=== PATIENT | male | born 1945 | race Caucasian/White ===

== ENCOUNTER 2016-10-31 11:58 | Inpatient (IN) ==
--- NOTE | 2016-10-31 12:45 | PROVIDER DOCUMENTATION ---
This chart was entered by Althea Merlos Scribe, acting as scribe for Deborah Macedo PA. HPI-General Adult <Brayan Glaser - Last Filed: 11/02/16 18:43> - General Source: EMS - History of Present Illness -Gen Adult Nature of Presenting Problems: Pt is 71 y/o M presents to the ED via EMS with AMS. EMS states Pt was found in chair by pet control. EMS states Pt does everything from chair. Pt states he lives alone and no one come to take care of him or to help him. Pt states the only pain he has in on his butt due to sore. Pt denies SOB or CP. Location of Pain/Injury: reports: other (buttocks) Pain Radiation: reports: no radiation Quality of Pain: reports: aching Severity: reports: mild Onset/Duration: reports: just prior to arrival Timing: reports: still present Context/Activities at Onset: reports: none Modifying Factors: improves with: nothing Associated Symptoms: reports: denies symptoms Similar Symptoms Previously?: Yes Recently seen or treated by another doctor?: No <Deborah Macedo - Last Filed: 11/02/16 19:31> - General Chief Complaint: Weakness Stated Complaint: weakness x 2 days lethargic Time Seen by Provider: 10/31/16 12:14 Allergies/Adverse Reactions: Patient Allergies Allergy/AdvReac Type Severity Reaction Status Date / Time No Known Allergies Allergy Verified 10/31/16 12:29 Home Medications: Home Medication List Medication Instructions Recorded Confirmed Last Taken Type NK [No Home Medications] 10/31/16 10/31/16 Unknown History Review of Systems - Adult - REVIEW OF SYSTEMS - ADULT Constitutional: reports: no symptoms reported Eyes: reports: no symptoms reported Ears, Nose, Mouth & Throat: reports: no symptoms reported Cardiovascular: reports: no symptoms reported Respiratory: reports: no symptoms reported Gastrointestinal: reports: no symptoms reported Genitourinary: reports: no symptoms reported Musculoskeletal: reports: no symptoms reported Integumentary: reports: no symptoms reported Neurological: reports: no symptoms reported Psychiatric: reports: no symptoms reported Endocrine: reports: no symptoms reported Hematologic/Lymphatic: reports: no symptoms reported Allergic/Immunologic: reports: no symptoms reported All Other Systems: Reviewed and Negative <Brayan Glaser - Last Filed: 11/02/16 18:43> - REVIEW OF SYSTEMS - ADULT Constitutional: reports: no symptoms reported Eyes: reports: no symptoms reported Ears, Nose, Mouth & Throat: reports: no symptoms reported Cardiovascular: reports: no symptoms reported Respiratory: reports: no symptoms reported Gastrointestinal: reports: no symptoms reported Genitourinary: reports: no symptoms reported Musculoskeletal: reports: no symptoms reported Integumentary: reports: skin sores/ulcer (to buttocks with pain). denies: hives , itching, rash Neurological: reports: other (AMS). denies: dizziness/vertigo, headache/ migraines, syncope Psychiatric: denies: anxiety, depression, suicidal thoughts Endocrine: reports: no symptoms reported Hematologic/Lymphatic: reports: no symptoms reported Allergic/Immunologic: reports: no symptoms reported All Other Systems: Reviewed and Negative <Deborah Macedo - Last Filed: 11/02/16 19:31> Past History - Adult - PAST MEDICAL HISTORY-ADULT Review of Records: reports: Nursing Assessment Review, Medications Reviewed <Brayan Glaser - Last Filed: 11/02/16 18:43> - PAST MEDICAL HISTORY-ADULT Review of Records: reports: Old Records Reviewed, Nursing Assessment Review, Medications Reviewed Major Childhood Illnesses: reports: denies history Cardiovascular: reports: denies history Respiratory: reports: denies history Gastrointestinal: reports: denies history Obstetrical/Gynecological: reports: denies history Genitourinary: reports: denies history Musculoskeletal: reports: denies history Neurological: reports: denies history Endocrine/Immune: reports: denies history Other Conditions: reports: denies history - PRIOR SURGERIES/PROCEDURES Surgical/Procedure History: reports: reviewed, not pertinent - IMMUNIZATION STATUS Childhood Immunizations: See Nurse Assessment Flu Vaccine: See Nurse Assessment - FAMILY HISTORY Family History: reviewed, not pertinent - SOCIAL HISTORY Smoking: quit greater than 1 year, cigarettes Substance Use: denies Living Situation: alone <Deborah Macedo - Last Filed: 11/02/16 19:31> Physical Exam-General - PHYSICAL EXAM-ADULT Initial Vital Signs Reviewed: Yes - CONSTITUTIONAL General Appearance: alert, mild distress, slow to respond, other (temporal wasting). negative: appears well (ill in appearance) - EYES Eyes: PERRL/EOMI, pink conjunctivae - HEAD, EARS, NOSE, MOUTH & THROAT HENMT: normocephalic/atraumatic, normal ENT inspection. negative: moist mucous membranes (dry) - NECK Neck: supple, normal inspection - RESPIRATORY Respiratory: chest non-tender, lungs clear, normal breath sounds - CARDIOVASCULAR Cardiovascular: normal peripheral pulses, tachycardia - GASTROINTESTINAL (ABDOMEN) Abdominal Exam: normal bowel sounds, non tender, soft - LYMPHATIC Lymphatic: no adenopathy - MUSCULOSKELETAL Back Exam: normal inspection, no CVA tenderness, no vertebral tenderness Extremity: normal range of motion, non-tender - SKIN Integumentary: normal color, normal turgor, warm/dry, decubitus (stage 2 to 3 ulcer on buttocks) - NEUROLOGIC Neurologic: grossly normal - PSYCHIATRIC Psych/Mental Status: normal mood/affect, oriented x 3 <Deborah Macedo - Last Filed: 11/02/16 19:31> Progress - PLAN OF CARE/RESULTS Progress/Plan/Lab Results: 10/31/16 14:50 Urine Culture - Final Urine,Catheterized Escherichia Coli Orders Category Date Time Status Admit Patient To Inpatient Status Routine AdmDCTranf 10/31/16 17:43 Ordered Cardiac Monitoring DIRECTED Care 10/31/16 12:18 Completed Finger Stick Blood Sugar (ED) DIRECTED Care 10/31/16 12:18 Completed Lacy Cath Insertion ORDERED Care 10/31/16 14:13 Completed Intake and Output As Ordered Q 8-HR ASSESS Care 10/31/16 15:52 Active Saline Loc NOW Care 10/31/16 12:18 Completed Vital Signs Order Q 4-HR ASSESS Care 10/31/16 15:52 Active Wound Care/ET Consult DIRECTED Cons 10/31/16 18:00 Ordered CHEST-PORTABLE [RAD] Stat Exams 10/31/16 12:18 Completed HEAD W/O CONTRAST [CT] Routine Exams 10/31/16 15:59 Completed THORAX/ABDOMEN/PELVIS W/O CONT [CT] Stat Exams 10/31/16 15:50 Completed A1C HGB W EST AVG GLUCOSE [CHEM] Routine Lab 10/31/16 19:09 Completed ALCOHOL BLOOD Stat Lab 10/31/16 12:49 Completed AMMONIA [CHEM] Routine Lab 10/31/16 19:09 Completed BLOOD CULTURE [BLDCUL] Stat Lab 10/31/16 15:11 Results CBC WITH DIFF [HEME] DAILY Lab 11/01/16 06:15 Completed CBC WITH DIFF [HEME] DAILY Lab 11/02/16 07:10 Completed CBC WITH ELECTRONIC DIFF [HEME] Stat Lab 10/31/16 12:49 Completed CK PROFILE [SP CHEM] Stat Lab 10/31/16 12:49 Completed COMPREHENSIVE METABOLIC PANEL [CHEM] Stat Lab 10/31/16 12:49 Completed D-DIMER [CHEM] Stat Lab 10/31/16 12:49 Completed FREE T4 Routine Lab 10/31/16 19:09 Completed LACTATE, PLASMA [CHEM] Stat Lab 10/31/16 15:00 Completed MAGNESIUM [CHEM] Routine Lab 10/31/16 19:09 Completed PROTIME WITH INR [COAG] Stat Lab 10/31/16 12:49 Completed PTT [COAG] Stat Lab 10/31/16 12:49 Completed RENAL PROFILE [CHEM] DAILY Lab 10/31/16 19:09 Completed SPUTUM CULTURE WITH GRAM STAIN [RM] Routine Lab 10/31/16 15:55 Uncollected TROPONIN T Stat Lab 10/31/16 12:49 Completed TSH Routine Lab 10/31/16 19:09 Completed URINALYSIS W/POSS RFLX CULT-1 [URINALYSIS] Stat Lab 10/31/16 14:50 Completed URINE CULTURE [RM] Routine Lab 10/31/16 14:50 Completed URINE DRUG SCREEN Stat Lab 10/31/16 14:50 Completed URINE MANUAL MICROSCOPIC [URINALYSIS] Stat Lab 10/31/16 14:50 Completed VITAMIN B12 Routine Lab 10/31/16 19:09 Completed VITAMIN D 25 HYDROXY Routine Lab 10/31/16 19:09 Completed 0.9% Sodium Chloride Inj [Ns] 1,000 ml Med 10/31/16 15:56 Active IV 100 mls/hr 0.9% Sodium Chloride Inj [Ns] 1,000 ml Med 10/31/16 14:02 Discontinued IV 200 mls/hr Albuterol 2.5MG/Ipratrop 0.5MG [Duoneb (A & A)] Med 10/31/16 19:30 Active 3 ml INH RTQ4H Azithromycin 500 mg/Ns [Zithromax 500 mg/Ns] Med 10/31/16 16:00 Active 500 mg in 250 ml IV Q24H CefTRIAXONE 1 GM/NS [Rocephin 1 gm/Ns] Med 10/31/16 13:52 Discontinued 1 gm in 50 ml IV NOW CefTRIAXONE 1 GM/NS [Rocephin 1 gm/Ns] Med 11/01/16 13:00 Discontinued 1 gm in 50 ml IV Q24H Diltiazem [Cardizem] Med 10/31/16 14:02 Discontinued 10 mg IV NOW ONE Pantoprazole [Protonix] Med 11/01/16 07:00 Active 40 mg IV Q24H Sodium Chloride 0.9% Med 10/31/16 16:00 Active 10 ml INJ DIRECTED Aerosol Treatments Routine Oth 10/31/16 15:57 Completed Aerosol Treatments Stat Oth 10/31/16 15:57 Completed Oxygen Device Routine Oth 10/31/16 15:55 Completed Pulse Oximetry Stat Oth 10/31/16 12:18 Completed Telemetry [OM.EQ] Routine Oth 10/31/16 15:57 Active EKG [EKG] Routine Ther 11/01/16 07:00 Completed EKG [EKG] Stat Ther 10/31/16 12:06 Draft Transfer/Admit Order [TRANSFER] Routine Transfer 10/31/16 17:44 Completed Result Diagrams: 11/02/16 07:10 11/02/16 07:10 <Brayan Glaser - Last Filed: 11/02/16 18:43> - PLAN OF CARE/RESULTS Progress/Plan/Lab Results: Orders Category Date Time Status Cardiac Monitoring DIRECTED Care 10/31/16 12:18 Active Finger Stick Blood Sugar (ED) DIRECTED Care 10/31/16 12:18 Active Saline Loc NOW Care 10/31/16 12:18 Active CHEST-PORTABLE [RAD] Stat Exams 10/31/16 12:18 Ordered ALCOHOL BLOOD Stat Lab 10/31/16 12:18 Uncollected CBC WITH ELECTRONIC DIFF [HEME] Stat Lab 10/31/16 12:18 Uncollected CK PROFILE [SP CHEM] Stat Lab 10/31/16 12:18 Uncollected COMPREHENSIVE METABOLIC PANEL [CHEM] Stat Lab 10/31/16 12:18 Uncollected LACTATE, PLASMA [CHEM] Stat Lab 10/31/16 12:18 Uncollected PROTIME WITH INR [COAG] Stat Lab 10/31/16 12:18 Uncollected PTT [COAG] Stat Lab 10/31/16 12:18 Uncollected TROPONIN T Stat Lab 10/31/16 12:18 Uncollected URINALYSIS W/POSS RFLX CULT-1 [URINALYSIS] Stat Lab 10/31/16 12:18 Uncollected URINE DRUG SCREEN Stat Lab 10/31/16 12:18 Uncollected Pulse Oximetry Stat Oth 10/31/16 12:18 Active EKG [EKG] Stat Ther 10/31/16 12:06 Ordered Result Diagrams: 11/02/16 07:10 11/02/16 07:10 - EKG 1 Time of EKG reading by physician:: 12:08 EKG Read and Signed by:: Reddy Gandara EKG Interpretation (*Must complete 3 of following elements*): Abnormal Rate: 131 Rhythm: sinus tachycardia Comments: nonspecific T wave abnormality - XRAY 1 XRAY Study: Chest Impression: Abnormal XRAY Interpretation: right effusion with atelectasis ([place]) - CHANGE OF SHIFT REPORT (ED Provider) Report Given and Care Transferred to:: Dr. Glaser Time of Transfer: 14:19 Items Pending: Labs Comment: Admit, stable <Deborah Macedo - Last Filed: 11/02/16 19:31> Departure - Departure Time of Disposition Decision: 22:16 Certified Medical Emergency: Emergent - Critical Care Note This patient required my direct & personal management of CC.: No <Brayan Glaser - Last Filed: 11/02/16 18:43> - Departure Time of Disposition Decision: 22:16 Certified Medical Emergency: Emergent - Critical Care Note This patient required my direct & personal management of CC.: No <Deborah Macedo - Last Filed: 11/02/16 19:31> - Departure DIAGNOSIS: Pneumonia Qualifiers: Pneumonia type: due to unspecified organism Laterality: right Lung location: lower lobe of lung Qualified Code(s): J18.1 - Lobar pneumonia, unspecified organism Disposition: ADMITTED INPATIENT 09 Condition: Stable Attestation - Physician/ OLAYINKA Attestation Patient care was provided by Advanced Practice Provider:: Yes Advanced Practice Provider:: Deborah Macedo Advanced Practice Provider documentation review:: The Mid-level provider documentation, treatment plan and medical decision making was reviewed by the physician who agrees with all treatment and medical decision making by the [facility]. The physician spent face to face time with patient:: Yes Advanced Practice Provider documentation review:: The physician spent face to face time with this patient and agrees with all MLP documentation, treatment, and medical decision making by the MLP. See provider notes for further information. <Deborah Macedo - Last Filed: 11/02/16 19:31> This chart was documented by the indicated scribe, (Althea Merlos Scribe) and accurately reflects the services I performed and decisions made by me, Deborah Macedo PA, as attested by the provider's signature.
--- NOTE | 2016-10-31 13:27 | EKG Report ---
Test Performed on : 10/31/2016 12:08:55 PM Test Reason : weakness Blood Pressure : / mmHG Vent. Rate : 131 BPM Atrial Rate : 131 BPM P-R Int : 128 ms QRS Dur : 066 ms QT Int : 376 ms P-R-T Axes : 000 027 264 degrees QTc Int : 555 ms Sinus tachycardia. Nonspecific T wave abnormality Abnormal ECG No previous ECGs available Unconfirmed Result
[2016-10-31 13:47] LABS: BASO% 0.2 % (0.0-0.8); HEMATOCRIT 34.7 % (42.0-52.0); HEMOGLOBIN 11.9 g/dL (14.0-18.0); IMM GRAN% 1.1 % (0.0-0.5); LYMPH# 1.22 X1000 (1.2-3.4); LYMPH% 6.8 % (20.5-51.1); MANUAL DIFF NEEDED? NO; MCH 30.7 PG (27-31); MCHC 34.3 g/dL (33-37); MCV 89.7 FL (81-99); MONO% 4.5 % (1.7-9.3); MPV 9.5 FL (7.4-10.4); NEUT% 87.4 % (42.2-75.2); PLT 166 X1000 (130-400); RBC 3.87 XMIL (4.7-6.1)
[2016-10-31 13:49] LABS: ALBUMIN 2.9 g/dL (3.5-5.0); CALCIUM 8.2 mg/dL (8.8-10.2); POTASSIUM 3.4 mmol/L (3.5-5.1); TOTAL BILIRUBIN 1.54 mg/dL (0.20-1.00); TOTAL PROTEIN 7.1 g/dL (6.3-8.3)
[2016-10-31] MEDS ORDERED: ROCEPHIN 1 GM/NS 1 GM/50 ML IVPB IV ONE (13:52)
[2016-10-31 13:54] LABS: INR 1.05; PROTIME 11.1 Seconds (9.2-11.7); PTT 25.9 Seconds (22.0-36.0)
[2016-10-31] MEDS ORDERED: CARDIZEM IV ONE (14:02)
[2016-10-31] MEDS ORDERED: NS 1,000 ML IV ONE (14:02)
[2016-10-31 15:20] LABS: URINE SOURCE CATH
[2016-10-31 15:37] LABS: BILIRUBIN URINE SMALL (NEGATIVE); BLOOD URINE MODERATE (NEGATIVE); COLOR ORANGE; GLUCOSE URINE NEGATIVE (NEGATIVE); LEUKOCYTES URINE LARGE (NEGATIVE); NITRITE URINE NEGATIVE (NEGATIVE); PH URINE 5.5; PROTEIN URINE 50 mg/dL (NEGATIVE); SP GRAVITY URINE 1.022; TURBIDITY URINE HAZY (CLEAR); UROBILINOGEN URINE 6 mg/dL (NORMAL)
--- NOTE | 2016-10-31 15:38 | Diag Imaging Result Document ---
PROCEDURE NAME: CHEST-PORTABLE - 10/31/2016 PORTABLE CHEST, TWO VIEWS: COMPARISON: No comparison films. FINDINGS: There is a [id number] sized right-sided effusion with basilar atelectasis. The left lung is well expanded and clear. The heart is not enlarged. The vessels are not distended. There are several old right rib fractures. IMPRESSION: Right pleural effusion with basilar atelectasis.
[2016-10-31 15:48] LABS: UR AMPHETAMINES QUAL NONE DETECTED (NONE DETECT); UR BARBITUATES QUAL NONE DETECTED (NONE DETECT); UR BENZODIAZEPIN QUAL NONE DETECTED (NONE DETECT); UR CANNABINOIDS QUAL NONE DETECTED (NONE DETECT); UR COCAINE QUAL NONE DETECTED (NONE DETECT); UR METHADONE QUAL NONE DETECTED (NONE DETECT); UR OPIATES QUAL NONE DETECTED (NONE DETECT); UR OXYCODONE QUAL NONE DETECTED (NONE DETECT); UR PCP QUAL NONE DETECTED (NONE DETECT)
--- NOTE | 2016-10-31 17:01 | Diag Imaging Result Document ---
PROCEDURE NAME: HEAD W/O CONTRAST - 10/31/2016 CT HEAD WITHOUT CONTRAST: FINDINGS: A dose reduction protocol was used. Compared with 11/22/2014. There are some generalized atrophic changes similar to the previous exam. There are moderate chronic microvascular ischemic changes which appear to have increased. There is no focal infarct identified, although acute infarcts may not be immediately visible. There is no evidence of hemorrhage mass effect, or midline shift. There is no skull fracture. IMPRESSION: Moderate atrophic changes and moderate chronic microvascular ischemic changes. No visible acute process. No hemorrhage or mass effect.
--- NOTE | 2016-10-31 17:19 | Diag Imaging Result Document ---
PROCEDURE NAME: THORAX/ABDOMEN/PELVIS W/O CONT - 10/31/2016 CT ABDOMEN AND PELVIS WITHOUT CONTRAST: FINDINGS: No contrast administered per request of the referring provider. A dose reduction protocol was used. No comparison exam. There are emphysematous changes. There is a medium right pleural effusion. There is a 6.2 x 3.2 cm in maximum axial dimensions opacity at the posterior inferior right lower lobe adjacent to the pleural fluid. This likely represents rounded atelectasis, although underlying consolidation/pneumonia within this cannot be excluded. There is minimal infiltrate or scarring at the posterior left lower lobe. There is no pneumothorax identified. There are nonspecific small mediastinal lymph nodes. There is an old fracture deformity of the posterior medial right 4th rib. There are no substantial abnormalities of the liver, spleen, or pancreas (other than mild pancreatic atrophic changes) identified. There is dense bile or sludge in the gallbladder. There are no densely calcified gallstones or pericholecystic inflammation identified. There is no evidence of renal stone or hydronephrosis. There are no substantially enlarged lymph nodes identified. There are atherosclerotic vascular calcifications noted. There is no evidence of bowel obstruction. There is possibly mild wall thickening along the right colon, there is no substantial inflammation of surrounding fat. The appendix shows no obvious inflammatory changes. There is no abscess identified. There is no free air or free fluid identified. Images of pelvis otherwise show some generalized thickening of the jennings of the urinary bladder with mildly hazy external margins. There are a couple of small gas bubbles in the urinary bladder lumen. These findings may relate to cystitis. There are a couple of small stones in the right posterior aspect of the urinary bladder lumen. There is apparent old fracture deformity of the left inferior pubic ramus noted. IMPRESSION: 1. Emphysematous changes. Medium right pleural effusion. Rounded atelectasis at posterior inferior right lower lobe. Underlying right lower lobe pneumonia is not excluded. 2. Dense bile or sludge in gallbladder. No densely calcified gallstones or pericholecystic inflammation seen. 3. Possible mild right colitis. No abscess. No free air. 4. Apparent urinary bladder cystitis. Small stones in the right posterior urinary bladder lumen.
[2016-10-31 17:28] LABS: URINE MICRO REVIEW NEEDED? YES
[2016-10-31 17:30] LABS: UR EPITHELIAL CELLS <10 /HPF (<10); URINE BACTERIA 3+ /HPF; URINE CULTURE NEEDED? YES; URINE RBC <10 /HPF (<10); URINE WBC TNTC /HPF (<10)
[2016-10-31 17:31] LABS: URINE CASTS NONE SEEN
[2016-10-31] MEDS: ZITHROMAX 500 MG/NS 500 MG/250 ML IVPB IV SCH (18:34)
[2016-10-31 19:36] LABS: ALBUMIN 2.3 g/dL (3.5-5.0); CALCIUM 7.5 mg/dL (8.8-10.2); HEMOGLOBIN A1C 5.2 % (4.8-6.0); POTASSIUM 3.2 mmol/L (3.5-5.1)
[2016-10-31] MEDS ORDERED: MAGNESIUM SULFATE 2 GM/S.W.I. 2 GM/50 ML IVPB IV ONE (19:55)
[2016-10-31 20:00] LABS: FREE T4 0.8 ng/dL (0.93-1.70)
[2016-10-31] MEDS: NS 1,000 ML IV SCH (22:29)
[2016-10-31] MEDS: LIBRIUM PO SCH (22:32)
--- NOTE | 2016-10-31 22:40 | HISTORY AND PHYSICAL ---
PRIMARY CARE PHYSICIAN: None. CHIEF COMPLAINT: Confusion and decreased mobility over several months. HISTORY OF PRESENT ILLNESS: Mr. Daniel is a 71-year-old male with a history of alcohol abuse and tobacco dependence, who was brought to the ER by family because the patient was noted to be confused and unable to walk by the pest control soumya. The patient was found by the geophysical data technician this morning sitting in a chair and unable to get up or get to the bathroom. The patient states that he has not been very hungry, and has lost a lot a weight over the last 8 months. The patient is unable to walk as per the patient's son. The patient does complain of soreness in his left buttocks, where there appears to be a small ulceration. The patient denies having any fever, but does complain of a productive cough, with white sputum. The patient reports that he does drink a pint of [place] whiskey every day, and he smokes a pack of cigarettes every day, and has been doing this since the age of 15. In the ER, the patient was noted to have a white count of 17,000, and was tachycardic, with a heart rate in the 120s. A chest x-ray was done that showed a right pleural effusion, as well as a right-sided pneumonia. PAST MEDICAL HISTORY: 1. Alcohol dependence. 2. Tobacco dependence. PAST SURGICAL HISTORY: None. FAMILY HISTORY: Noncontributory due to age. SOCIAL HISTORY: The patient currently lives alone at home. The patient smokes 1 pack of cigarettes a day, and has been doing this since the age of 15. The patient also drinks 1 pint of [place] Mist whiskey daily. ALLERGIES: No known drug allergies. HOME MEDICATIONS: None. REVIEW OF SYSTEMS: All other review of systems are negative. Please refer to the history of present illness for pertinent positives and negatives. PHYSICAL EXAMINATION: VITAL SIGNS: Temperature 98.2 degrees, blood pressure 130/73, heart rate 129, respiratory rate 18, O2 saturation 99% on room air. GENERAL: This is a chronically ill-appearing, elderly male, lying on the stretcher in no acute distress. SKIN: Poor skin turgor. The patient does have a skin tear on the left buttocks. HEAD: Normocephalic, atraumatic. NECK: Supple. No JVD. No lymphadenopathy. HEART: S1, S2 normal, tachycardic. LUNGS: Coarse breath sounds bilaterally. Equal area entry bilaterally. ABDOMEN: Positive bowel sounds. Soft, nontender, nondistended. EXTREMITIES: No edema. No cyanosis. No calf tenderness. NEUROLOGIC: The patient is alert and oriented x3. He is able to move all 4 extremities. LABORATORY STUDIES: White blood cell count 17.9, hemoglobin 11.9, hematocrit 34.7, platelets 166,000. Sodium 132 potassium 3.2, chloride 92, CO2 25, BUN 30, creatinine 1.2 , glucose 154. Calcium 7.5, magnesium 1.3. AST 14, ALT 7, alkaline phosphatase 66, ammonia 22. Troponin 0.05, albumin 2.3. Lactate 2.3. UA shows large leukocyte esterase, 3+ bacteria. Chest x-ray shows a right pleural effusion. CT of the chest, abdomen, and pelvis shows emphysema, right pleural effusion, right lower lobe pneumonia, possible right-sided colitis, and cystitis. ASSESSMENT AND PLAN: 1. Right lower lobe pneumonia, with a right pleural effusion. Will start the patient on IV antibiotic therapy, IV fluids, bronchodilator therapy, supplemental oxygen, and incentive spirometry. A sputum Gram stain culture has been ordered, as well as blood cultures. 2. Dehydration. We will start the patient on normal saline. 3. Severe protein calorie malnutrition. Will consult the dietitian and start the patient on Ensure in the meantime. 4. Leukocytosis. This is most likely secondary to underlying pneumonia and urinary tract infection. Continue on IV antibiotic therapy. 5. Urinary tract infection. IV antibiotics have been started. We will follow up on the urine culture results. 6. Hypomagnesemia. Will replace the patient's magnesium. 7. Hypokalemia. Will replace the patient's potassium. 8. Vitamin D deficiency. We will start the patient on vitamin D replacement. 9. Left buttock skin tear. Will consult wound care for further evaluation. 10. Alcohol abuse. We will start the patient on p.r.n. Ativan and monitor closely for withdrawal. Will also start Librium. 11. Tobacco dependence. We will start the patient on a NicoDerm patch. 12. Deep venous thrombosis prophylaxis. Will start the patient on Lovenox. 13. Gastrointestinal prophylaxis. Will start the patient on Protonix. The plan of care was discussed with the patient and his son at the bedside. cc: Lucy Albarran MD MTDD
[2016-10-31] MEDS: DUONEB (A & A) INH SCH ×2 (22:49)
[2016-10-31 23:10] LABS: URINE SOURCE CATH
[2016-10-31 23:13] LABS: BILIRUBIN URINE SMALL (NEGATIVE); BLOOD URINE MODERATE (NEGATIVE); COLOR ORANGE; GLUCOSE URINE NEGATIVE (NEGATIVE); LEUKOCYTES URINE LARGE (NEGATIVE); NITRITE URINE NEGATIVE (NEGATIVE); PH URINE 5.5; PROTEIN URINE 30 mg/dL (NEGATIVE); SP GRAVITY URINE 1.021; TURBIDITY URINE HAZY (CLEAR); UROBILINOGEN URINE 3 mg/dL (NORMAL)
[2016-10-31 23:17] LABS: UR EPITHELIAL CELLS <10 /HPF (<10); URINE BACTERIA NEGATIVE /HPF; URINE CULTURE NEEDED? YES; URINE MICRO REVIEW NEEDED? YES; URINE RBC 20-40 /HPF (<10); URINE WBC TNTC /HPF (<10)
[2016-10-31 23:24] LABS: URINE CASTS NONE SEEN; URINE CRYSTALS NONE SEEN; URINE SMALL ROUND CELLS NONE SEEN
[2016-11-01] MEDS: ZOSYN 3.375 GM/NS 3.375 GM/50 ML IVPB IV SCH ×4 (01:23→21:00)
[2016-11-01] MEDS: DUONEB (A & A) INH SCH (04:25)
[2016-11-01 06:28] LABS: MANUAL DIFF NEEDED? NO
[2016-11-01 06:46] LABS: BASO% 0.1 % (0.0-0.8); HEMATOCRIT 29.1 % (42.0-52.0); HEMOGLOBIN 9.8 g/dL (14.0-18.0); IMM GRAN# 0.13 X1000 (0.0-0.04); IMM GRAN% 0.9 % (0.0-0.5); LYMPH# 1.31 X1000 (1.2-3.4); LYMPH% 9.4 % (20.5-51.1); MCH 30.2 PG (27-31); MCHC 33.7 g/dL (33-37); MCV 89.8 FL (81-99); MONO# 0.83 X1000 (0.11-0.59); MONO% 5.9 % (1.7-9.3); MPV 9.6 FL (7.4-10.4); NEUT% 83.7 % (42.2-75.2); PLT 126 X1000 (130-400); RBC 3.24 XMIL (4.7-6.1)
[2016-11-01 07:07] LABS: AGAP 16; ALBUMIN 2.2 g/dL (3.5-5.0); BUN 30 mg/dL (8-22); CALCIUM 7.8 mg/dL (8.8-10.2); CHLORIDE 96 mmol/L (98-107); COSMO 280; POTASSIUM 3.2 mmol/L (3.5-5.1); SODIUM 137 mmol/L (136-145); TCO2 25 mmol/L (25-35)
--- NOTE | 2016-11-01 07:18 | EKG Report ---
Test Performed on : 11/01/2016 06:48:26 AM Test Reason : tachycardia Blood Pressure : / mmHG Vent. Rate : 099 BPM Atrial Rate : 099 BPM P-R Int : 138 ms QRS Dur : 078 ms QT Int : 378 ms P-R-T Axes : 043 009 055 degrees QTc Int : 485 ms Normal sinus rhythm. Prolonged QT Abnormal ECG When compared with ECG of 01-NOV-2016 06:48, (Unconfirmed) premature ventricular complexes. are no longer present Confirmed by Kristian ELLIS, Holland Santos ([id number]) on 11/01/2016 7:36:07 AM
[2016-11-01] MEDS ORDERED: KLOR-CON PO ONE ×2 (07:45→22:17)
[2016-11-01] MEDS: NS 1,000 ML IV SCH ×2 (10:46→14:04)
[2016-11-01] MEDS: VITAMIN D PO SCH (11:00)
[2016-11-01] MEDS: LOVENOX SUBQ SCH (11:00)
[2016-11-01] MEDS: NEUTRA-PHOS PO SCH ×4 (11:06→21:45)
[2016-11-01] MEDS: LIBRIUM PO SCH ×3 (11:08→19:28)
[2016-11-01] MEDS: PROTONIX IV SCH (11:15)
[2016-11-01] MEDS: MEGACE LIQUID PO SCH ×2 (12:14→21:41)
[2016-11-01] MEDS ORDERED: ROCEPHIN 1 GM/NS 1 GM/50 ML IVPB IV SCH (13:00)
[2016-11-01] MEDS ORDERED: IMODIUM PO PRN (13:58)
[2016-11-01] MEDS: ZITHROMAX 500 MG/NS 500 MG/250 ML IVPB IV SCH (19:27)
[2016-11-01] MEDS: VANCOCIN PO SCH (21:40)
[2016-11-01] MEDS: FLAGYL 500 MG/NS 500 MG/100 ML IVPB IV SCH (21:40)
--- NOTE | 2016-11-01 21:42 | PROGRESS NOTE ---
DATE: 11/01/2016 SUBJECTIVE: The patient is resting comfortably in bed. He has been having copious amounts of diarrhea and his stool for C. difficile came back positive today. OBJECTIVE: Vital Signs: Temperature 97.5 degrees, blood pressure 123/84. Heart rate 99, respirations 16, O2 saturations 100% on room air. General: This is an elderly, chronically ill- appearing male, lying in bed. Head: Normocephalic, atraumatic. Heart: S1, S2. Normal. Tachycardic. Lungs: Equal air entry bilaterally. Coarse breath sounds bilaterally. Abdomen: Positive bowel sounds. Soft, nontender, nondistended. Extremities: No edema. No cyanosis. No calf tenderness. Neurologic: The patient is awake and alert. LABORATORY: White blood cell count 13, hemoglobin 9.8, hematocrit 29, platelets 126,000. Sodium 137, potassium 3.2, chloride 96, CO2 25, BUN 30, creatinine 1.1, glucose 101, phosphorus 2.6, calcium 7.8, magnesium 2. Albumin 2.2. Positive for C. difficile toxin. ASSESSMENT AND PLAN: 1. Right lobe pneumonia. Continue on antibiotic therapy plus bronchodilator therapy. 2. C. difficile colitis. We will start the patient on Flagyl and vancomycin. We will also place the patient on contact isolation. We will also start the patient on lactobacillus. 3. Severe protein calorie malnutrition. We will start the patient on Megace. We will also consult the dietitian for dietary recommendations. 4. Alcohol abuse. Continue on Librium. We will also monitor the patient closely for signs of withdrawal. 5. Tobacco dependence. We will start the patient on a NicoDerm patch. 6. Vitamin D deficiency. Continue on vitamin D replacement. 7. Hypokalemia. We will replace the patient's potassium. 8. Deep vein thrombosis prophylaxis. Continue on Lovenox. 9. The plan of care was discussed with the patient's children and the patient at the bedside today. cc: Lucy Albarran MD
[2016-11-02] MEDS: VANCOCIN PO SCH ×4 (02:45→21:06)
[2016-11-02] MEDS: FLAGYL 500 MG/NS 500 MG/100 ML IVPB IV SCH ×3 (02:46→18:40)
[2016-11-02] MEDS: NS 1,000 ML IV SCH ×2 (02:46→08:28)
[2016-11-02] MEDS: ZOSYN 3.375 GM/NS 3.375 GM/50 ML IVPB IV SCH ×4 (02:46→21:07)
[2016-11-02] MEDS: PROTONIX IV SCH (06:27)
[2016-11-02 07:25] LABS: MANUAL DIFF NEEDED? NO
[2016-11-02 07:36] LABS: BASO% 0.2 % (0.0-0.8); EOS# 0.04 X1000 (0.0-0.7); EOS% 0.4 % (0.0-10.0); HEMATOCRIT 27.7 % (42.0-52.0); HEMOGLOBIN 9.2 g/dL (14.0-18.0); IMM GRAN# 0.16 X1000 (0.0-0.04); IMM GRAN% 1.7 % (0.0-0.5); LYMPH# 1.43 X1000 (1.2-3.4); LYMPH% 14.8 % (20.5-51.1); MCH 29.9 PG (27-31); MCHC 33.2 g/dL (33-37); MCV 89.9 FL (81-99); MONO# 0.56 X1000 (0.11-0.59); MONO% 5.8 % (1.7-9.3); MPV 9.6 FL (7.4-10.4); NEUT% 77.1 % (42.2-75.2); PLT 117 X1000 (130-400); RBC 3.08 XMIL (4.7-6.1)
[2016-11-02 08:05] LABS: AGAP 15; BUN 20 mg/dL (8-22); CHLORIDE 93 mmol/L (98-107); COSMO 267; POTASSIUM 3.5 mmol/L (3.5-5.1); SODIUM 131 mmol/L (136-145); TCO2 23 mmol/L (25-35)
[2016-11-02 08:12] LABS: CALCIUM 6.8 mg/dL (8.8-10.2)
[2016-11-02] MEDS: CULTURELLE PO SCH ×2 (08:28→21:06)
[2016-11-02] MEDS: LIBRIUM PO SCH ×3 (08:28→21:06)
[2016-11-02] MEDS: MEGACE LIQUID PO SCH ×2 (08:28→21:06)
[2016-11-02] MEDS: LOVENOX SUBQ SCH (11:05)
[2016-11-02] MEDS ORDERED: CALCIUM GLUCONATE 1 GM in NS 50 ML IV ONE (12:38)
--- NOTE | 2016-11-02 12:59 | PROGRESS NOTE ---
DATE: 11/02/2016 SUBJECTIVE: The patient is resting comfortably in bed. He is eating some of his breakfast however his appetite remains poor. OBJECTIVE: Vital Signs: Temperature is 98.3 degrees, blood pressure 123/89, heart rate 99, respirations 18, O2 saturations 97% on room air. General: This is an elderly chronically ill male lying in bed, in no acute distress. Head: Normocephalic atraumatic. Heart: S1, S2. Normal. Regular rate and rhythm. Lungs: Equal air entry bilaterally. No crackles. No rales. Abdomen: Positive bowel sounds. Soft, nontender, nondistended. Extremities: No edema. No cyanosis. No calf tenderness. Neurologic: The patient is alert and oriented x3. LABS: White blood cell count 9.6, hemoglobin 9.2, hematocrit 27, platelets 117,000. Sodium 131, potassium 3.5, chloride 93, CO2 23, BUN 20, creatinine 1, glucose 127. Calcium 6.8. ASSESSMENT AND PLAN: 1. Right lobe pneumonia. Continue on IV antibiotic therapy. 2. C. difficile colitis. Continue on vancomycin and Flagyl plus lactobacillus. 3. Urinary tract infection secondary to E. coli. Continue on the current antibiotic therapy. 4. Vitamin D deficiency. Continue on vitamin D replacement. 5. Tobacco dependence. Continue on the NicoDerm patch. 6. Severe protein calorie malnutrition. Continue on Megace plus dietary supplements. 7. Severe debility. Arrangements are being made for the patient to be sent to rehab once he is medically stable. 8. Hypocalcemia. Will replace the patient's calcium. 9. Alcohol abuse. Continue on Librium. 10. Deep vein thrombosis prophylaxis. Continue on Lovenox. cc: Lucy Albarran MD
[2016-11-02] MEDS: ZITHROMAX 500 MG/NS 500 MG/250 ML IVPB IV SCH (21:48)
[2016-11-03] MEDS: VANCOCIN PO SCH ×4 (02:33→21:38)
[2016-11-03] MEDS: ZOSYN 3.375 GM/NS 3.375 GM/50 ML IVPB IV SCH ×4 (02:33→21:38)
[2016-11-03] MEDS: NS 1,000 ML IV SCH ×2 (02:34→07:20)
[2016-11-03] MEDS: FLAGYL 500 MG/NS 500 MG/100 ML IVPB IV SCH ×3 (02:36→17:39)
[2016-11-03] MEDS: SODIUM CHLORIDE 0.9% INJ SCH (05:29)
[2016-11-03] MEDS: PROTONIX IV SCH ×2 (05:29→08:27)
[2016-11-03 07:10] LABS: HEMATOCRIT 27.7 % (42.0-52.0); HEMOGLOBIN 9.3 g/dL (14.0-18.0); MCH 30.3 PG (27-31); MCHC 33.6 g/dL (33-37); MCV 90.2 FL (81-99); MPV 9.4 FL (7.4-10.4); RBC 3.07 XMIL (4.7-6.1)
[2016-11-03 07:25] LABS: MAGNESIUM 1.2 mg/dL (1.5-2.7)
[2016-11-03 07:44] LABS: AGAP 12; BUN 12 mg/dL (8-22); CHLORIDE 95 mmol/L (98-107); COSMO 263; SODIUM 132 mmol/L (136-145); TCO2 25 mmol/L (25-35)
[2016-11-03] MEDS: MEGACE LIQUID PO SCH ×2 (08:28→21:37)
[2016-11-03] MEDS: CULTURELLE PO SCH ×2 (08:28→21:38)
[2016-11-03] MEDS: LIBRIUM PO SCH ×3 (08:29→17:39)
[2016-11-03] MEDS ORDERED: CALCIUM GLUCONATE 1 GM in NS 50 ML IV ONE (08:47)
[2016-11-03] MEDS ORDERED: MAGNESIUM SULFATE 2 GM/S.W.I. 2 GM/50 ML IVPB IV ONE (08:47)
[2016-11-03] MEDS ORDERED: POTASSIUM PHOSPHATE 40 MMOL in NS 250 ML IV ONE (08:47)
--- NOTE | 2016-11-03 12:35 | PROGRESS NOTE ---
DATE: 11/03/2016 SUBJECTIVE: The patient is resting in bed. He has no complaints. OBJECTIVE: Vital Signs: Temperature 97.5 degrees, blood pressure 137/82, heart rate 101, respirations 18, O2 saturation is 100% on room air. General: This is a chronically ill-appearing male, lying in bed, in no acute distress. Head: Normocephalic, atraumatic. Heart: S1, S2. Normal. Regular rate and rhythm. Lungs: Clear to auscultation bilaterally. No crackles. No rales. Abdomen: Positive bowel sounds. Soft, nontender, nondistended. Extremities: No edema. No cyanosis. No calf tenderness. Neurologic: The patient is alert and oriented x3. LABS: White blood cell count 6.6, hemoglobin 9.3, hematocrit 27, platelets 103, 000. Sodium 132, potassium 3, chloride 95, CO2 25, BUN 12, creatinine 0.9, glucose 83, calcium 7 , phosphorus 1.4, magnesium 1.2. ASSESSMENT AND PLAN: 1. Pneumonia. Continue on IV antibiotic therapy. 2. Urinary tract infection secondary to Escherichia coli. Continue on antibiotic therapy. 3. Clostridium difficile colitis. Continue on Flagyl and vancomycin. 4. Hypokalemia. Will replace the patient's potassium. 5. Hypophosphatemia. Will replace the patient's phosphorus. 6. Hypomagnesemia. Will replace the patient's magnesium. 7. Severe protein calorie malnutrition. Continue with nutritional supplements. 8. Vitamin D deficiency. Continue on vitamin D replacement. 9. Severe debility. Continue with physical therapy. 10. Deep vein thrombosis prophylaxis. Continue on Lovenox. 11. Disposition. Once the patient stops having loose stools he should be stable for transfer to rehab. Continue with physical therapy. cc: Lucy Albarran MD MTDD
[2016-11-04] MEDS: PROTONIX IV SCH ×2 (03:47→07:47)
[2016-11-04] MEDS: VANCOCIN PO SCH ×4 (03:47→22:28)
[2016-11-04] MEDS: SODIUM CHLORIDE 0.9% INJ SCH (03:47)
[2016-11-04] MEDS: ZOSYN 3.375 GM/NS 3.375 GM/50 ML IVPB IV SCH ×4 (03:47→22:07)
[2016-11-04 06:52] LABS: HEMATOCRIT 27.8 % (42.0-52.0); HEMOGLOBIN 9.6 g/dL (14.0-18.0); MCH 30.3 PG (27-31); MCHC 34.5 g/dL (33-37); MCV 87.7 FL (81-99); MPV 9.2 FL (7.4-10.4); RBC 3.17 XMIL (4.7-6.1)
[2016-11-04 07:11] LABS: MAGNESIUM 1.6 mg/dL (1.5-2.7)
[2016-11-04 07:16] LABS: AGAP 12; BUN 9 mg/dL (8-22); CALCIUM 7.2 mg/dL (8.8-10.2); CHLORIDE 97 mmol/L (98-107); COSMO 265; POTASSIUM 3.3 mmol/L (3.5-5.1); SODIUM 133 mmol/L (136-145); TCO2 24 mmol/L (25-35)
[2016-11-04] MEDS: CULTURELLE PO SCH ×2 (08:53→22:28)
[2016-11-04] MEDS: LIBRIUM PO SCH ×3 (08:53→17:04)
[2016-11-04] MEDS: MEGACE LIQUID PO SCH ×2 (08:53→22:28)
--- NOTE | 2016-11-04 08:57 | EKG Report ---
Test Performed on : 11/04/2016 08:40:09 AM Test Reason : Elevated HR Blood Pressure : / mmHG Vent. Rate : 127 BPM Atrial Rate : 127 BPM P-R Int : 116 ms QRS Dur : 064 ms QT Int : 328 ms P-R-T Axes : 067 014 052 degrees QTc Int : 476 ms Sinus tachycardia. with premature atrial complexes. Low voltage QRS Nonspecific T wave abnormality Abnormal ECG When compared with ECG of 01-NOV-2016 06:48, premature atrial complexes. are now present Nonspecific T wave abnormality now evident in Inferior leads Confirmed by Holland Townsend MD ([id number]) on 11/04/2016 9:05:18 AM
[2016-11-04] MEDS ORDERED: KLOR-CON PO ONE (09:34)
[2016-11-04] MEDS: TOPROL XL PO SCH (10:05)
[2016-11-04] MEDS: FLAGYL 500 MG/NS 500 MG/100 ML IVPB IV SCH (10:06)
[2016-11-04] MEDS ORDERED: MAGNESIUM SULFATE 2 GM/S.W.I. 2 GM/50 ML IVPB IV ONE (10:57)
[2016-11-04] MEDS ORDERED: CALCIUM GLUCONATE 1 GM in NS 50 ML IV ONE (11:33)
--- NOTE | 2016-11-04 15:37 | PROGRESS NOTE ---
DATE: 11/04/2016 SUBJECTIVE: The patient is sitting up in bed eating a biscuit. He is still having loose stools. OBJECTIVE: Vital Signs: Temperature 98.7, blood pressure 144/98, heart rate 108, respirations 20, O2 saturations 100% on room air. General: This is a chronically ill- appearing, elderly male, lying in bed, in no acute distress. Head: Normocephalic, atraumatic. Heart : S1, S2 normal. Regular rate and rhythm. Lungs: Equal air entry bilaterally. No crackles. No rales. Abdomen: Positive bowel sounds. Soft, nontender, nondistended. Extremities: No edema. No cyanosis. No calf tenderness. Neurologic: The patient is alert and oriented x3. LABS: White blood cell count 5.4, hemoglobin 9.6, hematocrit 27, platelets 103. Sodium 133, potassium 3.3, chloride 97, CO2 of 24, BUN 9, creatinine 0.9, glucose 99. Magnesium 1.6, phosphorus 3.4, calcium 7.2. ASSESSMENT AND PLAN: 1. Right lobe pneumonia. Continue on the current IV antibiotic regimen. 2. Urinary tract infection secondary to E. coli. Continue on antibiotic therapy. 3. Clostridium difficile colitis. Will switch to vancomycin only. This is day 3 of 14 days. 4. Hypokalemia. Will replace the patient's potassium. 5. Hypomagnesemia. Will replace the patient's magnesium. 6. Vitamin D deficiency. Continue on vitamin D replacement. 7. Severe debility. Continue with physical therapy. 8. Alcohol abuse. Continue on librium. 9. Tobacco dependence. Aware. 10. Deep vein thrombosis prophylaxis. Continue on Lovenox. DISPOSITION: The patient will be discharged to rehab. He is no longer having liquid stools. cc: Lucy Albarran MD MTDD
[2016-11-04] MEDS: NORVASC PO SCH (22:28)
[2016-11-05] MEDS: VANCOCIN PO SCH ×3 (02:19→17:50)
[2016-11-05] MEDS: ZOSYN 3.375 GM/NS 3.375 GM/50 ML IVPB IV SCH ×4 (02:19→22:34)
[2016-11-05] MEDS: SODIUM CHLORIDE 0.9% INJ SCH (06:31)
[2016-11-05] MEDS: PROTONIX IV SCH (06:31)
[2016-11-05 07:11] LABS: BASO% 0.7 % (0.0-0.8); EOS# 0.07 X1000 (0.0-0.7); EOS% 1.6 % (0.0-10.0); HEMATOCRIT 26.7 % (42.0-52.0); HEMOGLOBIN 9.1 g/dL (14.0-18.0); IMM GRAN# 0.14 X1000 (0.0-0.04); IMM GRAN% 3.2 % (0.0-0.5); LYMPH# 1.14 X1000 (1.2-3.4); MANUAL DIFF NEEDED? YES; MCH 29.9 PG (27-31); MCHC 34.1 g/dL (33-37); MCV 87.8 FL (81-99); MONO# 0.59 X1000 (0.11-0.59); MONO% 13.5 % (1.7-9.3); MPV 9.4 FL (7.4-10.4); PLT 98 X1000 (130-400); RBC 3.04 XMIL (4.7-6.1)
[2016-11-05 07:34] LABS: BANDS 2 % (0-1); EOS 2 % (1-10); LYMPHS 30 % (21-51); MONO 8 % (1-9)
[2016-11-05 07:40] LABS: AGAP 12; BUN 8 mg/dL (8-22); CALCIUM 7.4 mg/dL (8.8-10.2); CHLORIDE 101 mmol/L (98-107); COSMO 266; MAGNESIUM 1.8 mg/dL (1.5-2.7); SODIUM 134 mmol/L (136-145); TCO2 21 mmol/L (25-35)
[2016-11-05] MEDS: LIBRIUM PO SCH ×3 (09:31→22:35)
[2016-11-05] MEDS: CULTURELLE PO SCH ×2 (09:55→22:34)
[2016-11-05] MEDS: TOPROL XL PO SCH (09:55)
[2016-11-05] MEDS: NORVASC PO SCH ×2 (09:55→22:35)
[2016-11-05] MEDS: MEGACE LIQUID PO SCH ×2 (09:55→22:35)
[2016-11-05] MEDS ORDERED: SODIUM PHOSPHATE 40 MMOL in NS 250 ML IV ONE (11:00)
--- NOTE | 2016-11-05 12:25 | Diag Imaging Result Document ---
PROCEDURE NAME: CHEST-2 VIEWS - 11/05/2016 AP AND LATERAL RADIOGRAPH OF THE CHEST: COMPARISON: 10/31/2016. FINDINGS: Right basilar pleural effusion with adjacent atelectasis and/or infiltrate appears slightly worse than the previous study. The left lung remains clear. Cardiac silhouette is grossly unremarkable. IMPRESSION: Suggestion of slight increase in right pleural effusion with adjacent atelectasis and/or infiltrate.
--- NOTE | 2016-11-05 13:32 | PROGRESS NOTE ---
DATE: 11/05/2016 SUBJECTIVE: The patient is resting comfortably in bed. He has no complaints. He denies having any shortness of breath. The patient has only had one liquid stool. OBJECTIVE: Vital Signs: Temperature 98 degrees, blood pressure 145/92, heart rate 93, respirations 20, O2 saturations 100% on room air. General: This is an elderly male, lying in bed, in no acute distress. Head normocephalic, atraumatic. Heart: S1, S2. Normal. Regular rate and rhythm. Lungs: Clear to auscultation bilaterally. Abdomen: Positive bowel sounds. Soft, nontender, nondistended. Extremities: No edema. No cyanosis. Neurologic: The patient is awake and alert. LABORATORY DATA: White blood cell count 4.3, hemoglobin 9.1, hematocrit 26, platelets 98,000. Sodium 134, potassium 4, chloride 101, CO2 of 21. BUN 8, creatinine 0.9, glucose 92, phosphorus 2.5. ASSESSMENT AND PLAN: 1. Pneumonia. Continue on antibiotic therapy. 2. Clostridium difficile colitis. Continue on vancomycin. This is day of 14 days. 3. Vitamin D deficiency. Continue on vitamin D replacement. 4. Tobacco dependence, aware. 5. Alcohol abuse. Continue on Librium. 6. Severe debility. Continue with physical therapy. 7. Anemia of chronic disease. We will continue to monitor the patient's hemoglobin and hematocrit. DISPOSITION: The patient will be discharged to rehab once medically stable. Called left a voicemail with Brayan Daniel, the patient's son. cc: Lucy Albarran MD MTDD
[2016-11-05] MEDS: VANCOMYCIN ORAL SOLN PO SCH (22:35)
[2016-11-05 23:00] LABS: ALLEN TEST YES; BE -0.8 mmoll (-3.0-3.0); BLOOD TYPE ARTERIAL; DRAW SITE R RADIAL; METHB 1.7 % (0.0-1.5); O2(CT) 12.6 mL/dL (15.0-23.0); PCO2(98.6) 28 mmHg (35-45); PO2(98.6) 97 mmHg (60-100); SAMPLE BLOOD; SAO2 98.7 % (95.0-100.0); THB 9.2 g/dL (11.5-17.4)
[2016-11-05 23:01] LABS: MODALITY ROOM AIR
[2016-11-06] MEDS: VANCOMYCIN ORAL SOLN PO SCH ×4 (01:42→23:38)
[2016-11-06] MEDS: ZOSYN 3.375 GM/NS 3.375 GM/50 ML IVPB IV SCH ×4 (03:50→23:04)
[2016-11-06] MEDS: PROTONIX IV SCH (05:03)
[2016-11-06 07:15] LABS: MANUAL DIFF NEEDED? NO
[2016-11-06 07:21] LABS: BASO% 0.7 % (0.0-0.8); EOS# 0.05 X1000 (0.0-0.7); EOS% 1.1 % (0.0-10.0); HEMOGLOBIN 9.2 g/dL (14.0-18.0); IMM GRAN# 0.07 X1000 (0.0-0.04); IMM GRAN% 1.6 % (0.0-0.5); LYMPH# 0.85 X1000 (1.2-3.4); LYMPH% 19.1 % (20.5-51.1); MCH 29.9 PG (27-31); MCHC 34.1 g/dL (33-37); MCV 87.7 FL (81-99); MONO# 0.48 X1000 (0.11-0.59); MONO% 10.8 % (1.7-9.3); MPV 9.3 FL (7.4-10.4); NEUT% 66.7 % (42.2-75.2); PLT 113 X1000 (130-400); RBC 3.08 XMIL (4.7-6.1)
[2016-11-06 07:53] LABS: AGAP 12; BUN 8 mg/dL (8-22); CALCIUM 7.6 mg/dL (8.8-10.2); CHLORIDE 102 mmol/L (98-107); COSMO 266; IRON SATURATION 33 %; POTASSIUM 3.8 mmol/L (3.5-5.1); SODIUM 134 mmol/L (136-145); TCO2 20 mmol/L (25-35); TIBC 94 ug/dL; TOTAL IRON 31 ug/dL (53-167); UNBOUND IRON 63 ug/dL (112-346)
[2016-11-06 08:08] LABS: FERRITIN 1007 ng/mL (30-400)
[2016-11-06] MEDS: NORVASC PO SCH ×2 (09:09→23:03)
[2016-11-06] MEDS: CULTURELLE PO SCH ×2 (09:09→23:03)
[2016-11-06] MEDS: TOPROL XL PO SCH (09:09)
[2016-11-06] MEDS: MEGACE LIQUID PO SCH ×2 (09:09→23:03)
[2016-11-06] MEDS: LIBRIUM PO SCH ×2 (09:13→13:44)
[2016-11-06] MEDS: FOLIC ACID PO SCH (09:53)
--- NOTE | 2016-11-06 14:44 | Diag Imaging Result Document ---
PROCEDURE NAME: HEAD W/O CONTRAST - 11/06/2016 CT HEAD WITHOUT CONTRAST: COMPARISON: 10/31/2016. FINDINGS: There is extensive low attenuation in the periventricular and subcortical white matter bilaterally that is stable, consistent with advanced microangiopathy. There is no definite acute infarct given the limited sensitivity of CT versus MRI. There is no discrete intracranial mass, mass effect, or intracranial hemorrhage. There is stable brain atrophy. Surrounding soft tissues and bony structures are essentially unremarkable. 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 Please correlate clinically. [facility]
--- NOTE | 2016-11-06 15:41 | PROGRESS NOTE ---
DATE: 11/06/2016 SUBJECTIVE: The patient is resting comfortably in bed. He has been refusing to take his oral medications as per the nursing staff. OBJECTIVE: Vital Signs: Temperature 98 degrees, blood pressure 165/95, heart rate 100, respirations 14, O2 saturations 98% on room air. General: This is a chronically ill-appearing elderly male, lying in bed in no acute distress. Head: Normocephalic, atraumatic. Heart: S1, S2 normal, tachycardic. Lungs: Clear to auscultation bilaterally. No crackles. No rales. Abdomen: Positive bowel sounds. Soft, nontender, nondistended. Extremities: No edema. No cyanosis. The patient does have a 2+ edema involving the left arm. Neurologic : The patient is awake and alert. LABS: White blood cell count 4.4, hemoglobin 9.2, hematocrit 27, platelets 113, 000. Sodium 134, potassium 3.8, chloride 102, CO2 20, BUN 8, creatinine 1, glucose 92, calcium 7.6, iron 31, ferritin 1007, folate 4.1, vitamin B12 417. ASSESSMENT AND PLAN: 1. Pneumonia. Continue on IV antibiotic therapy plus bronchodilator therapy. 2. Clostridium difficile colitis. Continue on oral vancomycin. This is day 5 of 14 days. 3. Severe protein calorie malnutrition. The patient has not been eating well. Continue on dietary supplements. 4. Vitamin D deficiency. Continue on vitamin D replacement. 5. Thrombocytopenia. Improved. 6. Severe debility. Continue with physical therapy. 7. Alcohol abuse. Aware. 8. Anemia. The hemoglobin and hematocrit are stable. 9. Folate deficiency. Will start the patient on folic acid. 10.Generalized weakness. MRI of the brain and lumbar spine to be done tomorrow. 11. Disposition. The patient will be discharged to rehab once he is stable. The patient's son was updated on the patient's medical condition. cc: Lucy Albarran MD MTDD
[2016-11-06] MEDS: COREG PO SCH ×2 (23:03→23:39)
[2016-11-07] MEDS: CULTURELLE PO SCH ×3 (00:11→22:36)
[2016-11-07] MEDS: MEGACE LIQUID PO SCH ×3 (00:12→22:36)
[2016-11-07] MEDS: NORVASC PO SCH ×3 (00:13→22:37)
[2016-11-07] MEDS: CALMOSEPTINE OINTMENT TOP PRN (02:00)
[2016-11-07] MEDS: VANCOMYCIN ORAL SOLN PO SCH ×4 (02:00→22:35)
[2016-11-07] MEDS: ZOSYN 3.375 GM/NS 3.375 GM/50 ML IVPB IV SCH ×4 (04:33→22:24)
[2016-11-07] MEDS: MYCOSTATIN SUSP PO SCH ×5 (04:34→22:37)
[2016-11-07] MEDS: SODIUM CHLORIDE 0.9% INJ SCH (05:45)
[2016-11-07] MEDS: PROTONIX IV SCH (05:45)
[2016-11-07 07:30] LABS: MANUAL DIFF NEEDED? NO
[2016-11-07 07:40] LABS: BASO% 0.5 % (0.0-0.8); EOS# 0.04 X1000 (0.0-0.7); HEMATOCRIT 25.4 % (42.0-52.0); HEMOGLOBIN 8.4 g/dL (14.0-18.0); IMM GRAN# 0.06 X1000 (0.0-0.04); IMM GRAN% 1.4 % (0.0-0.5); LYMPH# 1.08 X1000 (1.2-3.4); LYMPH% 25.7 % (20.5-51.1); MCHC 33.1 g/dL (33-37); MCV 87.6 FL (81-99); MONO# 0.59 X1000 (0.11-0.59); NEUT% 57.4 % (42.2-75.2); PLT 102 X1000 (130-400)
[2016-11-07 07:50] LABS: AGAP 9; BUN 7 mg/dL (8-22); CALCIUM 7.7 mg/dL (8.8-10.2); CHLORIDE 100 mmol/L (98-107); COSMO 262; POTASSIUM 3.5 mmol/L (3.5-5.1); SODIUM 132 mmol/L (136-145); TCO2 23 mmol/L (25-35)
[2016-11-07 07:53] LABS: MAGNESIUM 1.6 mg/dL (1.5-2.7)
[2016-11-07] MEDS: TOPROL XL PO SCH (08:54)
[2016-11-07] MEDS: FOLIC ACID PO SCH (08:54)
[2016-11-07] MEDS: COREG PO SCH ×2 (08:54→22:35)
--- NOTE | 2016-11-07 09:14 | Diag Imaging Result Document ---
PROCEDURE NAME: CHEST-PORTABLE - 11/07/2016 PORTABLE CHEST X-RAY, 11/07/2016: COMPARISON: 11/05/2016. FINDINGS: Stable small to moderate right pleural effusion. No significant infiltrates. Heart size and pulmonary vascularity remain normal. IMPRESSION: Stable right pleural effusion. No change from prior.
[2016-11-07] MEDS: DUONEB (A & A) INH SCH ×5 (11:56→23:40)
[2016-11-07] MEDS: CLINIMIX E 4.25%-5% SOLUTION 1,000 ML IV SCH (14:55)
[2016-11-07 15:01] LABS: ALLEN TEST YES; BE 0.7 mmoll (-3.0-3.0); BLOOD TYPE ARTERIAL; DRAW SITE R RADIAL; METHB 1.5 % (0.0-1.5); O2(CT) 13.9 mL/dL (15.0-23.0); PCO2(98.6) 29 mmHg (35-45); PO2(98.6) 72 mmHg (60-100); SAMPLE BLOOD; SAO2 97.5 % (95.0-100.0); THB 10.4 g/dL (11.5-17.4); pH(98.6) 7.51 (7.35-7.45)
[2016-11-07 15:02] LABS: MODALITY ROOM AIR
--- NOTE | 2016-11-07 16:21 | PROGRESS NOTE ---
DATE: 11/07/2016 SUBJECTIVE: The patient has no focal complaints but he is pretty altered. He will respond but he kind of groans. He does not focus with his eyes. I do not know. It seems like this has been about the same mental status he has been for the last several days. Family reports before he came to the hospital, and I am not sure how I think remotely in the past he has been more alert but I think he has being getting progressively less alert even before he came to the hospital. OBJECTIVE: Blood pressure 144/88, heart rate of 82, respiratory rate 14, temperature 98.1 degrees. Cardiovascular: Regular rate and rhythm. Pulmonary: Bilateral breath sounds. Clear to auscultation. GI: Soft, nontender, nondistended. Bowel sounds are positive. LABORATORY DATA: White count 4. Hemoglobin and hematocrit of 8 and 25, platelets 102,000. CBC was basic except for a sodium of 132. PROBLEM LIST: 1. Acute encephalopathy. I do not really know what the etiology is. MRI has been ordered for today which I agree with. If that is unrevealing, I think he will need a neurology consultation. Again, his degree of hyponatremia is underwhelming for his degree of confusion and I do not think that was going on. We will check. His folate level is deficient, so we will supplement that. I do not know how well he has been absorbing foods, and he looks like he has got a chronically debilitating process. Problem List - he is doing okay. 2. Clostridium difficile colitis. He is on vancomycin. 3. Hypertension appears to be stable. DISPOSITION: Pending his above workup. I think he probably will need some long-term care or short-term care rehab if required. cc: Jeff Hernandez MD
--- NOTE | 2016-11-07 17:02 | Diag Imaging Result Document ---
PROCEDURE NAME: MRI BRAIN W/O CONTRAST - 11/07/2016 MRI OF THE BRAIN: FINDINGS: There is extensive T2 hyperintensity throughout the white matter of both hemispheres. This is associated with decreased signal intensity on the T1-weighted images indicating chronic encephalomalacia change. There is a small focus of restricted diffusion in the subcortical white matter of the right parietal lobe. No evidence of bleed or abnormal extra-axial fluid collection is present. IMPRESSION: Chronic microvascular white matter changes. Small acute or subacute lacunar infarction in the right parietal white matter. There may be a second small lacune present more caudally on the right on image 18 of the diffusion-weighted images.
--- NOTE | 2016-11-07 17:13 | Diag Imaging Result Document ---
PROCEDURE NAME: MRI LUMBAR SPINE W/O CONTRAST - 11/07/2016 MRI OF THE LUMBAR SPINE: FINDINGS: There is narrowing of the L5-S1 disk space. There is no evidence of intrathecal mass or signal abnormality. At the L1-2 level, there is no spinal or foraminal stenosis. At L2-3, there is no spinal or foraminal stenosis. At L3-4, there is mild disk bulge without spinal or foraminal stenosis. At L4-5, there is disk bulge and slight hypertrophic change in the ligamentum flavum. The foramina appear to be patent and there is no significant spinal stenosis. There is disk bulge generally at the L5-S1 level. The foramina appear to be patent and there is no evidence of significant spinal stenosis. IMPRESSION: Degenerative disk disease particularly at L5-S1.
--- NOTE | 2016-11-07 17:34 | Extremity Venous Study ---
PROCEDURE NAME: Venous U/S Left Arm - 11/06/2016 INDICATION: The patient has left arm edema. FINDINGS: The left upper extremity is imaged. The subclavian, axillary, internal jugular, brachial basilic, cephalic veins are imaged. All are compressible. The right subclavian vein is imaged for comparison purposes. INTERPRETATION: No evidence of deep or superficial venous thrombosis in the left upper extremity veins identified. cc: MD Lucy Canales MD
[2016-11-08] MEDS: CLINIMIX E 4.25%-5% SOLUTION 1,000 ML IV SCH (01:57)
[2016-11-08] MEDS: VANCOMYCIN ORAL SOLN PO SCH ×4 (02:12→22:05)
[2016-11-08] MEDS: DUONEB (A & A) INH SCH ×6 (03:20→23:08)
[2016-11-08] MEDS: ZOSYN 3.375 GM/NS 3.375 GM/50 ML IVPB IV SCH ×4 (04:15→22:08)
[2016-11-08] MEDS: PROTONIX IV SCH (05:38)
[2016-11-08] MEDS: SODIUM CHLORIDE 0.9% INJ SCH (05:38)
[2016-11-08 06:34] LABS: MANUAL DIFF NEEDED? NO
[2016-11-08 06:39] LABS: BASO% 0.2 % (0.0-0.8); EOS# 0.03 X1000 (0.0-0.7); EOS% 0.7 % (0.0-10.0); HEMATOCRIT 24.7 % (42.0-52.0); HEMOGLOBIN 8.3 g/dL (14.0-18.0); IMM GRAN# 0.04 X1000 (0.0-0.04); IMM GRAN% 0.9 % (0.0-0.5); LYMPH# 1.19 X1000 (1.2-3.4); LYMPH% 26.6 % (20.5-51.1); MCH 29.5 PG (27-31); MCHC 33.6 g/dL (33-37); MCV 87.9 FL (81-99); MONO# 0.52 X1000 (0.11-0.59); MONO% 11.6 % (1.7-9.3); MPV 8.8 FL (7.4-10.4); PLT 109 X1000 (130-400); RBC 2.81 XMIL (4.7-6.1)
[2016-11-08 07:10] LABS: AGAP 8; ALBUMIN 2.1 g/dL (3.5-5.0); ALKALINE PHOSPHATASE 62 U/L (32-122); BUN 14 mg/dL (8-22); CALCIUM 7.7 mg/dL (8.8-10.2); CHLORIDE 98 mmol/L (98-107); COSMO 261; GOT 10 U/L (10-34); GPT 7 U/L (10-44); SODIUM 129 mmol/L (136-145); TCO2 23 mmol/L (25-35); TOTAL PROTEIN 5.6 g/dL (6.3-8.3)
[2016-11-08] MEDS ORDERED: CLINIMIX E 4.25%-5% SOLUTION 1,000 ML IV SCH (08:58)
[2016-11-08] MEDS: TOPROL XL PO SCH (10:06)
[2016-11-08] MEDS: CULTURELLE PO SCH ×2 (10:06→22:07)
[2016-11-08] MEDS: VITAMIN D PO SCH (10:06)
[2016-11-08] MEDS: MEGACE LIQUID PO SCH ×2 (10:06→22:08)
[2016-11-08] MEDS: COREG PO SCH ×2 (10:07→22:07)
[2016-11-08] MEDS: NS 1,000 ML IV SCH ×2 (10:07→22:12)
[2016-11-08] MEDS: NORVASC PO SCH ×2 (10:07→22:07)
[2016-11-08] MEDS: FOLIC ACID 1 MG in NS 50 ML IV SCH (10:07)
[2016-11-08] MEDS: MYCOSTATIN SUSP PO SCH ×4 (10:07→22:08)
[2016-11-08] MEDS: CALMOSEPTINE OINTMENT TOP PRN (10:08)
--- NOTE | 2016-11-08 14:48 | PROGRESS NOTE ---
DATE: 11/08/2016 SUBJECTIVE: The patient has no focal complaints. OBJECTIVE: Vital Signs: Blood pressure 160/94, heart rate of 97, respiratory rate of 20, temperature 97.8 degrees. Cardiovascular: Regular rate and rhythm. Pulmonary: Bilateral breath sounds. Clear to auscultation. GI: Soft, nontender, nondistended. Bowel sounds are positive. Extremity exam: No clubbing or cyanosis. Lymphatic exam: No peripheral edema. Neurological exam: Nonfocal. He is a little bit more alert, attentive today, although barely answers questions, but he does track with his eyes. LABORATORY DATA: White count 4.4, hemoglobin and hematocrit 8 and 24, platelets 109. Sedimentation rate 90. Sodium 129. PROBLEM LIST: 1. Encephalopathy likely multifactorial. We will continue to monitor. He has had apparently a small stroke, possibly multiple strokes, possibly an embolic process. I am going to get a neurologic opinion. The area is such a small area of involvement, I find it difficult to attribute his change in mental status to that small area, but without other etiology we may end up having to consider that he is hyponatremic, and we will adjust that and follow. 2. Hyponatremia, syndrome of inappropriate antidiuretic hormone pattern. We will initiate normal saline and then consider Samsca once he is stabilized. 3. Clostridium difficile colitis. He is currently on vancomycin orally day four. 4. Reported pneumonia. We had a chest x-ray which showed a small to moderate right pleural effusion, no other pathology, so we will continue to monitor. Currently not on any antibiotics for that specifically. 5. Severe protein-calorie malnutrition. We will continue supplementation, hyperalimentation as tolerated. He is on an appetite stimulant. DISPOSITION: Plan is still for rehabilitation, however patient is still not responding and how well he will participate in rehabilitation at this point, so we will continue to follow and may have to consider it hospice care, palliative care if clinically not improved. cc: Jeff Hernandez MD
[2016-11-08] MEDS: ASPIRIN EC PO SCH (15:21)
[2016-11-09] MEDS: VANCOMYCIN ORAL SOLN PO SCH ×4 (02:49→20:43)
[2016-11-09] MEDS: DUONEB (A & A) INH SCH ×6 (03:06→22:33)
[2016-11-09] MEDS: ZOSYN 3.375 GM/NS 3.375 GM/50 ML IVPB IV SCH ×3 (04:20→20:44)
[2016-11-09] MEDS: PROTONIX IV SCH ×2 (05:34→20:43)
[2016-11-09] MEDS: SODIUM CHLORIDE 0.9% INJ SCH ×2 (05:34→20:43)
[2016-11-09 06:12] LABS: MANUAL DIFF NEEDED? NO
[2016-11-09 06:21] LABS: BASO% 0.5 % (0.0-0.8); EOS# 0.03 X1000 (0.0-0.7); EOS% 0.7 % (0.0-10.0); HEMATOCRIT 23.2 % (42.0-52.0); HEMOGLOBIN 7.8 g/dL (14.0-18.0); IMM GRAN# 0.02 X1000 (0.0-0.04); IMM GRAN% 0.5 % (0.0-0.5); LYMPH# 1.35 X1000 (1.2-3.4); LYMPH% 31.9 % (20.5-51.1); MCH 29.4 PG (27-31); MCHC 33.6 g/dL (33-37); MCV 87.5 FL (81-99); MONO% 11.8 % (1.7-9.3); MPV 9.6 FL (7.4-10.4); NEUT% 54.6 % (42.2-75.2); PLT 98 X1000 (130-400); RBC 2.65 XMIL (4.7-6.1)
[2016-11-09 06:25] LABS: AGAP 9; BUN 18 mg/dL (8-22); CALCIUM 7.5 mg/dL (8.8-10.2); CHLORIDE 98 mmol/L (98-107); COSMO 263; POTASSIUM 3.6 mmol/L (3.5-5.1); SODIUM 130 mmol/L (136-145); TCO2 23 mmol/L (25-35)
[2016-11-09] MEDS: ASPIRIN EC PO SCH (10:08)
[2016-11-09] MEDS: TOPROL XL PO SCH (10:08)
[2016-11-09] MEDS: MEGACE LIQUID PO SCH ×2 (10:09→20:43)
[2016-11-09] MEDS: COREG PO SCH ×2 (10:09→20:44)
[2016-11-09] MEDS: FOLIC ACID 1 MG in NS 50 ML IV SCH (10:09)
[2016-11-09] MEDS: CULTURELLE PO SCH ×2 (10:09→20:43)
[2016-11-09] MEDS: NORVASC PO SCH ×2 (10:09→20:43)
[2016-11-09] MEDS: MYCOSTATIN SUSP PO SCH ×4 (10:09→20:45)
[2016-11-09] MEDS: NS 1,000 ML IV SCH (13:09)
--- NOTE | 2016-11-09 14:13 | PROGRESS NOTE ---
DATE: 11/09/2016 OBJECTIVE: Vital Signs: Blood pressure 139/81, heart rate of 113, respiratory rate 20, temperature 98.2 degrees. Cardiovascular: Regular rate and rhythm. Pulmonary: Bilateral breath sounds. Clear to auscultation. GI: Soft, nontender, nondistended. Bowel sounds are positive. LABORATORY DATA: Sodium is up to 130, calcium 7.5, CRP 17. Hemoglobin and hematocrit 7.8 and 23.2. White count of 4. Platelets of 98,000. PROBLEM LIST: 1. Clostridium difficile colitis, which may explain his heme-positive stools. He is on vancomycin. He seems to be doing better. 2. Encephalopathy. Overall, he is steadily improving. I am not sure if this is related to hydration or just resolution to metabolic issues, but his mental status is definitely improved. He is not eating a whole bunch but that may be related to other issues, which is the next number. 3. Possible lower gastrointestinal bleed, which again may be just related to clostridium difficile colitis; however, his hemoglobin and hematocrit is steadily decreasing so we will continue to follow. 4. Hyponatremia. Appears to be doing a little bit better. I am going to give him a low dose Samsca and follow clinically. 5. Reported pneumonia. He had completed antibiotic therapy for that. 6. Severe protein-calorie malnutrition. We will continue supplementation and follow. DISPOSITION: Plan is probably at this point, since he seems to be doing better, inpatient rehab once he is stabilized. cc: Jeff Hernandez MD
--- NOTE | 2016-11-09 19:03 | Carotid Study ---
DATE: 11/08/2016 PROCEDURE: Bilateral duplex and color-flow imaging of the carotid arteries performed using a [employer] V[employer] E9 ultrasound system with a 9L-D transducer. REFERRING PHYSICIAN: Dr. Hernandez TECH: Lupe Moser RVT INDICATIONS: CVA--stroke, ICD-10 163.50. OBSERVED DATA RIGHT LEFT Brachial Blood Pressure Carotid Pulse Bruits: Carotid/Sub DIAGRAM OF ULTRASOUND IMAGING R L RIGHT INT EXT INT EXT LEFT Martin (cm/s) Martin (cm/s) Subclavian 63/0 Subclavian 51/0 CCA Proximal 65/13 CCA Proximal 79/20 CCA Distal 73/18 CCA Distal 59/14 Bulb 61/13 Bulb 61/16 ICA Proximal 55/10 ICA Proximal 41/13 ICA Mid 50/15 ICA Mid 44/14 ICA Distal 57/15 ICA Distal 67/22 ECA 48/12 ECA 60/15 Vertebral Forward flow, 31/8 Vertebral Forward flow, 27/6 ICA/CCA Ratio 0.77 ICA/CCA Ratio 0.84 % Stenosis 0 to 39% % Stenosis 0 to 39% INTERPRETATION: Mild atherosclerotic disease of the distal common and internal carotid arteries bilaterally without evidence of a hemodynamically significant lesion in either carotid system. cc: MD Jeff Ledesma MD
--- NOTE | 2016-11-09 20:02 | ECHO REPORT ---
ORDER DATE: 11/09/2016 INTERPRETING PHYSICIAN: Dr. Dubose REQUESTING PHYSICIAN: CLINICAL INDICATIONS: A 71-year-old male with stroke, alcoholic. M-MODE MEASUREMENTS: Right ventricle: 2.5 cm. Left ventricle end diastole: 2.1 cm. Left ventricle end systole: 1.4 cm. Posterior wall: 1.4 cm. Interventricular septum: 1.4 cm. Left atrium: 3.2 cm. Aortic root: 2.4 cm. SUMMARY OF 2-DIMENSIONAL IMAGING: This study is technically very limited. The best windows are some of the apical views. The left ventricular function appears to be normal. Ejection fraction estimated at 65%. No wall motion abnormality appears to be present. The right ventricle is grossly unremarkable. The mitral valve looks normal. Color flow mapping unremarkable. Pulse wave Doppler of mitral inflow is normal. Tissue Doppler of septal and lateral mitral annulus averages 7 cm per second. There is no diastolic dysfunction. The aortic valve appears to be grossly normal. Color flow mapping unremarkable. The tricuspid valve was suboptimally evaluated. Color flow mapping unremarkable. The inferior vena cava is not dilated. The pulmonic valve looks grossly normal. There is no pericardial effusion, masses or thrombi. Clinical correlation recommended. cc: MD Jeff Burnette MD
--- NOTE | 2016-11-10 01:05 | CONSULTATION ---
DATE OF CONSULTATION: 11/09/2016 REFERRING PHYSICIAN: Dr. Darinel Hernandez M.D. INDICATION FOR CONSULTATION: 1. Anemia. 2. C. difficile colitis. HISTORY OF PRESENT ILLNESS: The patient is a 71-year-old white male, who is admitted for evaluation of confusion, and decreased mobility over several months. He was noted to have a profound weight loss. He has a history of alcohol abuse and tobacco dependence , according to the chart. He was found by his data acquisition technician on the day of admission, sitting in a chair and unable to get up. The patient reports that he has had significant weight loss over the last 6 to 8 months. He describes diarrhea and failure to thrive. He was somewhat agitated during the history, which limited our exam. According to the chart, he has a son and a daughter. However, he lives alone. He drinks about a pint of Slovak mist whiskey per day. He smokes 1 pack of cigarettes, and he has apparently consumed alcohol and used tobacco since his teenage years, at age 15 years of age. Because of his weight loss, anemia and C. difficile colitis, we are asked to participate in his care. PAST MEDICAL HISTORY: 1. Alcohol dependence. 2. Tobacco dependence. PAST SURGICAL HISTORY: None. FAMILY HISTORY: Difficult to obtain. The patient was reluctant to answer questions, and became agitated with multiple questions. SOCIAL HISTORY: The patient lives alone. He only lights up when he discusses his dog, which is cocker Spaniel. He has a son and a daughter. He states that he has his children but lives alone. He smokes 1 pack per day of cigarettes since the age of 15 years of age. He is currently 71, giving him a 56 year tobacco history. He drinks 1 pint per day of Slovak mist whiskey. He denies recreational drug use. MEDICATION ALLERGIES: None. HOME MEDICATIONS: None. REVIEW OF SYSTEMS: Difficult to obtain. He does state that he thinks he has lost about 19 pounds in last few months. PHYSICAL EXAMINATION: General: On exam, he appears older than his stated age. He is cachectic, but in no acute distress. vital signs: Remarkable for a blood pressure of 169/ 95, his pulse 117, his respirations 20, with a temp of 98.7. HEENT: Remarkable for temporal muscle wasting. He has poor skin turgor. His pupils are reactive. His oropharyngeal mucosal membranes are dry. His sclerae are anicteric. His conjunctivae are slightly pale. Cardiovascular: He has a resting tachycardia with a regular rhythm. Pulmonary: Breath sounds are coarse but equal bilaterally. There is no evidence of respiratory distress. Abdominal: Reveals normoactive bowel sounds. The abdomen is soft, nontender, with no rebound or guarding. Extremities: Bilaterally are negative for cyanosis, clubbing, or edema. He does have calf atrophy consistent with his inability to walk. Neurologic: He is alert and oriented x3, is able to spontaneously move all 4 extremities. OBJECTIVE DATA: Remarkable for hemoglobin of 7.8, with hematocrit of 23.2, and white count of 4.23. He has 98,000 platelets. Sodium is 130, potassium 3.6, chloride 98, CO2 of 23, BUN 18, creatinine 0.8, with a glucose of 109. Calcium is 7.5. His CRP is elevated at 17.57. His TSH is 1.75. On 11/08/2016, his albumin was 2.1. IMPRESSION: 1. Anemia. 2. C. difficile colitis. 3. Weight loss. 4. Failure to thrive. 5. Alcohol abuse. 6. Alcohol dependence. 7. Malnutrition, moderate. RECOMMENDATION: 1. The patient is currently receiving oral vancomycin and Zosyn for treatment of his infections. I would continue his current medications. If his diarrhea persists, I would consider changing his antibiotics to Flagyl. 2. I agree with continuing the lactobacillus for his C. difficile colitis. 3. Continue Protonix 40 mg IV q.12 hours. 4. Because of his declining hemoglobin, over the last several days, it would be reasonable to perform an EGD, perhaps on Monday. He has a resting tachycardia, which will need to be corrected prior to endoscopic procedure. 5. At some point in the future, he will need a full colonoscopy. I recommend treating his acute colitis prior to endoscopic intervention, as long as he continues to improve. 6. He may need enteral feedings if his oral intake remains inadequate. 7. Additional recommendations to follow based on his clinical course. cc: Jeff Hernandez MD [facility]
[2016-11-10] MEDS: ZOSYN 3.375 GM/NS 3.375 GM/50 ML IVPB IV SCH ×4 (02:36→20:00)
[2016-11-10] MEDS: VANCOMYCIN ORAL SOLN PO SCH ×4 (02:36→20:00)
[2016-11-10] MEDS: DUONEB (A & A) INH SCH ×6 (03:45→22:45)
[2016-11-10] MEDS: NS 1,000 ML IV SCH (06:20)
[2016-11-10 07:35] LABS: HEMATOCRIT 28.6 % (42.0-52.0); HEMOGLOBIN 9.9 g/dL (14.0-18.0); MCHC 34.6 g/dL (33-37); MCV 86.7 FL (81-99); MPV 9.3 FL (7.4-10.4); RBC 3.3 XMIL (4.7-6.1)
[2016-11-10 07:43] LABS: AGAP 12; BUN 12 mg/dL (8-22); CALCIUM 7.6 mg/dL (8.8-10.2); CHLORIDE 102 mmol/L (98-107); COSMO 268; MAGNESIUM 1.7 mg/dL (1.5-2.7); POTASSIUM 3.7 mmol/L (3.5-5.1); SODIUM 134 mmol/L (136-145); TCO2 20 mmol/L (25-35)
[2016-11-10] MEDS: MEGACE LIQUID PO SCH ×2 (07:59→22:00)
[2016-11-10] MEDS: COREG PO SCH ×2 (07:59→22:00)
[2016-11-10] MEDS: CULTURELLE PO SCH ×2 (07:59→22:00)
[2016-11-10] MEDS: NORVASC PO SCH ×2 (07:59→22:00)
[2016-11-10] MEDS: ASPIRIN EC PO SCH (07:59)
[2016-11-10] MEDS: TOPROL XL PO SCH (07:59)
[2016-11-10] MEDS: PROTONIX IV SCH ×2 (08:01→20:00)
[2016-11-10] MEDS: MYCOSTATIN SUSP PO SCH ×4 (08:01→22:00)
[2016-11-10] MEDS: FOLIC ACID 1 MG in NS 50 ML IV SCH (08:50)
[2016-11-10] MEDS ORDERED: POTASSIUM PHOSPHATE 40 MEQ in NS 250 ML IV ONE (10:00)
[2016-11-10] MEDS ORDERED: TOPROL XL PO ONE (13:46)
[2016-11-10] MEDS ORDERED: TOPROL XL PO SCH (13:46)
[2016-11-10] MEDS ORDERED: COREG PO ONE (14:17)
--- NOTE | 2016-11-10 14:41 | PROGRESS NOTE ---
DATE: 11/10/2016 SUBJECTIVE: The patient is awake and alert. No major complaints. OBJECTIVE: Blood pressure 145/83, heart rate 103, respiratory rate 18, temperature 98.5 degrees.Cardiovascular: Regular rate and rhythm. Pulmonary: Bilateral breath sounds. Clear to auscultation. Gastrointestinal: Abdomen soft, nontender, nondistended. Bowel sounds are positive. LABORATORY DATA: Hemoglobin and hematocrit 9.8 and 28. White count 5. Platelets 111,000. Chemistries: Sodium 134, potassium 2.1. PROBLEM LIST: 1. Pneumonia. He is currently on empiric antibiotics, which he has completed. 2. Clostridium difficile colitis. He is on vancomycin and diarrhea appears to be overall improved. 3. Gastrointestinal bleed, which may be related to clostridium difficile colitis. Has improved with transfusion. Appreciate GI consultation. I hope we can go ahead and pursue endoscopy, at least upper, to rule out a significant bleed tomorrow. 4. Encephalopathy, likely multifactorial. He has had a recent stroke and multiple other issues. Slowly he is improving. Mental status seems more intact. He is eating and drinking. 5. Hyponatremia. He actually improved with some Samsca. We will continue to follow. May give him another dose. DISPOSITION: Again, I feel like rehab, which will likely be on Monday at this point. We will continue to follow. cc: Jeff Hernandez MD
[2016-11-10] MEDS: SODIUM CHLORIDE 0.9% INJ SCH (20:00)
[2016-11-11] MEDS: ZOSYN 3.375 GM/NS 3.375 GM/50 ML IVPB IV SCH ×5 (02:30→20:33)
[2016-11-11] MEDS: VANCOMYCIN ORAL SOLN PO SCH ×4 (02:31→20:32)
[2016-11-11] MEDS: NS 1,000 ML IV SCH (03:26)
[2016-11-11] MEDS: DUONEB (A & A) INH SCH ×6 (03:45→22:48)
[2016-11-11 07:32] LABS: HEMATOCRIT 27.6 % (42.0-52.0); HEMOGLOBIN 9.3 g/dL (14.0-18.0); MCH 30.1 PG (27-31); MCHC 33.7 g/dL (33-37); MCV 89.3 FL (81-99); MPV 9.3 FL (7.4-10.4); RBC 3.09 XMIL (4.7-6.1)
[2016-11-11] MEDS: PROTONIX IV SCH ×2 (07:45→20:34)
[2016-11-11 07:46] LABS: AGAP 12; BUN 10 mg/dL (8-22); CALCIUM 7.6 mg/dL (8.8-10.2); CHLORIDE 104 mmol/L (98-107); COSMO 273; SODIUM 137 mmol/L (136-145); TCO2 21 mmol/L (25-35)
[2016-11-11] MEDS ORDERED: DIPRIVAN 1% ONE (07:46)
[2016-11-11] MEDS ORDERED: XYLOCAINE-MPF 2% ONE (09:24)
[2016-11-11] MEDS ORDERED: LR 1,000 ML ONE (09:24)
[2016-11-11] MEDS ORDERED: ANESTHESIA PB SET 88 IN 5742 ONE (09:24)
[2016-11-11] MEDS: CULTURELLE PO SCH ×2 (13:01→20:34)
[2016-11-11] MEDS: NORVASC PO SCH ×2 (13:01→20:34)
[2016-11-11] MEDS: CARAFATE LIQUID PO SCH ×2 (13:01→20:34)
[2016-11-11] MEDS: FOLIC ACID 1 MG in NS 50 ML IV SCH (13:01)
[2016-11-11] MEDS: COREG PO SCH ×2 (13:02→20:34)
[2016-11-11] MEDS: ASPIRIN EC PO SCH (13:02)
[2016-11-11] MEDS: MEGACE LIQUID PO SCH ×2 (13:02→20:34)
[2016-11-11] MEDS: MYCOSTATIN SUSP PO SCH ×4 (13:02→21:06)
[2016-11-11] MEDS: SANDOSTATIN IV ONE (14:30)
[2016-11-11] MEDS: SANDOSTATIN 500 MICROGM in D5W 100 ML IV SCH ×2 (14:30→23:12)
--- NOTE | 2016-11-11 16:37 | PROGRESS NOTE ---
DATE: 11/11/2016 SUBJECTIVE: The patient has no complaints. OBJECTIVE: Blood pressure 144/87, heart rate 96, respiratory rate 14, temperature 98.7 degrees. Cardiovascular: Regular rate and rhythm. Pulmonary: Bilateral breath sounds are clear to auscultation. GI was soft, nontender, nondistended. Bowel sounds are positive. LABORATORY DATA: Hemoglobin and hematocrit 9 and 27. Platelets are 112,000. Chemistries look okay. PROBLEM LIST: 1. 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 He is status post esophagogastroduodenoscopy today. Will continue proton pump inhibitor and follow closely. 2. Clostridium difficile colitis. He is on vancomycin. Appears to be improved. 3. Pneumonia. He is on Zosyn, day 12. 4. Encephalopathy. 5. He is much improved. He has had a small stroke. We will continue aspirin. 6. Hyponatremia. He appears to be stabilized. I am going to stop his normal saline. DISPOSITION: Plan for rehab on Monday. cc: Jeff Hernandez MD
--- NOTE | 2016-11-11 18:15 | Diag Imaging Result Document ---
PROCEDURE NAME: SMALL BOWEL SERIES ONLY - 11/11/2016 SMALL BOWEL SERIES: FINDINGS: Immediate films with multiple films taken through 6-1/2 hours are submitted. Contrast flowed from the stomach into the small bowel at 30 minutes. Normal mucosal pattern in the proximal small bowel. Bowel loops are not distended in the proximal small bowel. There are air filled loops of bowel in the midabdomen. There is slight distention to these multiple air filled loops of bowel. Contrast remains in the mid small bowel at 6-1/2 hours. It has not passed into the distal small bowel and has not emptied into the colon. There is poor coating of the mid small bowel loops. IMPRESSION: Mildly distended air filled loops of small bowel with no passage into the colon at 6- 1/2 hours.
[2016-11-11] MEDS ORDERED: HUMULIN R ONE (20:24)
[2016-11-11] MEDS: SODIUM CHLORIDE 0.9% INJ SCH (20:34)
[2016-11-12] MEDS: SANDOSTATIN 500 MICROGM in D5W 100 ML IV SCH ×3 (00:21→20:48)
[2016-11-12] MEDS: ZOSYN 3.375 GM/NS 3.375 GM/50 ML IVPB IV SCH ×4 (01:41→20:19)
[2016-11-12] MEDS: VANCOMYCIN ORAL SOLN PO SCH ×4 (01:42→20:17)
[2016-11-12] MEDS: CARAFATE LIQUID PO SCH ×4 (01:42→20:23)
[2016-11-12] MEDS: DUONEB (A & A) INH SCH ×6 (03:43→22:36)
[2016-11-12 07:53] LABS: AGAP 10; BUN 9 mg/dL (8-22); CHLORIDE 101 mmol/L (98-107); COSMO 266; POTASSIUM 4.1 mmol/L (3.5-5.1); SODIUM 133 mmol/L (136-145); TCO2 22 mmol/L (25-35)
[2016-11-12 08:33] LABS: HEMATOCRIT 28.4 % (42.0-52.0); HEMOGLOBIN 9.7 g/dL (14.0-18.0); MCH 30.2 PG (27-31); MCHC 34.2 g/dL (33-37); MCV 88.5 FL (81-99); MPV 9.7 FL (7.4-10.4); RBC 3.21 XMIL (4.7-6.1)
--- NOTE | 2016-11-12 09:37 | Diag Imaging Result Document ---
PROCEDURE NAME: ARNOLD ABDOMEN - 11/12/2016 ABDOMEN SINGLE VIEW: COMPARISON: Small bowel series performed earlier. FINDINGS: Film was taken 22 hours after the study was begun. Contrast fills the terminal ileum and colon on the current exam. There continues to be mildly distended air filled small bowel loops. Terminal ileum appears normal. IMPRESSION: No complete small bowel obstruction although there may be a partial obstruction.
[2016-11-12] MEDS: ASPIRIN EC PO SCH (11:09)
[2016-11-12] MEDS: PROTONIX IV SCH ×2 (11:09→20:23)
[2016-11-12] MEDS: FOLIC ACID PO SCH (11:09)
[2016-11-12] MEDS: COREG PO SCH ×2 (11:09→20:25)
[2016-11-12] MEDS: CULTURELLE PO SCH ×2 (11:09→20:25)
[2016-11-12] MEDS: NORVASC PO SCH ×2 (11:09→20:25)
[2016-11-12] MEDS: SODIUM CHLORIDE 0.9% INJ SCH ×2 (11:09→20:23)
[2016-11-12] MEDS: MEGACE LIQUID PO SCH ×2 (11:10→20:21)
[2016-11-12] MEDS: MYCOSTATIN SUSP PO SCH ×4 (11:34→20:25)
[2016-11-12] MEDS ORDERED: SAMSCA PO ONE (14:20)
--- NOTE | 2016-11-12 14:43 | PROGRESS NOTE ---
DATE: 11/12/2016 SUBJECTIVE: Patient has no complaints. He looks awake, alert and I think he has got more of his faculties about him. He would really prefer not going to rehab although we explained to him I do not think he has got much choice because I do not think his family will be able take care of him at home. OBJECTIVE: Vital signs: Blood pressure 155/88, heart rate of 113, respiratory rate 18, temperature 98.5 degrees. Cardiovascular: Regular rate and rhythm. Pulmonary: Bilateral breath sounds. Clear to auscultation. GI: Soft, nontender, nondistended. Bowel sounds are positive. LABORATORY DATA: White count 5.6, hemoglobin and hematocrit 9 and 28. CMP. Sodium was 133. PROBLEM LIST: 1. C. difficile colitis. He is on vancomycin. He seems to be doing fine. 2. Acute ischemic cerebrovascular accident. He is on a aspirin. Seems to be tolerating that without difficulty. 3. 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 His hemoglobin and hematocrit seems to be stable. I am going to monitor that. So far it is stable. Laboratory data as described. 4. Pneumonia. He is on day 13 of Zosyn. Probably stop that tomorrow. 5. Encephalopathy is improved. 6. Hyponatremia. I am going to give him a dose of Samsca and will check that tomorrow. PLAN: Disposition will be I think rehab on Monday and we will follow. cc: Jeff Hernandez MD
--- NOTE | 2016-11-12 19:14 | PROGRESS NOTE ---
DATE: 11/10/2016 SUBJECTIVE: The patient states that he feels okay but continues to have diarrhea. His hemoglobin has continued to trend downward. We are asked to consider an EGD. OBJECTIVE: On exam, his blood pressure is 145/83, pulse of 103, respiration 18, temperature of 98.5 degrees. On exam, the patient refuses exam today stating that he is tired and would like to rest. OBJECTIVE DATA: Reveals a hemoglobin of 9.9 with hematocrit of 28.6, and a white count of 5.24. Has 111,000 platelets. Sodium 134, potassium 3.7, chloride 102, CO2 26, BUN 12, creatinine 0.7, glucose 104. Calcium is 7.6, phosphorus 2.1, magnesium 2.1. RECOMMENDATION: 1. The patient has a progressive anemia and EGD is requested. Therefore, we will schedule the patient for tomorrow. He is agreeable to having the exam done. He expresses understanding of consent. 2. For the C. difficile colitis, I would continue current management. 3. Additional recommendations to follow based on his clinical course. cc: MD Jeff Bosch MD
--- NOTE | 2016-11-12 21:22 | PROGRESS NOTE ---
DATE: 11/12/2016 SUBJECTIVE: On exam, the patient states that he is feeling much better. He is more alert and denies abdominal pain. According to his chart, he has had no bowel movements overnight. His last bowel movement was on the . It was soft and liquid. He reports the resolution of tenesmus. He underwent a small-bowel followthrough which is remarkable for a partial small-bowel obstruction. On KUB today, he has very slow transit and it took over 20 hours for contrast to reach the colon which is again concerning for partial small-bowel obstruction. OBJECTIVE: On exam his blood pressure is 155/88, pulse 93, respirations 16, temperature of 98.5 degrees. OBJECTIVE DATA: Reveals a hemoglobin of 9.7, hematocrit of 28.4 and a white count of 5.67. He has 140,000 platelets. Sodium is 133, potassium 4.1, chloride 101, CO2 22, BUN 9, creatinine 0.9 with a glucose of 117. His calcium is 8.0. IMPRESSION: 1. Bleeding arteriovenous malformations status post hemostasis. 2. Clostridium difficile colitis. 3. Anemia. 4. Schatzki ring. 5. Erosive gastritis. 6. Possible partial small bowel obstruction on small-bowel followthrough. RECOMMENDATION: 1. Clinically the patient is doing significantly better. I recommend continuing current medical management. 2. Specifically, I would continue octreotide for 72 hours and then stop. 3. Continue Protonix 40 mg IV q.12 hours. 4. Continue Carafate 1 g p.o. q.6 hours for 12 weeks and then stop. 5. Complete the antibiotic course for the treatment of his C. difficile colitis. 6. Continue lactobacillus as an outpatient. 7. If the patient does not have a bowel movement within the next 24 hours I would consider a dose of MiraLAX to help with defecation. 8. Overall, he is stable from a GI standpoint. There has been no evidence of recurrent bleeding and his blood count has been stable. 9. I will continue to monitor his clinical course. cc: Jeff [facility] MD [facility]
--- NOTE | 2016-11-12 22:19 | OPERATIVE NOTE ---
PROCEDURE DATE: 11/11/2016 REFERRING PHYSICIAN: Darinel Hernandez M.D. INDICATION FOR PROCEDURE: Unexplained progressive anemia. PROCEDURE PERFORMED: Esophagogastroduodenoscopy with control of bleeding. CONSENT: Informed consent was obtained from the patient prior to the procedure. The risks, benefits and alternatives were discussed. MEDICATION: The patient received monitored anesthesia care. PERFORMING PHYSICIAN: Stella Rueda M.D. ASSISTANTS: 1. [facility] 2. Ana Otto RN 3. Celia Marcum RN. 4. Sophy Mcwilliams CRNA. 5. Gilmer Vaca M.D. (anesthesia). COMPLICATIONS: There were no complications. ESTIMATED BLOOD LOSS: 1-2 mL. SPECIMENS REMOVED: None. FINDINGS: After sedation was achieved, the upper endoscope was inserted to the third portion of the duodenum. The hypopharynx appeared normal. In the tubular esophagus, the mucosa appeared normal. There was a benign-appearing submucosal cyst at 25 cm from the incisors that remains intact. The GE junction was measured at 44 cm from the incisors. There was a possible early Schatzki ring but the lumen was widely patent. There was a hiatal hernia from 44-46 cm. In the gastric lumen, there was erosive gastritis in the antrum, fundus, and body. In the body, there was also one AVM that was actively oozing. There was a 2nd AVM that was not bleeding. Both AVMs were cauterized using the black wire cautery. There was a small nonbleeding AVM in the fundus that remains intact. Immediately adjacent to the pylorus, there were multiple scattered erosions but no ulcer per se. The pylorus was inflamed but was otherwise patent. In the 1st and 2nd portion of the duodenum, the mucosa appeared normal. There were a few nonspecific red spots as well as 3 small nonbleeding AVMs that remain intact. There was a possible duodenal diverticulum in the third portion of the duodenum. There was nonspecific dilation of the duodenum in the third portion of the duodenum. After the exam was complete, the lumen was decompressed. Upon withdrawing the scope, there were diverticulum in the 2nd portion of the duodenum just beyond the bulb. There was retained food debris present that cleared with rinsing. The lumen was decompressed and the scope was removed without incident. IMPRESSION: 1. Benign-appearing submucosal cyst. 2. Possible early Schatzki ring at the gastroesophageal junction. 3. Hiatal hernia. 4. Erosive gastritis in the antrum, fundus, and body. 5. 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 6. Possible duodenal diverticulum versus dilated duodenum. 7. Nonbleeding arteriovenous malformations in the duodenum that remain intact. RECOMMENDATION: 1. Continue Protonix 40 mg IV q.12 hours. 2. Because of the erosive gastritis and recurrent bleeding, I will begin Carafate 1 g p.o. 4 times a day for 12 weeks then stop. 3. Because of the actively bleeding AVMs and the gradual drop in his hemoglobin , I would begin octreotide drip for 72 hours and reassess. 4. He will most likely need a capsule endoscopy as an outpatient with possible push enteroscopy. This will depend on his blood count and if he continues to have evidence of bleeding. 5. To evaluate the dilated small bowel and possible duodenal diverticulum, I would check a small bowel followthrough. 6. Complete treatment for C. diff as you are doing. 7. Additional recommendations to follow based on his clinical course. 8. He will need clinic follow-up 4-6 weeks after hospital discharge. cc: Jeff Hernandez MD MTDJessica
[2016-11-13] MEDS: ZOSYN 3.375 GM/NS 3.375 GM/50 ML IVPB IV SCH ×4 (02:42→21:11)
[2016-11-13] MEDS: CARAFATE LIQUID PO SCH ×4 (02:47→21:13)
[2016-11-13] MEDS: VANCOMYCIN ORAL SOLN PO SCH ×4 (02:50→21:12)
[2016-11-13] MEDS: DUONEB (A & A) INH SCH ×6 (03:27→23:28)
[2016-11-13] MEDS: SANDOSTATIN 500 MICROGM in D5W 100 ML IV SCH ×3 (04:15→23:34)
[2016-11-13 06:39] LABS: HEMATOCRIT 29.5 % (42.0-52.0); HEMOGLOBIN 9.9 g/dL (14.0-18.0)
[2016-11-13 06:52] LABS: AGAP 11; BUN 13 mg/dL (8-22); CALCIUM 8.8 mg/dL (8.8-10.2); CHLORIDE 103 mmol/L (98-107); COSMO 279; POTASSIUM 3.9 mmol/L (3.5-5.1); SODIUM 139 mmol/L (136-145); TCO2 25 mmol/L (25-35)
--- NOTE | 2016-11-13 09:43 | Diag Imaging Result Document ---
PROCEDURE NAME: KUB ABDOMEN - 11/13/2016 PORTABLE AP SUPINE ABDOMEN: COMPARISON: Compared with November 12, 2016. FINDINGS: Essentially all of the barium from the recent small bowel series now appears to have entered the colon. There is barium in the colon from the cecum to the upper rectum. There is persistent mild gaseous distension of multiple small bowel loops, although this may have decreased mildly. [facility]
[2016-11-13] MEDS: ASPIRIN EC PO SCH (09:51)
[2016-11-13] MEDS: PROTONIX IV SCH ×2 (09:51→21:12)
[2016-11-13] MEDS: CULTURELLE PO SCH ×2 (09:51→21:13)
[2016-11-13] MEDS: NORVASC PO SCH ×2 (09:51→21:14)
[2016-11-13] MEDS: FOLIC ACID PO SCH (09:51)
[2016-11-13] MEDS: SODIUM CHLORIDE 0.9% INJ SCH ×2 (09:51→21:13)
[2016-11-13] MEDS: COREG PO SCH ×2 (09:51→21:13)
[2016-11-13] MEDS: MEGACE LIQUID PO SCH ×2 (09:52→21:12)
[2016-11-13] MEDS: MYCOSTATIN SUSP PO SCH ×4 (09:52→21:14)
--- NOTE | 2016-11-13 17:19 | PROGRESS NOTE ---
DATE: 11/13/2016 SUBJECTIVE: The patient has no focal complaints. OBJECTIVE: Vital signs: Blood pressure 162/94, heart rate 90, respiratory 18, temperature 98.4 degrees, 100% on room air. Cardiovascular: Regular rate and rhythm. Pulmonary: Bilateral breath sounds. Clear to auscultation. GI: Soft, nontender, nondistended. Bowel sounds are positive. LABORATORY DATA: Hemoglobin and hematocrit 9.9 and 29.5, sodium 139, creatinine 1.1. PROBLEM LIST: 1. Acute ischemic cerebrovascular accident. He seems to be doing well. He is on aspirin therapy, statin and stable. 2. C. difficile colitis. He is on vancomycin he has been on it since the 6th, so that is about 8 days. Give him another week of treatment. 3. Upper gastrointestinal bleed with arteriovenous malformations. He seems to be stable. Discharge on Prilosec. Hemoglobin and hematocrit is stable. 4. Pneumonia. He is on Zosyn, but I think we can stop that. Complete his course today because he has been on it since the first and it is the 14th, so I think we can probably stop it today or in the morning. DISPOSITION: 1. I think he will need rehab, so plan for rehab transfer tomorrow. Orders are all completed and his medications are currently stable. 2. Severe protein-calorie malnutrition. We will continue Megace and supplements and follow. Patient has no primary care physician. cc: Jeff Hernandez MD
[2016-11-13] MEDS: MIRALAX PO SCH (21:14)
[2016-11-14] MEDS: ZOSYN 3.375 GM/NS 3.375 GM/50 ML IVPB IV SCH (02:08)
[2016-11-14] MEDS: CARAFATE LIQUID PO SCH ×4 (02:08→21:22)
[2016-11-14] MEDS: VANCOMYCIN ORAL SOLN PO SCH ×4 (02:08→21:23)
[2016-11-14] MEDS: DUONEB (A & A) INH SCH ×6 (03:20→23:12)
[2016-11-14] MEDS: MIRALAX PO SCH (09:32)
[2016-11-14] MEDS: PROTONIX IV SCH ×2 (09:34→21:22)
[2016-11-14] MEDS: SODIUM CHLORIDE 0.9% INJ SCH ×2 (09:34→21:22)
[2016-11-14] MEDS: MEGACE LIQUID PO SCH ×2 (09:37→21:22)
[2016-11-14] MEDS: MYCOSTATIN SUSP PO SCH ×4 (09:38→21:22)
[2016-11-14] MEDS: NORVASC PO SCH ×2 (09:39→21:22)
[2016-11-14] MEDS: ASPIRIN EC PO SCH (09:39)
[2016-11-14] MEDS: COREG PO SCH ×2 (09:40→21:22)
[2016-11-14] MEDS: FOLIC ACID PO SCH (09:40)
[2016-11-14] MEDS: CULTURELLE PO SCH ×2 (09:40→21:22)
[2016-11-14] MEDS: SANDOSTATIN 500 MICROGM in D5W 100 ML IV SCH ×2 (09:44→21:21)
--- NOTE | 2016-11-14 22:31 | PROGRESS NOTE ---
DATE: 11/14/2016 SUBJECTIVE: Mr. Daniel is feeling better. He is still pretty lethargic, pretty weak. Breathing comfortably. OBJECTIVE: Vital Signs: Temp 97.9 degrees, pulse 103, respirations 16, blood pressure 155/95. CVP less than 6 cm. Lungs: Clear anterolateral. Cardiovascular examination: Regular rhythm and rate without murmur or S3. Abdomen: Soft. Skin: Warm and dry. Extremities: No pedal edema. URINE: Good urine output. LAB: Hematocrit is stable at 29. Chemistries from yesterday are reviewed. Creatinine bumped up a little bit to 1.1. DIAGNOSTIC: Abdominal x-ray from yesterday: Essentially all the barium from the recent small bowel series appears to have entered the colon. There is barium in the colon from cecum to upper rectum. He presented with mild gastric distention and multiple small bowel loops. ASSESSMENT AND PLAN: 1. Acute ischemic cerebrovascular accident. He seems to be doing better. He is on aspirin and statin. 2. Clostridium difficile colitis improved. He is on vancomycin since the . This is improving as well. 3. Upper gastrointestinal bleed, AV malformations, stable. Hematocrit is stable. 4. Pneumonia. He is on Zosyn which had been stopped yesterday and that appears better. 5. We are looking for continued physical therapy. I think we will try and get the Lacy catheter out. He has severe protein calorie malnutrition. Work on his p.o. nutrition, work on his strength and then look for discharge planning, possibly rehabilitation. 6. Review of his orders. I do not see any changes. He has Physical Therapy involved already. cc: Fam Miller MD
[2016-11-15] MEDS: DUONEB (A & A) INH SCH ×6 (03:27→23:31)
[2016-11-15] MEDS: VANCOMYCIN ORAL SOLN PO SCH ×4 (04:21→21:04)
[2016-11-15] MEDS: CARAFATE LIQUID PO SCH ×4 (04:21→21:03)
[2016-11-15] MEDS: SANDOSTATIN 500 MICROGM in D5W 100 ML IV SCH ×3 (05:49→16:46)
[2016-11-15] MEDS: ASPIRIN EC PO SCH (10:27)
[2016-11-15] MEDS: CULTURELLE PO SCH ×2 (10:27→21:04)
[2016-11-15] MEDS: VITAMIN D PO SCH (10:27)
[2016-11-15] MEDS: NORVASC PO SCH ×2 (10:27→21:04)
[2016-11-15] MEDS: COREG PO SCH ×2 (10:27→21:04)
[2016-11-15] MEDS: FOLIC ACID PO SCH (10:27)
[2016-11-15] MEDS: MEGACE LIQUID PO SCH ×2 (10:27→21:05)
[2016-11-15] MEDS: PROTONIX IV SCH ×2 (10:37→21:03)
[2016-11-15] MEDS: MIRALAX PO SCH (10:37)
[2016-11-15] MEDS: MYCOSTATIN SUSP PO SCH ×4 (10:38→21:04)
--- NOTE | 2016-11-15 15:39 | Diag Imaging Result Doc PS360 ---
EXAM: KNEE 1-2 VIEWS-LEFT INDICATION: LEFT KNEE PAIN COMPARISON: None. FINDINGS: There is diffuse osteopenia. There is no discrete fracture, dislocation, or intrinsic osseous lesion. The visualized joint spaces are essentially unremarkable. There is patchy atherosclerotic calcification. Surrounding soft tissues are essentially unremarkable, otherwise. IMPRESSION: Osteopenia but no evidence of acute osseous abnormality. Electronically signed by Rasta Jiang 11/15/2016 3:37 PM
--- NOTE | 2016-11-15 18:08 | PROGRESS NOTE ---
DATE: 11/15/2016 SUBJECTIVE: Mr. Daniel is feeling better, breathing better. He is anxious to try and go home. I had a discussion with him and his son. He does not want to go to rehab. The son would like him to, so I think he wants to pursue home health, in which case we are going to need to take a little more time, get physical therapy, see if we can get a bed, hospital bed, and bedside commode. I had discussion with him and his son, so I told him we will see if we can get that set up. OBJECTIVE: Vital Signs: Exam today: Afebrile, temperature 98.6 degrees, pulse 109, respiration 16, blood pressure 132/86. HEENT: Pupils are equal and round. Lungs: Clear in all lung lainez. Cardiovascular: Regular rhythm and rate without murmur or S3. Abdomen: Soft. Skin: Warm and dry. DIAGNOSTIC DATA: Lab reviewed from the and unremarkable. He had an x-ray of his knee, we ended up getting today as well, osteopenia but no evidence of acute osseous abnormality. I am going to ask Orthopedic to look at it while he is here. ASSESSMENT AND PLAN: 1. Acute ischemic cerebrovascular accident. He seems to be doing better from neurologic standpoint. He is on aspirin and a statin. 2. Clostridium difficile colitis which is improved. He has been on vancomycin since the . 3. Upper gastrointestinal bleed. Arteriovenous malformations stable. Hematocrit stable. 4. Pneumonia. Has been treated with Zosyn which has been stopped yesterday, that has resolved. 5. Protein calorie malnutrition. Poor p.o. intake. Continue to encourage p.o. nutrition. 6. We got the Lacy catheter out. He may continue physical therapy for general weakness and deconditioning. 7. It looks like the disposition is he wants to try and go home. I reviewed his orders. I do not see any changes at this point. Physical Therapy is involved. Social Service involved. cc: Fam Miller MD
[2016-11-15] MEDS: SODIUM CHLORIDE 0.9% INJ SCH (21:03)
[2016-11-16] MEDS: VANCOMYCIN ORAL SOLN PO SCH ×4 (02:14→23:43)
[2016-11-16] MEDS: CARAFATE LIQUID PO SCH ×4 (02:14→23:44)
[2016-11-16] MEDS: SANDOSTATIN 500 MICROGM in D5W 100 ML IV SCH ×3 (02:29→23:44)
[2016-11-16] MEDS: DUONEB (A & A) INH SCH ×6 (03:53→23:25)
[2016-11-16] MEDS ORDERED: NS 500 ML ONE (10:36)
[2016-11-16] MEDS: MEGACE LIQUID PO SCH ×2 (10:39→23:44)
[2016-11-16] MEDS: FOLIC ACID PO SCH (10:40)
[2016-11-16] MEDS: CULTURELLE PO SCH ×2 (10:40→23:44)
[2016-11-16] MEDS: NORVASC PO SCH ×2 (10:40→23:44)
[2016-11-16] MEDS: MIRALAX PO SCH (10:40)
[2016-11-16] MEDS: PROTONIX IV SCH ×2 (10:40→23:44)
[2016-11-16] MEDS: COREG PO SCH ×2 (10:40→23:44)
[2016-11-16] MEDS: ASPIRIN EC PO SCH (10:40)
[2016-11-16] MEDS: MYCOSTATIN SUSP PO SCH ×4 (10:41→23:50)
--- NOTE | 2016-11-16 15:34 | PROGRESS NOTE ---
DATE: 11/16/2016 SUBJECTIVE: Mr. Daniel was sleeping. He is comfortable. When you ask him, he says, "I'm doing just fine." He is getting food down pretty well, tolerating physical therapy. OBJECTIVE: Afebrile. Temperature 97.9 degrees, pulse 94, respirations 17, blood pressure 127/71.HEENT: Pupils are equal and round. Neck: CVP less than 6 cm. Lungs: Clear in all lung lainez. Cardiovascular: Regular rhythm and rate, without murmur or S3. URINE OUTPUT: 1200 mL. LABORATORY: No new laboratory today. ASSESSMENT AND PLAN: 1. Acute ischemic cerebrovascular accident. Seems to be doing better from the neurologic standpoint. He is on aspirin and a statin. 2. Clostridium difficile colitis, which is improved. He is on his 7th day of vancomycin. 3. Upper gastrointestinal bleed. We will check hemoglobin and hematocrit again tomorrow, but have been stable. 4. Pneumonia. Treated with Zosyn, which was stopped, finished treatment. 5. Protein calorie malnutrition. Encourage p.o. intake. This is improving. 6. Lacy catheter is out. 7. General weakness and deconditioning. He has been in the bed a long time. Continue physical therapy. He does not want to go to rehabilitation. Wants to go home with home health. On review of his orders, I do not see any change. cc: Fam Miller MD
[2016-11-16] MEDS: SODIUM CHLORIDE 0.9% INJ SCH (23:44)
[2016-11-17] MEDS: CARAFATE LIQUID PO SCH ×2 (01:28→08:09)
[2016-11-17] MEDS: VANCOMYCIN ORAL SOLN PO SCH ×3 (01:28→14:04)
[2016-11-17] MEDS: DUONEB (A & A) INH SCH ×4 (02:13→15:37)
[2016-11-17] MEDS: MIRALAX PO SCH (08:09)
[2016-11-17] MEDS: CULTURELLE PO SCH (08:09)
[2016-11-17] MEDS: NORVASC PO SCH (08:09)
[2016-11-17] MEDS: COREG PO SCH (08:09)
[2016-11-17] MEDS: MEGACE LIQUID PO SCH (08:09)
[2016-11-17] MEDS: FOLIC ACID PO SCH (08:09)
[2016-11-17] MEDS: SODIUM CHLORIDE 0.9% INJ SCH (08:09)
[2016-11-17] MEDS: PROTONIX IV SCH (08:09)
[2016-11-17] MEDS: ASPIRIN EC PO SCH (08:09)
[2016-11-17] MEDS: MYCOSTATIN SUSP PO SCH ×2 (08:10→14:03)
[2016-11-17] MEDS ORDERED: NS 500 ML ONE (11:57)
[2016-11-17 14:08] VITALS: BP 121/85
--- NOTE | 2016-11-17 14:52 | DISCHARGE SUMMARY ---
ADMISSION DATE: 10/31/2016 DISCHARGE DATE: 11/17/2016 CONSULTATION: Dr. Stella Rueda with gastroenterology. PERTINENT PROCEDURES: 1. Chest, abdomen and pelvis CT showed emphysematous changes, dense bile or sludge in the gallbladder. No calcified gallstones or pericholecystic inflammation. Possible mid right colitis. No abscess. No free air. Apparent urinary bladder cystitis. Multiple stones in the right posterior urinary bladder lumen. 2. Head CT. Moderate atrophic changes and moderate chronic microvascular ischemic changes. No visible acute process. No hemorrhage or mass effect. 3. Followup head CT showed stable extensive low attenuation in the periventricular and subcortical white matter as compared to previous study. Likely representing advanced microangiopathy. 4. Brain MRI showed chronic microvascular white matter changes, small acute or subacute lacunar infarct in the right parietal white matter. There may be a 2nd small lacune present more caudally on the right on the image. 5. Left arm venous ultrasound showed no evidence of deep or superficial venous thrombosis in the left upper extremity. 6. Lumbar spine MRI showed degenerative disk disease, particularly at L5 through S1. 7. Carotid Doppler showed mild atherosclerotic disease of the distal common and internal carotid arteries bilaterally without evidence of hemodynamically significant lesion in either carotid system. 8. Echocardiogram showed an EF of 65% with no wall motion abnormality. 9. Small bowel x-ray showed mildly distended air-filled loops of bowel with no passage into the colon at 6-1/2 hours. 10. Abdominal x-ray showed no complete small bowel obstruction, although there may be a partial obstruction. 11. KUB. Essentially all the barium from recent small bowel series appeared to have entered the colon. There is barium in the colon from the cecum to the upper rectum. There is persistent mild gaseous distention and several multiple small bowel loops that have decreased mildly. 12. EGD that showed benign-appearing submucosal cyst. 13. Erosive gastritis in the atrial fundus and body. Bleeding and non bleeding gastric AVM status post hemostasis with black wire cautery performed by Dr. Rueda. 14. Left knee x-ray showed osteopenia, but no evidence of acute osseus abnormality. HOSPITAL COURSE: Mr. Daniel is a 71-year-old, male with a history of alcohol abuse, tobacco dependence, brought to the ED by his family because the patient was noted to be confused and unable to walk. The patient was actually found by the network operations center technician on the morning of his admission. He was sitting up in a chair, unable to get up or go to the bathroom. The patient stated he has not been very hungry. He has lost a lot of weight over the past 8 months. He is unable to walk per the patient's son and the patient did complain of soreness on his left buttocks where he appeared to have a small ulceration. The patient reports that he does drink a pint of Japanese Mist whiskey every day and he smokes a pack of cigarettes every day, and has been doing so since the age of 15. In the ED, the patient was noted to have a white count of 17. He was tachycardiac, heart rate 120s. X-ray showed right pleural effusion as well as a right-sided pneumonia. The patient was admitted for pneumonia and started on IV antibiotics, IV fluids, bronchodilator, supplemental O2 and aggressive pulmonary toilet with cultures ordered. He was found to have severe protein calorie malnutrition. Dietitian was consulted. He was started on Ensure. He also is felt to have a UTI. He was also hypomagnesium and hypokalemic. These were replenished. He was vitamin D deficient. He was started on supplementation. He did have a left buttock skin tear and Wound Care was consulted. The patient was placed on p.r.n. Ativan and monitored closely for withdrawals and started on Librium. The patient was also given a NicoDerm patch for his tobacco dependence. He was also found to have Clostridium difficile colitis. He was placed on oral vancomycin. At times the patient would refuse to take his oral medications. He was refused to participate in physical therapy. [facility] was consulted for rehab placement. However, during his admission he did have some acute encephalopathy. Second head CT that was performed showed stable extensive low attenuation in the periventricular and subcortical white matter as compared to previous study. He did have a brain MRI followup that did show a small acute or subacute lacunar infarct in the right parietal white matter and possibly a second in the lacune. Carotid Doppler's did not show anything of hemodynamic significance. 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 He was started on normal saline as well as given a few doses of Samsca. Dr. Rueda was consulted for continued anemia. Patient underwent an EGD with control of bleeding. He was found to have bleeding and nonbleeding gastric AVM's status post hemostasis with black wire cautery. He was continued on Protonix IV b.i.d. as well as Carafate and placed on an octreotide drip for 72 hours. The patient continued to not be compliant with his physical therapy. He stated it was secondary to left knee pain. We did an x-ray. It did show osteopenia, but no evidence of acute osseous abnormality. We spoke with the patient and the son at length about going to rehab. The patient adamantly refused to go to rehab. He stated he was going home. We spoke with him at length that we definitely need to get the patient's nutrition back up to par, which would be a long process, and that he would need to continue to work with physical therapy and to be compliant. He agreed to go home with home health. We spoke with his son and stated that somebody would need to be there with him 23/01 as he was too weak to get up for his ADLs. They have stated that they would do home health and physical therapy and that they are looking into hiring a sitter 23/01 as well as an organization to come in and clean his residence as well as the 2 sons. The patient was set to be discharged on 11/18/2016 with home health and DME with a hospital bed, bedside commode and walker; however, he had been set up with a rehab bed for several days prior to this at [facility] but adamantly refused. The day before his discharge home with home health, he has reconsidered and will be going to [facility] for rehab. VITAL SIGNS AT TIME OF HIS DISCHARGE: Temperature is 97.4 degrees, heart rate 90, respiration 17, blood pressure 137/80, O2 sat is 96% on room air. DISCHARGE DIET: Regular with Ensure t.i.d. DISCHARGE MEDICATIONS PER DR. BABCOCK: 1. DuoNeb 3 mL inhaled RT q.4 hours. 2. Norvasc 5 mg p.o. b.i.d. 3. Aspirin 81 mg p.o. daily. 4. Coreg 12.5 mg p.o. q.12 hours. 5. Vitamin D 07519 units p.o. q. 7 days. 6. Folic acid 1 mg p.o. daily. 7. Culturelle 1 each p.o. b.i.d. 8. Megace 200 mg p.o. b.i.d. 9. Mycostatin suspension 5 mL p.o. 4 times a day. 10. Prilosec 40 mg p.o. daily. 11. MiraLAX 17 g p.o. daily. 12. Carafate 1 g p.o. 4 times a day. 13. Vancomycin 250 mg p.o. t.i.d. 14. Vancomycin oral solution 125 mg p.o. q.6 hours. FOLLOWUP: The patient is being discharged to [facility]. He will need to follow up with a primary care physician as well as Dr. Rueda as indicated. The patient can return to the ED for any worsening of symptoms. DISCHARGE TIME: Greater than 30 minutes. Dictated by LISA Agustin for Micha Tabares MD cc: Micha Tabares MD
[2016-11-17] MEDS ORDERED: CARAFATE PO SCH (17:00)
--- NOTE | 2016-11-18 04:49 | DISCHARGE SUMMARY ---
ADMISSION DATE: 10/31/2016 DISCHARGE DATE: 11/17/2016 ADDENDUM REPORT DISCHARGE DIAGNOSES: 1. Clostridium difficile colitis. The patient will continue on vancomycin. 2. Acute ischemic cerebrovascular accident. The patient is on aspirin, tolerating that without any difficulty. 3. Upper GI bleed secondary to AVM malformation status post EGD with black wire cautery. 4. Pneumonia. The patient has been treated. 5. Encephalopathy improved. 6. Hyponatremia secondary to SIADH. Patient improved with IV fluids as well as Samsca. 7. Right lower lobe pneumonia resolved. 8. Dehydration resolved. 9. Severe protein calorie malnutrition. The patient was educated by dietitian as well as started on Ensure t.i.d. and a regular diet. 10. Urinary tract infection resolved. 11. Hypomagnesia resolved. 12. Hypokalemia resolved. 13. Vitamin D deficiency. Continue with vitamin D replacement. 14. Left buttock skin tear. Continue with Wound Care recommendation. 15. Alcohol abuse. Patient has been without withdrawal or delirium tremens. 16. Tobacco dependence. The patient has been educated daily on smoking cessation as well as the means to quit. Dictated by LIAS Agustin for Micha Tabares MD cc: Micha Tabares MD [facility]
== END 2016-11-17 17:48 ==
LOC: ED 11:58 → 3N 19:46 → SUATTDRO 19:46 → 3N 20:10
PROVIDERS: ATTEND Internal Medicine
PROC: EN.HEAT (2016-11-11 08:05)

== ENCOUNTER 2016-12-03 19:23 | Inpatient (IN) ==
[2016-12-03 20:15] LABS: MANUAL DIFF NEEDED? NO
[2016-12-03 20:27] LABS: BASO% 0.7 % (0.0-0.8); EOS# 0.18 X1000 (0.0-0.7); EOS% 1.3 % (0.0-10.0); HEMATOCRIT 22.9 % (42.0-52.0); HEMOGLOBIN 7.4 g/dL (14.0-18.0); IMM GRAN# 0.49 X1000 (0.0-0.04); IMM GRAN% 3.6 % (0.0-0.5); LYMPH# 3.35 X1000 (1.2-3.4); LYMPH% 24.5 % (20.5-51.1); MCHC 32.3 g/dL (33-37); MCV 89.8 FL (81-99); MONO# 1.56 X1000 (0.11-0.59); MONO% 11.4 % (1.7-9.3); MPV 8.9 FL (7.4-10.4); NEUT% 58.5 % (42.2-75.2); PLT 396 X1000 (130-400); RBC 2.55 XMIL (4.7-6.1)
[2016-12-03 20:34] LABS: PROTIME 10.5 Seconds (9.2-11.7); PTT 27.8 Seconds (22.0-36.0)
[2016-12-03 20:37] LABS: AGAP 14; ALBUMIN 2.8 g/dL (3.5-5.0); ALKALINE PHOSPHATASE 112 U/L (32-122); BUN 28 mg/dL (8-22); CALCIUM 8.7 mg/dL (8.8-10.2); CHLORIDE 102 mmol/L (98-107); COSMO 281; GOT 15 U/L (10-34); GPT 11 U/L (10-44); POTASSIUM 4.3 mmol/L (3.5-5.1); SODIUM 138 mmol/L (136-145); TCO2 22 mmol/L (25-35); TOTAL BILIRUBIN 0.29 mg/dL (0.20-1.00); TOTAL PROTEIN 7.1 g/dL (6.3-8.3)
[2016-12-04 00:09] LABS: RETIC% 2.85 % (0.8-2.1); RETIC-HE 31.6 PG (28.2-36.6)
[2016-12-04 00:37] LABS: IRON SATURATION 15 %; TIBC 206 ug/dL; TOTAL IRON 31 ug/dL (53-167); UNBOUND IRON 175 ug/dL (112-346)
[2016-12-04 07:52] LABS: MANUAL DIFF NEEDED? NO
[2016-12-04 08:00] LABS: BASO% 0.6 % (0.0-0.8); EOS# 0.16 X1000 (0.0-0.7); EOS% 1.4 % (0.0-10.0); HEMATOCRIT 31.6 % (42.0-52.0); HEMOGLOBIN 10.6 g/dL (14.0-18.0); IMM GRAN# 0.32 X1000 (0.0-0.04); IMM GRAN% 2.8 % (0.0-0.5); LYMPH# 2.74 X1000 (1.2-3.4); LYMPH% 23.9 % (20.5-51.1); MCH 29.4 PG (27-31); MCHC 33.5 g/dL (33-37); MCV 87.8 FL (81-99); MONO# 1.14 X1000 (0.11-0.59); MONO% 9.9 % (1.7-9.3); MPV 8.9 FL (7.4-10.4); NEUT% 61.4 % (42.2-75.2); PLT 343 X1000 (130-400)
[2016-12-04 08:05] LABS: INR 1.04; PROTIME 10.9 Seconds (9.2-11.7); PTT 28.8 Seconds (22.0-36.0)
[2016-12-04 08:18] LABS: AGAP 14; BUN 25 mg/dL (8-22); CALCIUM 8.5 mg/dL (8.8-10.2); CHLORIDE 102 mmol/L (98-107); COSMO 276; POTASSIUM 4.5 mmol/L (3.5-5.1); SODIUM 136 mmol/L (136-145); TCO2 20 mmol/L (25-35)
[2016-12-04 09:29] LABS: HEMATOCRIT 30.2 % (42.0-52.0); HEMOGLOBIN 10.1 g/dL (14.0-18.0)
[2016-12-04 16:53] LABS: HEMATOCRIT 30.9 % (42.0-52.0); HEMOGLOBIN 10.5 g/dL (14.0-18.0)
[2016-12-05 01:32] LABS: HEMATOCRIT 31.8 % (42.0-52.0); HEMOGLOBIN 10.9 g/dL (14.0-18.0)
[2016-12-05 07:51] LABS: HEMATOCRIT 34.4 % (42.0-52.0); HEMOGLOBIN 11.4 g/dL (14.0-18.0); MCH 29.1 PG (27-31); MCHC 33.1 g/dL (33-37); MCV 87.8 FL (81-99); MPV 9.1 FL (7.4-10.4); RBC 3.92 XMIL (4.7-6.1)
[2016-12-05 08:14] LABS: AGAP 16; BUN 19 mg/dL (8-22); CALCIUM 8.9 mg/dL (8.8-10.2); CHLORIDE 96 mmol/L (98-107); COSMO 271; POTASSIUM 4.5 mmol/L (3.5-5.1); SODIUM 134 mmol/L (136-145); TCO2 22 mmol/L (25-35)
[2016-12-05 10:33] LABS: HEMATOCRIT 33.8 % (42.0-52.0); HEMOGLOBIN 11.4 g/dL (14.0-18.0)
[2016-12-06 06:48] LABS: HEMATOCRIT 35.2 % (42.0-52.0); HEMOGLOBIN 11.8 g/dL (14.0-18.0); MCH 28.9 PG (27-31); MCHC 33.5 g/dL (33-37); MCV 86.1 FL (81-99); MPV 8.7 FL (7.4-10.4); RBC 4.09 XMIL (4.7-6.1)
[2016-12-06 07:05] LABS: AGAP 14; BUN 16 mg/dL (8-22); CALCIUM 9.1 mg/dL (8.8-10.2); CHLORIDE 95 mmol/L (98-107); COSMO 269; SODIUM 133 mmol/L (136-145); TCO2 24 mmol/L (25-35)
[2016-12-07 06:55] LABS: HEMATOCRIT 34.5 % (42.0-52.0); HEMOGLOBIN 11.5 g/dL (14.0-18.0); MCH 29.7 PG (27-31); MCHC 33.3 g/dL (33-37); MCV 89.1 FL (81-99); MPV 8.9 FL (7.4-10.4); RBC 3.87 XMIL (4.7-6.1)
[2016-12-07 06:58] LABS: AGAP 14; BUN 15 mg/dL (8-22); CALCIUM 9.1 mg/dL (8.8-10.2); CHLORIDE 98 mmol/L (98-107); COSMO 272; POTASSIUM 4.4 mmol/L (3.5-5.1); SODIUM 135 mmol/L (136-145); TCO2 23 mmol/L (25-35)
[2016-12-08 06:45] LABS: HEMATOCRIT 34.4 % (42.0-52.0); HEMOGLOBIN 11.2 g/dL (14.0-18.0); MCH 29.4 PG (27-31); MCHC 32.6 g/dL (33-37); MCV 90.3 FL (81-99); RBC 3.81 XMIL (4.7-6.1)
[2016-12-08 06:46] LABS: MPV 8.8 FL (7.4-10.4)
[2016-12-08 07:21] VITALS: BP 151/87
== END 2016-12-08 13:56 ==
LOC: ED 19:23 → SUATTDRO 23:15 → 3N 23:15
PROVIDERS: ATTEND Internal Medicine
PROC: EN.HEAT (2016-12-06 09:25)

== ENCOUNTER 2016-12-26 03:08 | Inpatient (IN) ==
[2016-12-26] MEDS ORDERED: NORCURON ONE (10:30)
[2016-12-26] MEDS ORDERED: SODIUM CHLORIDE 0.9% 10 ML ONE ×3 (10:30→13:30)
[2016-12-26] MEDS ORDERED: QUELICIN (DOSE) ONE (10:30)
[2016-12-26] MEDS ORDERED: XYLOCAINE-MPF 2% ONE (10:31)
[2016-12-26] MEDS ORDERED: ROBINUL ONE ×2 (10:31→14:24)
[2016-12-26] MEDS ORDERED: FENTANYL ONE (10:33)
[2016-12-26] MEDS ORDERED: DIPRIVAN 1% ONE (10:33)
[2016-12-26] MEDS ORDERED: REGLAN ONE (10:54)
[2016-12-26] MEDS ORDERED: PEPCID ONE (10:54)
[2016-12-26] MEDS ORDERED: LR 1,000 ML ONE ×3 (10:54→16:51)
[2016-12-26] MEDS ORDERED: ENTEREG ONE (10:54)
[2016-12-26] MEDS ORDERED: MEFOXIN 2 GM/NS 2 GM/50 ML IVPB ONE (10:55)
[2016-12-26] MEDS ORDERED: COREG ONE (11:43)
[2016-12-26] MEDS ORDERED: EXPAREL 1.3% ONE (12:08)
[2016-12-26] MEDS ORDERED: MARCAINE 0.25% PF ONE (12:08)
[2016-12-26] MEDS ORDERED: MARCAINE 0.25% PF/EPI 1:200,000 ONE (12:54)
[2016-12-26] MEDS ORDERED: XYLOCAINE 1% ONE (12:58)
[2016-12-26 14:17] LABS: URINE MICRO REVIEW NEEDED? NO; URINE SOURCE CATH
[2016-12-26] MEDS ORDERED: ZOFRAN ONE (14:21)
[2016-12-26] MEDS ORDERED: NEOSTIGMINE ONE (14:24)
[2016-12-26 14:31] LABS: BILIRUBIN URINE NEGATIVE (NEGATIVE); BLOOD URINE NEGATIVE (NEGATIVE); COLOR YELLOW; GLUCOSE URINE NEGATIVE (NEGATIVE); LEUKOCYTES URINE MODERATE (NEGATIVE); NITRITE URINE NEGATIVE (NEGATIVE); PH URINE 5.5; PROTEIN URINE 30 mg/dL (NEGATIVE); SP GRAVITY URINE 1.018; TURBIDITY URINE CLEAR (CLEAR); UR EPITHELIAL CELLS <10 /HPF (<10); URINE BACTERIA NEGATIVE /HPF; URINE RBC <10 /HPF (<10); UROBILINOGEN URINE NORMAL (NORMAL)
[2016-12-26] MEDS ORDERED: LABETALOL ONE (14:41)
[2016-12-26] MEDS ORDERED: MORPHINE ONE (16:19)
[2016-12-26] MEDS ORDERED: VITAMIN D PO SCH (17:45)
[2016-12-26] MEDS ORDERED: MORPHINE IV PRN (18:23)
[2016-12-26] MEDS ORDERED: ZOFRAN IV PRN (18:23)
--- NOTE | 2016-12-26 20:08 | OPERATIVE NOTE ---
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 PROCEDURES: Laparoscopic assisted right hemicolectomy. SURGEON: Shay Stevenson MD. CUSTOM STOCK MAKER: Derick Gonzalez MD ANESTHESIA: General endotracheal. INTRAOPERATIVE FINDINGS: As above. COMPLICATIONS: None at time of dictation. ESTIMATED BLOOD LOSS: 100 mL. SPECIMENS REMOVED: Right colon. BRIEF HISTORY: The patient is a 71-year-old male, who was seen for a GI bleed. He had a colonoscopy that showed a cecal mass. Biopsied proven to be cancer. He had several other polyps that were biopsied and tattooed but none of them came back to be cancer. It was felt that the patient would benefit from a right hemicolectomy. Given this data, he did have a preoperative staging. CT scan that did not show any signs of metastatic disease. It was felt the patient was a surgical candidate. The risks, benefits, and alternatives were discussed. All questions answered. DESCRIPTION OF PROCEDURE: After informed consent was obtained, patient brought to the operative theater, placed in supine position. General endotracheal anesthesia was then performed without complication. A formal time-out was then performed confirming patient, date, and procedure. All were in agreement. At that time, attention was given to the abdomen. An infraumbilical incision was made, through which using the Optiview technique we inserted an 11 mm trocar, connected to insufflation. Pneumoperitoneum was achieved. Under direct visualization, we placed 2 more trocars, one 5 mm in upper midline and one 5 mm in right lower quadrant. Using these, the cecum was identified. We saw the tattoo from the previous colonoscopy. We elevated the cecum. We took down with the ligature the white line of Toldt all the way to the hepatic flexure. There were some adhesions noted to the gallbladder, suggestive that the patient had cholecystitis in the past but his gallbladder did not look heavily inflamed. We took the gallbladder off the omentum and able to free up the hepatic flexure all the way to make it mobile to the midline. We did this while maintaining hemostasis with electrocautery. We did have to take down some adhesions from the terminal ileum to bring it up fully, but we were able to do that without difficulty. At this time we opened the midline to eviscerate the small bowel, the transverse colon, and the right colon. We did this. We fired a stapler across the terminal ileum about 7 cm in vivo from the ileocecal valve. We also made a window in the transverse colon, proximal to the middle colic artery. We transected the bowel there too. We took down the mesentery with the LigaSure and put a suture ligation ileocolic artery. There is no active bleeding. We did not find bulky lymphadenopathy. Did not see any other pathology. No carcinomatosis. We then elected to perform a [id number] functional end-to-end anastomosis with the terminal ileum and the transverse colon. We did this with 3-0 silk and 3-0 Vicryl with good results. The lumen was patent. We over-sewed the staple line with silk. We closed the mesenteric defect with silk. We again felt the lumen was patent. We irrigated out the abdomen copiously. We then closed it in layers, closing the peritoneum with a running 0 chromic and then closed the fascia with interrupted Vicryl. Elected to close his fascia with interrupted number Vicryl given his malnourished state to help with potential complications of dehiscence and evisceration. We then irrigated out the skin incision and closed the skin with abdirashid. The patient tolerated the procedure well and was transferred recovery room in stable condition. cc: Shay Stevenson MD
[2016-12-26] MEDS: COREG PO SCH (20:10)
[2016-12-26] MEDS: LR 1,000 ML IV SCH (20:12)
[2016-12-26] MEDS: PERIDEX MT SCH (23:29)
[2016-12-26] MEDS: NORVASC PO SCH (23:29)
[2016-12-26] MEDS: CULTURELLE PO SCH (23:29)
[2016-12-26] MEDS: CARAFATE PO SCH (23:29)
[2016-12-26] MEDS: DOXYCYCLINE PO SCH (23:30)
[2016-12-26] MEDS: MYCOSTATIN SUSP PO SCH (23:30)
[2016-12-26] MEDS: MEFOXIN 2 GM/NS 2 GM/50 ML IVPB IV SCH (23:30)
[2016-12-26] MEDS: MEGACE LIQUID PO SCH (23:45)
[2016-12-27] MEDS: LR 1,000 ML IV SCH ×3 (02:23→20:00)
[2016-12-27] MEDS: MEFOXIN 2 GM/NS 2 GM/50 ML IVPB IV SCH ×3 (02:55→09:22)
[2016-12-27] MEDS: PRILOSEC PO SCH (06:13)
[2016-12-27] MEDS: COREG PO SCH ×2 (06:14→18:04)
[2016-12-27] MEDS: HEPARIN SUBQ SCH ×3 (06:14→22:51)
[2016-12-27 06:20] LABS: BASO% 0.2 % (0.0-0.8); EOS# 0.01 X1000 (0.0-0.7); HEMATOCRIT 25.3 % (42.0-52.0); HEMOGLOBIN 8.2 g/dL (14.0-18.0); IMM GRAN% 0.5 % (0.0-0.5); LYMPH# 2.02 X1000 (1.2-3.4); LYMPH% 9.2 % (20.5-51.1); MANUAL DIFF NEEDED? YES; MCH 27.7 PG (27-31); MCHC 32.4 g/dL (33-37); MCV 85.5 FL (81-99); MPV 9.1 FL (7.4-10.4); NEUT% 85.1 % (42.2-75.2); PLT 362 X1000 (130-400); RBC 2.96 XMIL (4.7-6.1)
[2016-12-27 06:54] LABS: AGAP 13; BUN 20 mg/dL (8-22); CALCIUM 8.5 mg/dL (8.8-10.2); CHLORIDE 97 mmol/L (98-107); COSMO 271; POTASSIUM 4.3 mmol/L (3.5-5.1); SODIUM 133 mmol/L (136-145); TCO2 23 mmol/L (25-35)
--- NOTE | 2016-12-27 07:30 | PROGRESS NOTE ---
DATE: 12/27/2016 SUBJECTIVE: No major issues. Patient resting comfortably. OBJECTIVE: Vital Signs: Patient is currently afebrile. Temperature 98.4 degrees, pulse is mildly tachycardic at 100. Blood pressure is okay. General: Resting comfortably. Denies any significant abdominal pain or nausea. Cardiovascular: Mildly tachycardic. Lungs: Grossly clear. Abdomen: Soft, appropriately tender. LABORATORY: Currently pending. ASSESSMENT/PLAN: A 71-year-old male postoperative day 1 from laparoscopic assisted right hemicolectomy. Postoperative state- at this time, patient is doing relatively well. We will continue to monitor and await return of bowel function. cc: Shay Stevenson MD
[2016-12-27 07:55] LABS: BANDS 13 % (0-1); LYMPHS 6 % (21-51); MONO 5 % (1-9)
[2016-12-27] MEDS: MEGACE LIQUID PO SCH ×2 (09:23→22:56)
[2016-12-27] MEDS: NORVASC PO SCH ×2 (09:23→22:52)
[2016-12-27] MEDS: CULTURELLE PO SCH ×2 (09:23→22:54)
[2016-12-27] MEDS: DOXYCYCLINE PO SCH ×2 (09:23→22:54)
[2016-12-27] MEDS: PERIDEX MT SCH ×2 (09:44→22:56)
[2016-12-27] MEDS: FOLIC ACID PO SCH (09:45)
[2016-12-27] MEDS: MYCOSTATIN SUSP PO SCH ×4 (09:45→22:52)
[2016-12-27] MEDS: ENTEREG PO SCH ×2 (09:45→22:53)
[2016-12-27] MEDS: ASPIRIN EC PO SCH (09:46)
[2016-12-27] MEDS: CARAFATE PO SCH ×4 (09:46→22:55)
--- NOTE | 2016-12-28 06:11 | PROGRESS NOTE ---
DATE: 12/28/2016 SUBJECTIVE: Patient resting comfortably. He is a little confused altered, but he seems to be responding relatively appropriately although again, he did make some abnormal responses. I do not see any lateralizing symptoms. OBJECTIVE: Vital Signs: Patient is currently afebrile. His vital signs have been stable. General: Resting comfortably. Denies any kind of significant abdominal pain. He reports some mild nausea. Cardiovascular: Regular rate and rhythm. Lungs: Grossly clear. Abdomen: Soft, mildly distended but appropriately tender. Dressing is intact. LABORATORY: Yesterday, white blood cell count was 21, hematocrit 25. Platelet count 362,000. ASSESSMENT/PLAN: A 71-year-old, male, postoperative day #2 from laparoscopic-assisted right hemicolectomy. Postoperative state. At this time, patient doing okay. He does have some altered mental status. We will hold his morphine and have him just controlled with Tylenol for right now and see how he does. See if this clears up some of his altered mental status. We will need to get Physical Therapy to work with the patient with potential mobilization. We will need to monitor his neurologic status closely. If it seems to persist even with morphine being held, may need to consider CT scan of the head but will monitor closely. cc: Shay Stevenson MD
[2016-12-28] MEDS: LR 1,000 ML IV SCH ×3 (06:54→23:34)
[2016-12-28] MEDS: PRILOSEC PO SCH (06:55)
[2016-12-28] MEDS: HEPARIN SUBQ SCH ×3 (06:55→23:26)
[2016-12-28] MEDS: COREG PO SCH ×2 (06:57→16:54)
[2016-12-28] MEDS: FOLIC ACID PO SCH (08:52)
[2016-12-28] MEDS: MEGACE LIQUID PO SCH ×2 (08:52→23:26)
[2016-12-28] MEDS: CULTURELLE PO SCH ×2 (08:53→23:26)
[2016-12-28] MEDS: CARAFATE PO SCH ×4 (08:53→23:27)
[2016-12-28] MEDS: PERIDEX MT SCH ×2 (08:53→23:30)
[2016-12-28] MEDS: DOXYCYCLINE PO SCH ×2 (08:53→23:27)
[2016-12-28] MEDS: ASPIRIN EC PO SCH (08:53)
[2016-12-28] MEDS: NORVASC PO SCH ×2 (08:53→23:27)
[2016-12-28] MEDS: MYCOSTATIN SUSP PO SCH ×4 (08:53→23:29)
[2016-12-28] MEDS: ENTEREG PO SCH ×2 (08:53→23:26)
[2016-12-28] MEDS: OFIRMEV 1000 MG/ISOTONIC SOLN 1,000 MG/100 ML BOTTLE IV PRN ×2 (13:37→23:26)
[2016-12-29] MEDS ORDERED: NORCO-5 PO PRN (05:48)
[2016-12-29] MEDS: HEPARIN SUBQ SCH ×3 (06:40→21:30)
[2016-12-29] MEDS: PRILOSEC PO SCH (06:40)
[2016-12-29] MEDS: COREG PO SCH ×3 (06:40→18:18)
--- NOTE | 2016-12-29 07:29 | PROGRESS NOTE ---
DATE: 12/29/2016 SUBJECTIVE: Patient resting comfortably. He is more alert today. Says he is passing gas. Tolerating his full liquid diet. OBJECTIVE: Vital Signs: Patient is currently afebrile. His vital signs were stable. General: No acute distress. Resting comfortably. Cardiovascular: Regular rate and rhythm. Lungs: Grossly clear. Abdomen: Soft, nondistended. Positive bowel sounds auscultated. Dressing intact. ASSESSMENT AND PLAN: A 71-year-old male, postoperative day #3 from laparoscopic- assisted right hemicolectomy. Postoperative state. At this time, patient is doing well. His altered mental status is improving. We will stop his morphine and given some p.o. pain medicine. We will advance him to a gastrointestinal soft diet. Hopefully, he can be discharged here pretty soon. cc: Shay Stevenson MD
[2016-12-29] MEDS: LR 1,000 ML IV SCH ×4 (08:02→20:30)
[2016-12-29] MEDS: CULTURELLE PO SCH ×2 (10:17→21:30)
[2016-12-29] MEDS: NORVASC PO SCH ×2 (10:17→21:30)
[2016-12-29] MEDS: FOLIC ACID PO SCH (10:17)
[2016-12-29] MEDS: MEGACE LIQUID PO SCH ×2 (10:17→21:30)
[2016-12-29] MEDS: ASPIRIN EC PO SCH (10:17)
[2016-12-29] MEDS: CARAFATE PO SCH ×4 (10:17→21:30)
[2016-12-29] MEDS: DOXYCYCLINE PO SCH ×2 (10:17→21:30)
[2016-12-29] MEDS: ENTEREG PO SCH ×2 (10:18→21:30)
[2016-12-29] MEDS: PERIDEX MT SCH ×2 (10:18→23:57)
[2016-12-29] MEDS: MYCOSTATIN SUSP PO SCH ×4 (13:07→21:30)
--- NOTE | 2016-12-30 06:15 | PROGRESS NOTE ---
DATE: 12/30/2016 SUBJECTIVE: The patient is resting comfortably. He is more alert today. He is passing gas. Tolerating his GI soft diet. No issues reported by the nursing staff. OBJECTIVE: Vital Signs: Patient is currently afebrile. His vital signs have been stable. General Examination: No acute distress. Cardiovascular: Regular rate and rhythm. Lungs: Grossly clear. Abdomen: Soft, non-distended. Appropriately tender. Bowel sounds auscultated. Dressing intact. Incision healing well. ASSESSMENT/PLAN: A 71-year-old, male, postoperative day #4 from laparoscopic assisted right hemicolectomy. Postoperative state at this time, the patient is doing well. His altered mental status is improving. He is on p.o. pain medicine. I will stop his IV fluids. Hopefully, he can be transferred back to his alf today. cc: Shay Stevenson MD
[2016-12-30] MEDS: HEPARIN SUBQ SCH ×2 (06:21→13:41)
[2016-12-30] MEDS: COREG PO SCH (06:22)
[2016-12-30] MEDS: PRILOSEC PO SCH (06:22)
[2016-12-30] MEDS: DOXYCYCLINE PO SCH (09:58)
[2016-12-30] MEDS: CARAFATE PO SCH ×2 (09:58→13:41)
[2016-12-30] MEDS: PERIDEX MT SCH (09:58)
[2016-12-30] MEDS: ENTEREG PO SCH (09:58)
[2016-12-30] MEDS: FOLIC ACID PO SCH (09:58)
[2016-12-30] MEDS: ASPIRIN EC PO SCH (09:59)
[2016-12-30] MEDS: CULTURELLE PO SCH (09:59)
[2016-12-30] MEDS: NORVASC PO SCH (09:59)
[2016-12-30] MEDS: MEGACE LIQUID PO SCH (10:01)
[2016-12-30] MEDS: MYCOSTATIN SUSP PO SCH ×2 (10:01→13:40)
[2016-12-30 11:06] VITALS: BP 116/62
--- NOTE | 2016-12-30 11:54 | DISCHARGE SUMMARY ---
ADMISSION DATE: 12/26/2016 DISCHARGE DATE: ADMITTING DIAGNOSIS: Cecal cancer. DISCHARGE DIAGNOSIS: Status post laparoscopic assisted right hemicolectomy. ADMITTING PHYSICIAN: Shay Stevenson MD. CONSULTATIONS: None. PROCEDURES: On 12/26/2016 patient underwent laparoscopic assisted right hemicolectomy. BRIEF HISTORY AND COURSE OF STAY: Patient was admitted on 12/26/2016 with a previously admitted diagnosis of cecal cancer. He was admitted and underwent previously described procedure, the laparoscopic assisted right hemicolectomy, which he tolerated well. He was admitted to the floor. His postoperative course was uneventful. He was started on a clear liquid diet and slowly advanced to a GI soft diet. On the day of discharge on 12/30/2016, the patient was able to tolerate GI diet, passing flatus. He had not had a bowel movement yet but was having no significant nausea. His pain was controlled. It is felt the patient be discharged back to his custodial facility. Followup arrangements were made. DISPOSITION: Patient will be discharged to a custodial facility. FOLLOWUP: The patient told to follow up with me in 1-2 weeks. PRESCRIPTIONS: Patient was give prescription for pain medicine. cc: Shay Stevenson MD
== END 2016-12-30 13:54 ==
LOC: SURHOLD 03:08 → 4N 16:32
PROVIDERS: ADMIT Surgery; ATTEND Surgery

== ENCOUNTER 2016-12-31 14:59 | Inpatient (IN) ==
[2016-12-31 15:57] LABS: BASO% 0.5 % (0.0-0.8); EOS# 0.21 X1000 (0.0-0.7); EOS% 1.6 % (0.0-10.0); HEMATOCRIT 15.2 % (42.0-52.0); HEMOGLOBIN 4.9 g/dL (14.0-18.0); IMM GRAN# 0.25 X1000 (0.0-0.04); IMM GRAN% 1.9 % (0.0-0.5); LYMPH# 3.13 X1000 (1.2-3.4); LYMPH% 23.5 % (20.5-51.1); MANUAL DIFF NEEDED? YES; MCH 27.5 PG (27-31); MCHC 32.2 g/dL (33-37); MCV 85.4 FL (81-99); MONO# 1.29 X1000 (0.11-0.59); MONO% 9.7 % (1.7-9.3); MPV 9.1 FL (7.4-10.4); NEUT% 62.8 % (42.2-75.2); PLT 377 X1000 (130-400); RBC 1.78 XMIL (4.7-6.1)
[2016-12-31 16:09] LABS: AGAP 10; ALBUMIN 2.2 g/dL (3.5-5.0); ALKALINE PHOSPHATASE 56 U/L (32-122); BUN 27 mg/dL (8-22); CALCIUM 8.2 mg/dL (8.8-10.2); CHLORIDE 97 mmol/L (98-107); COSMO 268; GOT 9 U/L (10-34); GPT < 5 U/L (10-44); POTASSIUM 4.7 mmol/L (3.5-5.1); SODIUM 131 mmol/L (136-145); TCO2 24 mmol/L (25-35); TOTAL BILIRUBIN 0.37 mg/dL (0.20-1.00)
[2016-12-31 16:29] LABS: INR 1.1; PROTIME 11.6 Seconds (9.2-11.7); PTT 31.5 Seconds (22.0-36.0)
[2016-12-31] MEDS: NS 1,000 ML IV PRN ×2 (17:09→20:47)
[2016-12-31 17:40] LABS: URINE CULTURE NEEDED? NO; URINE MICRO REVIEW NEEDED? NO; URINE SOURCE CLEAN CATCH
[2016-12-31 17:44] LABS: BILIRUBIN URINE NEGATIVE (NEGATIVE); BLOOD URINE NEGATIVE (NEGATIVE); COLOR YELLOW; GLUCOSE URINE NEGATIVE (NEGATIVE); LEUKOCYTES URINE NEGATIVE (NEGATIVE); NITRITE URINE NEGATIVE (NEGATIVE); PROTEIN URINE NEGATIVE (NEGATIVE); SP GRAVITY URINE 1.014; TURBIDITY URINE CLEAR (CLEAR); UROBILINOGEN URINE NORMAL (NORMAL)
[2016-12-31 17:46] LABS: UR EPITHELIAL CELLS <10 /HPF (<10); URINE BACTERIA NEGATIVE /HPF; URINE RBC <10 /HPF (<10); URINE WBC <10 /HPF (<10)
--- NOTE | 2016-12-31 17:51 | HISTORY AND PHYSICAL ---
CHIEF COMPLAINT: Profound GI bleed. HISTORY OF PRESENT ILLNESS: Mr. Daniel is a 71-year-old male who was discharged yesterday by Dr. Stevenson status post laparoscopic assisted right hemicolectomy. He was discharged to rehab. This morning the patient started having profuse rectal bleeding. Reports are as much as 8 ounces of dark red blood. The patient was immediately sent here and was found to have a hemoglobin of 4.9. The rest of his laboratory data does not show anything acute. He does have some mild hyponatremia and low albumin and mildly elevated white count. His vital signs are stable. The patient himself is a bit confused at this time. He is unable to answer basic orientation questions correctly. But after reading progress notes from his previous admission it seems that he has been a bit confused. He did follow commands appropriately today. Surgery has been consulted and the patient is going to have a stat CT of his abdomen and pelvis. He is currently receiving PRBC transfusion, will be transferred to the ICU. PAST MEDICAL HISTORY: 1. Cecal cancer status post right hemicolectomy. 2. History of C. difficile. 3. History of gastric AVMs. 4. Ischemic stroke. 5. Hypertension. 6. COPD. 7. History of pneumonia. 8. Vitamin D deficiency. PAST SURGICAL HISTORY: Recent hemicolectomy otherwise none. SOCIAL HISTORY: The patient is former smoker. He does not drink or use illicit substances. FAMILY HISTORY: Noncontributory. REVIEW OF SYSTEMS: Unable to obtain. ALLERGIES: None. HOME MEDICATIONS: Tylenol 650 mg every 6 hours as needed, Norvasc 5 mg b.i.d., aspirin 81 mg daily, Coreg 12.5 mg p.o. q.12, vitamin D2 50,000 units as directed, folic acid 1 mg daily, lactobacillus 1 b.i.d., Megace 5 mL p.o. b.i.d., Prilosec 40 mg daily, MiraLAX 17 g p.o. daily, Carafate 1 g p.o. 4 times a day. PHYSICAL EXAMINATION: VITAL SIGNS: Blood pressure 114/76, heart rate is 95, respiratory rate 16, O2 saturation 100% room air, temperature is 97.9 degrees. GENERAL: This is a frail and disheveled, chronically ill-appearing 71-year-old male lying in hospital bed in no acute distress. NEUROLOGIC: The patient is confused but follows commands appropriately. HEENT: Head is atraumatic, normocephalic. His pupils are equal, round, reactive to light. His oral mucosa is dry and extremely pale. Trachea is midline. CHEST: Few crackles bibasilarly, R > L. CV: Tachycardic but regular. No murmurs. GI: Midline incision is clean, dry and intact. Belly is slightly distended with hypoactive bowel sounds and diffusely tender to palpation. EXTREMITIES: Without edema. Pulses palpable but diminished bilaterally. DIAGNOSTIC DATA: WBC 13.31, hemoglobin 4.9, hematocrit 15.2, platelet count 377 ,000. INR 1.1. Sodium 131, potassium 4.7, chloride 97, CO2 24, anion gap 10, BUN 27, creatinine 0.9, glucose 102, calcium 8.2, T bilirubin 0.37 , AST 9, ALT less than 5, protein 6, albumin 2.2. ASSESSMENT AND PLAN: 1. Acute gastrointestinal bleed: Presumed from his surgical site. We are going to check a stat CT of the abdomen and pelvis. Surgery has been consulted and we are going to transfer the patient to the ICU for close observation. 2. Acute posthemorrhagic anemia: PRBCs transfusing and we have ordered 3 more units to be on standby. Will check an hemoglobin and hematocrit later tonight and then continue to trend them throughout his hospital stay. 3. Leukocytosis: We are still awaiting CXR and CT results, but we will go ahead and draw blood cultures and lactic acid and start broad spec abx. Since the patient has recently been in the hospital we will add vanc as well for MRSA coverage. 4. Toxic metabolic encephalopathy: Likely secondary to his profound anemia and volume status but will go ahead and check head CT, abg and ammonia level as well. Continue neuro checks in the ICU. 5. Hypovolemic hyponatremia: Normal saline infusing. 6. Severe protein calorie malnutrition: Currently the patient is NPO. We may need to consider either Clinimix depending on what his surgical status is. 7. Deep vein thrombosis prophylaxis will be provided with SCDs and TEDs given his profound bleeding. Further recommendations to follow. Dictated by LISA Landon for Micha Tabares MD cc: Jairo LISA Hughes MD Matthew L. Figh, MD [facility]
--- NOTE | 2016-12-31 18:16 | Diag Imaging Result Doc PS360 ---
EXAM: CHEST-PORTABLE HISTORY: dyspnea TECHNIQUE: AP portable at 1805 COMMENT: There is a pleural effusion on the right. There is ill-defined opacity in the right lower lobe. This was also present on 12/04/2016. The pleural fluid collection is actually smaller than on the previous study. Otherwise, there is been no significant change. IMPRESSION: Right pleural effusion, improved since 12/04/2016. Right lower lobe pneumonia. Electronically signed by Clarence Booth 12/31/2016 6:13 PM
[2016-12-31 18:23] LABS: BE -0.3 mmoll (-3.0-3.0); BLOOD TYPE ARTERIAL; DRAW SITE R BRACHIAL; METHB 1.1 % (0.0-1.5); O2(CT) 10.9 mL/dL (15.0-23.0); PCO2(98.6) 29 mmHg (35-45); PO2(98.6) 77 mmHg (60-100); SAMPLE BLOOD; SAO2 97.9 % (95.0-100.0)
--- NOTE | 2016-12-31 18:23 | Diag Imaging Result Doc PS360 ---
EXAM: HEAD W/O CONTRAST HISTORY: ams, h/o cva TECHNIQUE: CT of the head without contrast with dose reduction (clarity.) COMMENT: There is extensive patchy lucency in the white matter both hemispheres as well as cerebral atrophy. There is no evidence of bleed mass effect or abnormal extra-axial fluid collection. Compared to the previous study of 11/06/2016 there has been no significant change in the appearance of the brain. IMPRESSION: Chronic ischemic microvascular disease and atrophy. No evidence of acute disease. Electronically signed by Clarence Booth 12/31/2016 6:21 PM
[2016-12-31 18:24] LABS: MODALITY ROOM AIR
--- NOTE | 2016-12-31 18:32 | Diag Imaging Result Doc PS360 ---
EXAM: CT ABD/PELVIS W/ IV CONT ONLY HISTORY: recent hemicolectomy, profound anemia, GIB TECHNIQUE: CT of the abdomen with intravenous contrast and dose reduction (clarity.) COMMENT: There are bilateral pleural effusions as well as atelectasis versus pneumonia in the lower lobes particularly the right lower lobe. There is free fluid in the subphrenic space on the right. There is at least one small cholesterol stone in the gallbladder. The gallbladder is not distended. The left kidney is atrophic in appearance. There is are extensive atherosclerotic calcifications in the aorta and its branches including both renal arteries. The celiac and superior mesenteric arteries are patent. Inferior mesenteric artery also appears to be patent. There is no evidence of abdominal aortic aneurysm however there are considerably irregular plaques in the distal aorta. The spleen is not enlarged. The adrenal glands are within normal limits. The pancreas is unremarkable in appearance. There is gas and some stool in the colon. There are postsurgical changes in the right transverse colon. The small bowel is not significantly distended. There is no evidence of significant adenopathy. CT of the pelvis with intravenous contrast: There is free fluid in the pelvis. There is a Lacy catheter in the bladder. The bladder is thickened in appearance but this has not changed significantly since 10/31/2016. The free fluid was not present previously. There is stool in the rectum. There are old fractures present in the left ischium and spondylotic changes in the lumbar spine. IMPRESSION: Bilateral pleural effusions and basilar atelectasis versus pneumonia worse on the right than the left. Minimal cholelithiasis. Extensive atherosclerotic changes as described. Ascites. Electronically signed by Clarence Booth 12/31/2016 6:30 PM
[2016-12-31] MEDS ORDERED: VANCOMYCIN IV PER PHARMACY MISC SCH (18:45)
[2016-12-31] MEDS ORDERED: VANCOMYCIN 1,800 MG in NS 250 ML IV ONE (20:00)
[2016-12-31] MEDS: SODIUM CHLORIDE 0.9% INJ SCH (20:44)
[2016-12-31] MEDS: PEPCID IV SCH (20:45)
[2016-12-31] MEDS: ZOSYN 3.375 GM/NS 3.375 GM/50 ML IVPB IV SCH (20:47)
[2016-12-31 21:02] LABS: INR 1.08; PROTIME 11.4 Seconds (9.2-11.7)
[2017-01-01] MEDS: ZOSYN 3.375 GM/NS 3.375 GM/50 ML IVPB IV SCH ×4 (01:12→18:26)
[2017-01-01 03:20] LABS: HEMATOCRIT 31.8 % (42.0-52.0)
[2017-01-01 05:50] LABS: HEMATOCRIT 34.2 % (42.0-52.0); HEMOGLOBIN 11.5 g/dL (14.0-18.0); MCH 27.6 PG (27-31); MCHC 33.6 g/dL (33-37); RBC 4.17 XMIL (4.7-6.1)
[2017-01-01 06:05] LABS: AGAP 13; BUN 25 mg/dL (8-22); CALCIUM 8.4 mg/dL (8.8-10.2); CHLORIDE 98 mmol/L (98-107); COSMO 268; POTASSIUM 4.4 mmol/L (3.5-5.1); SODIUM 132 mmol/L (136-145); TCO2 21 mmol/L (25-35)
[2017-01-01 07:44] LABS: ALLEN TEST NO
[2017-01-01] MEDS: PEPCID IV SCH ×2 (08:12→19:44)
[2017-01-01] MEDS: D5 NS 1,000 ML IV SCH (08:59)
--- NOTE | 2017-01-01 11:23 | PROGRESS NOTE ---
DATE: 01/01/2017 SUBJECTIVE: This patient looks better compared with yesterday. He is sleepy but arousable. He is completely oriented. He is following commands. He is not complaining of chest pain or abdominal pain at this moment. No more bleed. He received multiple PRBCs and the hemoglobin improved. We will continue to monitor. If we see more bleed, we will consult gastroenterology department to see where this bleeding is coming from. OBJECTIVE: Vital Signs: Temperature 97.4 degrees, pulse 89, respiratory rate 16, blood pressure 162/96, oxygen saturation 99 on room air. HEENT: Head normocephalic. No trauma. PERRLA. Neck: Supple. No JVD. No masses. Central trachea. Chest: Clear to auscultation. No wheezing. No rales. Abdomen: Soft. There is a midline wound that looks clean and dry. Covered with a dressing that is clean as well. Positive bowel sounds. Extremities: No edema. No clubbing. No cyanosis. Neurological Examination: The patient is sleepy but arousable. Oriented x3. He moves all 4 extremities. Laboratory: WBC 10.7, hemoglobin 11, hematocrit 31.8, platelets 240,000. Sodium 132, potassium 4.4, chloride 98, bicarbonate 21, BUN 25, creatinine 0.9, glucose 86, calcium 8.4. ASSESSMENT AND PLAN: 1. Gastrointestinal bleed. This patient was recently discharged from this hospital a couple days ago. He is status post colectomy. This patient has been transfused and the hemoglobin improved. He looks stable. We will continue to monitor. In case of more gastrointestinal bleed, we will consult gastroenterology department. 2. Acute posthemorrhagic anemia. He received multiple PRBCs. The hemoglobin and hematocrit improved. We will continue to monitor on a daily basis. 3. Leukocytosis. We will continue with the same management. WBC is normal today. 4. Toxic metabolic encephalopathy that was likely secondary to profound anemia and volume status but today is much better. 5. Hypovolemic hyponatremia. Continue with normal saline. 6. Severe protein calorie malnutrition. Currently, this patient is nothing per oral . Surgery department evaluated this patient and they will start feeding this patient today. 7. Deep vein thrombosis prophylaxis provided by sequential compression devices and TEDs. 8. Gastrointestinal prophylaxis. Continue with famotidine. CRITICAL CARE TIME: 35 minutes. cc: Micha Tabares MD
--- NOTE | 2017-01-01 16:04 | CONSULTATION ---
DATE OF CONSULTATION: 01/01/2017 CHIEF COMPLAINT: Gastrointestinal bleeding. HISTORY OF PRESENT ILLNESS: This 71-year-old white male who was apparently a resident at [facility] had been hospitalized in the past with GI bleeding and was sent to Dr. Stevenson because of a cecal lesion. Dr. Stevenson performed the right hemicolectomy on 12/26, discharged on 12/30, and turned on 12/31 with profuse GI bleeding. His hemoglobin upon presentation was 4.9, hematocrit 15. His last hemoglobin prior to discharge on 12/27 was recorded as 8 and 25. He apparently had the previous hospitalizations for GI bleeding of uncertain etiology. PAST MEDICAL HISTORY: Pertinent for a history of gastric AVMs, history C. difficile, ischemic stroke, hypertension, COPD, vitamin D deficiency. PAST SURGICAL HISTORY: Includes the recent right hemicolectomy by Dr. Stevenson. SOCIAL HISTORY: Apparently he is a resident at [facility]. Denies alcohol use. FAMILY HISTORY: Unknown. REVIEW OF SYSTEMS: As noted above. MEDICATIONS: Outside the hospital include aspirin. ALLERGIES: He has no known drug allergies. PHYSICAL EXAMINATION: Vital Signs: He is afebrile. Heart rate 89, respiratory rate 16, blood pressure 162/96. General: He is awake, alert, and communicative. Lungs: Bilateral breath sounds are present. Heart: Regular rate and rhythm. Abdomen: His wound looks normal and without evidence of infection. His abdomen is soft. Bowel sounds are present. Extremities: He has trace peripheral edema. LABORATORY: Reveals a hemoglobin 11, hematocrit 31, white count 60123. BUN 25, creatinine 0.9. ASSESSMENT: Hematochezia of uncertain etiology. I doubt this represents a complication of his surgery. His hemoglobin is back up to a normal level. If he bleeds again GI would need to evaluate him with a colonoscopy. I will let Dr. Stevenson know tomorrow of his return to the hospital. I will go ahead and feed him. cc: Brayan Petersen MD
[2017-01-01] MEDS: VANCOMYCIN 1,500 MG in NS 250 ML IV SCH (19:44)
[2017-01-01] MEDS: SODIUM CHLORIDE 0.9% INJ SCH (19:44)
[2017-01-01] MEDS: ATIVAN IV PRN (23:15)
[2017-01-02] MEDS: ZOSYN 3.375 GM/NS 3.375 GM/50 ML IVPB IV SCH ×4 (01:33→18:30)
[2017-01-02] MEDS: D5 NS 1,000 ML IV SCH ×2 (01:33→11:31)
[2017-01-02 06:56] LABS: HEMATOCRIT 32.7 % (42.0-52.0); MCH 27.8 PG (27-31); MCHC 33.6 g/dL (33-37); MCV 82.6 FL (81-99); MPV 9.1 FL (7.4-10.4); RBC 3.96 XMIL (4.7-6.1)
[2017-01-02 07:35] LABS: AGAP 13; BUN 22 mg/dL (8-22); CALCIUM 8.4 mg/dL (8.8-10.2); CHLORIDE 101 mmol/L (98-107); COSMO 276; POTASSIUM 3.6 mmol/L (3.5-5.1); SODIUM 136 mmol/L (136-145); TCO2 22 mmol/L (25-35)
--- NOTE | 2017-01-02 07:45 | PROGRESS NOTE ---
DATE: 01/02/2017 SUBJECTIVE: Reviewed notes from admission. Patient did have apparently an episode of bloody bowel movement the day after he was discharged. He was sent to the emergency department. Underwent a CT scan and was transferred to the ICU, transfused with blood which he has responded to appropriately. Discussed with the nursing care overnight. No major issues. He has been doing well. He has not required any additional transfusions besides the transfusions that he had on admission. He has been hemodynamically stable, requiring only IV fluids. The patient reports a nonsignificant amount of abdominal pain but he has been somewhat confused. OBJECTIVE: Vital Signs: The patient is currently afebrile. His vital signs are stable. General Examination: No acute distress. Resting comfortably. Cardiovascular: Regular rate and rhythm. Lungs: Grossly clear. Abdomen: Soft, appropriately tender. Incision is healing well. Laboratory: From yesterday, hematocrit was 34. His has labs from this morning pending. CT scan independently reviewed and radiology report reviewed. Head CT scan independently reviewed and radiology report reviewed. ASSESSMENT/PLAN: A 71-year-old, male status post laparoscopic assisted right hemicolectomy with postoperative bleed. Postoperative bleed. At this time, presume it is from his surgical site. He has had no other obvious external signs of bleeding. At this time, he responded appropriately to his transfusion. Had a lengthy discussion with the patient's son, Brayan Daniel, over the phone. I attempted to call his other son, Franco DanielJr., on the phone but was unsuccessful. I did discuss with his son, Brayan Daniel, on the phone. I answered all of his questions. Discussed that this likely happened and was not apparent, that he has responded appropriately, that we will monitor him, and continue to resuscitate him as needed. If he does have a 2nd bleed, would recommend GI seeing him for a potential endoscopy. His white blood cell count has gone down to 10. We will monitor him closely. cc: Shay Stevenson MD
[2017-01-02] MEDS: PEPCID IV SCH ×2 (07:52→20:14)
[2017-01-02] MEDS ORDERED: NORVASC PO ONE (10:41)
[2017-01-02] MEDS ORDERED: NORVASC PO SCH (10:45)
[2017-01-02] MEDS: COREG PO SCH ×2 (10:53→20:14)
--- NOTE | 2017-01-02 12:34 | PROGRESS NOTE ---
DATE: 01/02/2017 SUBJECTIVE: This patient looks better today. He is more alert. He is more cooperative. He is following commands. He is answering my questions. He is not oriented in time. His blood pressure has been elevated. I will restart this patient on his home medication of carvedilol and amlodipine, and I will put hydralazine p.r.n. Also, we will start this patient on physical therapy. OBJECTIVE: Vital Signs: Temperature 97.7 degrees, pulse 93, respiratory rate 16, blood pressure 161/95, oxygen saturation 100% on room air. HEENT: Head normocephalic. No trauma. PERRLA. Neck: Supple. No JVD. No masses. Central trachea. Chest: Clear to auscultation. No wheezing. No rales. Abdomen: Soft. There is a midline wound that looks clean and dry, covered with a dressing that is clean as well. Positive bowel sounds. Extremities: No edema. No clubbing. No cyanosis. Neurological: The patient is alert and oriented x2. He moves all 4 extremities. LABORATORY DATA: WBC 10.9, hemoglobin 11, hematocrit 32.7, platelets 203,000. Sodium 136, potassium 3.6, chloride 101, bicarbonate 22, BUN 22, creatinine 1, glucose 108, calcium 8.4, magnesium 1.7. ASSESSMENT AND PLAN: 1. Gastrointestinal bleed. This patient was recently discharged from this hospital a few days ago. He is status post a colectomy. This patient has been transfused, and his hemoglobin improved. Yesterday the hemoglobin was 11, and today the hemoglobin is 11 again. He looks stable. He is tolerating oral. Today in the morning he tolerated 80% of his food. In case of more gastrointestinal bleed, we will consult gastroenterology to evaluate this patient. 2. Acute posthemorrhagic anemia. He received multiple packed red blood cells. Hemoglobin and hematocrit have been stable for the past 2 days. 3. Leukocytosis. We will continue with the same management. White blood count is stable. 4. Toxic metabolic encephalopathy. This was likely secondary to profound anemia and volume status. He is much better. He is more alert and more oriented. 5. Hyponatremia, resolved. 6. Severe protein-calorie malnutrition. Continue with his diet. He is tolerating oral. 7. Deep vein thrombosis prophylaxis provided by sequential compression devices and TEDs. 8. Gastrointestinal prophylaxis. Continue with famotidine. Overall, this patient is doing much better. Probably we can send this patient to the medical floor either today or tomorrow. For now, we will continue with the same treatment, and we will add his blood pressure medications that he was taking at home. I will start this patient on physical therapy as well. CRITICAL CARE TIME: 35 minutes. cc: Micha Tabares MD
[2017-01-02] MEDS: PROTONIX 80 MG in NS 80 ML IV SCH ×2 (14:30→22:11)
--- NOTE | 2017-01-02 17:26 | CONSULTATION ---
DATE OF CONSULTATION: 01/02/2017 REASON FOR CONSULTATION: Gastrointestinal bleeding. HISTORY OF PRESENT ILLNESS: This is a 71-year-old, white male, who had recent hemicolectomy on 12/26/[address] Stevenson. He was discharged to [facility] on 12/30. Apparently he had been readmitted on 12/31/2016 with GI bleeding. He has had a decreased hemoglobin and hematocrit. He has received 4 units of packed red blood cells. Nurse had noticed black tarry stool. PAST MEDICAL HISTORY: History of gastric AVM, history of C. difficile colitis, history of CVA, hypertension, COPD, vitamin D deficiency. PAST SURGICAL HISTORY: Recent right hemicolectomy on 12/26/[address] Stevenson. ALLERGIES: No known drug allergies. HOME MEDICATIONS: Carafate 1 g 4 times daily, MiraLAX 17 g daily, Prilosec 40 mg daily, Nystatin 4 times daily, Megace 5 mL twice a day, Culturelle twice a day, folic acid daily, vitamin D 50,000 units every 7 days, doxycycline 100 mg twice a day, Coreg 12.5 mg every 12 hours, aspirin 81 mg daily, Norvasc 5 mg twice daily, Tylenol 650 mg every 6 hours as needed. SOCIAL HISTORY: Recently transferred after his surgery to [facility]. REVIEW OF SYSTEMS: Per HPI. PHYSICAL EXAMINATION: Vital Signs: Temperature 97.4 degrees, pulse 84, respirations 19, blood pressure 136/95. General: Patient is awake, alert, in no acute distress. HEENT: Normocephalic, atraumatic. Sclerae are pale. Skin pale. Respiratory: Lung sounds clear bilaterally. Abdomen: Soft. He has a midline wound with abdirashid open to air. Positive bowel sounds. Extremities: No lower extremity edema noted. LABORATORY: Hematology: White count 10.95, hemoglobin 11.0, hematocrit 32.7. On admission 12/31/2016, his hemoglobin was 4.9, hematocrit 15.2. He received 4 units of packed red blood cells. Chemistry: Sodium 136, potassium 3.6, chloride 101, CO2 22, BUN 22, creatinine 1.0, glucose 108. ASSESSMENT: 1. GI bleed. 2. Anemia. 3. Recent colectomy. PLAN: Continue supportive care. Continue IV fluids. Start IV PPI. We will plan for an EGD when able to. Patient has eaten some lunch so we will have to wait and we will proceed with EGD when able. I have discussed the procedure with the patient and he voiced understanding and wishes to proceed. I have discussed this case with Dr. Her. Thank you for this consultation. Dictated by LISA Elizabeth for Jim Her MD cc: LISA Diaz MD
[2017-01-02] MEDS: APRESOLINE IV PRN (17:45)
[2017-01-02] MEDS: VANCOMYCIN 1,500 MG in NS 250 ML IV SCH (20:14)
[2017-01-02] MEDS: NORVASC PO SCH (20:14)
[2017-01-03] MEDS: D5 NS 1,000 ML IV SCH ×2 (00:17→15:13)
[2017-01-03] MEDS: ZOSYN 3.375 GM/NS 3.375 GM/50 ML IVPB IV SCH ×4 (00:17→18:04)
[2017-01-03 05:26] LABS: HEMATOCRIT 32.2 % (42.0-52.0); HEMOGLOBIN 10.8 g/dL (14.0-18.0); MCH 27.3 PG (27-31); MCHC 33.5 g/dL (33-37); MCV 81.5 FL (81-99); MPV 8.9 FL (7.4-10.4); RBC 3.95 XMIL (4.7-6.1)
[2017-01-03 05:51] LABS: AGAP 12; BUN 15 mg/dL (8-22); CALCIUM 8.3 mg/dL (8.8-10.2); CHLORIDE 102 mmol/L (98-107); COSMO 271; POTASSIUM 3.5 mmol/L (3.5-5.1); SODIUM 135 mmol/L (136-145); TCO2 21 mmol/L (25-35)
--- NOTE | 2017-01-03 06:59 | PROGRESS NOTE ---
DATE: 01/03/2017 SUBJECTIVE: The patient did have a dark tarry stool yesterday. I consulted GI and talked with Dr. Her over the phone. They made him n.p.o. for potential EGD, but they are holding currently. He has not had another bowel movement since then. He has been hemodynamically stable. No major issues reported by the nursing staff. OBJECTIVE: Vital Signs: The patient is currently afebrile. His vital signs have been stable. General: No acute distress. Resting comfortably. Cardiovascular: Regular rate and rhythm. Lungs: Grossly clear. Abdomen: Soft, nondistended. Appropriately tender. The incision is healing well. LABORATORY DATA: White blood cell count is 9; hematocrit 32, which is essentially stable; platelet count 196,000. ASSESSMENT AND PLAN: A 71-year-old male, status post laparoscopic- assisted right hemicolectomy with postoperative bleed. Postoperative bleed: At this time, I suspect that he may have a bleed more proximally given the dark tarry stool. Gastrointestinal has been consulted. They are considering an esophagogastroduodenoscopy. At this time, I do not want the patient moved out of the intensive care unit given his recent dark tarry stool. I would like to monitor him closely. If we absolutely have to move the patient out of the intensive care unit, I want the patient to be moved to the CICU. Given this, I will hold his orders for his transfer. His hematocrit has stayed stable, but again, he did have a dark tarry stool yesterday, which is difficult to assess if this is a more proximal bleed or old blood. I would like to continue to watch him closely and monitor for any change. It should be noted that I had a lengthy discussion with both sons yesterday. cc: Shay Stevenson MD [facility]ITALJessica
[2017-01-03] MEDS: PEPCID IV SCH ×2 (07:45→20:40)
[2017-01-03] MEDS: PROTONIX 80 MG in NS 80 ML IV SCH ×2 (07:45→18:04)
[2017-01-03] MEDS: NORVASC PO SCH ×2 (08:00→20:39)
[2017-01-03] MEDS: COREG PO SCH ×2 (08:00→20:39)
--- NOTE | 2017-01-03 09:54 | PROGRESS NOTE ---
DATE: 01/03/2017 HISTORY OF PRESENT ILLNESS: Mr. Daniel is a 71 year old. He was discharged the day before per Dr. Stevenson status post laparoscopic-assisted right hemicolectomy. He is discharged to rehab. The morning of 12/31/2016, the patient started having profuse rectal pain and reports as much as 8 ounces of dark red blood. The patient was immediately sent here, found to have hemoglobin of 4.9. Rest of his lab did not show anything acute. Did have some mild hyponatremia and low albumin, mildly elevated white count. The patient was a bit confused, unable answer some basic questions when he was in the emergency room. PAST MEDICAL HISTORY: 1. Cecal cancer status post right hemicolectomy. 2. History of C. difficile. 3. History of gastric AVM's. 4. Ischemic stroke. 5. Hypertension. 6. COPD. 7. Pneumonia. 8. Vitamin D deficiency. PAST SURGICAL HISTORY: Recent hemicolectomy. PHYSICAL EXAM: General: He is awake and alert. He is on a liquid diet eating. Vital Signs: Temp 97.5 degrees, pulse 92, respirations 14, blood pressure 188/97. HEENT: Pupils are equal. CVP less than 6 cm. Lungs: Clear in all lung lainez. Cardiovascular: Exam reveals regular rhythm and rate without murmur or S3. Abdomen: Soft, nontender. Urine output almost 4 L. LABORATORY DATA: This morning, white count 9510, hematocrit 32, platelet count 196,000. REVIEW OF MEDICATIONS: 1. Zosyn 3.375 mg IV q. 6 hours. 2. Vancomycin 1500 mg IV q. 24 hours. 3. Protonix 40 mg IV q. 12 hours. 4. Normal saline going at 125 mL an hour. 5. Pepcid 20 mg q. 12 hours. 6. IV Coreg 12.5 mg p.o. q. 12 hours. 7. Amlodipine 5 mg p.o. b.i.d. ASSESSMENT AND PLAN: 1. Postoperative bleed. At this time, suspect he may have bleeding more proximally given dark tarry stool. He is status post laparoscopic assisted right hemicolectomy. Gastroenterology was consulted. On a liquid diet at this point. Considering an esophagogastroduodenoscopy. Will follow clinically how he does with his blood counts. 2. Gastrointestinal bleed, anemia. He received 4 units packed red blood cells. Hematocrit continued to follow. He is on intravenous Pepcid. Esophagogastroduodenoscopy was discussed. I think gastroenterology is following; Dr. Stevenson, of course, following as well. cc: Fam Miller MD
[2017-01-03 16:31] LABS: HEMATOCRIT 29.5 % (42.0-52.0); HEMOGLOBIN 9.9 g/dL (14.0-18.0); MCH 27.5 PG (27-31); MCHC 33.6 g/dL (33-37); MCV 81.9 FL (81-99); MPV 8.4 FL (7.4-10.4); RBC 3.6 XMIL (4.7-6.1)
--- NOTE | 2017-01-03 18:09 | PROGRESS NOTE ---
DATE: 01/03/2017 SUBJECTIVE: Patient is resting comfortably. He had 1 bowel movement today and apparently it was reddish gel like. He did not have any melena. He is tolerating diet well. He has not had any nausea, vomiting. He has been doing better. OBJECTIVE: Vitals: Temperature 97.5, pulse 83, breathing 14, blood pressure 154/89. LABS: Hemoglobin 9.9, hematocrit 29.5, MCV 81.9. IMPRESSION: Gastrointestinal bleed. He has bled from the colonic anastomosis or from the peptic ulcer disease that was seen earlier and he does need an endoscopy albeit not urgently that is this moment. He will be scheduled for EGD tomorrow to rule out any peptic ulcer disease responsible for his drop in his hemoglobin, hematocrit and his bleeding. Since he is Dr. Rueda's patient she will supervisor opening and picking the case tomorrow and proceed with EGD. In the meantime I will be available for any urgent intervention if he may require. I discussed the case with Dr. Stevenson. cc: Jim Her MD
[2017-01-03] MEDS: SODIUM CHLORIDE 0.9% INJ SCH (20:39)
[2017-01-04] MEDS: ZOSYN 3.375 GM/NS 3.375 GM/50 ML IVPB IV SCH ×4 (01:17→18:00)
[2017-01-04] MEDS ORDERED: VANCOMYCIN 1,500 MG in NS 250 ML IV SCH (02:00)
[2017-01-04] MEDS: D5 NS 1,000 ML IV SCH ×2 (04:06→18:00)
[2017-01-04] MEDS: PROTONIX 80 MG in NS 80 ML IV SCH (05:41)
--- NOTE | 2017-01-04 07:51 | PROGRESS NOTE ---
DATE: 01/04/2017 SUBJECTIVE: Mr. Daniel is resting comfortably, sleeping well. Was able to arouse but comfortable. No complaints. PHYSICAL EXAMINATION: Vital Signs: Temperature 98.4 degrees, pulse 85, respirations 16, blood pressure 150/96. HEENT: Pupils are equal and round. CVP less than 6 cm. Lungs: Clear in all lung lainez. Cardiovascular Examination: Regular rhythm and rate without murmur or S3. Is and Os: Urine output 5000 mL. LAB: Reviewed from the 4th. Hemoglobin 9.9, hematocrit 29 which is basically stable. Electrolytes reviewed as well. Creatinine 1.1 from yesterday. ASSESSMENT AND PLAN: 1. Gastrointestinal bleed. It has bled from his colonic anastomosis or from his peptic ulcer disease that was seen earlier. He does need an endoscopy, albeit not urgently but I think they are scheduling one for today. Rule out peptic ulcer disease. Hemoglobin and hematocrit dropping slowly. He is Dr. Rueda's patient and I think she is supposed to pick him up today. 2. Gastrointestinal bleed. Received 4 units of packed red blood cells. Hemodynamically remains stable. 3. Status post laparoscopic-assisted right hemicolectomy. Postoperative bleed. Dr. Stevenson is following as well. 4. Reviewed orders. I do not see any change at this point. He is on Zosyn 3.375 mg IV q.6, vancomycin 1500 mg IV q.30 hours, Protonix 40 mg IV q.12 hours, normal saline at 125 mL an hour, Ativan as needed, Coreg 12.5 mg q.12 hours, Norvasc 5 mg b.i.d. Note, his blood sugars look good. cc: Fam Miller MD
--- NOTE | 2017-01-04 08:35 | PROGRESS NOTE ---
DATE: 01/04/2017 SUBJECTIVE: Patient doing okay. No major issues. OBJECTIVE: Vital Signs: Patient is currently afebrile. His vital signs are stable. General Examination: No acute distress. Cardiovascular: Regular rate and rhythm. Lungs: Grossly clear. Abdomen: Soft, nontender, nondistended. Laboratory: White blood cell count from yesterday was 8, hematocrit most recent one was yesterday at 29.5, platelet count 201,000. ASSESSMENT/PLAN: A 71-year-old, male status post laparoscopic assisted right hemicolectomy with postoperative bleed. Postoperative bleed. At this time, patient has remained hemodynamically stable. There is a plan for possible endoscopy today. Continue to monitor him in the intensive care unit for right now. His hematocrit is down a little bit but he has not had a significant amount of bloody diarrhea or bloody bowel movements. We will continue to follow him closely. cc: Shay Stevenson MD
[2017-01-04] MEDS: PEPCID IV SCH ×2 (08:58→20:16)
[2017-01-04] MEDS: NORVASC PO SCH ×2 (13:22→20:17)
[2017-01-04] MEDS: COREG PO SCH ×2 (13:22→20:17)
[2017-01-04 15:03] LABS: HEMOGLOBIN 10.9 g/dL (14.0-18.0); MCH 27.3 PG (27-31); MCV 82.5 FL (81-99); MPV 8.9 FL (7.4-10.4)
[2017-01-04 15:19] LABS: AGAP 12; ALBUMIN 2.5 g/dL (3.5-5.0); ALKALINE PHOSPHATASE 57 U/L (32-122); BUN 8 mg/dL (8-22); CALCIUM 8.3 mg/dL (8.8-10.2); CHLORIDE 100 mmol/L (98-107); COSMO 263; GOT 14 U/L (10-34); GPT 8 U/L (10-44); SODIUM 132 mmol/L (136-145); TCO2 20 mmol/L (25-35); TOTAL BILIRUBIN 0.66 mg/dL (0.20-1.00)
[2017-01-04] MEDS ORDERED: DIPRIVAN 1% ONE (18:23)
[2017-01-04] MEDS ORDERED: XYLOCAINE-MPF 2% ONE (18:23)
--- NOTE | 2017-01-04 20:13 | OPERATIVE NOTE ---
PROCEDURE DATE: 01/04/2017 REFERRING PHYSICIAN: Shay Stevenson M.D. PRIMARY HOSPITALIST: Fam Miller M.D. INDICATION FOR PROCEDURE: 1. Hematochezia. 2. Iron deficiency anemia with a hemoglobin of 4.9 on admission. 3. History of peptic ulcer disease. 4. History of bleeding arteriovenous malformations. PROCEDURE PERFORMED: Esophagogastroduodenoscopy. CONSENT: Informed consent was obtained from the patient prior to the procedure. The risks, benefits, and alternatives were discussed with the patient and his son. MEDICATION: The patient received monitored anesthesia care. PERFORMING PHYSICIAN: Stella Rueda M.D. ASSISTANTS: 1. [facility]. [facility] 2. Noé Frias RN. 3. Rozina Toussaint CRNA. 4. Chaz Alarcon M.D. (Anesthesia). COMPLICATIONS: There were no complications. ESTIMATED BLOOD LOSS: None. SPECIMENS REMOVED: None. FINDINGS: After sedation was achieved, the upper endoscope was inserted to the 2nd portion of the duodenum. The hypopharynx appeared normal. The tubular esophagus appeared grossly normal except for a mid esophageal submucosal cyst which appear benign. There is no evidence of varices or rest Spears's esophagus. However, there were erosive changes in the distal esophagus from 40-42 cm. This was consistent with grade B erosive esophagitis. The GE junction was irregular, but there were no discrete tongues of Spears's esophagus. The GE junction was present at 42 cm from the incisors. There was a hiatal hernia that spanned from 42-46 cm. In the gastric lumen, there were severe erosive changes consistent with erosive gastritis. There were a few scattered nonbleeding AVMs. There were several polyps in the fundus and the body with no stigmata of bleeding. They were clearly inflamed. The polyps ranged in size from 5-10 mm. The pylorus appeared grossly normal. The 1st and 2nd portion of the duodenum were normal. There was no stigmata of bleeding or any obvious bleeding lesions. After the exam was complete, the lumen was decompressed and the scope was removed without incident. IMPRESSION: 1. Benign-appearing mucosal cyst in the middle esophagus. 2. Grade B erosive esophagitis. 3. Irregular GE junction at 42 cm. 4. Hiatal hernia. 5. Severe erosive gastritis. 6. Nonbleeding arteriovenous malformations. 7. Gastric polyps in the fundus and body. 8. Normal pylorus. 9. Normal 1st and 2nd portion of the duodenum. RECOMMENDATION: 1. There was no sign of bleeding at this time. Please continue IV Zantac. 2. I suspect the patient is bleeding from his surgical anastomosis. However, it is too soon after surgery to perform a colonoscopy. Therefore, I recommend that his colonoscopy be postponed until he has been cleared by Surgery. It should be noted that he is not bleeding at this time. 3. Continue to monitor serial hemoglobin and hematocrit. 4. I would advance his diet to a regular diet. 5. We will schedule the patient to clinic in 2-3 weeks following hospital discharge for interval reassessment. cc: MD Shay Bosch MD Allen J. Schmidt, MD MTDD
[2017-01-04] MEDS: SODIUM CHLORIDE 0.9% INJ SCH (20:16)
[2017-01-05] MEDS: ZOSYN 3.375 GM/NS 3.375 GM/50 ML IVPB IV SCH ×4 (00:23→18:08)
[2017-01-05] MEDS: D5 NS 1,000 ML IV SCH ×3 (00:31→12:21)
--- NOTE | 2017-01-05 06:53 | PROGRESS NOTE ---
DATE: 01/05/2017 SUBJECTIVE: The patient did have an EGD done yesterday. It did not show an obvious source of bleeding. He did have a small maroon bowel movement yesterday afternoon prior to his procedure, but it was less intense than the previous ones. Overall, the patient has been hemodynamically stable. The patient has reported no other major issues. He is tolerating his diet thus far. OBJECTIVE: Vital Signs: The patient is currently afebrile. His vital signs have been stable. General: No acute distress. Cardiovascular: Regular rate and rhythm. Lungs: Grossly clear. Abdomen: Soft, appropriately tender. The incision is healing well. LABORATORY DATA: White blood cell count is 9, hematocrit 33, platelet count 192,000. Remainder of labs reviewed. ASSESSMENT AND PLAN: A 71-year-old male with gastrointestinal bleed, status post laparoscopic-assisted right hemicolectomy. Postoperative bleed: At this time, the patient remains hemodynamically stable. His upper endoscopy did not show a source of bleeding, and that means that likely his bleeding could be related to his anastomosis. He just had a small maroon-colored bowel movement yesterday. He is on a regular diet. At this point, we will continue to monitor him at least another 24 hours in the ICU before transferring him. Overall, his hematocrit is relatively stable. He has been hemodynamically stable, so I suspect this blood that we are seeing might be old blood. cc: Shay Stevenson MD
[2017-01-05] MEDS: PEPCID IV SCH ×2 (07:42→20:39)
[2017-01-05] MEDS: NORVASC PO SCH ×3 (07:48→20:39)
[2017-01-05] MEDS: COREG PO SCH ×3 (07:48→20:39)
[2017-01-05] MEDS ORDERED: PROTONIX IV SCH (12:28)
--- NOTE | 2017-01-05 18:09 | PROGRESS NOTE ---
DATE: 01/05/2017 SUBJECTIVE: The patient states that he is feeling better today. He had a small amount of a regular diet and had two brown bowel movements this afternoon. He denies complaint. OBJECTIVE: On exam, his blood pressure is 162/94, pulse is 90, respiration 13, temp of 97.9 degrees.Pulmonary: Lungs are clear to auscultation with normal expiratory effort. Cardiovascular Examination: Reveals regular rate and rhythm with no gallops, murmurs, or rubs. Abdominal Exam: Reveals normoactive bowel sounds. The abdomen is soft with mild incisional tenderness but no rebound or guarding. OBJECTIVE DATA: There are no new labs from 01/04/2017. RECOMMENDATION: 1. The patient appears to have improved clinically with no evidence of active bleeding. I recommend that we continue supportive care at this time. 2. We will schedule the patient for an outpatient colonoscopy in the future. 3. Continue regular diet. cc: Stella Rueda MD
[2017-01-05] MEDS: APRESOLINE IV PRN (18:16)
[2017-01-05] MEDS ORDERED: CATAPRES PO PRN (18:26)
--- NOTE | 2017-01-05 18:31 | PROGRESS NOTE ---
DATE: 01/05/2017 SUBJECTIVE: Mr. Daniel states he is feeling pretty good. No complaints of pain. OBJECTIVE: Vital signs: Temperature 97.8, pulse 90, respirations 13, blood pressure 162/94. HEENT: Pupils are equal and round. Lungs: Clear in all lung lainez. Cardiovascular: Regular rate without murmur or S3. Urine output 1800 mL. LABORATORY DATA: Reviewed from the . ASSESSMENT AND PLAN: History of gastrointestinal bleed status post laparoscopic assisted right hemicolectomy. Remains hemodynamically stable. EGD did not show source of bleeding and likely bleeding is related to anastomosis. There was a small maroon colored bowel movement yesterday. He is on a regular diet. At this point, continue to monitor him for the next 24 hours for EGD done by Dr. Rueda, benign-appearing mucosa. mucosal cyst in the middle esophagus, grade B erosive esophagitis, irregular GE junction at 42 cm, hiatal hernia, no site of bleeding. cc: Fam Miller MD
[2017-01-05] MEDS ORDERED: CARDIZEM 100 MG/NS 100 MG/100 ML IVPB IV SCH (18:56)
[2017-01-05] MEDS ORDERED: CARDIZEM IV ONE (18:56)
[2017-01-05] MEDS: ATIVAN IV PRN (21:18)
[2017-01-06] MEDS: ZOSYN 3.375 GM/NS 3.375 GM/50 ML IVPB IV SCH ×4 (00:24→17:05)
[2017-01-06] MEDS: D5 NS 1,000 ML IV SCH ×4 (03:38→22:20)
--- NOTE | 2017-01-06 06:25 | PROGRESS NOTE ---
DATE: 01/06/2017 SUBJECTIVE: The patient did have an episode of atrial fibrillation last night, although he was started on Cardizem but did convert back to normal sinus rhythm. He did also have 2 bowel movements reported yesterday that were not described as bloody, but sounded almost essentially normal. Overall no major issues. He is tolerating his diet. OBJECTIVE: Vital Signs: Patient is currently afebrile. His vital signs have been stable. He is in normal sinus rhythm currently. General: No acute distress. Resting comfortably. Cardiovascular: Regular rate and rhythm. Lungs: Grossly clear. Abdomen: Soft, appropriately tender. Incision healing well. LABORATORY: None currently. ASSESSMENT/PLAN: A 71-year-old male with gastrointestinal bleed status post laparoscopic-assisted right hemicolectomy. Postoperative state: At this time, patient remains hemodynamically stable although he did have an episode of atrial fibrillation. He has had 2 bowel movements that were essentially normal while he is on a regular diet. I suspect that we could possibly move amount of the ICU today. I would recommend potentially going to the CICU given his episode of atrial fibrillation, just in case he has another repeat episode. We will continue to monitor him closely. cc: Shay Stevenson MD
--- NOTE | 2017-01-06 06:52 | EKG Report ---
Test Performed on : 01/05/2017 6:53:32 PM Test Reason : Afib Blood Pressure : / mmHG Vent. Rate : 125 BPM Atrial Rate : 107 BPM P-R Int : 000 ms QRS Dur : 050 ms QT Int : 320 ms P-R-T Axes : 000 010 061 degrees QTc Int : 461 ms Atrial fibrillation. with rapid ventricular response. Nonspecific T wave abnormality Abnormal ECG When compared with ECG of 04-NOV-2016 08:40, Atrial fibrillation. has replaced Sinus rhythm. Confirmed by Cam Manning MD ([id number]) on 01/06/2017 1:02:15 PM
--- NOTE | 2017-01-06 07:09 | EKG Report ---
Test Performed on : 01/06/2017 04:48:31 AM Test Reason : Afib Blood Pressure : / mmHG Vent. Rate : 099 BPM Atrial Rate : 099 BPM P-R Int : 150 ms QRS Dur : 058 ms QT Int : 370 ms P-R-T Axes : 059 -04 045 degrees QTc Int : 474 ms Sinus rhythm. with premature atrial complexes. Otherwise normal ECG When compared with ECG of 06-JAN-2017 04:47, (Unconfirmed) No significant change was found Confirmed by Cam Manning MD ([id number]) on 01/06/2017 1:02:30 PM
[2017-01-06] MEDS: PEPCID IV SCH ×2 (08:06→20:42)
[2017-01-06] MEDS: NORVASC PO SCH ×2 (08:07→20:41)
[2017-01-06] MEDS: COREG PO SCH ×2 (08:07→20:41)
[2017-01-06] MEDS: CARDIZEM PO SCH ×3 (09:48→20:41)
--- NOTE | 2017-01-06 09:52 | PROGRESS NOTE ---
DATE: 01/06/2017 SUBJECTIVE: Mr. Daniel is sleeping, resting comfortably, easy to arouse. He did go into atrial fib yesterday evening with a rate of about 110-120. He remained hemodynamically stable. I did start him on some Cardizem. He remains afebrile. OBJECTIVE: Temperature 100.0 degrees, pulse 94, respirations 19, blood pressure 117/82. HEENT: Pupils are equal and round. Lungs are clear in all lung lainez. Cardiovascular: Regular rhythm and rate without murmur or S3. Urine output was 4.3 L. LABORATORY DATA: Lab reviewed from 01/04/2017. Unremarkable. Hemoglobin stayed stable at 33. We will check again today and see what his counts are. ASSESSMENT AND PLAN: 1. Gastrointestinal bleed, status post laparoscopic assist right hemicolectomy. He remains hemodynamically stable. He did have an episode of atrial fibrillation yesterday. He has had 2 bowel movements that were essentially normal while he is on a regular diet. It is suspected that possibly could move him out of the ICU today and potentially go into CIC. Had an episode of atrial fibrillation. 2. Atrial fibrillation converted back to sinus rhythm. I did ask cardiology to look in to see if we need to be more aggressive. 3. Nutrition. He is eating fairly well. REVIEW OF HIS ORDERS: He is on Zosyn 3.375 mg IV q.6. I will probably continue that another day. I may switch him over to Cardizem p.o. as his blood pressure was a little elevated yesterday as well. We will see what cardiology wants to do. cc: Fam Miller MD
[2017-01-07] MEDS: ZOSYN 3.375 GM/NS 3.375 GM/50 ML IVPB IV SCH ×4 (00:37→18:09)
[2017-01-07] MEDS: CARDIZEM PO SCH ×4 (01:51→19:46)
[2017-01-07 05:22] LABS: MANUAL DIFF NEEDED? NO
[2017-01-07 05:25] LABS: BASO% 0.6 % (0.0-0.8); EOS# 0.38 X1000 (0.0-0.7); HEMATOCRIT 28.8 % (42.0-52.0); HEMOGLOBIN 9.5 g/dL (14.0-18.0); IMM GRAN# 0.15 X1000 (0.0-0.04); IMM GRAN% 1.2 % (0.0-0.5); LYMPH# 2.93 X1000 (1.2-3.4); LYMPH% 23.1 % (20.5-51.1); MCH 27.7 PG (27-31); MONO# 1.33 X1000 (0.11-0.59); MONO% 10.5 % (1.7-9.3); MPV 9.2 FL (7.4-10.4); NEUT% 61.6 % (42.2-75.2); PLT 327 X1000 (130-400); RBC 3.43 XMIL (4.7-6.1)
[2017-01-07 05:37] LABS: ALBUMIN 2.6 g/dL (3.5-5.0); CALCIUM 8.2 mg/dL (8.8-10.2); MAGNESIUM 1.7 mg/dL (1.5-2.7); POTASSIUM 3.7 mmol/L (3.5-5.1); TOTAL BILIRUBIN 0.22 mg/dL (0.20-1.00); TOTAL PROTEIN 6.3 g/dL (6.3-8.3)
[2017-01-07] MEDS: PEPCID IV SCH ×2 (09:00→19:46)
[2017-01-07] MEDS: COREG PO SCH ×3 (09:00→21:47)
[2017-01-07 09:01] LABS: ALBUMIN 2.8 g/dL (3.5-5.0); CALCIUM 8.4 mg/dL (8.8-10.2); MAGNESIUM 1.8 mg/dL (1.5-2.7); POTASSIUM 3.7 mmol/L (3.5-5.1); TOTAL BILIRUBIN 0.27 mg/dL (0.20-1.00); TOTAL PROTEIN 6.6 g/dL (6.3-8.3)
[2017-01-07] MEDS: NORVASC PO SCH ×3 (09:04→21:47)
--- NOTE | 2017-01-07 09:17 | PROGRESS NOTE ---
DATE: 01/07/2017 SUBJECTIVE: Mr. Daniel feels good. No abdominal pain. No nausea. Still has a Lacy catheter in. OBJECTIVE: Temperature 98.5 degrees, pulse was around 95, respirations 22, blood pressure 157/97. Lungs are clear in all lung lainez. Cardiovascular: Regular rhythm and rate without murmur or S3. Abdomen is soft. Skin is warm and dry. Urine output 1900 mL. LABORATORY DATA: White count 12,670. Hematocrit 28, platelet count 327,000. Sodium 136, potassium 3.7, chloride 105. BUN 12. Creatinine 1.2 which is stable. Troponin was 0.196 and then 0.166. ASSESSMENT AND PLAN: 1. Gastrointestinal bleed, status post laparoscopic-assisted right hemicolectomy. Remains hemodynamically stable. No sign of further bleeding. His diet has been advanced and he is making good progress. We will increase his activity and try and get him out of bed, and I believe he keeps a Lacy catheter, at least that is what he told me. So, we will leave the Lacy catheter alone. 2. Atrial fibrillation, which is converted back to sinus rhythm. 3. Nutrition. P.o. intake looks good so, hopefully, we can get him ready to go on Monday; I think he lives at [facility]. We will see how he does. He has had 2 bowel movements that were essentially normal. He is on a regular diet. cc: Fam Miller MD
[2017-01-07] MEDS: D5 NS 1,000 ML IV SCH ×2 (12:30→19:53)
--- NOTE | 2017-01-07 13:58 | PROGRESS NOTE ---
DATE: 01/07/2017 Franco Daniel is a 71-year-old male who has undergone an open right hemicolectomy per Dr. Stevenson. He is readmitted with rectal bleeding. He has been recently moved from the ICU. He is up in the CICU because of intermittent atrial fibrillation. He still has a Lacy catheter tube in place. He is on a regular diet but did not eat much of his lunch. Evidently he uses a wheelchair a lot at home. Prior to discharge his Lacy catheter tube will have to be removed. His midline incision seems to be healing well. Will sit him in a chair this afternoon. cc: Marlena Mckee MD
[2017-01-07] MEDS: SODIUM CHLORIDE 0.9% INJ SCH (19:46)
[2017-01-08] MEDS: ZOSYN 3.375 GM/NS 3.375 GM/50 ML IVPB IV SCH ×4 (01:40→18:29)
[2017-01-08] MEDS: CARDIZEM PO SCH ×4 (01:40→20:26)
[2017-01-08 05:14] LABS: BASO% 0.6 % (0.0-0.8); EOS# 0.42 X1000 (0.0-0.7); EOS% 3.1 % (0.0-10.0); HEMATOCRIT 27.3 % (42.0-52.0); IMM GRAN# 0.16 X1000 (0.0-0.04); IMM GRAN% 1.2 % (0.0-0.5); LYMPH# 3.03 X1000 (1.2-3.4); LYMPH% 22.6 % (20.5-51.1); MANUAL DIFF NEEDED? YES; MCH 27.4 PG (27-31); MCV 83.2 FL (81-99); MONO# 1.28 X1000 (0.11-0.59); MONO% 9.5 % (1.7-9.3); MPV 8.8 FL (7.4-10.4); PLT 364 X1000 (130-400); RBC 3.28 XMIL (4.7-6.1)
[2017-01-08 05:58] LABS: EOS 5 % (1-10); LYMPHS 28 % (21-51); MONO 1 % (1-9)
[2017-01-08] MEDS: COREG PO SCH ×2 (08:58→20:26)
[2017-01-08] MEDS: NORVASC PO SCH ×2 (08:58→20:26)
[2017-01-08] MEDS: PEPCID IV SCH ×2 (08:58→20:23)
[2017-01-08] MEDS: D5 NS 1,000 ML IV SCH ×2 (08:59→20:23)
--- NOTE | 2017-01-08 09:29 | PROGRESS NOTE ---
DATE: 01/08/2017 SUBJECTIVE: Mr. Daniel feels good. He had a good night. PHYSICAL EXAMINATION: Vital Signs: Temperature 98.6 degrees, pulse 92, respirations 15, blood pressure 150/84. CVP less than 6 cm. Lungs: Clear in all lung lainez. Cardiovascular Examination: Regular rhythm and rate without murmur or S3. Abdomen: Soft, nontender. Skin: Is warm and dry. Weight: 140 pounds. Is and Os: Urine output 2600 mL. LAB: White count 13,420, hematocrit is 27, platelet count 364,000. Sodium 138, potassium 3.7, chloride 105, bicarb 17, BUN 12, creatinine 1.2. ASSESSMENT AND PLAN: 1. Status post right open hemicolectomy per Dr. Stevenson. Admitted with rectal bleeding. No sign of further active bleeding. They have advanced his diet. Seems to be doing well on that. 2. He has had some intermittent atrial fibrillation. Appears to be back in sinus rhythm. Hemodynamically stable. 3. We need to get his Lacy catheter out. I think we will try and do that tomorrow. 4. Hopefully, we can get him ready to go to rehab on Monday. 5. Review of his orders. I do not see any change at this point. A little bit of elevation in his white count, mild leukocytosis. I do not see any active infection. He is on Zosyn still. We will continue that for now. cc: Fam Miller MD
--- NOTE | 2017-01-08 09:35 | PROGRESS NOTE ---
DATE: 01/08/2017 SUBJECTIVE: Mr. Daniel is awake, cooperative and looks comfortable. He is difficult for me to understand. He still has a Lacy catheter tube in place. It appears that he is having bowel activity and his abdomen is soft. His midline incision seems to be healing well. I think his appetite is improving. I am not sure of his home situation. I do not feel that he has a chronic indwelling Lacy and so that will have to be removed prior to his discharge. I think that we need to be sure about his disposition whether he is going home or to a rehab facility. He does have weakness in his legs and evidently he was in a wheel chair a lot at home. ASSESSMENT/PLAN: I have asked the nurses to keep him active and Dr. Stevenson returns tomorrow. cc: Marlena Mckee MD
--- NOTE | 2017-01-08 14:27 | PROGRESS NOTE ---
DATE: 01/07/2017 SUBJECTIVE: Mr. Daniel is feeling good with some postoperative comfort but not very significant, no nausea. OBJECTIVE: Vital signs: Temperature 98 degrees, pulse 95, respiratory 22, blood pressure 150/90. HEENT: No scleral icterus. Conjunctival pallor present. Neck: Supple. Trachea midline. Heart and lungs: Normal. Abdomen: Nephrostomy scars, bowel sounds present and normal. He had a Lacy and his urine output was 1900. LABORATORY DATA: White count 12,000 hematocrit 28, platelet 327,000. Electrolytes are normal. BUN and creatinine are stable. IMPRESSION: 1. Gastrointestinal bleed status post laparoscopic assisted right hemicolectomy stable, no signs of any bleeding. 2. Atrial fibrillation which is converted to sinus. 3. Nutrition, he has already started taking p.o. 4. Recent anastomosis with the bowel function is coming back to normal. He already has 2 bowel movements. 5. Gastrointestinal prophylaxis. cc: Billy Rdz MD
--- NOTE | 2017-01-08 14:27 | PROGRESS NOTE ---
DATE: 01/08/2017 SUBJECTIVE: No complaints, tolerating the diet, rested well. PHYSICAL EXAMINATION: Vital Signs: Temperature 98 degrees, pulse 92, respiration 15, blood pressure 152/84. HEENT: There is conjunctival pallor present. Neck: Supple. Heart: Normal first second heart sounds. Lungs: Clear. Abdomen: Variable tenderness from surgery otherwise normal. LABORATORY DATA: White count 13,000, hematocrit 27, BUN, creatinine remain same. IMPRESSION AND PLAN: 1. Status post right hemicolectomy for gastrointestinal bleed stable postoperatively with normal bowel function. 2. Intermittent atrial fibrillation currently in sinus. 3. Patient still has the urinary catheter and Dr. Cannon will take this out tomorrow. 4. Discharge planning. He probably will go to rehab on Monday. 5. Gastrointestinal prophylaxis and he is on antibiotic which will be discontinued tomorrow. -2 cc: Billy Rzd MD
[2017-01-08] MEDS: SODIUM CHLORIDE 0.9% INJ SCH (20:23)
[2017-01-09] MEDS: CARDIZEM PO SCH ×4 (01:29→21:29)
[2017-01-09] MEDS: ZOSYN 3.375 GM/NS 3.375 GM/50 ML IVPB IV SCH ×4 (01:29→18:42)
[2017-01-09] MEDS: D5 NS 1,000 ML IV SCH ×2 (06:20→13:01)
--- NOTE | 2017-01-09 06:30 | PROGRESS NOTE ---
DATE: 01/09/2017 SUBJECTIVE: Patient doing okay. He was transferred up to the floor over the weekend. No major bloody bowel movements were reported. He has had regular bowel movements. OBJECTIVE: Vital Signs: Patient is currently afebrile. His vital signs are stable. General Examination: No acute distress. Cardiovascular: Regular rate and rhythm at this time. Lungs: Grossly clear. Abdomen: Soft, nondistended. Appropriately tender. Laboratory: None this morning as of yet. ASSESSMENT AND PLAN: A 71-year-old, male status post laparoscopic assisted right hemicolectomy with gastrointestinal bleed. Postoperative state. At this time, the patient remains hemodynamically stable. He has had 2 normal bowel movements since he has been on his regular diet. I would like him to have more bowel movements prior to discharge. May need to consider something like MiraLAX which I will go ahead and order. Once he has had multiple nonbloody bowel movements, we could potentially get him back to his rehab facility. cc: Shay Stevenson MD
[2017-01-09] MEDS: PEPCID IV SCH ×2 (09:42→21:30)
[2017-01-09] MEDS: NORVASC PO SCH ×2 (09:42→21:29)
[2017-01-09] MEDS: COREG PO SCH ×2 (09:42→21:29)
[2017-01-09] MEDS: MIRALAX PO SCH (09:42)
--- NOTE | 2017-01-09 09:53 | PROGRESS NOTE ---
DATE: 01/09/2017 SUBJECTIVE: Mr. Daniel is resting comfortably. Easy to arouse. PHYSICAL EXAMINATION: Vital Signs: Temperature 98.5 degrees, pulse 90, respirations 18, blood pressure 155/76. HEENT: Pupils are equal and round. Lungs: Are clear in all lung lainez. Cardiovascular Examination: Regular rhythm and rate without murmur or S3. Abdomen: Soft. Skin: Is warm and dry. Is and Os: Urine output was 900 mL. LAB: White count 13,420, hematocrit 27, platelet count 364,000. Back on the 8th, sodium 138, potassium 3.7, chloride 105, bicarb 17, BUN 12, creatinine 1.2. Troponin was 0.196 and 0.166. ASSESSMENT AND PLAN: 1. Status post laparoscopic-assisted right hemicolectomy with gastrointestinal bleed. No sign of further bleeding. The diet has been advanced. I think we can look at going to the [facility], back to rehab. We will see what we can do. 2. Intermittent atrial fibrillation, currently in sinus rhythm. 3. Urinary catheter has been discontinued. 4. General weakness and deconditioning. Seems to be getting better. We will see about when we get that, if he can go home. He has had 2 normal bowel movements since he has been on a regular diet. cc: Fam Miller MD
[2017-01-09] MEDS ORDERED: CALMOSEPTINE OINTMENT TOP PRN (11:47)
--- NOTE | 2017-01-09 18:46 | PROGRESS NOTE ---
DATE: 01/09/2017 SUBJECTIVE: The patient states he feels better than ever. The team plans discharge to rehab in the next 1-2 days. He has remaining colon polyps and will need outpatient colonoscopy. We recommend that the patient present to the office in 4-6 weeks for interval reassessment. cc: MD Shay Bosch MD Allen J. Schmidt, MD
[2017-01-10] MEDS: ZOSYN 3.375 GM/NS 3.375 GM/50 ML IVPB IV SCH ×2 (02:30→08:09)
[2017-01-10] MEDS: CARDIZEM PO SCH ×4 (02:30→21:30)
[2017-01-10] MEDS: D5 NS 1,000 ML IV SCH ×3 (02:30→21:31)
[2017-01-10] MEDS: PEPCID IV SCH ×2 (08:08→21:31)
[2017-01-10] MEDS: MIRALAX PO SCH (08:08)
[2017-01-10] MEDS: COREG PO SCH ×2 (08:08→21:29)
[2017-01-10] MEDS: NORVASC PO SCH ×2 (08:08→21:30)
--- NOTE | 2017-01-10 09:12 | PROGRESS NOTE ---
DATE: 01/10/2017 SUBJECTIVE: Patient doing okay. He has had multiple bowel movements that have not been reported as bloody. He reports doing fine. OBJECTIVE: Vital Signs: Patient is currently afebrile. His vital signs are stable. General Examination: No acute distress. Cardiovascular: Regular rate and rhythm. Lungs: Grossly clear. Abdomen: Soft. Nondistended. Incision is healing well. Laboratory: None this morning. ASSESSMENT/PLAN: A 71-year-old, male status post laparoscopic assisted right hemicolectomy with gastrointestinal bleed. Postoperative state. At this time, the patient remains hemodynamically stable. He has had multiple bowel movements that are not bloody while on a regular diet. At this time, I think he likely will be discharged to his rehab facility once all arrangements are made. cc: Shay Stevenson MD
--- NOTE | 2017-01-10 13:34 | DISCHARGE SUMMARY ---
ADMISSION DATE: 12/31/2016 DISCHARGE DATE: HOSPITAL COURSE: A 71-year-old male who is brought in 12/31/2016. He was discharged the day before per Dr. Stevenson. He had laparoscopic-assisted right hemicolectomy and was discharged to rehab. Brought back having profuse rectal bleeding as much as 8-9 ounces of dark red blood immediately sent here and found to have hemoglobin of 4.9, received several units of blood and did have mild hyponatremia as well as low albumin, given fluids, sodium corrected, given blood and EGD was performed. PAST MEDICAL HISTORY: Includes. 1. 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 2. History of C. difficile. 3. History of gastric AVMs. 4. Ischemic stroke. 5. Hypertension. 6. COPD. 7. History of pneumonia. 8. Vitamin D deficiency. PAST SURGICAL HISTORY: Recent laparoscopic assisted hemicolectomy for cecal cancer. EGD was performed by Dr. Rueda. There were no complications. Benign appearing mucosal cyst midesophagus, grade B erosive esophagitis, irregular GE junction at 42 cm, hiatal hernia, severe erosive gastritis, nonbleeding AV malformations noted, gastric polyps, normal pylorus. Patient had no further bleeding. We were able to advance his diet up to regular diet. He did have some delirium, confusion while in the intensive care. We did abdominal pelvic CT. There are bilateral pleural effusions, bilateral atelectasis and he had minimal cholelithiasis. He continued to improve, felt he could go to rehab on 01/11/2017. Will check some more lab and try and let him out for that. DISCHARGE MEDICATIONS: He will be on Norvasc 5 mg b.i.d., Coreg 12.5 mg twice a day, Catapres 0.2 mg b.i.d., Cardizem CD mg p.o. q.6 hours and I will probably change that to a one 240 once a day, Pepcid 20 mg p.o. twice a day, stop his antibiotics use and go ahead and stop them today. cc: Fam Miller MD
--- NOTE | 2017-01-10 13:52 | PROGRESS NOTE ---
DATE: 01/10/2017 SUBJECTIVE: Mr. Daniel feeling much better, feels good, no pain, he has been eating well. Tolerating physical therapy. He has not been able to walk in 2 years so but they are working on his strength and he would like to go to rehab. OBJECTIVE: Vital signs: Temperature 97.6 degrees, pulse 84, respirations 18, blood pressure 121/73. HEENT: Pupils are equal, round. Lungs: Are clear in all lung lainez. Cardiovascular: Regular rhythm and rate without murmur or S3. Abdomen: Soft. Skin: Is warm and dry. Urine output over 1800 mL. LAB: No new lab today but hematocrit has remained stable. On the it was 27. Chemistries looked good from the 8th. ASSESSMENT AND PLAN: 1. Status post laparoscopic assisted right hemicolectomy with gastrointestinal bleed postop doing much better. Remains stable. He has not had any bloody bowel movements. We will try get him set up to go to rehab tomorrow. 2. He has remaining colon polyps and needs outpatient colonoscopy so make sure that is set up for 4-6 weeks. 3. History of intermittent atrial fibrillation is in sinus rhythm at this time rate controlled. Hemodynamics look good. 4. Urinary catheter is out. 5. General weakness, deconditioning. Continue physical therapy. cc: Fam Miller MD
[2017-01-11] MEDS: CARDIZEM PO SCH ×2 (04:06→09:49)
--- NOTE | 2017-01-11 07:14 | PROGRESS NOTE ---
DATE: 01/11/2017 SUBJECTIVE: Patient doing okay. Still no reports of bloody bowel movements but he is having bowel movements. OBJECTIVE: Vital Signs: Patient is currently afebrile. His vital signs are stable. General Examination: No acute distress. Cardiovascular: Regular rate and rhythm. Lungs: Grossly clear. Abdomen: Soft, nondistended. Incision is healing well. Assumption removed. Laboratory: None this morning. ASSESSMENT/PLAN: A 71-year-old, male status post laparoscopic assisted right hemicolectomy with gastrointestinal bleed. Postoperative state. At this time, patient can be discharged to his rehab facility. I need to see in my office next week. cc: Shay Stevenson MD
[2017-01-11 07:51] VITALS: BP 134/84
[2017-01-11] MEDS: D5 NS 1,000 ML IV SCH ×2 (07:59→09:55)
[2017-01-11] MEDS: PEPCID IV SCH (08:17)
[2017-01-11] MEDS: SODIUM CHLORIDE 0.9% INJ SCH (08:17)
[2017-01-11] MEDS: COREG PO SCH (08:18)
[2017-01-11] MEDS: MIRALAX PO SCH (08:18)
[2017-01-11] MEDS: NORVASC PO SCH (08:20)
--- NOTE | 2017-01-13 14:41 | DISCHARGE SUMMARY ---
ADMISSION DATE: 12/31/2016 DISCHARGE DATE: 01/11/2017 DATE OF ADMISSION: 12/31/2016. DATE OF DISCHARGE: 01/11/2017. ADDENDUM: Mr. Daniel was pending rehabilitation placement as of yesterday and is still appropriate for discharge to rehabilitation today, for which he has a bed. No changes in his status overnight. VITAL SIGNS: Temperature is 98.4 degrees, heart rate 96, respirations 20, blood pressure is 134/84, O2 is 100% on room air. This is LISA Pinon, doing an addendum to a discharge summary done by Dr. Miller on 01/10/[address] Potter. Dictated by LISA Agustin for Micha Tabares MD cc: Micha Tabares MD
--- NOTE | 2017-01-17 07:02 | PROVIDER DOCUMENTATION ---
This chart was entered by Pretty Carter Scribe, acting as scribe for Holland Townsend MD. HPI-Abdominal Pain/GI Problem - General Stated Complaint: rectal bleed Time Seen by Provider: 12/31/16 14:59 Source: patient Allergies/Adverse Reactions: Patient Allergies Allergy/AdvReac Type Severity Reaction Status Date / Time No Known Allergies Allergy Verified 12/26/16 11:06 Home Medications: Home Medication List Medication Instructions Recorded Confirmed Last Taken Type Amlodipine [Norvasc] 5 mg PO BID #60 tablet 11/13/16 12/31/16 12/31/16 07:00 Rx 5 MG Aspirin EC 81 mg PO DAILY #30 tablet 11/13/16 12/31/16 12/31/16 07:00 Rx 81 MG Carvedilol [Coreg] 12.5 mg PO Q12H #60 tablet 11/13/16 12/31/16 12/31/16 07:00 Rx 12.5 MG Ergocalciferol (Vitamin D2) 50,000 unit PO Q7D #4 capsule 11/13/16 12/31/1607/19 07:00 Rx [Vitamin D] 30968 UNIT Folic Acid 1 mg PO DAILY #30 tablet 11/13/16 12/31/16 12/31/16 07:00 Rx 1 MG Omeprazole [Prilosec] 40 mg PO DAILY #30 capsule. 11/13/16 12/31/16 12/31/16 07:00 Rx 40 MG Polyethylene Glycol 3350 [Miralax] 17 gm PO DAILY #30 powder, packet 11/13/1612/31/16 07:00 Rx 17 GM Lactobacillus Rhamnosus GG 1 each PO BID #120 capsule 11/17/16 12/31/16 07:00 Rx [Culturelle] 1 EACH Sucralfate [Carafate] 1 gm PO 4XDAY #120 tablet 11/17/16 12/31/16 12/31/16 07: 00 Rx 1 GM Acetaminophen [Tylenol] 650 mg PO Q6H PRN PRN #0 tablet 12/08/16 12/31/16 07:00 Rx 650 MG Amlodipine [Norvasc] 5 mg PO BID tablet 01/10/17 Unknown Rx Carvedilol [Coreg] 12.5 mg PO Q12HR tablet 01/10/17 Unknown Rx Clonidine [Catapres] 0.2 mg PO BID PRN PRN #0 tablet 01/10/17 Unknown Rx Diltiazem L.a. [Cardizem LA] 180 mg PO DAILY #30 tablet 01/10/17 Unknown Rx Menthol/Zinc Oxide Ointment 1 gm TOP PRN PRN #0 tube 01/10/17 Unknown Rx [Calmoseptine Ointment] Methocarbamol [Robaxin-750] 750 mg PO TID 01/10/17 01/10/17 Unknown History Polyethylene Glycol 3350 [Miralax] 17 gm PO DAILY powder, packet 01/10/17 Unknown Rx - History of Present Illness-ABD Nature of Presenting Problems: 71 Y/O M present to the ER by EMS with the complain of rectal bleeding. pt lives in a [facility]. according to EMS source someone told them that pt had 8oz cup full of stool bleeding. Onset/Duration: reports: just prior to arrival Associated Symptoms: reports: other (rectal bleeding) Rectal Bleeding: reports: bloody diarrhea Rectal Pain: reports: none Emesis Description: reports: none Similar Symptoms Previously?: Yes Recently seen or treated by another doctor?: Yes Review of Systems - Adult - REVIEW OF SYSTEMS - ADULT ROS:: unobtainable per condition Constitutional: reports: see HPI Gastrointestinal: reports: rectal bleeding. denies: nausea, vomiting All Other Systems: Reviewed and Negative Past History - Adult - PAST MEDICAL HISTORY-ADULT Review of Records: reports: Old Records Reviewed, Nursing Assessment Review Major Childhood Illnesses: reports: denies history Cardiovascular: reports: denies history Respiratory: reports: denies history Gastrointestinal: reports: denies history Obstetrical/Gynecological: reports: denies history Genitourinary: reports: denies history Musculoskeletal: reports: denies history Neurological: reports: denies history Endocrine/Immune: reports: denies history Other Conditions: reports: denies history - PRIOR SURGERIES/PROCEDURES Surgical/Procedure History: reports: reviewed, not pertinent - IMMUNIZATION STATUS Childhood Immunizations: See Nurse Assessment Flu Vaccine: See Nurse Assessment - FAMILY HISTORY Family History: reviewed, not pertinent Physical Exam-General - PHYSICAL EXAM-ADULT Initial Vital Signs Reviewed: Yes - CONSTITUTIONAL General Appearance: lethargic, slow to respond - EYES Eyes: pale conjunctivae. negative: conjuctival exudate - NECK Neck: non-tender, full range of motion - RESPIRATORY Respiratory: no pleuratic chest pain, no respiratory distress - CARDIOVASCULAR Cardiovascular: no edema, irregularly irregular - GASTROINTESTINAL (ABDOMEN) Abdominal Exam: other (GI/rectal bleed). negative: tenderness - MUSCULOSKELETAL Back Exam: no CVA tenderness, no vertebral tenderness - SKIN Integumentary: normal color, normal turgor - NEUROLOGIC Neurologic: grossly normal, no motor/sensory deficits Progress - PLAN OF CARE/RESULTS Progress/Plan/Lab Results: Orders Category Date Time Status Saline Loc DIRECTED Care 12/31/16 15:12 Active CBC WITH ELECTRONIC DIFF [HEME] Stat Lab 12/31/16 15:12 Uncollected COMPREHENSIVE METABOLIC PANEL [CHEM] Stat Lab 12/31/16 15:12 Uncollected OCCULT BLOOD SCREENING [STOOL] Stat Lab 12/31/16 15:12 Uncollected PROTIME WITH INR [COAG] Stat Lab 12/31/16 15:12 Uncollected PTT [COAG] Stat Lab 12/31/16 15:12 Uncollected TYPE & SCREEN [BBK] Stat Lab 12/31/16 15:12 Uncollected 0.9% Sodium Chloride Inj [Ns] 1,000 ml Med 12/31/16 15:12 Active IV 125 mls/hr Result Diagrams: 01/08/17 04:48 01/07/17 08:07 - CONSULTS/PCP/HOSPITALIST Notification #1 *Consult/PCP/Hospitalist*: Dr. Potter Time Discussed: 16:27 Reason/Comments: Dr. Townsend constulted with Dr. Potter abt pt Departure - Departure Date of Disposition Decision: 12/31/16 Time of Disposition Decision: 16:30 DIAGNOSIS: GI bleed, Acute blood loss anemia, Acute blood loss as cause of postoperative anemia Disposition: ADMITTED INPATIENT 09 Certified Medical Emergency: Emergent Condition: Serious - Critical Care Note This patient required my direct & personal management of CC.: No This chart was documented by the indicated scribe, (Pretty Carter Scribe) and accurately reflects the services I performed and decisions made by me, Holland Townsend MD, as attested by the provider's signature.
== END 2017-01-11 12:26 ==
LOC: ED 14:59 → SUATTDRO 19:16 → ICU 19:16 → 3S 01-07 07:30 → 4N 01-08 13:36
PROVIDERS: ATTEND Internal Medicine

== ENCOUNTER 2018-08-31 01:58 | Inpatient (IN) ==
[2018-08-31] MEDS ORDERED: ZOFRAN IV ONE (03:10)
[2018-08-31] MEDS ORDERED: NS 1,000 ML IV ONE ×3 (03:10→08:00)
--- NOTE | 2018-08-31 04:11 | PROVIDER DOCUMENTATION ---
HPI-General Adult - General Chief Complaint: GI Bleed Stated Complaint: vomiting Time Seen by Provider: 08/31/18 02:27 Source: patient, family Allergies/Adverse Reactions: Patient Allergies Allergy/AdvReac Type Severity Reaction Status Date / Time No Known Allergies Allergy Verified 08/31/18 06:36 Home Medications: Home Medication List Medication Instructions Recorded Confirmed Last Taken Type Cyanocobalamin (Vitamin B-12) 1 ml IM ORDERED 08/31/18 08/31/18 Unknown History [Cyanocobalamin Injection] Hyoscyamine [Levsin Drops] 0.125 ml PO Q4H PRN 08/31/18 08/31/18 08/30/18 History Lorazepam [Ativan] 1 mg PO Q4H PRN 08/31/18 08/31/18 08/30/18 History Morphine Liquid [Roxanol Conc. 20 mg PO DIRECTED 08/31/18 08/31/18 08/31/18 History Liquid] Multivit-Min/FA/Lycopen/Lutein 1 tab PO DAILY 08/31/18 08/31/18 08/30/18 History [Centrum Silver Ultra Men's Tab] Prochlorperazine [Compazine] 10 mg PO Q6H PRN 08/31/18 08/31/18 08/31/18 History - History of Present Illness -Gen Adult Nature of Presenting Problems: Pt presents with coffee ground emesis, pt started n/v over the last couple of days, now dark in color, pt has had similar in the past, pt has pmh of colon CA and has been on hospice for the last year, pt denies f/c, pandya, cp, sob, cough, diarrhea, pt is lying in bed in no acute distress. Location of Pain/Injury: reports: abdomen Pain Radiation: reports: no radiation Quality of Pain: reports: sharp Severity: reports: mild Onset/Duration: reports: 2 days ago Timing: reports: still present Context/Activities at Onset: reports: none Modifying Factors: improves with: nothing Associated Symptoms: reports: nausea, vomiting Similar Symptoms Previously?: Yes Recently seen or treated by another doctor?: No Review of Systems - Adult - REVIEW OF SYSTEMS - ADULT Constitutional: reports: no symptoms reported Eyes: reports: no symptoms reported Ears, Nose, Mouth & Throat: reports: no symptoms reported Cardiovascular: reports: no symptoms reported Respiratory: reports: no symptoms reported Gastrointestinal: reports: see HPI Genitourinary: reports: no symptoms reported Musculoskeletal: reports: no symptoms reported Integumentary: reports: no symptoms reported Neurological: reports: no symptoms reported Psychiatric: reports: no symptoms reported Endocrine: reports: no symptoms reported Hematologic/Lymphatic: reports: no symptoms reported Allergic/Immunologic: reports: no symptoms reported All Other Systems: Reviewed and Negative Past History - Adult - PAST MEDICAL HISTORY-ADULT Review of Records: reports: Old Records Reviewed, Nursing Assessment Review, Medications Reviewed, Social history reviewed & non-contributory. Major Childhood Illnesses: reports: denies history Cardiovascular: reports: denies history Respiratory: reports: denies history Gastrointestinal: reports: denies history Obstetrical/Gynecological: reports: denies history Genitourinary: reports: denies history Musculoskeletal: reports: denies history Neurological: reports: denies history Endocrine/Immune: reports: denies history Other Conditions: reports: denies history - PRIOR SURGERIES/PROCEDURES Surgical/Procedure History: reports: reviewed, not pertinent - IMMUNIZATION STATUS Childhood Immunizations: See Nurse Assessment Flu Vaccine: See Nurse Assessment - FAMILY HISTORY Family History: reviewed, not pertinent Physical Exam-General - PHYSICAL EXAM-ADULT Initial Vital Signs Reviewed: Yes - CONSTITUTIONAL General Appearance: no apparent distress - EYES Eyes: PERRL/EOMI - HEAD, EARS, NOSE, MOUTH & THROAT HENMT: normocephalic/atraumatic - NECK Neck: full range of motion - RESPIRATORY Respiratory: no respiratory distress, no accessory muscle use - CARDIOVASCULAR Cardiovascular: regular rate, rhythm - GASTROINTESTINAL (ABDOMEN) Abdominal Exam: non tender, soft - LYMPHATIC Lymphatic: no adenopathy - MUSCULOSKELETAL Back Exam: normal inspection Extremity: normal range of motion - SKIN Integumentary: normal color - NEUROLOGIC 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 - PSYCHIATRIC Psych/Mental Status: normal mood/affect Progress - PLAN OF CARE/RESULTS Progress/Plan/Lab Results: Vital Signs - 8 hr 08/31/18 02:09 Temperature 97 F L Pulse Rate 119 H Respiratory Rate 20 Blood Pressure 138/90 O2 Sat by Pulse Oximetry 94 L Orders Category Date Time Status CBC WITH ELECTRONIC DIFF [HEME] Stat Lab 08/31/18 03:20 Results COMPREHENSIVE METABOLIC PANEL [CHEM] Stat Lab 08/31/18 03:20 Received LACTATE, PLASMA [CHEM] Stat Lab 03/01/19 03:20 Received LIPASE [CHEM] Stat Lab 08/31/18 03:20 Received OCCULT BLOOD SCREENING [STOOL] Stat Lab 08/31/18 03:08 Uncollected TROPONIN T Stat Lab 08/31/18 03:20 Received 0.9% Sodium Chloride Inj [Ns] 1,000 ml Med 08/31/18 03:10 Active IV 999 mls/hr Ondansetron [Zofran] Med 08/31/18 03:10 Discontinued 8 mg IV NOW ONE Result Diagrams: 08/31/18 03:20 08/31/18 03:20 - REASSESSMENT Reassessment #1 Time Reassessed: 07:20 Status: unchanged (shift change/reassessment note: pt w/ PMHx of GIH reports coffee-grinds emesis past 2 days. wbc notable @ 34k, Hb 15, stool guiaic - per lab. renal insuff/JOSEFINA noted. pt in hospice w/ reported metastatic colon CA, however family wants "everything" done. disc'd care w/ [facility] who is admitting.) - CONSULTS/PCP/HOSPITALIST Notification #1 *Consult/PCP/Hospitalist*: [facility] Time Discussed: 07:50 Consult Disposition: Admit Departure - Departure Date of Disposition Decision: 08/31/18 Time of Disposition Decision: 07:57 DIAGNOSIS: GI bleed, Colon cancer, Leukocytosis, JOSEFINA (acute kidney injury) Disposition: ADMITTED INPATIENT 09 Certified Medical Emergency: Emergent Condition: Critical - Critical Care Note This patient required my direct & personal management of CC.: Yes Total Time (mins): 35 Critical Care Statement: This patient required my direct personal management to treat or rule out processes, the absence of which, could potentiallly result in sudden, clinically significant life or limb threatening deterioration. Attestation - Physician/ OLAYINKA Attestation The physician spent face to face time with patient:: Yes Advanced Practice Provider documentation review:: Supervising physician onsite and consulted in the evaluation and care of this patient. The physician did have a face to face encounter with the patient.
[2018-08-31 04:13] LABS: BASO# 0.03 X1000 (0.0-0.2); BASO% 0.1 % (0.0-0.8); HEMATOCRIT 45.5 % (42.0-52.0); HEMOGLOBIN 15.2 g/dL (14.0-18.0); IMM GRAN# 0.33 X1000 (0.0-0.04); LYMPH# 1.71 X1000 (1.2-3.4); MCH 28.8 PG (27-31); MCHC 33.4 g/dL (33-37); MCV 86.3 FL (81-99); MONO# 2.44 X1000 (0.11-0.59); MONO% 7.1 % (1.7-9.3); MPV 10.7 FL (7.4-10.4); NEUT# 29.62 X1000 (1.4-6.5); NEUT% 86.8 % (42.2-75.2); PLT 250 X1000 (130-400); RBC 5.27 XMIL (4.7-6.1); RDW 14.4 % (11.5-14.5); WBC 34.13 X1000 (4.8-10.8)
[2018-08-31 04:30] LABS: BANDS 2 % (0-1); LYMPHS 8 % (21-51); MONO 4 % (1-9); SEGS 86 % (42-75)
[2018-08-31 04:32] LABS: ALBUMIN 3.6 g/dL (3.5-5.0); CALCIUM 9.3 mg/dL (8.8-10.2); CREATININE 1.9 mg/dL (0.7-1.2); TOTAL BILIRUBIN 1.6 mg/dL (0.20-1.00); TOTAL PROTEIN 7.2 g/dL (6.3-8.3)
[2018-08-31] MEDS ORDERED: PROTONIX 80 MG in NS 80 ML IV ONE (08:01)
[2018-08-31] MEDS ORDERED: LEVSIN PO PRN (08:03)
[2018-08-31] MEDS ORDERED: COMPAZINE PO PRN (08:03)
[2018-08-31] MEDS ORDERED: ATIVAN PO PRN (08:03)
[2018-08-31] MEDS ORDERED: CARAFATE LIQUID PO SCH (08:15)
[2018-08-31] MEDS ORDERED: ROXANOL CONC. LIQUID PO PRN (08:15)
[2018-08-31] MEDS ORDERED: PHENERGAN IV PRN (08:31)
[2018-08-31] MEDS ORDERED: SODIUM CHLORIDE 0.9% INJ PRN (08:31)
--- NOTE | 2018-08-31 08:36 | Diag Imaging Result Doc PS360 ---
CHEST-2 VIEWS - 08/31/2018 INDICATION: r/o pna COMPARISON: 12/31/2016 FINDINGS: Positioning is very improper. There is probably some infiltrate or effusion in the right lung base. Heart size and pulmonary vascularity is normal. IMPRESSION: Probable infiltrate or effusion in the right lung base. Electronically signed by Andrew Hernandez 08/31/2018 8:33 AM
[2018-08-31] MEDS ORDERED: CENTRUM SILVER PO SCH (09:00)
[2018-08-31] MEDS ORDERED: CYANOCOBALAMIN IM SCH (09:00)
--- NOTE | 2018-08-31 09:14 | Diag Imaging Result Doc PS360 ---
CT ABDOMEN/PELVIS W/O CONTRAST - 08/31/2018 INDICATION: abd pain/emesis COMPARISON: 12/31/2016 FINDINGS: There is moderate COPD in the lung bases. There is also chronic bronchitis. There is pleural thickening and some trace pleural fluid on the right side. There is some adjacent consolidation with swirling vessels, that likely represents round atelectasis. The stomach is very distended with gas and fluid. There is severe abnormal dilation of proximal small bowel consistent with mechanical obstruction. The transition point appears to be in the left upper quadrant somewhere. The majority of the distal small bowel is completely collapsed. There is severe rectal stool impaction with a stool ball measuring about 9.2 cm. Urinary bladder and prostate are normal. There are surgical suture lines of the right hemicolon. There is nonspecific edema and wall thickening of the gallbladder. There is a small gallstone within the gallbladder. There is severe vascular disease of the abdominal aorta and its pelvic branches. There are several nonobstructing renal stones on the right measuring up to about 7 mm. There is severe atrophy of the left kidney. No visible hydronephrosis. No peritoneal free air or free fluid. There are moderate degenerative changes of the spine. No acute or suspicious bony lesion. IMPRESSION: 1. Mechanical proximal small bowel obstruction with transition point in the left upper quadrant. 2. Significant edema and apparent inflammation of the gallbladder. Small gallstones. Please correlate clinically for possible cholecystitis. A HIDA scan or gallbladder ultrasound recommended. 3. Nonobstructing right renal stones. Severe left renal atrophy. 4. Severe rectal stool impaction. 5. Benign appearing pulmonary opacity in the right lower lobe. COPD. Severe chronic bronchitis. This exam was performed using automated exposure control, adjustment of mA or kV according to patient size, and/or use of iterative reconstruction technique Electronically signed by Andrew Hernandez 08/31/2018 9:12 AM
[2018-08-31] MEDS: ZOSYN 2.25 GM in NS 50 ML IV SCH ×2 (09:20→18:47)
[2018-08-31] MEDS ORDERED: ATIVAN IV PRN (09:41)
[2018-08-31] MEDS ORDERED: MORPHINE IV PRN (09:41)
--- NOTE | 2018-08-31 09:59 | EKG Report ---
Test Performed on : 08/31/2018 09:49:55 AM Test Reason : tachy Blood Pressure : / mmHG Vent. Rate : 120 BPM Atrial Rate : 120 BPM P-R Int : 176 ms QRS Dur : 060 ms QT Int : 270 ms P-R-T Axes : 073 024 073 degrees QTc Int : 381 ms Sinus tachycardia. with premature atrial complexes. Nonspecific ST and T wave abnormality Abnormal ECG When compared with ECG of 06-JAN-2017 04:48, ST now depressed in Anterior leads Nonspecific T wave abnormality now evident in Anterior leads Unconfirmed Result
--- NOTE | 2018-08-31 10:03 | ED EKG INTERP ---
This chart was entered by Anuja Mckee Scribe, acting as scribe for Jozef Lo MD. EKG Interpretation - EKG Time of EKG reading by physician:: 09:49 EKG Read and Signed by:: Jozef Lo EKG Interpretation (*Must complete 3 of following elements*): Abnormal Rate: 120 Rhythm: sinus tachycardia with pac [place]: normal QRS: normal [place] Interval: normal Comments: nonspecific ST and T wave abnormality Attestation - Physician/ OLAYINKA Attestation Patient care was provided by Advanced Practice Provider:: No The physician spent face to face time with patient:: Yes Advanced Practice Provider documentation review:: Supervising physician onsite and consulted in the evaluation and care of this patient. The physician did have a face to face encounter with the patient. This chart was documented by the indicated scribe, (Anuja Mckee Scribe) and accurately reflects the services I performed and decisions made by me, Jozef Lo MD, as attested by the provider's signature.
[2018-08-31] MEDS ORDERED: LOPRESSOR IV ONE (10:14)
[2018-08-31] MEDS ORDERED: CORDARONE IV ONE (10:14)
[2018-08-31] MEDS ORDERED: CORDARONE 150 MG/D5W 150 MG/100 ML IV.SOLN IV ONE (10:26)
--- NOTE | 2018-08-31 10:37 | EKG Report ---
Test Performed on : 08/31/2018 10:33:33 AM Test Reason : runs of svt Blood Pressure : / mmHG Vent. Rate : 116 BPM Atrial Rate : 116 BPM P-R Int : 174 ms QRS Dur : 070 ms QT Int : 364 ms P-R-T Axes : 063 003 061 degrees QTc Int : 505 ms Sinus tachycardia. with premature supraventricular complexes. and with occasional premature ventricul ar complexes. Possible Inferior infarct , age undetermined Abnormal ECG When compared with ECG of 31-AUG-2018 10:09, (Unconfirmed) Significant changes have occurred Unconfirmed Result
[2018-08-31] MEDS: ZYVOX 600 MG/D5W 600 MG/300 ML IVPB IV SCH ×2 (10:50→21:39)
[2018-08-31] MEDS ORDERED: NS NEB INH SCH (11:00)
--- NOTE | 2018-08-31 11:06 | HISTORY AND PHYSICAL ---
PRIMARY CARE PHYSICIAN: No one. He is followed by [facility]. CHIEF COMPLAINT: Coffee-ground emesis for 4 days. HISTORY OF PRESENT ILLNESS: Mr. Franco Daniel is a 73-year-old male with a medical history of cecal cancer, status post right hemicolectomy, history of C. difficile, gastric AVMs, gastritis, esophagitis, who now presents with 4 day complaints of nausea and vomiting. According to the son who is at the bedside, his father woke up sweating with heartburn, very clammy and an elevated blood pressure about 4 days ago. He took something for his blood pressure, and that has been okay ever since. But over the last 2 nights, the vomiting has increased, and it is becoming pink to coffee-ground in color. So they decided to bring him to the hospital and make him a full code. The patient states that he has had mostly bilateral lower quadrant abdominal pain, but upon palpation, he is tender in all 4 quadrants, distended with hyperactive bowel sounds. They state that he has bowel movements every day, but they are liquid and normal in color. His stool sample was negative for blood. His Gastroccult was positive for blood, which is likely more of an esophagitis/gastritis secondary to the continuous vomiting. The patient denies any fever. He has had some chills. Per the family, he is bedbound, and they change his diaper every day, and they have not noticed any blood in the stool as well. Workup reveals that he has a right lower lobe pneumonia. He also has a mechanical small bowel obstruction along with significant edema and inflammation in the gallbladder and a very large 9.2 cm severe stool impaction. White count is at 34,000, so we will treat him for sepsis, although the lactate is currently normal. He is tachycardic and given his full code status, we will go ahead and admit him to [facility] for at least overnight until he improves. PAST MEDICAL HISTORY: 1. Cecal cancer, status post right hemicolectomy. 2. C. difficile history. 3. Gastric AVMs. 4. Gastritis and esophagitis with hiatal hernia. 5. Ischemic stroke. 6. COPD. 7. Hypertension. 8. Vitamin D deficiency. PAST SURGICAL HISTORY: 1. Right hemicolectomy. 2. Multiple polypectomies. SOCIAL HISTORY: Half pack per day smoker since the age of 16. He drinks 1 beer about every 3 days. No illicit drug use. He lives at home alone with a sitter, and his family comes to frequently take care of him. He is bedbound. FAMILY HISTORY: Mother from unknown cancer. Father from malignant melanoma. ALLERGIES: No known drug allergies. HOME MEDICATIONS: Vitamin B12 1000 mcg IM every 30 days, Levsin drops 0.125 mL p.o. every 4 hours p.r.n., Ativan 1 mg p.o. every 4 hours p.r.n., morphine liquid 20 mg p.o. as directed, Centrum Silver 1 tab p.o. daily, Compazine 10 mg p.o. every 6 hours p.r.n. REVIEW OF SYSTEMS: A 14-point review of systems are complete, and all are negative except for those mentioned in the above HPI. PHYSICAL EXAMINATION: VITAL SIGNS: Temperature is 98.1, heart rate 109, respiratory rate 27, blood pressure 149/100, O2 saturation is 95% on room air. Height 6 feet 1 inch tall, 130 pounds, with BMI of 17.2. GENERAL: Mr. Franco Daniel is a 73-year-old male. He is in no acute distress. He occasionally sits up and starts retching from the severe nausea. He answers most questions appropriately. HEENT: Atraumatic and normocephalic. Pupils are equal, round and reactive to light. Extraocular movements were intact. Mucous membranes are dry. NECK: Trachea midline. CARDIOVASCULAR: S1, S2. Tachycardic rate and rhythm. No rubs, gallops or murmurs. No lower extremity edema. Plus 2 dorsalis and radial pulses. Negative JVD or carotid bruits. PULMONARY: Clear to auscultation. Decreased in the bases. No accessory muscle use or work of breathing noted. Tolerating room air. GASTROINTESTINAL: Tender in all 4 quadrants. Mildly distended. Semi-firm with hyperactive bowel sounds, almost echo-like bowel sounds. EXTREMITIES: Decreased range of motion and strength equally. NEUROLOGICAL: Oriented to name and place. Follows commands. Sensory is intact. SKIN: Warm, dry and intact but pale. DIAGNOSTIC DATA: White blood cells are 34,000, hemoglobin 15, hematocrit 45, platelet count 250. Sodium is 143, potassium 4.0, BUN is 41, creatinine 1.9, glucose 165, calcium 9.3, bilirubin is 1.60, AST is 17, ALT 13. Troponin is 0.043. Albumin 3.6, lipase 7, lactate 2.2. IMAGING: Chest x-ray with infiltrate in the right lung base. Abdominopelvic CT with mechanical proximal small bowel obstruction with transition point in the left upper quadrant. Significant edema and apparent inflammation of the gallbladder, small gallstones. Nonobstructive right renal stones. Severe left renal atrophy. Severe rectal stool impaction about 9.2 cm in diameter. Benign-appearing pulmonary opacity in the right lower lobe. COPD, severe chronic bronchitis. ASSESSMENT AND PLAN: 1. Intractable nausea and vomiting secondary to small bowel obstruction. Antiemetics. NG tube to low suction. Dr. Stevenson with Surgery has been consulted with his recommendations of NG tube and frequent enemas. 2. Large stool impaction. Enemas have been ordered about every 4 to 6 hours, soapsuds enema. 3. Upper gastrointestinal bleed versus just acute gastritis from all the emesis. Family is wanting everything, and the patient has a history of gastritis, esophagitis and AVMs. The emesis is pink to coffee-ground in color. The stool is negative for blood, but the Gastroccult was positive for blood. We will do IV Protonix for now. We will continue with the NG tube to decrease the volume of acid in the stomach. Again, GI is consulted. 4. Cecal cancer, status post right hemicolectomy back in 2017. No treatment for this. He was seen by Dr. Loera. We will consult him. 5. Chronic obstructive pulmonary disease. No exacerbation. 6. History of Clostridium difficile back in 2017. We will send a stool off for sample, as white count is significantly high at 34,000, but it is likely just a GI inflammatory response due to the obstruction. We will get stool sample. 7. DVT prophylaxis. 8. Protein calorie malnutrition. He has been unable to keep anything down for at least 3 days. He is currently going to have to be n.p.o. We will consider IV nutrition very soon. Albumin is currently stable at this time. 9. Tobacco abuse. The patient has no wishes to quit, although he has not felt well, and he has not smoked in 2 days. 10.Resuscitation status. Although the patient presented here on [facility], the sons are adamantly insisting that he is a full code and that they will bring his living will, and they want everything done. So we will consult Palliative Care and make him a full code. We will put him in [facility] for tonight. 11.Significant edema and inflammation of the gallbladder with small gallstones. Recommendations were for HIDA scan or gallbladder ultrasound. As he is not having anything to eat or drink, we will not do HIDA scan but will order a gallbladder ultrasound. *START Dictated by LISA Rowley for Shamir Thomas MD cc: LISA Rowley MD [facility]
--- NOTE | 2018-08-31 11:09 | HISTORY AND PHYSICAL ---
ADDENDUM REPORT ASSESSMENT AND PLAN: After dictating the first history and physical, the patient decided he would go into an SVT paroxysmal, rate of 200. He is in and out. His base rate is 120 sinus tachycardia. We will consult Cardiology, give amiodarone 150 IV, also 5 mg of IV metoprolol. Blood pressure stable around 170, so he can tolerate it. We will see how that works. Also, we will check his magnesium level. Potassium level is normal. Dictated by LISA Rowley for Shamir Thomas MD cc: LISA Rowley MD [facility]
[2018-08-31] MEDS: ATROVENT NEB INH SCH ×4 (11:46→23:20)
[2018-08-31] MEDS: XOPENEX NEB INH SCH ×4 (11:46→23:20)
[2018-08-31 12:16] LABS: HEMATOCRIT 40.5 % (42.0-52.0); HEMOGLOBIN 13.3 g/dL (14.0-18.0)
[2018-08-31] MEDS: CARDIZEM PO SCH ×2 (13:13→17:51)
--- NOTE | 2018-08-31 13:22 | CARDIOLOGY CONSULTATION ---
DATE: 08/31/2018 HISTORY OF PRESENT ILLNESS: Patient admitted with nausea and vomiting, had episode of SVT, was given 150 mg of amiodarone IV push and Lopressor in the ER, subsequently converted to sinus rhythm. Cardiology was consulted. The patient does not have any known history of cardiac issues. He has multiple medical problems including cecal cancer status post right hemicolectomy, C. difficile, gastric AVMs. He has 4 days of complaints of nausea and vomiting. He woke up with heartburns and clammy sensation. He complains of having some discomfort in his abdomen in the lower quadrants as well as in the upper quadrants. He was brought to the emergency room. Gastroccult was positive for blood and coffee-grounds emesis as well. He has history of esophagitis and gastritis. No previous history of SVT or palpitations. When he came in, he had inflammation in the gallbladder noted on the CT scan. White count was 34,000. The patient has been having cough with some mucopurulent expectoration. REVIEW OF SYSTEMS: Cardiovascular: As above. Respiratory System: As above. GI: As above. Genitourinary: There is no dysuria or hematuria. Central nervous system: No focal weakness to suggest a CVA, TIA. PAST MEDICAL HISTORY: 1. Cecal cancer status post right hemicolectomy. 2. C. difficile. 3. Gastritis. 4. AVMs. 5. Esophagitis with hiatal hernia. 6. Ischemic stroke. 7. COPD. 8. Hypertension. SOCIAL HISTORY: Smokes about half a pack of cigarettes a day. No history of illicit drug abuse. HOME MEDICATIONS: Vitamin B12, Levsin drops, Ativan, morphine liquid, Compazine. PHYSICAL EXAMINATION: Vital Signs: Blood pressure was 140/100. Heart: First and second heart sounds were heard. There was no S3 gallop. Respiratory: Decreased breath sounds at base with scattered wheeze. Abdomen: Soft. There was tenderness, generalized. Central nervous system: Alert. Moving extremities. Detailed central nervous system examination not performed. LABORATORY EXAMINATION: WBC 34, hemoglobin 15, hematocrit 45, platelet count of 250,000. Sodium 143, potassium 4.0, BUN 41, creatinine 1.9, glucose 165, magnesium 2.0. Troponin negative. CPK negative. RADIOLOGIC STUDIES: Chest x-ray: Infiltrate in the right lung base. CT scan of his abdomen and pelvis revealed small bowel obstruction in the proximal small bowel, edema around the gallbladder, gallstones noted, rectal impaction, COPD, and severe chronic bronchitis, opacity noted in the right lower lobe. ASSESSMENT AND PLAN: Mr. Franco Daniel is a 73-year-old gentleman who has cecal cancer status post hemicolectomy, Clostridium difficile history, gastric arteriovenous malformation, gastritis who is admitted with nausea and vomiting and has had coffee-grounds emesis as well suggestive of upper GI bleeding. Has history of arteriovenous malformations and esophagitis. He also has history of chronic obstructive pulmonary disease, history of Clostridium difficile, protein calorie malnutrition. From a cardiac standpoint, he went into SVT. He is currently in sinus rhythm. His cardiac enzymes are negative. Denies any chest pain. We will start him on Cardizem 60 mg 3 times a day. In addition, get an echocardiogram to assess cardiac and valvular function. 1. He has significant infection with elevated white counts, cough with mucoid to mucopurulent expectoration, and x-ray and CT scan suggestive of infection in the lungs in addition to cholecystitis. He has been started on antibiotics. Would recommend continuing the same. 2. Coffee-grounds emesis. Continue plan with the hospitalist service as planned. Cecal cancer followed by oncology center they have been consulted. Thank you for the consult. We will follow hospital course. cc: Shane Collier MD
--- NOTE | 2018-08-31 15:36 | Diag Imaging Result Doc PS360 ---
EXAM: US GB < RUQ (LIMITED) INDICATION: gallbladder inflammation/edema COMPARISON: None. FINDINGS: There is echogenic sludge layering in the gallbladder lumen and at least one stone with mild posterior acoustic shadowing. The gallbladder wall is somewhat thickened measuring up to 5 mm. Cholecystitis should be considered. The common bile duct is normal in diameter. The liver is grossly unremarkable. Portal venous flow is hepatopetal. The pancreas is obscured by bowel gas. The mid aorta is obscured by bowel gas. The remainder of the aorta and IVC are unremarkable. There is a 6 mm echogenic focus with shadowing consistent with an intrarenal stone on the right. The right kidney is unremarkable, otherwise. There is no hydronephrosis. IMPRESSION: 1.Gallbladder sludge and cholelithiasis with gallbladder wall thickening. Cholecystitis cannot be excluded. 2.Nonobstructive nephrolithiasis on the right. Electronically signed by Rasta Jiang 08/31/2018 3:34 PM
[2018-08-31 15:52] LABS: HEMATOCRIT 38.4 % (42.0-52.0); HEMOGLOBIN 12.7 g/dL (14.0-18.0)
--- NOTE | 2018-08-31 19:04 | GASTROENTEROLOGY CONSULTATION ---
DATE: 08/31/2018 REASON FOR CONSULT: Coffee ground emesis. HISTORY OF PRESENT ILLNESS: Mr. Franco Daniel is a 73-year-old man with a past medical history of colorectal cancer s/p resection, status post right hemicolectomy, history C. difficile, history of gastric AVMs, gastritis, esophagitis, who presents with 4 days of nausea, vomiting, and coffee-ground emesis. History is obtained from the patient's chart, given the patient's lethargy and being unable to answer questions. Per record, the patient has been having vomiting that was initially nonbloody and nonbilious for the last couple of nights. This has become more pink and coffee ground in color. He denies any abdominal pain, although unclear whether he is answering questions appropriately. No fever, chills. Some shortness of breath, per report. Patient has not been having any blood in stools. On presentation, temperature 97 degrees, pulse 119 , respiratory rate 20, blood pressure 138/90, oxygen saturation 94% on room air. He was given 2 L of IV fluids in the ED, as well as started on a PPI drip. REVIEW OF SYSTEMS: As per HPI, otherwise unable to obtain, given the patient's altered mental status. PAST MEDICAL HISTORY: Cecal cancer, status post right hemicolectomy, history of C. difficile, gastric AVMs, gastritis, esophagitis, hiatal hernia, history of ischemic stroke , COPD, hypertension, vitamin D deficiency. PAST SURGICAL HISTORY: Right hemicolectomy, multiple polypectomies in the past. SOCIAL HISTORY: Half pack per day smoker. Moderate alcohol use. He is bed- bound. He lives alone with a sitter, and his family comes to visit him frequently. FAMILY HISTORY: Mother from unknown cancer. Father from malignant melanoma. ALLERGIES: No known drug allergies. HOME MEDICATIONS: Vitamin B12, Levsin, Ativan, morphine, Centrum, Compazine. PHYSICAL EXAMINATION: Vital Signs: Temperature 98.1 degrees, heart rate 109, respiratory rate 27, blood pressure 149/100, O2 saturation 95% on room air. General: Patient is lethargic, arousable, does not answer questions appropriately. Murmurs words incoherently. No acute distress. HEENT: Sclerae anicteric. Moist mucous membranes. Neck: No JVD. No lymphadenopathy. Cardiac: Tachycardic, regular. No murmurs. Lungs: Clear to auscultation bilaterally. Abdomen: Midline scar. Nondistended. Hypoactive bowel sounds. Nontender on exam. No distention or ascites Extremities: Lower extremities are thin, with muscle atrophy. Neurologic: The patient is lethargic, moving all extremities symmetrically, spontaneously. Unable to assess cranial nerves, given his mental status. LABS: White count 34.1, hemoglobin 15.2, platelets of 250,000, 2% bandemia. Sodium 143, potassium 4.0, chloride 92, bicarb 33, BUN 41, creatinine 1.9, all in baseline. Glucose 155. Total bilirubin 1.6, AST 17, ALT 13, alkaline phosphatase 84, total protein 7.2 , albumin 3.6, lipase 7, lactate 2.2. Troponin 0.43. IMAGING: CT of the abdomen and pelvis shows mechanical proximal small bowel obstruction, with transition point in the left upper quadrant, significant edema, and apparent inflammation of the gallbladder. Gallstones are present. Cannot rule out acute cholecystitis. Nonobstructing right renal stones. Severe left renal atrophy. Severe rectal stool impaction. Benign-appearing pulmonary opacity in the right lower lobe. COPD. Severe chronic bronchitis. Chest x-ray: Probable infiltrate or effusion in the right lung base. ASSESSMENT AND PLAN: 1. Mr. Franco Daniel is a 73-year-old gentleman with a history of metastatic colorectal cancer, who was admitted with nausea, vomiting, and coffee ground emesis, in the setting of small bowel obstruction and severe rectal stool impaction. He also has a right lung base pneumonia, likely secondary to aspiration. His hemoglobin currently is normal. I suspect that his upper GI bleeding may be from no history of esophagitis, gastritis and/or Maria Luisa- Banuelos tear. He is currently not having any melenic stools at this time. The patient was unable to tolerate NG tube placement, as it triggered SVT in the emergency room. He is currently on PPI IV b.i.d., and on antibiotics, including Zosyn and linezolid for pneumonia. He has profound leukocytosis, which could also be from his pneumonia versus bowel obstruction. No recent history of diarrhea per report to suggest C. difficile, although this was ordered. Blood cultures are pending for his coffee ground emesis. Recommend supportive care with IV PPI b.i.d. Keep NPO for now, given bowel obstruction. Surgery has been consulted. 2. Sepsis. The patient is on antibiotics for pneumonia. No evidence for peritonitis on exam or imaging. He does have a small bowel obstruction and fecal impaction. 3. Supraventricular tachycardia. This is likely secondary to underlying infection. Cardiology has been consulted. 4. History of colon cancer. The patient was on hospice prior to being sent to the emergency room. Oncology has been consulted. 5. Altered mental status, unclear etiology. Could be related to underlying infection. Consider head CT or blood gas to evaluate for the etiology of his change of mental status. We will follow with you. Please call with any questions or concerns. MTDD
[2018-08-31 21:36] LABS: HEMATOCRIT 36.2 % (42.0-52.0)
[2018-08-31] MEDS: PROTONIX IV SCH (21:39)
--- NOTE | 2018-08-31 22:11 | HISTORY AND PHYSICAL ---
Franco De León is a 73-year-old male who has a history of sickle cancer status post right hemicolectomy, gastric AMS, COPD, hypertension, previous strokes and presented to hospital because of coffee-ground emesis follow up for this and he is also noted to have fecal impaction. VITAL SIGNS: Temperature 98.1 degrees, pulse 109, respiratory 27, blood pressure 149/100, oxygen saturation 95%. Resting comfortable in bed. Cardiovascular: Patient is tachycardic with clear lung lainez. Abdomen: Is benign. Attempts to place an NG tube while in the ER patient developed SVT which responded to beat blockade. With regards to the coffee-grounds emesis as well as fecal impaction GI has been consulted. The patient will need to be on a proton pump inhibitor and will need to follow up on hemoglobin, hematocrit, transfuse PRBCs as needed.Surgery consulted as well for bowel obstruction Cardiology also has been consulted for the transient SVT that he developed while in the ER. Patient is a full code at this time. cc: Shamir Thomas MD MTDD
[2018-08-31] MEDS ORDERED: CALMOSEPTINE OINTMENT TOP PRN (22:26)
--- NOTE | 2018-08-31 23:59 | GENERAL SURGERY CONSULTATION ---
DATE: 08/31/2018 REQUESTING PHYSICIAN: Hospitalists. REASON FOR CONSULTATION: Consult concerning bowel obstruction and possible cholecystitis. HISTORY OF PRESENT ILLNESS: A 73-year-old male with a history of cecal cancer, well known to me, who I did a right hemicolectomy on. He also has a history of C. diff, gastric AVMs, gastritis, esophagitis, now presenting with nausea and vomiting. He woke up with heartburn, elevated blood pressure, and some coffee-grounds emesis. He went to the emergency department, and he was found to have small-bowel obstruction, some inflammation in his gallbladder, and severe rectal stool impaction with possible small bowel obstruction. I was asked to weigh an opinion. The patient is currently resting and not really having any abdominal pain. PAST MEDICAL HISTORY: Includes cecal cancer, C. diff colitis, gastric AVMs, gastritis, esophagitis, ischemic stroke, COPD, hypertension, vitamin D deficiency. PAST SURGICAL HISTORY: Includes right hemicolectomy. SOCIAL HISTORY: Current smoker. FAMILY HISTORY: Positive for cancer and melanoma. ALLERGIES: None. MEDICATIONS: Home medications reviewed. REVIEW OF SYSTEMS: A difficult 10 secondary to patient's mental status. PHYSICAL EXAMINATION: Vital Signs: The patient is currently afebrile. He does have a tachycardia in the 110s. General: No acute distress. Resting. HEENT: Normocephalic, atraumatic. Pupils equal, round, reactive to light. Mucous membranes moist. Oropharynx benign. Neck: Supple. Trachea midline. Cardiovascular: Tachycardic. Lungs: Grossly clear. Abdomen: Some distention. No peritoneal signs. Extremities: Moves all extremities. Neurologic: Resting. Skin: No signs of jaundice. Vascular: All extremities perfused. LABORATORY: White blood cell count is 30, hematocrit is 38, platelet count is 250,000. Plasma lactate 2.4. IMAGING STUDIES: CT scan independently reviewed and radiology report reviewed. Ultrasound reviewed. ASSESSMENT AND PLAN: A 73-year-old with severe impaction and possible cholecystitis. 1. Severe rectal impaction. At this time, this may be causing his issues. He also potentially has adhesions from scar tissue. Clinically, he has a benign abdomen, but when they tried to put an NG tube down, he went into SVT. I think ideally we need an NG tube down to try to decompress his stomach. In the meantime, I agree with placing the patient on antibiotics for the possibility of cholecystitis. We will try to see how he does, especially given his recent cardiac issue, before committing him to any kind of surgery. 2. Cholecystitis. Please see above. 3. Multiple medical comorbidities, currently being managed by the hospitalist service. cc: Shay Stevenson MD
[2018-09-01 00:06] LABS: ALLEN TEST YES; BE 6.4 mmoll (-3.0-3.0); BLOOD TYPE ARTERIAL; HCO3-(ACT) 29.9 mmoll (20.0-26.0); O2(CT) 16.6 mL/dL (15.0-23.0); O2HB 97.3 % (95.0-99.0); PCO2(98.6) 45 mmHg (35-45); PO2(98.6) 123 mmHg (60-100); SAMPLE BLOOD; SAO2 99.8 % (95.0-100.0); pH(98.6) 7.45 (7.35-7.45)
[2018-09-01 00:07] LABS: MODALITY CANNULA
[2018-09-01] MEDS: ZOSYN 2.25 GM in NS 50 ML IV SCH ×3 (02:56→17:22)
[2018-09-01] MEDS: XOPENEX NEB INH SCH ×6 (03:05→23:00)
[2018-09-01] MEDS: ATROVENT NEB INH SCH ×6 (03:05→23:00)
[2018-09-01 03:18] LABS: HEMATOCRIT 38.1 % (42.0-52.0); HEMOGLOBIN 12.7 g/dL (14.0-18.0)
[2018-09-01 05:32] LABS: BASO# 0.01 X1000 (0.0-0.2); BASO% 0.1 % (0.0-0.8); HEMATOCRIT 36.4 % (42.0-52.0); HEMOGLOBIN 12.1 g/dL (14.0-18.0); IMM GRAN# 0.04 X1000 (0.0-0.04); IMM GRAN% 0.2 % (0.0-0.5); INR 1.25; LYMPH# 0.75 X1000 (1.2-3.4); LYMPH% 4.4 % (20.5-51.1); MCH 29.1 PG (27-31); MCHC 33.2 g/dL (33-37); MCV 87.5 FL (81-99); MONO# 0.74 X1000 (0.11-0.59); MONO% 4.4 % (1.7-9.3); MPV 10.5 FL (7.4-10.4); NEUT# 15.37 X1000 (1.4-6.5); NEUT% 90.9 % (42.2-75.2); PLT 180 X1000 (130-400); PROTIME 16.7 Seconds (11.0-16.0); RBC 4.16 XMIL (4.7-6.1); RDW 14.5 % (11.5-14.5); WBC 16.91 X1000 (4.8-10.8)
[2018-09-01 05:33] LABS: PTT 39.9 Seconds (22.3-41.8)
[2018-09-01 05:46] LABS: ALB/GLOB RATIO 0.7; ALBUMIN 2.5 g/dL (3.5-5.0); CALCIUM 8.6 mg/dL (8.8-10.2); CREATININE 1.4 mg/dL (0.7-1.2); MAGNESIUM 1.7 mg/dL (1.5-2.7); POTASSIUM 3.3 mmol/L (3.5-5.1)
--- NOTE | 2018-09-01 08:19 | Diag Imaging Result Doc PS360 ---
EXAM: CHEST-PORTABLE INDICATION: pna TECHNIQUE: One view COMPARISON: 08/31/2018 FINDINGS: There is slight increased blunting of the right costophrenic angle suggesting an increase in pleural fluid most likely. No new consolidation is identified. Cardiac silhouette is stable. IMPRESSION: Increase in right costophrenic angle blunting suggesting likely slight increase of pleural fluid. Electronically signed by Rasta Jiang 09/01/2018 8:16 AM
--- NOTE | 2018-09-01 08:56 | Diag Imaging Result Doc PS360 ---
EXAM: CT HEAD W/O CONTRAST INDICATION: AMS TECHNIQUE: This exam was performed using automated exposure control, adjustment of mA or kV according to patient size, and/or use of iterative reconstruction technique. COMPARISON: 12/31/2016 FINDINGS: There is stable moderate diffuse brain atrophy. There is patchy low attenuation in the periventricular and subcortical white matter suggesting fairly advanced microangiopathy, stable. There is no definite acute infarct given the limited sensitivity of CT versus MRI. There is no discrete intracranial mass, mass effect, or intracranial hemorrhage. There are couple of small ethmoid sinus mucus retention cyst. Surrounding soft tissues and bony structures are essentially unremarkable, otherwise. IMPRESSION: Stable chronic intracranial changes as described. No definite acute intracranial pathology. Electronically signed by Rasta Jiang 09/01/2018 8:54 AM
[2018-09-01] MEDS: POTASSIUM CHLORIDE 20 MEQ/SWI 20 MEQ/100 ML IVPB IV SCH ×2 (09:54→12:47)
[2018-09-01] MEDS: ZYVOX 600 MG/D5W 600 MG/300 ML IVPB IV SCH ×2 (09:54→20:45)
[2018-09-01] MEDS: NS 1,000 ML IV SCH ×2 (09:54→23:10)
[2018-09-01] MEDS: PROTONIX IV SCH ×2 (09:55→20:44)
[2018-09-01] MEDS: CARDIZEM PO SCH ×3 (09:55→20:44)
--- NOTE | 2018-09-01 09:57 | PROGRESS NOTE ---
DATE: 09/01/2018 Mr. Daniel was admitted yesterday on 08/31/2018. He is a 73-year-old. He has no primary care physician. A 73-year-old male with a medical history of cecal cancer, status post right hemicolectomy, history of C. difficile, gastric AV malformations, gastritis, esophagitis, presented yesterday with a 4 day history of complaints of nausea and vomiting. According to his son, his father woke up and was sweating and had heartburn, very clammy, elevated blood pressure about 4 days before this. Took some blood pressure medicine and has been doing okay from that standpoint, but the last couple of nights, the vomiting has increased and become pink and coffee ground in color so he brought him into the hospital and to make him a full code. He has mostly bilateral lower quadrant abdominal pain but upon palpation, he is tender in all 4 quadrants, distended and hyperactive bowel sounds. He reports that he has had bowel movements every day, they are liquid, normal in color. His stool sample is negative for blood. His Gastroccult was positive for blood which is likely more due to esophagitis and gastritis secondary to continuous vomiting. Denied any fever, did have some chills. The patient reports he is bedbound and they change his diaper every day and they have not noticed any blood in the stool. Workup reveals the right lower lobe pneumonia. He has a mechanical small bowel obstruction along with significant edema and inflammation in the gallbladder, a very large 9.2 cm stool impaction. His white count was 34,000 and suspected possible sepsis when he came in although lactate was normal. Did have tachycardia and they have given him full code status. PAST MEDICAL HISTORY: 1. Cecal cancer status post right hemicolectomy. 2. C. difficile history. 3. Gastritis with AV malformations. 4. Gastritis and esophagitis with hiatal hernia. 5. Ischemic stroke. 6. COPD. 7. Hypertension. 8. Vitamin D deficiency. PAST SURGICAL HISTORY: Right hemicolectomy, multiple polypectomies. PHYSICAL EXAMINATION: GENERAL: On exam today, he was sleeping, resting comfortably. He did not arouse. With exam, he was breathing comfortably. VITAL SIGNS: Temp is 99.5 degrees, pulse 90, respirations 15, blood pressure 119/67. HEENT: His pupils were equal and round. LUNGS: Clear in all lung lainez. CARDIOVASCULAR: Regular rhythm and rate without murmur or S3. ABDOMEN: Distended. He is uncomfortable really in all quadrants. EXTREMITIES: No pedal edema. White count on the was 34,000. Yesterday, it was down to 16,000. Hematocrit when he came in was 45 and yesterday it was 36. This may be just hemodilution. Electrolytes from yesterday, sodium 139, potassium 3.3, chloride 100, BUN 36, creatinine 1.4 which is down from 1.9 when he presented. Chest x-ray from this morning: Increase in right costophrenic angle blunting suggesting likely slight increase in pleural fluid. ASSESSMENT AND PLAN: 1. History of metastatic colorectal cancer, admitted with nausea and vomiting, intractable nausea, coffee ground emesis in the setting of small bowel obstruction, severe rectal stool impaction. We are treating him for a right lung base pneumonia possibly secondary to aspiration. GI is following. Suspect GI bleeding may be from esophagitis, gastritis or even a Maria Luisa-Banuelos tear. He is currently not having any melanotic stools. Unable to tolerate an NG tube which treated SVT in the emergency room. So, we are giving a PPI IV b.i.d. and antibiotics including Zosyn and linezolid for pneumonia. He does have profound leukocytosis. This could be from pneumonia versus demargination from stress and vomiting versus bowel obstruction. He has no recent history of diarrhea to suggest C. difficile. Blood cultures are pending. I think stools were sent for culture as well. We will keep n.p.o. for now. 2. Possible sepsis. Treating him for sepsis and treating him for pneumonia. Continue present antibiotics. 3. Supraventricular tachycardia likely from an underlying infection, stress and small bowel obstruction. 4. Metastatic colon cancer. The patient was on hospice prior to this. Oncology has been consulted. They want him a full code at this time. 5. Altered mental status, multifactorial. Review of his orders: He is getting morphine 2 mg IV q.3 hours p.r.n., Cardizem 60 mg p.o. 3 times a day, Levsin 0.125 mg p.o. q.4 hours p.r.n., ipratropium bromide inhaler 0.5 q.4 hours, Xopenex 1.25 inhalation q.4 hours, Ativan 0.5 mg IV q.4, Protonix 40 mg IV q.12. He is getting Zosyn 2.25 grams IV q.8, linezolid 600 mg IV q.12, amiodarone, he was given 150 mg dose I think twice yesterday, normal saline. I think the normal saline will run at 85 mL an hour. He is on Protonix drip initially and now is getting Protonix 40 mg q.12. We will continue to follow electrolytes and supplement his potassium and follow magnesium. We will check a thyroid and B12 and folate. cc: Fam Miller MD
[2018-09-01 10:16] LABS: HEMATOCRIT 35.9 % (42.0-52.0); HEMOGLOBIN 11.8 g/dL (14.0-18.0)
[2018-09-01 11:08] LABS: URINE SOURCE CATH
[2018-09-01 11:26] LABS: BILIRUBIN URINE NEGATIVE (NEGATIVE); BLOOD URINE MODERATE (NEGATIVE); COLOR YELLOW; GLUCOSE URINE NEGATIVE (NEGATIVE); KETONE URINE NEGATIVE (NEGATIVE); LEUKOCYTES URINE MODERATE (NEGATIVE); NITRITE URINE NEGATIVE (NEGATIVE); PH URINE 5.5; PROTEIN URINE 70 mg/dL (NEGATIVE); SP GRAVITY URINE 1.018; TURBIDITY URINE HAZY (CLEAR); UROBILINOGEN URINE NORMAL (NORMAL)
[2018-09-01 11:28] LABS: UR EPITHELIAL CELLS <10 /HPF (<10); URINE BACTERIA NEGATIVE /HPF; URINE RBC TNTC /HPF (<10)
[2018-09-01 11:47] LABS: URINE YEAST PRESENT
--- NOTE | 2018-09-01 11:59 | GENERAL SURGERY PROGRESS NOTE ---
DATE: 09/01/2018 SUBJECTIVE: Patient has been somewhat altered. He did get a CT scan of his head which did not show any acute abnormalities. He did go into SVT when we tried to put an NG tube down but he has been okay. Still neurological he is not doing much, he is waking up. OBJECTIVE: Vital Signs: Patient is currently afebrile. Heart rate in the 110s, blood pressure stable. General: Will wake up to name, but otherwise no acute distress. HEENT: Normocephalic, atraumatic. Pupils equal, round, reactive to light. Mucous membranes moist. Oropharynx benign. Neck: Supple. Trachea midline. Cardiovascular: Regular rate and rhythm with some mild tachycardia. Lungs: Grossly clear. Abdomen: Soft. No peritoneal signs on exam. Extremities: Moves all extremities. Neurologic: Opens his eyes to his name, but does not respond. Vascular: All extremities perfused. LABORATORY DATA: White blood count 16, hematocrit 36. Bilirubin is normal. AST, ALT, alkaline phosphatase are all normal. ASSESSMENT AND PLAN: A 73-year-old gentleman with altered mental status, constipation and possible cholecystitis. 1. Altered mental status. At this time, preliminary report on the head CT scan is normal. His electrolytes do not look too terribly abnormal. Unsure of the etiology. We will defer to the Hospitalist. 2. Supraventricular tachycardia. At this time, I would like to monitor it. Ideally we could get an NG tube down but we are making some progress with enemas. 3. Constipation. Making some progress with enemas. We will see how he does. 4. Cholecystitis. At this time, continue antibiotics. His white blood cell count is improved. No immediate plans for surgical intervention given everything else that is going on. cc: Shay Stevenson MD
--- NOTE | 2018-09-01 13:19 | ECHO REPORT ---
ORDER DATE: 08/31/2018 INTERPRETING PHYSICIAN: Dr. Dubose REQUESTING PHYSICIAN: Hospitalist CLINICAL INDICATIONS: This is a 73-year-old male with tachycardia, dyspnea. M-MODE MEASUREMENTS: Right ventricle: cm. Left ventricle end diastole: 3.1 cm. Left ventricle end systole: 2.4 cm. Posterior wall: 0.7 cm. Interventricular septum: 0.7 cm. Left atrium: cm. Aortic root: cm. SUMMARY OF 2-DIMENSIONAL IMAGIN. This study is technically difficult. Parasternal views are limited. The patient is tachycardic. 2. The left ventricular systolic function appears to be normal. Ejection fraction is 67%. 3. Aortic valve appears to be normal. 4. Mitral valve appears to be normal. 5. Pulse wave Doppler of mitral inflow shows fusion of the E and the A wave. The ratio is 0.7. 6. Tissue Doppler of septal and lateral mitral annulus averages 8 cm. 7. There is no diastolic dysfunction. 8. The tricuspid valve appears to be unremarkable. 9. Pulmonary pressure is estimated at 30 to 35 mmHg. 10.Pulmonic valve appears to be normal. 11.There is no pericardial effusion, mass or thrombus. 12.The right-sided chambers appear to be unremarkable. Clinical correlation is recommended. cc: MD Shane Burnette MD
--- NOTE | 2018-09-01 13:39 | CARDIOLOGY PROGRESS NOTE ---
DATE: 09/01/2018 CHIEF COMPLAINT: Irregular heart beat, nausea and vomiting. SUBJECTIVE: Mr. Daniel is lying in bed without moving much. He does not really respond verbally to me. He opens his eyes which appear to be sunken in the orbits. The patient appears to be profoundly cachectic, chronically ill. OBJECTIVE: Blood pressure is 119/67, temperature 99.5, pulse 90, respirations 19. The patient appears to be emaciated, probably in a terminal cancer state. Pale. HEENT: Unremarkable. Chest: Diminished breath sounds at bases. Heart sounds are regular and rhythmic. Sometimes the rate speeds up; however, when reviewing telemetry, he is in sinus tachycardia. Abdomen is soft, not distended. Bowel sounds diminished. Extremities showed marked muscle wasting. No obvious edema. Neurologic: He cannot phonate. He can barely move his hands. DIAGNOSTIC DATA: His blood work today shows white cell count 16,000, hemoglobin 12.1, hematocrit 36.4. Sodium is 139, potassium 3.3, BUN is 36, creatinine 1.4. One blood culture was reported as growing gram-negative rods; however, we do not have any further reports. Abdominal CT yesterday shows mechanical proximal small bowel obstruction, significant edema, and possible inflammation of the gallbladder. Nonobstructing right renal stones. Severe left renal atrophy. Severe rectal stool impaction. Benign appearing pulmonary opacity in the right lower lobe, COPD, severe chronic bronchitis. Head CT shows stable chronic intracranial changes. Patchy low attenuation in the periventricular and subcortical white matter suggesting fairly advanced microangiopathy. Abdominal ultrasound that was done yesterday showed gallbladder sludge and cholelithiasis with gallbladder wall thickening and nonobstructive nephrolithiasis on the right. A chest x-ray done today shows increased right costophrenic angle blunting suggesting likely slight increase in pleural fluid. IMPRESSION: 1. The patient developed supraventricular tachycardia after presentation to the ER. According to notes, it looks like that happened after they attempted to pass an NG tube. His ECG during the episode of SVT showed significant ST segment depression, suggesting that this patient may have actually coronary disease. 2. Advanced colon cancer. 3. Cachexia, probably a terminal phase of cancer. 4. Small bowel obstruction. 5. Possible cholecystitis. RECOMMENDATIONS: From a cardiology viewpoint, there is really not a whole lot that we can do for him other than just giving some IV Cardizem as needed. With a bowel obstruction, I am not sure if he will tolerate any oral therapy. I think that the family needs to be approached with recommendation to resume Hospice care, comfort measures. Please call us if further assistance is needed. cc: Atif Dubose MD
[2018-09-01 14:48] LABS: HEMATOCRIT 36.2 % (42.0-52.0); HEMOGLOBIN 11.9 g/dL (14.0-18.0)
[2018-09-02] MEDS: ZOSYN 2.25 GM in NS 50 ML IV SCH ×3 (02:21→18:22)
[2018-09-02] MEDS: XOPENEX NEB INH SCH ×6 (03:00→23:33)
[2018-09-02] MEDS: ATROVENT NEB INH SCH ×6 (03:00→23:33)
[2018-09-02 06:12] LABS: CALCIUM 8.4 mg/dL (8.8-10.2); CREATININE 1.4 mg/dL (0.7-1.2); MAGNESIUM 1.8 mg/dL (1.5-2.7); POTASSIUM 3.3 mmol/L (3.5-5.1)
--- NOTE | 2018-09-02 06:17 | GENERAL SURGERY PROGRESS NOTE ---
DATE: 09/02/2018 SUBJECTIVE: Discussed case with nursing staff, no major changes. The patient is not doing much neurological. Reviewed notes from Cardiology and Dr. Miller. No real significant changes. OBJECTIVE: Vital Signs: Patient is currently afebrile. He does have heart rate in the low 100s, but otherwise his blood pressure is stable. General: No acute distress. HEENT: Normocephalic, atraumatic. Pupils equal, round, reactive to light. Mucous membranes moist. Oropharynx benign. Neck: Supple trachea midline. Cardiovascular: Somewhat mild tachycardic. Lungs: Grossly clear. Abdomen: Soft. No peritoneal signs. Extremities: Moves all extremities. Neurologic: Opens his eyes to name, but does not give any verbal response. Vascular: All extremities perfused. Skin: No signs of jaundice. LABORATORY: None this morning as of yet. ASSESSMENT AND PLAN: A 73-year-old with altered mental status, constipation, and possible cholecystitis. 1. Altered mental status. At this time, previously noted CT scan shows no acute pathology. His electrolytes do not seem that abnormal. We will just monitor him. 2. Supraventricular tachycardia. Cardiology is following him. There was some ST depression on the EKG. There is some concern about having acute coronary issue, but it sounds like no immediate plans for intervention. 3. Constipation. At this point, continue current treatment. 4. Cholecystitis. At this time, no immediate plans for surgical intervention given everything else that is going on. cc: Shay Stevenson MD
[2018-09-02 06:50] LABS: FREE T4 1.23 ng/dL (0.93-1.70); TSH 0.87 uIUmL (0.27-4.20)
--- NOTE | 2018-09-02 07:06 | PROGRESS NOTE ---
DATE: 09/02/2018 SUBJECTIVE: This is a 73-year-old with medical history of cecal cancer, status post right hemicolectomy. He has had trouble with Clostridium difficile, and has known gastric AV malformations, gastritis, esophagitis, came in with a 4-day complaint of nausea and vomiting. His father woke up sweating with heartburn and clammy and intractable nausea and vomiting. Large stool impaction. Appears to have small bowel obstruction. His cecal cancer and right hemicolectomy back in [address] Loera. He was sleeping, easy to arouse this morning, appears comfortable. OBJECTIVE: Vital Signs: Temp 98.3 degrees, pulse 100, respirations 19, blood pressure 127/66. Urine output was 3000 mL. HEENT: Pupils are equal and round. Lungs: Clear in all lung lainez. Cardiovascular: Regular rhythm and rate without murmur or S3. Abdomen: Soft. It does not appear distended. I do hear some bowel sounds in the right upper quadrant. ASSESSMENT AND PLAN: 1. Altered mental status. I think his delirium is multifactorial. Electrolytes seem to be within acceptable range. 2. Supraventricular tachycardia. There was concern about possible coronary ischemia. He is really not communicating any chest pain. 3. Possible cholecystitis, and he had some constipation. Continue to follow. His abdomen seems to be doing a little better. Lab work from yesterday: White count was still elevated at 16,910, hematocrit stable at 36, hemoglobin 11.9, platelet count 180,000. He developed supraventricular tachycardia in the emergency room. It looks like they attempted to pass a nasogastric tube. Electrocardiogram showed an episode of supraventricular tachycardia, showed significant ST-segment depression. The patient may be having active ischemia. 4. Cachexia. Severe protein calorie malnutrition. Continue present conservative measures. REVIEW OF ORDERS: He is getting Cardizem 60 mg 3 times a day, Levsin 0.125 mg every 4 hours p.r.n., ipratropium bromide 0.5 mg inhalation every 4 hours, Xopenex 1.25 mg every 4 hours, Ativan 0.5 mg every 4 hours. He is getting normal saline at 85 mL an hour, Protonix 40 mg IV every 12 hours, and he is on Zosyn 2.25 grams every 8 hours, and linezolid 600 mg IV every 12 hours. He does appear to have underlying chronic kidney disease, and creatinine is stable at 1.4. cc: Fam Miller MD
[2018-09-02] MEDS: ZYVOX 600 MG/D5W 600 MG/300 ML IVPB IV SCH ×2 (08:24→20:28)
[2018-09-02] MEDS: PROTONIX IV SCH ×2 (08:25→20:28)
[2018-09-02] MEDS: CARDIZEM PO SCH ×3 (08:25→20:28)
[2018-09-02] MEDS: NS 1,000 ML IV SCH ×2 (12:14→23:48)
[2018-09-03] MEDS: ZOSYN 2.25 GM in NS 50 ML IV SCH ×3 (01:18→17:29)
[2018-09-03] MEDS: XOPENEX NEB INH SCH ×6 (03:31→23:18)
[2018-09-03] MEDS: ATROVENT NEB INH SCH ×6 (03:32→23:18)
[2018-09-03 05:50] LABS: CALCIUM 8.1 mg/dL (8.8-10.2); CREATININE 1.2 mg/dL (0.7-1.2); POTASSIUM 3.1 mmol/L (3.5-5.1)
--- NOTE | 2018-09-03 07:13 | GENERAL SURGERY PROGRESS NOTE ---
DATE: 09/03/2018 SUBJECTIVE: Patient seems to be more alert today. He is actually able to eat. OBJECTIVE: Vital signs: Patient is currently afebrile with vital signs stable. General exam: No acute distress. More alert. HEENT: Normocephalic, atraumatic. Pupils equal, round, reactive to light. Mucous membranes moist. Oropharynx benign. Neck: Supple. Trachea midline. Cardiovascular: Regular rate and rhythm. Lungs: Are clear. Abdomen: Soft, nontender. No peritoneal signs. Extremities: Moves all extremities. Neurologic: More alert, some verbal response. Vascular: All extremities perfused. Skin: No signs of jaundice. LABORATORY: None this morning. Microbiology shows 1 of the blood cultures shows gram-negative rods. There is only 1 of 2. ASSESSMENT/PLAN: A 73-year-old with altered mental status, constipation, possible cholecystitis and now positive blood cultures. 1. Altered mental status. At this time appears to be improving; etiology is still unsure. 2. Supraventricular tachycardia. Cardiology is following him. 3. Constipation. Continue current regimen. 4. Cholecystitis. At this time monitor, and he is on appropriate antibiotics. 5. Positive blood cultures. At this time, may need to consider repeating the blood cultures. It is only 1 of 2, but we will need to monitor him. cc: Shay Stevenson MD
[2018-09-03] MEDS: PROTONIX IV SCH ×2 (08:27→21:09)
[2018-09-03] MEDS: CARDIZEM PO SCH ×3 (08:27→21:09)
[2018-09-03] MEDS: ZYVOX 600 MG/D5W 600 MG/300 ML IVPB IV SCH ×2 (08:27→21:09)
[2018-09-03] MEDS: TYLENOL PO PRN ×2 (08:27→16:19)
--- NOTE | 2018-09-03 08:31 | PROGRESS NOTE ---
DATE: 09/03/2018 SUBJECTIVE: Mr. Daniel is awake. He appears comfortable. He really does not communicate with me and asking questions. He does not seem to indicate that there is abdominal pain, but he is really not communicative to me. He is more awake. He did not seem to have discomfort on exam on the abdominal exam. PHYSICAL EXAMINATION: Temperature 99.2 degrees, pulse 104, respirations 16, blood pressure 120/59.HEENT: Pupils were equal. Neck: No distended neck veins. Lungs: Clear anterolateral. Cardiovascular: Regular rhythm and rate without murmur or S3. Abdomen: Soft. Skin: Warm and dry. LABORATORY: Urine output was about 700 mL. ASSESSMENT AND PLAN: 1. Altered mental status which is multifactorial. 2. Supraventricular tachycardia and possible underlying coronary ischemia. 3. Possible cholecystitis. 4. Cachexia and poor p.o. intake. 5. Constipation. Continue present regimen. Note he had come in with coffee ground appearing emesis, and they tried to put an NG tube in, and he went into SVT. Apparently, he was on [facility] services for hospice, and when they brought him in, wanted to make him a full code. GI and Surgery are following. He did have a palliative care consult. I do not see anything to change at this point. Looking over his orders, he is getting Cardizem 60 mg 3 times a day, Levsin 0.125 mg q.4 hours p.r.n., ipratropium bromide 0.5 mg q.4 hours, Xopenex treatments, Ativan 0.5 mg IV q.4 hours p.r.n., normal saline 85 mL an hour, Protonix 40 mg IV q.12. He is getting Zosyn 2.25 g IV q.8 and linezolid 600 mg IV q.12 hours. cc: Fam Miller MD
[2018-09-03] MEDS: NS 1,000 ML IV SCH ×2 (09:30→10:47)
[2018-09-03] MEDS: MIRALAX PO SCH (10:47)
--- NOTE | 2018-09-03 14:09 | GASTROENTEROLOGY PROGRESS NOTE ---
DATE: 09/03/2018 PRIMARY CARE DOCTOR: None. SUBJECTIVE: Patient is currently resting in bed. He appears comfortable. He did not answer any questions. He has not moved his bowels today. He only ate 25% of his meal this morning which included some oatmeal. I spoke to the patient's nurse. His last bowel was yesterday. No fevers reported although on evaluation of his vitals he did have a low-grade temperature of 99.2 degrees. OBJECTIVE: Vital signs: Temperature 99.2 degrees, pulse 98, respiratory rate 22, blood pressure 110/61, saturating 94% on room air. Body weight of 130 pounds. BMI of 17.2 kg. General: lying in bed, in no acute distress. HEENT: Mild pallor. No icterus. Neck: Supple. Abdomen: Abdomen is slightly protuberant, soft, nondistended, no guarding. Extremities: No cyanosis, clubbing. Neurologic: He was awake, alert, but did not answer back. LABS: 1. Hemoglobin and hematocrit is 12.1 and 36.4 yesterday, white count 16.91, platelet count of 180,000. Sodium 137, potassium 3.1 chloride 101, bicarbonate 23, anion gap 13, BUN of 20, creatinine 1.2, glucose of 112, calcium is 8.1 2. Urine culture showed yeast. On 09/01/2018 his stool C difficile antigen and toxin are both negative. Gastroccult on 08/31/2018 for positive. Blood culture x2, one out of two cultures showed E. coli which is pansensitive and his stool for occult blood on 2018 was negative. IMPRESSION AND PLAN: 1. Nausea and vomiting and coffee-grounds emesis improving. He is on Protonix b.i.d. and IV fluids. 2. Constipation. He is on Dulcolax 10 mg per rectal at bedtime. I started diet today. He has moved his bowels yesterday. I will start him on MiraLAX once daily. 3. Cholecystitis. He is on IV Zosyn. Dr. Stevenson is following. 4. Altered mental status. Aware. 5. Gastrointestinal prophylaxis with PPIs. 6. Anemia continue to watch for now. 7. Supraventricular tachycardia and possible underlying coronary ischemia aware. 8. Above plan discussed with the patient and the nursing staff and all questions answered. Please call us with any further questions. I spoke to hospitalist as well. cc: Edgar Martinez MD MTDD
--- NOTE | 2018-09-03 16:25 | Diag Imaging Result Doc PS360 ---
CHEST-PORTABLE - 09/03/2018 INDICATION: FEVER/PNEUMONIA COMPARISON: 09/01/2018 FINDINGS: There is significant worsening bibasilar infiltrates. There is a small right pleural effusion that has increased from prior. Heart size remains normal. IMPRESSION: Significant worsening bibasilar infiltrates. Worsening small right pleural effusion. Electronically signed by Andrew Hernandez 09/03/2018 4:23 PM
[2018-09-03 16:27] LABS: URINE SOURCE CATH
[2018-09-03 16:32] LABS: BILIRUBIN URINE NEGATIVE (NEGATIVE); BLOOD URINE LARGE (NEGATIVE); COLOR YELLOW; GLUCOSE URINE NEGATIVE (NEGATIVE); KETONE URINE NEGATIVE (NEGATIVE); LEUKOCYTES URINE MODERATE (NEGATIVE); NITRITE URINE NEGATIVE (NEGATIVE); PH URINE 5.5; PROTEIN URINE 100 mg/dL (NEGATIVE); SP GRAVITY URINE 1.016; TURBIDITY URINE HAZY (CLEAR); UROBILINOGEN URINE NORMAL (NORMAL)
[2018-09-03 16:34] LABS: UR EPITHELIAL CELLS >10 /HPF (<10); URINE BACTERIA NEGATIVE /HPF; URINE RBC TNTC /HPF (<10)
[2018-09-03 16:43] LABS: URINE YEAST NONE SEEN
[2018-09-03] MEDS ORDERED: CLINIMIX E 4.25%-5% SOLUTION 1,000 ML IV SCH (17:30)
--- NOTE | 2018-09-03 17:45 | HEMO/ONC CONSULTATION ---
DATE: 09/03/2018 ADMITTING PHYSICIAN: Dr. Thomas . REQUESTING PHYSICIAN: Dr. Thomas. We appreciate this consult. CHIEF COMPLAINT: Colon cancer. HISTORY OF PRESENT ILLNESS: Mr. Franco Daniel is a 73-year-old male with a history of cecal cancer status post right hemicolectomy, C difficile colitis, gastric AVM, gastritis, esophagitis. The patient presented with complaints of 4 days of nausea, vomiting. The patient's son reported that his father woke up sweating with heartburn, elevated blood pressure and was clammy. The patient's son also reports that after a couple days of vomiting he began to notice blood. The patient has also been experiencing bilateral lower quadrant abdominal pain and was noted to have hyperactive bowel sounds on auscultation. The patient's bowel movements have been liquid without blood or melena. The patient was seen in clinic by Dr. Loera after diagnosis of cecal cancer and right hemicolectomy however the patient's family opted for hospice and the patient has been bedbound since that time. The patient is admitted for severe stool impaction, upper GI bleed and intractable nausea and vomiting. PAST MEDICAL HISTORY: 1. Cecal cancer status post right hemicolectomy. 2. Clostridium difficile colitis. 3. Gastric AVMs. 4. Gastritis/esophagitis. 5. Ischemic stroke. 6. COPD. 7. Hypertension. 8. Vitamin D deficiency. PAST SURGICAL HISTORY: 1. Right hemicolectomy. 2. Multiple colonoscopies with polypectomy. SOCIAL HISTORY: The patient has smoked 1/2 pack cigarettes since the age of 16. He drinks alcohol socially and does not use illicit drugs. FAMILY HISTORY: Significant for malignant melanoma in the patient's father and an unknown cancer in the patient's mother. MEDICATIONS ON ADMISSION: 1. Vitamin B12 injection. 2. Levsin. 3. Ativan. 4. Morphine. 5. Centrum Silver. 6. Compazine. ALLERGIES: The patient has no known drug allergies. REVIEW OF SYSTEMS: A 14 point review of systems was attempted but is unable to be obtained as the patient is noncommunicative. PHYSICAL EXAM: Mr. Daniel is a 73-year-old male lying supine in bed awake, alert and noncommunicative. He is in no acute distress.Vital Signs: Temperature 99.2 degrees, blood pressure 109/61, heart rate 98, respirations 22, O2 saturation 95% on room air. HEENT: Normocephalic, atraumatic. Mucous membranes pink and moist. Sclerae anicteric. Extraocular movements intact. Neck: Supple. Lungs: Clear to auscultation bilaterally. Chest expansion is equal bilaterally. CV: S1, S2 is heard without murmur, rub or gallop. Abdomen: Soft, distended, tender to palpation throughout. Bowel sounds are decreased. No rebound or guarding is noted. Extremities: Without clubbing, cyanosis, or edema. Dermatologic: No rashes, bruises or lesions. Neuro: The patient is awake, alert. He is noncommunicative. He has no overt focal deficits. LABORATORY DATA: On 09/01/2018 hemoglobin 12.1, hematocrit 36.4, white blood cell count 16.91, platelets 180,000, INR is 1.25. Today sodium 137, potassium 3.1, chloride 101, CO2 is 23, BUN 20, creatinine 1.2, and glucose is 112. IMAGING STUDIES: CT of abdomen and pelvis reveals mechanical proximal small-bowel obstruction the left upper quadrant as well as gallbladder edema and inflammation as well as stones. Severe rectal impaction was observed with severe chronic bronchitis as well. ASSESSMENT AND PLAN: 1. Transverse colon lesion. We will check a CT of the chest at this time. EGD and colonoscopy are warranted when appropriate. Gastroenterology is currently following. We will discuss any potential treatment plan with the family. Of note the patient was on hospice. No family is available but apparently family has decided to rescind hospice and do not resuscitate. 2. History of cecal cancer status post right hemicolectomy with no further treatment as the patient was placed on hospice at that time. 3. Nausea and vomiting due to small bowel obstruction. Surgery is consulted and is following. 4. Upper gastrointestinal bleed. The patient is currently on intravenous Protonix. Gastroenterology is currently following. If the patient's status improves and treatment is a consideration, EGD and colonoscopy would be of benefit for biopsies. 5. Chronic obstructive pulmonary disease stable at this time. 6. Malnutrition. The patient is currently NPO secondary to small bowel obstruction. 7. Supraventricular tachycardia per cardiology. Rate is currently 98. 8. Resuscitation status. Of note the patient was on hospice. He is now a full code per family. 9. We will follow along with you and make further recommendations pending outcomes. The above reflects the history exam, assessment and plan of Dr. Loera. Dictated by LISA Moore for Kayode Loera MD cc: LISA Moore MD
--- NOTE | 2018-09-03 20:34 | Diag Imaging Result Doc PS360 ---
CT THORAX W/WO CONTRAST - 09/03/2018 INDICATION: r/o mets COMPARISON: 10/31/2016 FINDINGS: The gallbladder is very distended but is only partially imaged. There is surrounding enhancement of the liver concerning for gallbladder inflammation. There is a small right and trace left pleural effusion. There is significant pleural enhancement on the right side consistent with inflammation. There are bibasilar infiltrates right greater than left with impaction of bronchi consistent with aspiration. There is moderate COPD. There are some borderline lymph nodes but no adenopathy in the chest. Heart size is top normal. There are moderate degenerative changes of the spine. No acute or suspicious bony lesion. IMPRESSION: 1. Bilateral lower lobe aspiration pneumonia right greater than left. 2. Bilateral pleural effusions. On the right side there is pleural enhancement consistent with inflammation. This is likely an empyema. 3. Abnormal gallbladder. Recommend a HIDA scan in the morning. This exam was performed using automated exposure control, adjustment of mA or kV according to patient size, and/or use of iterative reconstruction technique Electronically signed by Andrew Hernandez 09/03/2018 8:31 PM
[2018-09-03] MEDS: DULCOLAX PR SCH (21:09)
[2018-09-04] MEDS ORDERED: NS 1,000 ML IV SCH ×2 (01:00→03:45)
[2018-09-04] MEDS: ZOSYN 2.25 GM in NS 50 ML IV SCH (02:21)
[2018-09-04] MEDS ORDERED: LASIX IV ONE (03:36)
[2018-09-04] MEDS: XOPENEX NEB INH SCH ×6 (03:36→23:05)
[2018-09-04] MEDS: ATROVENT NEB INH SCH ×6 (03:36→23:05)
[2018-09-04] MEDS: NS 1,000 ML IV SCH (04:10)
[2018-09-04] MEDS ORDERED: MAXIPIME 2 GM in NS 100 ML IV SCH (05:00)
[2018-09-04 05:21] LABS: ALLEN TEST YES; BE -1.8 mmoll (-3.0-3.0); BLOOD TYPE ARTERIAL; HCO3-(ACT) 23.5 mmoll (20.0-26.0); METHB 1.1 % (0.0-1.5); O2(CT) 14.2 mL/dL (15.0-23.0); O2HB 95.5 % (95.0-99.0); PCO2(98.6) 31 mmHg (35-45); PO2(98.6) 80 mmHg (60-100); SAMPLE BLOOD; SAO2 98.4 % (95.0-100.0); THB 10.5 g/dL (11.5-17.4); pH(98.6) 7.45 (7.35-7.45)
[2018-09-04 05:22] LABS: MODALITY VENTIMASK
[2018-09-04 05:34] LABS: HEMATOCRIT 30.9 % (42.0-52.0); HEMOGLOBIN 10.3 g/dL (14.0-18.0); MCH 29.6 PG (27-31); MCHC 33.3 g/dL (33-37); MCV 88.8 FL (81-99); MPV 10.1 FL (7.4-10.4); RBC 3.48 XMIL (4.7-6.1); RDW 14.4 % (11.5-14.5); WBC 24.13 X1000 (4.8-10.8)
[2018-09-04 06:03] LABS: AGAP 12; BUN 16 mg/dL (8-22); CALCIUM 7.3 mg/dL (8.8-10.2); CHLORIDE 101 mmol/L (98-107); COSMO 271; CREATININE 0.9 mg/dL (0.7-1.2); ESTIMATED GFR > 60; GLUCOSE 201 mg/dL (70-104); POTASSIUM 3.2 mmol/L (3.5-5.1); SODIUM 132 mmol/L (136-145); TCO2 19 mmol/L (25-35)
--- NOTE | 2018-09-04 07:01 | GENERAL SURGERY PROGRESS NOTE ---
DATE: 09/04/2018 SUBJECTIVE: Discussed the case with the nurse taking care of the patient last night. He has had a respiratory decline. He has been given some Lasix. He has also had some hematuria. The patient is now less responsive overall. OBJECTIVE: Vital Signs: The patient is currently afebrile. He does have a heart rate in the 120s, blood pressure 126/84, O2 saturation 92%, now on Venturi mask. General Examination: More somnolent, less responsive. HEENT: Normocephalic, atraumatic. Pupils equal, round, reactive to light. Mucous membranes moist. Oropharynx benign. Neck: Supple. Trachea midline. Cardiovascular: Some tachycardia. Lungs: Some coarse sounds noted. Abdomen: Soft, nontender. No peritoneal signs. Extremities: Moves all extremities. Neurologic: Less alert. Vascular: All extremities perfused. Skin: No signs of jaundice. Laboratory: ABG reviewed from this morning. ASSESSMENT AND PLAN: A 73-year-old with altered mental status, constipation, possible cholecystitis, possible positive blood culture, and acute respiratory failure. 1. Acute respiratory failure. At this time, he has been given Lasix. He is on a Venturi mask. We will need to monitor him. 2. Altered mental status. At this time, again, he has had some worsening. His previous head CT scan was normal. 3. Supraventricular tachycardia. At this point, cardiology is following him. 4. Cholecystitis. At this time, continue antibiotics. The patient's overall status is probably prohibitive of any surgical intervention. 5. Positive blood cultures. At this time, continue to monitor him. He is on antibiotics. cc: Shay Stevenson MD
--- NOTE | 2018-09-04 07:16 | Diag Imaging Result Doc PS360 ---
EXAM: ABDOMEN FLAT/UPRIGHT INDICATION: constipation TECHNIQUE: 3 views COMPARISON: 11/13/2016 FINDINGS: There is patchy colonic gas with only mild distention. There is a relatively small amount of stool in the colon and mainly in the rectum. There could be a mild rectal fecal impaction. There is no obstructive bowel pattern. There is no evidence of large volume free abdominal gas. There are degenerative changes throughout the spine and both hips. IMPRESSION: Possible mild rectal fecal impaction. Electronically signed by Rasta Jiang 09/04/2018 7:14 AM
--- NOTE | 2018-09-04 07:19 | EKG Report ---
Test Performed on : 09/04/2018 07:00:11 AM Test Reason : tachycardia Blood Pressure : / mmHG Vent. Rate : 103 BPM Atrial Rate : 103 BPM P-R Int : 168 ms QRS Dur : 074 ms QT Int : 346 ms P-R-T Axes : 014 -05 039 degrees QTc Int : 453 ms Sinus tachycardia. Otherwise normal ECG When compared with ECG of 31-AUG-2018 10:33, premature ventricular complexes. are no longer present premature supraventricular complexes. are no longer present Borderline criteria for Inferior infarct are no longer present Unconfirmed Result
[2018-09-04] MEDS: ZOSYN 4.5 GM in NS 100 ML IV SCH ×3 (07:21→20:59)
--- NOTE | 2018-09-04 07:35 | Diag Imaging Result Doc PS360 ---
EXAM: CHEST-PORTABLE INDICATION: pneumonia TECHNIQUE: One view COMPARISON: 09/03/2018 FINDINGS: The lung volume on the right is lower. There has been interval development of airspace consolidation in the left mid to lower lung zone suggesting pneumonia. There is increased atelectasis and/or infiltrate at the right lung base. The pleural fluid collection including what appears to be loculated fluid in the minor fissure on the right is essentially stable. Cardiac silhouette is stable. IMPRESSION: Development of infiltrate in the left midlung zone suggesting pneumonia and worsening atelectasis and/or infiltrate at the right lung base. Electronically signed by Rasta Jiang 09/04/2018 7:32 AM
--- NOTE | 2018-09-04 07:47 | INFECTIOUS DISEASE CONSULT REP ---
DATE: 09/04/2018 CONCLUSION: The patient has the following: Acute cholecystitis, bibasilar pneumonia, possible right-sided empyema, and an E. coli bacteremia. RECOMMENDATIONS: I have discontinued cefepime and Zyvox. The patient was on Zosyn before but it was a very small dose so I have increased the dose to 4.5 g IV every 6 hours. I have put a reconsult for Dr. Stevenson because the patient not only may have cholecystitis but he may have an empyema also. DISCUSSION: The patient is unable provide a history. No family member is present. He came in initially with upper GI bleeding. His CBC today shows a white count of 24,130, hemoglobin 10.3, and platelet count 161,000. Blood gases show a pH of 7.45, a PO2 of 80, and a pCO2 of 31. Creatinine is 0.9. GFR is greater than 60. The patient's urinalysis showed white cells but no bacteria. Blood and urine cultures are pending. An earlier urine culture grew yeast and an earlier blood culture grew E. coli. Stool for Clostridium difficile toxin and antigen is negative. CT scan of the chest shows bibasilar, right greater than left side pneumonia, bilateral pleural effusion with possible right-sided empyema, and gallbladder inflammation. PAST MEDICAL HISTORY: 1. Cecal cancer. 2. Clostridium difficile diarrhea. 3. Gastric AVMs. 4. Gastritis and esophagitis with hiatal hernia. 5. Ischemic stroke. 6. COPD. 7. Hypertension. 8. Vitamin D deficiency. PAST SURGICAL HISTORY: Past surgical history is positive for a right hemicolectomy for his cecal cancer and the patient has had multiple polypectomies. SOCIAL HISTORY: Possible for cigarette smoking and alcohol abuse. There is no history of illicit drug use. The patient lives at home with a sitter. Family comes frequently to take care of him and the patient is bedbound. FAMILY HISTORY: Positive for cancer including malignant melanoma in the father and an unknown cancer in the mother. ALLERGIES: The patient has no known drug allergies. HOME MEDICATIONS: Include vitamin B12, Levsin, Ativan, morphine liquid, Centrum Silver, and Compazine. REVIEW OF SYSTEMS: Unable to be obtained. PHYSICAL EXAMINATION: Vital Signs: Temperature is 98.8 degrees, pulse 126, respirations 22, blood pressure 126/84. The patient is 6 feet 1 inch tall and weighs 148 pounds. General: This is an ill-appearing, elderly male. He appears to be delirious. He does not appear to be in any acute distress. Head, Eyes, Ears, Nose, and Throat: No drainage is noted from the nose or ears. Neck: No stiffness. Lungs: Clear to auscultation. Cardiovascular: Heart rate is regular. Abdomen: Soft and nontender. Neurologic: The patient seems to be delirious. He did not respond to verbal stimuli. Occasionally, he moved his head but I did not see him move his arms or legs. Integument: No rash noted. Thank you for the consult. cc: Ranjan Rodriguez MD
[2018-09-04 08:05] LABS: CK INDEX 5.4 (0.0-2.5); CK-MB 14.14 ng/mL (0.0-5.0)
[2018-09-04] MEDS ORDERED: POTASSIUM CHLORIDE 60 MEQ in NS 500 ML IV ONE (08:31)
[2018-09-04] MEDS: PROTONIX IV SCH ×2 (08:55→20:58)
[2018-09-04] MEDS: CARDIZEM PO SCH (08:55)
[2018-09-04] MEDS: MIRALAX PO SCH (08:55)
[2018-09-04] MEDS: LOPRESSOR PO SCH ×2 (14:19→20:54)
[2018-09-04] MEDS: ASPIRIN PO SCH (14:19)
[2018-09-04] MEDS: LASIX IV SCH (14:19)
--- NOTE | 2018-09-04 15:32 | PROVIDER PROGRESS NOTE ---
Progress Note - - 09/04/2018 SUBJECTIVE: Worsening respiratory status overnight requiring non-rebreather 50% . No CP, abdominal pain, N/V, rectal bleeding. OBJECTIVE: Last Vital Signs Temp 97.2 F L 09/04/18 12:00 Pulse 110 H 09/04/18 14:40 Resp 23 09/04/18 14:40 BP 118/70 09/04/18 14:40 Pulse Ox 97 09/04/18 14:40 Height 6 ft 1 in Weight 136 lb 12.8 oz GEN: awake, alert, mild respiratory distress HEENT: anicteric MMM NECK: no jvd, LAD CV: tachycardic, regular, no murmurs PULM: increased WOB, decreased BS throughout ABD: soft NT, ND, NABS, no rebound or guarding; negative Goldstein's EXT: no cce NEURO: nonfocal LABS: 09/04/18 09/04/18 09/04/18 04:41 04:41 05:12 WBC 24.13 H Hgb 10.3 L Plt Count 161 Sodium 132 L Potassium 3.2 L Chloride 101 Carbon Dioxide 19 L BUN 16 Troponin T [id number] Pept [id number] H 09/04/18 05:12 WBC Hgb Plt Count Sodium Potassium Chloride Carbon Dioxide BUN Troponin T 0.185 H [id number] Pept A/P: Mr. Franco Daniel is a 73-year-old gentleman with a history of colorectal cancer, who was admitted with nausea, vomiting, and coffee ground emesis in the setting of partial small bowel obstruction and severe rectal stool impaction. He was diagnosed with acute cholecystitis but denies abdominal pain and LFTs are WNL. He does have worsening acute hypoxic respiratory status likely from PNA on antibiotics. Right sided possible empyema noted. No further coffee ground emesis or melena. #Hypoxic resp failure: 2/2 PNA: ID following #Ecoli bacteremia: on abx #N/V/coffee ground emesis: resolved; on PPI BID #Constipation: improved on repeat KUB; continue bowel regimen #Question acute cholecystitis based on imaging: on abx; clinically he does not have acute cholecystitis given negative exam; normal LFTs; surgery following, apprec recs #PNA: suspect aspiration: on abx per primary #Anemia: stable #NSTEMI: likely demand Will follow with you. Please call with questions
[2018-09-04 16:11] LABS: CK INDEX 4.9 (0.0-2.5); CK-MB 10.47 ng/mL (0.0-5.0)
--- NOTE | 2018-09-04 18:26 | PROGRESS NOTE ---
DATE: 09/04/2018 SUBJECTIVE: The patient is confused and having increased work of breathing. Will transfer to the medical ICU. OBJECTIVE: Vital Signs: Temperature 98.9 degrees, blood pressure 108/67, heart rate 103, respirations 22, O2 saturation 96% on the Venturi mask, intake 3.3 L, output 910. General: This is a chronically ill-appearing elderly male lying in bed in mild distress. Head normocephalic, atraumatic. Heart: S1, S2 normal. Tachycardic. Lungs: Coarse breath sounds with rhonchi bilaterally. Abdomen: Positive bowel sounds. Soft, nontender, nondistended. Extremities: 1+ edema. Neuro: The patient is lethargic and confused. He is able to move all extremities. LABS: White blood cell count 24, hemoglobin 10, hematocrit 30, platelets 161, 000, sodium 132, potassium 3.2, chloride 101, CO2 19, BUN 16, creatinine 0.9, glucose 201, troponin 0.319, proBNP 11,517. ASSESSMENT AND PLAN: 1. Acute hypoxemic respiratory failure. The patient has pulmonary edema and pneumonia. Given the patient's deterioration will transfer the patient to ICU and consult with the face burler. 2. Pneumonia. Antibiotics as per Dr. Rodriguez. 3. Pulmonary edema. The patient received Lasix earlier today. Will monitor the patient's volume status closely. 4. Fecal impaction. Continue with laxative therapy. 5. Bacteremia secondary to Escherichia coli. Continue with antibiotic therapy as directed by Dr. Rodriguez. 6. Gastrointestinal prophylaxis. Continue on Protonix. 7. Possible empyema. Management as per the general surgeon. Continue with antibiotic therapy. 8. Acute diastolic congestive heart failure exacerbation. Management as per the Cardiology service. 9. Elevated troponin. Cardiology is following. 10. Possible cholecystitis. General surgery is following. 11. Hypokalemia. Will replace the potassium 12. Disposition. The patient is critically ill with a high risk of mortality. The patient's son Franco Daniel Junior was updated on the patient's medical condition. He states that he wants his father to remain a full code. cc: Lucy Albarran MD MTDD
[2018-09-04] MEDS: DULCOLAX PR SCH (20:58)
--- NOTE | 2018-09-05 01:04 | CONSULTATION ---
DATE OF CONSULTATION: 09/04/2018 REQUESTING PHYSICIAN: Dr. Lucy Albarran. REASON FOR CONSULTATION: Respiratory failure, pneumonia. HISTORY OF PRESENT ILLNESS: This is a 73-year-old male with a medical history of COPD, cecal cancer, gastric arteriovenous malformation, esophagitis, ischemic stroke, vitamin D deficiency, iron deficiency anemia, alcohol abuse, and tobacco dependence. He presented to the ER on 08/31/2018 with worsening nausea and vomiting for 4 days, and coffee-ground emesis for 2 days. Initial work up in the ER revealed right lower lobe pneumonia with moderate COPD and severe chronic bronchitis, small-bowel obstruction with significant edema, inflammation in the gallbladder with small gallstones, and a very large 9.2 cm severe stool impaction. He also developed episode of supraventricular tachycardia. He has been admitted since then for further evaluation and management. During this hospital stay, he became progressively confused. His respiratory status started declining yesterday and he required a non-rebreather with FiO2 50% overnight. Currently, he is on a Ventimask with FiO2 50%. He is drowsy and in mild respiratory distress. When I called his name, he did open his eyes. He did answer no when asked if he was in pain, but later he closed his eyes and stopped answering other questions. He does not follow any commands. He is clinically worsening and he will be transferred to the ICU. All other information is obtained from the E-chart. PAST MEDICAL AND SURGICAL HISTORY: 1. Chronic obstructive pulmonary disease. 2. Cecal cancer status post right hemicolectomy by Dr. Stevenson on 12/26/2016. 3. Gastric arteriovenous malformation. 4. Esophagitis with hiatal hernia. 5. Ischemic stroke. 6. Vitamin D deficiency. 7. Iron deficiency anemia. 8. Alcohol abuse. 9. Tobacco dependence. 10. EGD on 01/04/[address] Rueda. 11. Colonoscopy with polypectomy and Sheyla ink tattoo placement on 12/07/[address] Rueda. SOCIAL HISTORY: The patient has been on hospice and local services since last year. He used to smoke a pack per day since he was 15-year-old and currently cuts down to half a pack per day. He used to drink 1 pint of [place] Mist whiskey and currently cuts down to 1 bottle about every 3 days. He has no history of illicit drug use. FAMILY HISTORY: Positive for stroke and cancer. ALLERGIES: No known drug allergies. REVIEW OF SYSTEMS: Unable to be obtained. PHYSICAL EXAMINATION: Vital Signs: Temperature 98.4, blood pressure 116/55, pulse 103, respiratory rate 14, oxygen saturation 97% on Ventimask with FiO2 50%. General : Chronically ill- appealing, malnourished, drowsy, in mild respiratory distress. HEENT: Atraumatic. Trachea midline. Mucosa pink and dry. Respiratory: Lung expansion equal bilaterally. Auscultation reveals rhonchi and diminished breathing sounds bilaterally. Cardiovascular: Tachycardia, regular with S1 and S2 noted. Gastrointestinal: Bowel sounds present in all 4 quadrants. Soft, mildly distended. Extremities: No pedal edema. Dorsalis pedis 1+ bilaterally. Neurologic: Drowsy, responsive when I called his name, not following commands. IMAGING DATA: CT thorax with and without contrast on 09/03/2018 revealed bilateral lower lobe aspiration pneumonia, right greater than left, bilateral pleural effusions on the right side. There is pleural enhancement consistent with inflammation, this is likely an empyema, and very distended gall bladder. Chest x-ray this morning reveals development of infiltrate in the left mid lung zone suggesting pneumonia, worsening atelectasis versus infiltrate at the right lung base. LAB DATA: White blood cell 24.13, hemoglobin 10.3, hematocrit 30.9, platelet 161,000. Sodium 132, potassium 3.2, chloride 101, carbon dioxide 19, BUN 16, creatinine 0.9. Glucose 201. ABG, pH 7.45, pCO2 of 31, PO2 of 80, HCO3 of 23.5, base excess -1.8, and oxyhemoglobin 95.5. ASSESSMENT: This is a 73-year-old male with a medical history of chronic obstructive pulmonary disease, cecal cancer, gastric arteriovenous malformation, esophagitis with hiatal hernia, ischemic stroke, vitamin D deficiency, iron deficiency anemia, alcohol abuse, and tobacco dependence. He has been admitted since 08/31/2018 with coffee-ground emesis, small-bowel obstruction, severe rectal stool impaction, bibasilar pneumonia, possible sepsis , supraventricular tachycardia, and encephalopathy. His respiratory status started declining yesterday. He will be transferred to the ICU. 1. Acute hypoxemic respiratory failure. 2. Bibasilar pneumonia. 3. Possible right-sided empyema. 4. Bilateral pleural effusions. 5. Chronic obstructive pulmonary disease. 6. Acute cholecystitis. 7. Escherichia coli bacteremia. PLAN: 1. Continue supplemental oxygen. 2. Continue diuretic and bronchodilators. 3. Follow up with ABG and chest x-ray. 4. Continue Zosyn per Dr. Rodriguez. 5. Dr. Stevenson, the surgeon, is on board. 6. Continue bowel regimen with laxative therapy. 7. Continue GI and DVT prophylaxis. 8. Additional recommendations pending hospital course. Thank you for the courtesy of this consult. Dictated by LISA Adame for Osmel Kendall MD cc: LISA Adame MD [facility]
[2018-09-05] MEDS: ZOSYN 4.5 GM in NS 100 ML IV SCH ×4 (03:03→20:56)
[2018-09-05] MEDS: XOPENEX NEB INH SCH ×6 (03:25→23:38)
[2018-09-05] MEDS: ATROVENT NEB INH SCH ×6 (03:25→23:38)
[2018-09-05 04:30] LABS: ALLEN TEST YES; BE 0.1 mmoll (-3.0-3.0); BLOOD TYPE ARTERIAL; HCO3-(ACT) 24.9 mmoll (20.0-26.0); METHB 0.9 % (0.0-1.5); O2(CT) 14.1 mL/dL (15.0-23.0); O2HB 91.8 % (95.0-99.0); PCO2(98.6) 31 mmHg (35-45); PO2(98.6) 57 mmHg (60-100); SAMPLE BLOOD; SAO2 94.6 % (95.0-100.0); THB 10.9 g/dL (11.5-17.4); pH(98.6) 7.48 (7.35-7.45)
[2018-09-05 04:31] LABS: MODALITY CANNULA
[2018-09-05 06:20] LABS: HEMATOCRIT 31.1 % (42.0-52.0); HEMOGLOBIN 10.5 g/dL (14.0-18.0); MCH 29.2 PG (27-31); MCHC 33.8 g/dL (33-37); MCV 86.6 FL (81-99); MPV 10.1 FL (7.4-10.4); RBC 3.59 XMIL (4.7-6.1); WBC 22.92 X1000 (4.8-10.8)
--- NOTE | 2018-09-05 06:27 | GENERAL SURGERY PROGRESS NOTE ---
DATE: 09/05/2018 SUBJECTIVE: The patient was moved from the [facility] down to the ICU. He has had some more issues with respiratory status. His troponins have gone up. He is alert, but has some degree of aphasia. OBJECTIVE: Vital Signs: The patient is currently afebrile. Vital signs have been stable. General: No acute distress, somewhat responsive but not with appropriate words. HEENT: Normocephalic, atraumatic. Pupils equal, round, and reactive to light. Mucous membranes moist. Oropharynx benign. Neck: Supple. Trachea midline. Cardiovascular: Regular rate and rhythm. Lungs: Some coarse sounds noted. Abdomen: Soft, nontender, nondistended. No peritoneal signs. Extremities: Moves all extremities. Neurologic: Opens eyes, converses, but has some degree of difficulty with words. Vascular: All extremities perfused. Skin: No signs of jaundice. LABORATORY: ABG reviewed from this morning. Troponins from last night, 0.309. ASSESSMENT AND PLAN: A 73-year-old with altered mental status, constipation, possible cholecystitis, positive blood culture, acute respiratory failure and elevation in his troponin. 1. Acute respiratory failure. At this time, continue to monitor respiratory status. 2. Elevation in troponin. He probably has some degree of demand ischemia. Cardiology is following. 3. Altered mental status. At this time, he has had previous head CTs that showed no obvious acute abnormality, but he still has persistent neurologic symptoms. 4. Cholecystitis. At this time, the patient is too high risk for any surgical intervention. I would recommend continued antibiotics. 5. Positive blood cultures. Please see above. 6. Constipation. Continue with current therapy. cc: Shay Stevenson MD
[2018-09-05 06:39] LABS: AGAP 15; BUN 15 mg/dL (8-22); CALCIUM 7.8 mg/dL (8.8-10.2); CHLORIDE 102 mmol/L (98-107); COSMO 278; CREATININE 1.1 mg/dL (0.7-1.2); ESTIMATED GFR > 60; GLUCOSE 100 mg/dL (70-104); POTASSIUM 3.4 mmol/L (3.5-5.1); SODIUM 139 mmol/L (136-145); TCO2 22 mmol/L (25-35)
[2018-09-05] MEDS ORDERED: POTASSIUM CHLORIDE 40 MEQ/SWI 40 MEQ/100 ML IVPB IV ONE (07:00)
[2018-09-05] MEDS ORDERED: POTASSIUM CHLORIDE 20% LIQUID PO ONE ×2 (07:15→08:45)
--- NOTE | 2018-09-05 07:18 | Diag Imaging Result Doc PS360 ---
EXAM: CHEST-1 VIEW 09/05/2018 HISTORY: SOB TECHNIQUE: AP portable at 0513 COMMENT: There is loculated effusion or pleural thickening bilaterally. There is interstitial and alveolar opacity particularly in the mid left lung field. There has been improvement in pneumatization of the right lower and middle lobe since the previous study of 09/04/2018. The opacity on the left side has worsened slightly however. IMPRESSION: Improved right basilar atelectasis. Slightly worsened pulmonary edema versus pneumonia on the left. Electronically signed by Clarence Booth 09/05/2018 7:15 AM
--- NOTE | 2018-09-05 08:00 | EKG Report ---
Test Performed on : 09/05/2018 07:15:09 AM Test Reason : chest pain Blood Pressure : / mmHG Vent. Rate : 103 BPM Atrial Rate : 113 BPM P-R Int : 194 ms QRS Dur : 070 ms QT Int : 360 ms P-R-T Axes : 066 -24 068 degrees QTc Int : 471 ms Sinus tachycardia. T wave abnormality, consider anterior ischemia Abnormal ECG When compared with ECG of 04-SEP-2018 07:00, No significant change was found Unconfirmed Result
[2018-09-05] MEDS: PROTONIX IV SCH ×2 (08:36→20:57)
[2018-09-05] MEDS: LASIX IV SCH (08:37)
[2018-09-05] MEDS: ASPIRIN PO SCH (08:38)
[2018-09-05] MEDS: MIRALAX PO SCH (08:38)
[2018-09-05] MEDS: LOPRESSOR PO SCH ×2 (08:39→20:57)
--- NOTE | 2018-09-05 15:25 | PROVIDER PROGRESS NOTE ---
Progress Note - - 09/05/2018 SUBJECTIVE: OBJECTIVE: Last Vital Signs Temp 97.0 F L 09/05/18 11:23 Pulse 98 H 09/05/18 13:01 Resp 22 09/05/18 13:01 BP 119/70 09/05/18 13:01 Pulse Ox 97 09/05/18 13:01 Height 6 ft 1 in Weight 139 lb 5 oz GEN: elderly, confusion, NAD HEENT: anicteric, mmm NECK: supple CV: RRR, no murmurs PULM: decreased BS at bases ABD: soft, NT/ND, NABS EXT: no cce NEURO: moving all extremities symmetrically LABS: 09/05/18 09/05/18 09/05/18 04:00 04:30 04:30 WBC 22.92 H Hgb 10.5 L Plt Count 201 pH 7.48 H pCO2 31 L pO2 57 L Sodium 139 Potassium 3.4 L Chloride 102 Carbon Dioxide 22 L BUN 15 Creatinine 1.1 Glucose 100 D EXAM: CHEST-1 VIEW 09/05/2018 COMMENT: There is loculated effusion or pleural thickening bilaterally. There is interstitial andalveolar opacity particularly in the mid left lung field. There has been improvement in pneumatization of the right lower and middle lobe since the previous study of . The opacity on the left side has worsened slightly however. IMPRESSION: Improved right basilar atelectasis. Slightly worsened pulmonary edema versus pneumonia on the left. A/P: A/P: Mr. Franco Daniel is a 73-year-old gentleman with a history of colorectal cancer, previously on hospice, who was admitted with nausea, vomiting , and coffee ground emesis in the setting of partial small bowel obstruction and severe rectal stool impaction. He was also diagnosed with acute cholecystitis but denies abdominal pain and LFTs are WNL. He has worsening acute hypoxic respiratory status likely from PNA with loculated effusion on antibiotics per ID. No further coffee ground emesis. No melena. Demand ischemia noted. #Hypoxic resp failure: 2/2 PNA: on supplemental O2; ID managing #Ecoli bacteremia: on abx #N/V/coffee ground emesis: resolved; on PPI BID; continue to monitor H/H, transfuses as needed to maintain hgb 8-9 given NSTEMI #Constipation: improved on repeat KUB; continue bowel regimen #Question acute cholecystitis based on imaging: on abx; clinically he does not have acute cholecystitis given negative exam; normal LFTs; surgery following, apprec recs #PNA: suspect aspiration: on abx per primary #Anemia: stable #NSTEMI: likely demand #AMS: prior HCT negative for acute changes; suspect general encephalopathy in setting of infection #History of cecal cancer: seen by oncology We do not anticipate need for endoscopic evaluation at this time given his multiple active medical issues. Will sign off. Please call with questions
--- NOTE | 2018-09-05 17:38 | INFECTIOUS DISEASE PROGRESS NO ---
DATE: 09/05/2018 PRESENT ILLNESS: The patient has cholecystitis, pneumonia, E coli bacteremia and possible empyema. MEDICATIONS: The patient is on Zosyn. This is day 1 of treatment with it. PHYSICAL EXAMINATION: Vital Signs: Temperature is 98.1, pulse 102, respirations 22, blood pressure 121/67. General: This is a chronically ill-appearing, elderly male. He, however, does look better than he did yesterday. He is more alert. He is trying to talk and he can move his extremities. HEENT: He can hear my spoken words and see near objects. No drainage noted from the nose or the ears. Neck: No stiffness. Lungs: Clear to auscultation. Cardiovascular: Heart rate is regular. Abdomen: Soft and nontender. Neurologic: The patient is awake. He tries to talk, but he is talking in a very soft voice. I cannot understand what he is saying. He does move his extremities to request. There is no tremor. LAB AND X-RAY STUDIES: The patient's CBC today shows a white count of 22,920, hemoglobin 10.5, platelet count 201,000. Blood gases show a pH of 7.48, a pO2 of 57, a pCO2 of 31. Creatinine is 1.1. GFR is greater than 60, procalcitonin is 2.3. IgG and IgA are in the normal range. Chest x- ray shows worsening of the left-sided pneumonia. The patient's immunoglobulin levels, specifically IgG and IgA were normal. ASSESSMENT AND PLAN: The patient has: 1. Cholecystitis. 2. Pneumonia. 3. Possible empyema. 4. Escherichia coli bacteremia. My plan is to continue Zosyn. Overall, I think the patient is doing much better. COMORBIDITIES: He has COPD, history of cecal cancer. He has had a stroke. He is a cigarette smoker and he is an alcoholic. He denied use of illicit drugs. cc: Ranjan Rodriguez MD
--- NOTE | 2018-09-05 19:07 | PROGRESS NOTE ---
DATE: 09/05/2018 SUBJECTIVE: The patient is more awake and alert today. No acute events noted overnight. OBJECTIVE: Vital signs: Temperature 98.6 degrees, blood pressure 110/74, heart rate 101, respirations 22, O2 saturation is 98% on 3 L nasal cannula. General: This is a chronically ill- appearing elderly male lying in bed, in no acute distress. Heart: S1, S2 normal, tachycardic. Lungs: Equal air entry. Crackles bilaterally. Abdomen: Positive bowel sounds. Soft, nontender, nondistended. Extremities: No edema. No cyanosis. Neurologic: The patient is awake and alert. LABORATORY DATA: White blood cell count 22, hemoglobin 10, hematocrit 31, platelets 201,000. Sodium 139, potassium 3.9, chloride 102, CO2 is 22, BUN 15, creatinine 1.1, glucose 100, calcium 7.8. ASSESSMENT AND PLAN: 1. Acute hypoxemic respiratory failure. Improved. Continue to treat the underlying pneumonia and pulmonary edema. 2. Pneumonia. Continue with intravenous antibiotic therapy. 3. Pulmonary edema. Management as per the career placement services counselor. 4. Bacteremia secondary to Escherichia coli. Continue with antibiotic therapy. 5. Possible empyema. Continue with antibiotic therapy. 6. Acute diastolic congestive heart failure exacerbation. Management as per the Cardiology service. 7. Elevated troponin. Cardiology is following. 8. Leukocytosis. Continue with antibiotic therapy. 9. Possible cholecystitis. General Surgery is following. 10. Gastrointestinal prophylaxis. Continue on intravenous Protonix. 11. Deep vein thrombosis prophylaxis. Continue with sequential compression devices. 12. History of colon cancer. Aware. cc: Lucy Albarran MD
[2018-09-05] MEDS: SODIUM CHLORIDE 0.9% INJ SCH (20:56)
[2018-09-05] MEDS: DULCOLAX PR SCH (20:57)
[2018-09-06] MEDS: ZOSYN 4.5 GM in NS 100 ML IV SCH ×4 (01:22→20:06)
[2018-09-06 05:07] LABS: ALLEN TEST YES; BE 4.9 mmoll (-3.0-3.0); BLOOD TYPE ARTERIAL; HCO3-(ACT) 28.8 mmoll (20.0-26.0); METHB 1.3 % (0.0-1.5); O2(CT) 14.5 mL/dL (15.0-23.0); O2HB 96.8 % (95.0-99.0); PCO2(98.6) 34 mmHg (35-45); PO2(98.6) 125 mmHg (60-100); SAMPLE BLOOD; SAO2 100.3 % (95.0-100.0); THB 10.5 g/dL (11.5-17.4); pH(98.6) 7.52 (7.35-7.45)
[2018-09-06 05:52] LABS: HEMATOCRIT 30.9 % (42.0-52.0); HEMOGLOBIN 10.2 g/dL (14.0-18.0); MCH 28.7 PG (27-31); MPV 9.7 FL (7.4-10.4); RBC 3.55 XMIL (4.7-6.1); RDW 14.5 % (11.5-14.5); WBC 18.1 X1000 (4.8-10.8)
[2018-09-06 06:19] LABS: AGAP 11; ALB/GLOB RATIO 0.6; ALBUMIN 2.2 g/dL (3.5-5.0); ALKALINE PHOSPHATASE 116 U/L (32-122); BUN 14 mg/dL (8-22); CALCIUM 7.1 mg/dL (8.8-10.2); CHLORIDE 100 mmol/L (98-107); COSMO 276; CREATININE 1.1 mg/dL (0.7-1.2); ESTIMATED GFR > 60; GLUCOSE 128 mg/dL (70-104); GOT 18 U/L (10-34); GPT 15 U/L (10-44); MAGNESIUM 1.5 mg/dL (1.5-2.7); PHOSPHORUS 2.4 mg/dL (2.7-4.5); POTASSIUM 3.5 mmol/L (3.5-5.1); SODIUM 137 mmol/L (136-145); TCO2 26 mmol/L (25-35); TOTAL BILIRUBIN 0.66 mg/dL (0.20-1.00); TOTAL PROTEIN 5.9 g/dL (6.3-8.3)
--- NOTE | 2018-09-06 06:27 | GENERAL SURGERY PROGRESS NOTE ---
DATE: 09/06/2018 SUBJECTIVE: Nursing staff reports patient is doing about the same. No major issues overnight. He seems to be a little bit more alert today, but nonverbal. He did not deny any pain. ASSESSMENT: He has been hemodynamically stable from a surgical point of view. PLAN: Continue current treatment. Nothing new to add. cc: Shay Stevenson MD
[2018-09-06] MEDS: ATROVENT NEB INH SCH ×6 (06:39→23:03)
[2018-09-06] MEDS: XOPENEX NEB INH SCH ×6 (06:39→23:03)
--- NOTE | 2018-09-06 06:43 | Diag Imaging Result Doc PS360 ---
EXAM: CHEST-1 VIEW HISTORY: SOB TECHNIQUE: Portable chest single view COMPARISON: 09/05/2018 FINDINGS: The lungs are well expanded. The bilateral infiltrates are less pronounced. No cardiomegaly. There are tiny pleural effusions. IMPRESSION: Mild interval improvement. Electronically signed by Stewart Jones 09/06/2018 6:41 AM
[2018-09-06 06:51] LABS: MODALITY CANNULA
[2018-09-06] MEDS: MAG-OX PO SCH ×4 (08:20→20:08)
[2018-09-06] MEDS: ASPIRIN PO SCH (08:20)
[2018-09-06] MEDS: PROTONIX IV SCH ×2 (08:21→20:07)
[2018-09-06] MEDS: LOPRESSOR PO SCH ×2 (08:21→20:07)
[2018-09-06] MEDS: MIRALAX PO SCH (08:21)
[2018-09-06] MEDS: LASIX IV SCH (08:21)
[2018-09-06] MEDS ORDERED: POTASSIUM PHOSPHATE 30 MMOL in NS 250 ML IV ONE (09:30)
--- NOTE | 2018-09-06 09:56 | ECHO REPORT ---
ORDER DATE: 09/04/2018 INDICATION: Evaluate for pericardial effusion. FINDINGS: 1. This study is compared to the echocardiogram done on August 31. The ejection fraction on this study appears to be 50% and borderline normal. There does appear to be some anterior septal hypokinesis which was not present on the previous study August 31. Echocontrast was used on this study, whereas it was not previously. The end-diastolic dimension is normal at 3.8, with normal wall thicknesses with a posterior and interventricular septal thickness of 0.8 cm each. 2. There is no mitral valve prolapse. 3. No pericardial effusion is identified. 4. Aortic valve appears to open well. 5. The right ventricle was difficult to visualize on this study but appears to be normal in size and systolic function. 6. No Doppler evaluations were performed on this study. cc: MD Bailey Calvillo PA
--- NOTE | 2018-09-06 11:24 | INFECTIOUS DISEASE PROGRESS NO ---
DATE: 09/06/2018 PRESENT ILLNESS: Mr. Daniel is being treated for possible cholecystitis, pneumonia with possible empyema, and an Escherichia coli bacteremia. MEDICATIONS: Today is day 2 of treatment with Zosyn 4.5 g IV every 6 hours. PHYSICAL EXAMINATION: Vital Signs: Temperature is 98.4 degrees, pulse rate 90, respiratory rate 21, blood pressure 88/52, O2 saturation is 98% on 3 L nasal cannula. General: This is an elderly, chronically ill-appearing gentleman. He is lying in the bed, drowsy and lethargic but arousable, in no acute distress. HEENT: Atraumatic, normocephalic. Oral mucous membranes are pink and moist. Conjunctivae are pale. Neck: Supple. Trachea is midline. Cardiovascular: Heart rate and rhythm are regular. Normal sinus rhythm on the monitor. Respiratory: Lung sounds are clear in the upper lobes, diminished in the bases. Abdomen: Soft, round and nontender on palpation. Bowel sounds are active. Neurologic: He is drowsy but arousable. Not saying much but does respond appropriately and follow commands. No tremor is noted. LABORATORY AND X-RAY: Today his white count is 18.1, hemoglobin 10.2, platelet count 250,000. On 3 L nasal cannula, this morning his pH was 7.52, pCO2 34, PO2 125, HC03 28.8. Creatinine is 1.1 with estimated GFR greater than 60. Total bilirubin is 0.66, AST 18, ALT 15, alkaline phosphatase 116. Blood culture previously grew an E coli. Most recent blood cultures have shown no growth after 48 hours. Chest x-ray today shows mild interval improvement with bilateral infiltrates that are less pronounced. Procalcitonin is 2.3 and immunoglobulin levels show an IgA of 247 and an IgG of 839. ASSESSMENT AND PLAN: Mr. Daniel is being treated for pneumonia, an Escherichia coli bacteremia and a possible empyema and cholecystitis. His white blood cell count is coming down and his chest x-ray is improving, so we will continue the Zosyn as ordered. The procalcitonin is elevated, making it highly likely that there is a respiratory tract infection. These plans have been discussed with and recommended by Dr. Rodriguez. COMORBIDITIES: Include that he is elderly with congestive heart failure, protein calorie malnutrition, cigarette smoking, COPD, alcoholism, and previous stroke. Dictated by LISA Warren for Ranjan Rodriguez MD This chart was documented by, LISA Warren and accurately reflects the services performed, treatment plan and medical decisions as attested by the providers signature Ranjan Rodriguez MD. cc: Ranjan Rodriguez MD [facility]
--- NOTE | 2018-09-06 13:24 | GASTROENTEROLOGY PROGRESS NOTE ---
DATE: 09/06/2018 SUBJECTIVE: Resting in bed. He is eating his breakfast. He is moving his bowels. Bowels are liquid green. Nursing records reviewed with no evidence of blood in the stools. I also spoke to the patient's nurse, and there was no documentation of any nausea, vomiting, or coffee-grounds emesis. OBJECTIVE: Vital signs: Temperature of 98.4 degrees, pulse of 98, respiratory rate of 20, blood pressure 115/64, saturating 98% on 3 nasal cannula. General Appearance: Moderately-built, well- nourished, lying in bed, in no acute distress. HEENT: Pale conjunctiva. No icterus. Neck: Supple. Abdomen: Soft, nondistended. No guarding. Extremities: No cyanosis or clubbing. Neurologic: He is alert, awake, and answers questions. LABORATORY DATA: Hemoglobin 10.2, hematocrit 30.9, white count of 18.1, and platelet count 250,000. ABG showing pCO2 of 32, PO2 of 125, this is on nasal cannula 3 L. Sodium 137, potassium 3.5, chloride 100, bicarbonate 20, anion gap of 11, BUN of 14, creatinine 1.1, glucose of 120, calcium is 7.1. Phosphorus 2.4, magnesium 1.5. Total bilirubin is 0.66, AST 18, ALT 15, alkaline phosphatase 160, total protein 5.9, albumin of 2.2. IMPRESSION AND PLAN: 1. Coffee-ground emesis is now resolved. 2. Anemia. Continue to watch for now. Transfuse as needed. 3. Acute hypoxic respiratory failure has improved. 4. Pneumonia. He is on antibiotics. 5. Pulmonary edema. Aware. 6. Bacteremia secondary to Escherichia coli. He is on antibiotics. 7. Elevated troponins and acute congestive heart failure exacerbation. Being managed by Cardiology. 8. Possible cholecystitis. Dr. Stevenson is on board. 9. Gastrointestinal (GI) prophylaxis. PPIs. 10. Deep vein thrombosis (DVT) prophylaxis. SCDs. 11. Bowel regimen with Dulcolax 10 mg per rectal at bedtime. 12. History of colon cancer. Being managed by Dr. Loera. The above plans were discussed with the patient and the nursing staff and all questions answered. We will sign off. Please call us with any further questions. cc: MD FRANKIE Holly
--- NOTE | 2018-09-06 15:23 | PROGRESS NOTE ---
DATE: 09/06/2018 SUBJECTIVE: The patient is resting comfortably in bed. No acute events noted overnight. OBJECTIVE: Vital Signs: Temperature 98.6, blood pressure 92/58, heart rate 92, respirations 23. O2 sats 97% on 2 L nasal cannula. General: This is a chronically ill-appearing elderly male lying in bed in no acute distress. Heart: S1, S2 normal. Regular rate and rhythm. Lungs: Equal air entry bilaterally. No wheezing. No rales. Abdomen: Positive bowel sounds. Soft, nontender, nondistended. Extremities: No edema, no cyanosis. Neurologic: The patient is awake. LABS: White blood cell count 18, hemoglobin 10, hematocrit 30, platelets 250,000. Sodium 137, potassium 3.5, chloride 100, CO2 26, BUN 14, creatinine 1.1, glucose 128, phosphorus 2.4, magnesium 1.5, albumin 2.2. ASSESSMENT AND PLAN: 1. Acute hypoxemic respiratory failure. The patient is now on 3 L nasal cannula. 2. Pneumonia. Continue with antibiotic therapy. 3. Bacteremia secondary to E coli. Repeat blood cultures were negative at this time. Continue with antibiotic therapy as directed by Dr. Rodriguez. 4. Elevated troponin. Continue with the current cardiac medications. 5. Acute diastolic CHF exacerbation. Improved. 6. Possible cholecystitis. General Surgery is following. 7. Leukocytosis. Improved. Continue with antibiotic therapy. 8. Pulmonary edema. Improved. 9. GI prophylaxis. Continue on IV Protonix. 10. COPD. Continue with bronchodilator therapy. 11. Colon mass. Aware. cc: Lucy Albarran MD
[2018-09-06] MEDS: SODIUM CHLORIDE 0.9% INJ SCH (20:06)
[2018-09-06] MEDS: DULCOLAX PR SCH (20:08)
[2018-09-07] MEDS: ZOSYN 4.5 GM in NS 100 ML IV SCH ×4 (01:22→20:24)
[2018-09-07] MEDS: ATROVENT NEB INH SCH ×6 (03:02→23:34)
[2018-09-07] MEDS: XOPENEX NEB INH SCH ×6 (03:03→23:34)
[2018-09-07 05:02] LABS: AGAP 11; ALB/GLOB RATIO 0.8; ALBUMIN 2.5 g/dL (3.5-5.0); ALKALINE PHOSPHATASE 90 U/L (32-122); BUN 29 mg/dL (8-22); CALCIUM 8.5 mg/dL (8.8-10.2); CHLORIDE 103 mmol/L (98-107); COSMO 284; CREATININE 1.1 mg/dL (0.7-1.2); ESTIMATED GFR > 60; GLUCOSE 107 mg/dL (70-104); GOT 27 U/L (10-34); GPT 10 U/L (10-44); POTASSIUM 3.8 mmol/L (3.5-5.1); SODIUM 139 mmol/L (136-145); TCO2 25 mmol/L (25-35); TOTAL BILIRUBIN < 0.15 mg/dL (0.20-1.00); TOTAL PROTEIN 5.6 g/dL (6.3-8.3)
--- NOTE | 2018-09-07 06:41 | GENERAL SURGERY PROGRESS NOTE ---
DATE: 09/07/2018 SUBJECTIVE: Nursing staff reports no major issues. He seems a little bit more alert today. OBJECTIVE: Vital Signs: Patient is currently afebrile. His vital signs stable. General: No acute distress. HEENT: Normocephalic, atraumatic. Pupils equal, round, reactive to light. Mucous membranes moist. Oropharynx benign. Neck: Supple. Trachea midline. Cardiovascular: Regular rate and rhythm. Lungs: Grossly clear. Abdomen: Soft, nontender, nondistended. Extremities: Moves all extremities. Neurologic: He seems to respond. Difficult to understand what he is saying. Vascular: All extremities perfused. LABORATORY: CMP reviewed. Of note, his bilirubin is normal. ASSESSMENT AND PLAN: A 73-year-old with altered mental status, constipation, possible cholecystitis, positive blood cultures, and acute respiratory failure. 1. Acute respiratory failure. At this time, he seems to have improved and this might have resolved. 2. Constipation at this time seems to be improving. 3. Possible cholecystitis. At this time, continue antibiotics. 4. Positive blood cultures, positive for Escherichia coli. Continue antibiotics. cc: Shay Stevenson MD
--- NOTE | 2018-09-07 06:46 | Diag Imaging Result Doc PS360 ---
EXAM: CHEST-1 VIEW HISTORY: SOB TECHNIQUE: Chest single view COMPARISON: 09/06/2018 FINDINGS: The infiltrates in the left base are less dense on the current exam. The infiltrates in the lower right lung may be slightly more dense. No cardiomegaly. No pulmonary edema. No pleural effusions identified. IMPRESSION: Mixed areas of improvement and worsening. Electronically signed by Stewart Jones 09/07/2018 6:44 AM
[2018-09-07 08:16] LABS: HEMOGLOBIN 10.3 g/dL (14.0-18.0); MCH 28.3 PG (27-31); MCHC 32.2 g/dL (33-37); MCV 87.9 FL (81-99); MPV 9.4 FL (7.4-10.4); RBC 3.64 XMIL (4.7-6.1); RDW 14.6 % (11.5-14.5); WBC 16.1 X1000 (4.8-10.8)
[2018-09-07] MEDS: ASPIRIN PO SCH (08:40)
[2018-09-07] MEDS: MIRALAX PO SCH (08:40)
[2018-09-07] MEDS: PROTONIX IV SCH ×2 (08:40→20:25)
[2018-09-07] MEDS: LASIX IV SCH (08:40)
[2018-09-07] MEDS: LOPRESSOR PO SCH ×2 (08:40→20:24)
[2018-09-07] MEDS ORDERED: MAGNESIUM SULFATE 2 GM/S.W.I. 2 GM/50 ML IVPB IV ONE (13:54)
--- NOTE | 2018-09-07 14:50 | INFECTIOUS DISEASE PROGRESS NO ---
DATE: 09/07/2018 PRESENT ILLNESS: Mr. Daniel has a possible cholecystitis, pneumonia with possible empyema, and an Escherichia coli bacteremia. The patient also has an oral candidiasis. MEDICATIONS: He is on day 3 of treatment with Zosyn 4.5 g IV every 6 hours. PHYSICAL EXAMINATION: Vital Signs: Temperature is 99.2 degrees, pulse rate 102, respiratory rate 20, blood pressure 117/69, O2 saturations 98% on 3 L nasal cannula. General: This is a chronically ill-appearing, elderly gentleman. He is lying in the bed, currently in no acute distress. HEENT: Atraumatic, normocephalic. Oral mucous membranes are pink and moist. There are some white patches noted on his tongue today and he does complain of some burning to his tongue. Conjunctivae are pale. Cardiovascular: Heart rate and rhythm are regular and tachycardic. Sinus tachycardia on the monitor. Respiratory: Lung sounds are clear in the upper lobes. Diminished in the bases. Abdomen: Soft, round, nontender. Bowel sounds are active. Neurologic: He is awake, alert and minimally responsive verbally. He will say yes and no but nothing more than that. He is able to move all extremities with generalized weakness noted. No tremors. LABORATORY AND X-RAY: Today his white count is 16.1, hemoglobin 10.3, platelet count 285,000. Creatinine is 1.1. Estimated GFR is greater than 60. Total bilirubin is less than 0.15, AST 27, ALT 10, alkaline phosphatase 90. Blood cultures have been sterile since 09/03/2018. Originally, his blood cultures grew Escherichia coli. Chest x-ray today shows mixed areas of improvement and worsening with infiltrates in the right lower lung that may be a little more dense. In the left base, infiltrates are less dense. ASSESSMENT AND PLAN: Mr. Daniel is being treated for pneumonia with a possible empyema, Escherichia coli bacteremia and possible cholecystitis. He denies any abdominal pain. He is having burning to his tongue today, so we will go ahead and order nystatin swish and swallow. There are some white patches noted on his tongue. His white blood cell count continues to trend downward, so we will continue the Zosyn as ordered. These plans have been discussed with and recommended by Dr. Rodriguez. COMORBIDITIES: For Mr. Daniel include that he is elderly with congestive heart failure, protein calorie malnutrition, cigarette smoking, COPD, alcoholism, and previous stroke. Dictated by LISA Warren for Ranjan Rodriguez MD This chart was documented by, LISA Warren and accurately reflects the services performed, treatment plan and medical decisions as attested by the providers signature Ranjan Rodriguez MD. cc: Ranjan Rodriguez MD [facility]
--- NOTE | 2018-09-07 15:58 | Diag Imaging Result Doc PS360 ---
MRI BRAIN W/O CONTRAST - 09/07/2018 INDICATION: stroke COMPARISON: 08/31/2018 FINDINGS: There is extensive restricted diffusion bilaterally in the superior-posterior parietal lobes left greater than right. This is mainly cortically based. The ventricles and sulci are normal in size and contour. No intracranial mass or hemorrhage. There is extensive periventricular white matter chronic microvascular disease. IMPRESSION: Extensive bilateral parietal lobe infarctions left greater than right, that have probably been present for several days. No hemorrhage. This report was discussed with Miriam, the patient's nurse on four N. on 09/07/2018 at 3:54 PM and was readback. Electronically signed by Andrew Hernandez 09/07/2018 3:56 PM
--- NOTE | 2018-09-07 17:41 | PROGRESS NOTE ---
DATE: 09/07/2018 SUBJECTIVE: The patient was transferred from the ICU to the medical floor today. He is awake. He is slow to respond. OBJECTIVE: Vital Signs: Temperature 99 degrees, blood pressure 118/68, heart rate 100, respirations 19, O2 saturation 97% on 3 L nasal cannula. Urine output 1.8 L. General: This is a chronically ill-appearing elderly male lying in bed in no acute distress. Heart: S1, S2 normal, tachycardic. Lungs: Equal air entry bilaterally. No wheezing. No rales. No rhonchi. Abdomen: Positive bowel sounds. Soft, nontender, nondistended. Extremities: No edema, no cyanosis, no calf tenderness. Neuro: The patient is awake but lethargic. LABS: White blood cell count 16, hemoglobin 10, hematocrit 32, platelets 285,000, sodium 139, potassium 3.8, chloride 103, CO2 25, BUN 29, creatinine 1.1, glucose 107. Brain MRI shows extensive bilateral parietal infarctions with left greater than right. ASSESSMENT AND PLAN: 1. Acute hypoxemic respiratory failure. Improved. The patient is now on nasal cannula. Continue to treat the underlying pneumonia. 2. Pneumonia. Continue with antibiotic therapy and bronchodilator therapy. 3. Bacteremia secondary to Escherichia coli. The repeat blood cultures remain negative. Continue with antibiotic therapy as directed by Dr. Rodriguez. 4. Acute cerebrovascular accident. Will switch the patient to Plavix and add Lipitor. Will also order carotid duplex study. 5. Colonic mass. Aware. The patient is not interested in intervention. 6. Elevated troponin. Continue with the current cardiac medications. 7. Acute diastolic congestive heart failure. Improved. Continue to monitor closely. 8. Leukocytosis. Slowly improving. Continue on IV antibiotic therapy. 9. Chronic obstructive pulmonary disease. Continue with bronchodilator therapy and supplemental oxygen. 10. Possible cholecystitis. Continue with antibiotic management. General surgery is following. 11. Gastrointestinal prophylaxis. Continue on Protonix. 12. Deep vein thrombosis prophylaxis. Will start the patient on heparin. cc: Lucy Albarran MD
[2018-09-07] MEDS: MYCOSTATIN SUSP PO SCH ×3 (18:39→20:24)
[2018-09-07] MEDS: DULCOLAX PR SCH (20:24)
[2018-09-07] MEDS: HEPARIN SUBQ SCH (20:25)
--- NOTE | 2018-09-07 21:23 | Extremity Venous Study ---
PROCEDURE NAME: Venous U/S Right Arm - 09/07/2018 STUDY: Right upper extremity venous ultrasound. CERTIFIED PROCEDURAL CODER: Reddy. REQUESTING PHYSICIAN: Lucy Albarran MD INDICATION: Hand swelling. FINDINGS: Deep superficial veins of the right upper extremity were visualized along their course. All veins appeared compressible with forward flow, and no evidence of intraluminal thrombus. SUMMARY: No deep or superficial venous thrombosis seen in the right upper extremity or neck. cc: MD Lucy Justin MD
[2018-09-07] MEDS: TYLENOL PO PRN (21:56)
[2018-09-07] MEDS: LIPITOR PO SCH (21:56)
[2018-09-08] MEDS: ZOSYN 4.5 GM in NS 100 ML IV SCH ×4 (02:31→22:58)
[2018-09-08] MEDS: ATROVENT NEB INH SCH ×6 (03:33→23:05)
[2018-09-08] MEDS: XOPENEX NEB INH SCH ×6 (03:33→23:05)
[2018-09-08 06:12] LABS: HEMATOCRIT 32.3 % (42.0-52.0); HEMOGLOBIN 10.5 g/dL (14.0-18.0); MCH 28.9 PG (27-31); MCHC 32.5 g/dL (33-37); MPV 9.5 FL (7.4-10.4); RBC 3.63 XMIL (4.7-6.1); RDW 14.8 % (11.5-14.5); WBC 12.9 X1000 (4.8-10.8)
[2018-09-08 06:30] LABS: ALB/GLOB RATIO 0.6; ALBUMIN 2.1 g/dL (3.5-5.0); CALCIUM 7.8 mg/dL (8.8-10.2); CREATININE 1.3 mg/dL (0.7-1.2); MAGNESIUM 2.1 mg/dL (1.5-2.7); PHOSPHORUS 2.7 mg/dL (2.7-4.5); POTASSIUM 3.4 mmol/L (3.5-5.1); TOTAL BILIRUBIN 0.54 mg/dL (0.20-1.00); TOTAL PROTEIN 5.7 g/dL (6.3-8.3)
[2018-09-08] MEDS ORDERED: KLOR-CON PO ONE ×2 (06:57→14:00)
--- NOTE | 2018-09-08 07:27 | Diag Imaging Result Doc PS360 ---
EXAM: CHEST-1 VIEW 09/08/2018 HISTORY: SOB TECHNIQUE: AP portable at 0601 COMMENT: There is ill-defined opacity in both lung bases. This was also the case on 09/07/2018. Compared to 09/06/2018 the alveolar opacity in the left lower lobe has improved. IMPRESSION: Pulmonary edema essentially stable since 09/07/2018. Electronically signed by Clarence Booth 09/08/2018 7:25 AM
--- NOTE | 2018-09-08 08:34 | Carotid Study ---
DATE: 09/07/2018 PROCEDURE: Bilateral carotid duplex exam. REQUESTING PHYSICIAN: Dr. Albarran. INTERPRETING PHYSICIAN: Dr. Filomena Roland. TECH: [employer]. INDICATIONS: Carotid stenosis. EXAM FOR COMPARISON: 10/31/2016. OBSERVED DATA RIGHT LEFT Brachial Blood Pressure Carotid Pulse Bruits: Carotid/Sub DIAGRAM OF ULTRASOUND IMAGING R L RIGHT INT EXT INT EXT LEFT Martin (cm/s) Martin (cm/s) Subclavian 70/0 Subclavian 82/5 CCA Proximal 66/14 CCA Proximal 75/11 CCA Distal 85/16 CCA Distal 82/22 Bulb 69/12 Bulb 69/11 ICA Proximal 75/16 ICA Proximal 55/10 ICA Mid 45/12 ICA Mid 38/10 ICA Distal 50/20 ICA Distal 49/16 ECA 137/12 ECA 69/5 Vertebral 31/8 A Vertebral 39/7 A ICA/CCA Ratio 0.88 ICA/CCA Ratio 0.66 % Stenosis 0-39% % Stenosis 0-39% FINDINGS: There is mild atherosclerotic changes again noted in distal common carotid arteries, extending through the bulb and the proximal carotid internal arteries, but no hemodynamically significant lesion noted. Vertebrals are antegrade bilaterally. cc: MD Lucy Justin MD
[2018-09-08] MEDS: LOPRESSOR PO SCH ×2 (09:34→22:57)
[2018-09-08] MEDS: HEPARIN SUBQ SCH ×2 (09:34→22:57)
[2018-09-08] MEDS: PLAVIX PO SCH (09:34)
[2018-09-08] MEDS: MYCOSTATIN SUSP PO SCH ×4 (09:34→22:57)
[2018-09-08] MEDS: SODIUM CHLORIDE 0.9% INJ SCH ×2 (09:35→22:57)
[2018-09-08] MEDS: PROTONIX IV SCH ×2 (09:35→22:57)
[2018-09-08] MEDS: MIRALAX PO SCH (09:35)
[2018-09-08] MEDS: LASIX IV SCH (09:35)
--- NOTE | 2018-09-08 16:14 | GENERAL SURGERY PROGRESS NOTE ---
DATE: 09/08/2018 SUBJECTIVE: Doing okay. Mental status has improved. OBJECTIVE: Abdomen: The abdomen is soft. Apparently he is having bowel function. I have reviewed his labs. White count is 12 and hematocrit is 32. Creatinine is 1.3 up slightly from his baseline. ASSESSMENT AND PLAN: This is a 73-year-old gentleman admitted with altered mental status and a possible bowel obstruction. Clinically he is improving. He has also had a carotid duplex that shows no significant stenosis. He is tolerating a diet. We will follow him along but no plans for surgical intervention. cc: Vandana Roland MD
--- NOTE | 2018-09-08 20:36 | PROGRESS NOTE ---
DATE: 09/08/2018 SUBJECTIVE: The patient is resting comfortably in bed. He is attempting to eat breakfast. No acute events noted overnight. OBJECTIVE: Vital Signs: Temperature 99 degrees, blood pressure 118/72, heart rate 83, respirations 20, O2 saturation 99% on room air. General: This is an elderly male lying in bed in no acute distress. Heart: S1, S2 normal. Regular rate and rhythm. Lungs: Clear to auscultation bilaterally. Abdomen: Positive bowel sounds. Soft, nontender, nondistended. Extremities: No edema, no cyanosis. Neurologic: The patient is awake and does follow commands. LABS: White blood cell count 12, hemoglobin 10, hematocrit 32, platelets 290,000, sodium 135, potassium 3.4, chloride 98, CO2 27, BUN 11, creatinine 1.3, glucose 112, albumin 2.1. Carotid duplex study revealed no hemodynamically significant lesions. ASSESSMENT AND PLAN: 1. Pneumonia. Continue with antibiotic and bronchodilator therapy. 2. Bacteremia secondary to Escherichia coli. Continue with antibiotic therapy as directed by Dr. Rodriguez. 3. Acute cerebrovascular accident. Continue on Plavix and Lipitor. 4. Colonic mass. Aware. 5. Elevated troponin. Stable. Continue with the current cardiac medications. 6. Acute diastolic congestive heart failure exacerbation. The patient remains on Lasix. 7. Chronic obstructive pulmonary disease. Continue with bronchodilator therapy and supplemental oxygen. 8. Chronic cholecystitis. Continue with antibiotic management. 9. Gastrointestinal prophylaxis. Continue on Protonix. 10. Deep vein thrombosis prophylaxis. Continue on heparin. cc: MD FRANKIE Gracia
[2018-09-08] MEDS: LIPITOR PO SCH (22:56)
[2018-09-08] MEDS: DULCOLAX PR SCH (22:58)
[2018-09-09] MEDS: ATROVENT NEB INH SCH ×6 (03:21→23:07)
[2018-09-09] MEDS: XOPENEX NEB INH SCH ×6 (03:21→23:07)
[2018-09-09] MEDS: ZOSYN 4.5 GM in NS 100 ML IV SCH ×4 (06:18→23:04)
[2018-09-09 06:52] LABS: HEMATOCRIT 33.5 % (42.0-52.0); HEMOGLOBIN 10.8 g/dL (14.0-18.0); MCHC 32.2 g/dL (33-37); MCV 89.8 FL (81-99); MPV 9.4 FL (7.4-10.4); RBC 3.73 XMIL (4.7-6.1); RDW 14.7 % (11.5-14.5); WBC 12.33 X1000 (4.8-10.8)
[2018-09-09 07:09] LABS: CALCIUM 7.7 mg/dL (8.8-10.2); CREATININE 1.5 mg/dL (0.7-1.2); POTASSIUM 4.2 mmol/L (3.5-5.1)
--- NOTE | 2018-09-09 07:18 | Diag Imaging Result Doc PS360 ---
EXAM: CHEST-1 VIEW 09/09/2018 HISTORY: SOB TECHNIQUE: AP portable at 0558 COMMENT: There is bibasilar opacity, slightly improved since the previous study of 09/08/2018. The heart size and pulmonary vascularity are within normal limits. IMPRESSION: Pulmonary edema and/or pneumonia. Electronically signed by Clarence Booth 09/09/2018 7:16 AM
--- NOTE | 2018-09-09 10:27 | GENERAL SURGERY PROGRESS NOTE ---
DATE: 09/09/2018 SUBJECTIVE: No complaints. OBJECTIVE: No fevers. No tachycardia. He is tolerating a diet. Bowels are functioning. Abdomen is soft, nontender, nondistended. Integument warm and dry. LABORATORIES: Review of his laboratory, white count 12. This is stable, down overall. Creatinine is 1.5. This is up. ASSESSMENT AND PLAN: A 73-year-old gentleman. Bowel obstruction seems to be resolving. He is tolerating a diet. He does have worsening renal function of unclear etiology. He is being treated for bacteremia. We will defer management to the hospitalist service. No plans for any surgical intervention. cc: Vandana Rolnad MD
[2018-09-09] MEDS: MYCOSTATIN SUSP PO SCH ×4 (10:57→23:03)
[2018-09-09] MEDS: HEPARIN SUBQ SCH ×2 (10:58→23:03)
[2018-09-09] MEDS: PLAVIX PO SCH (10:59)
[2018-09-09] MEDS: LOPRESSOR PO SCH ×2 (10:59→23:03)
[2018-09-09] MEDS: MIRALAX PO SCH (10:59)
[2018-09-09] MEDS: PROTONIX IV SCH ×2 (10:59→23:03)
[2018-09-09] MEDS: SODIUM CHLORIDE 0.9% INJ SCH ×2 (10:59→23:03)
[2018-09-09 16:44] LABS: URINE SOURCE CATH
[2018-09-09 16:53] LABS: BILIRUBIN URINE NEGATIVE (NEGATIVE); BLOOD URINE MODERATE (NEGATIVE); COLOR YELLOW; GLUCOSE URINE NEGATIVE (NEGATIVE); KETONE URINE NEGATIVE (NEGATIVE); LEUKOCYTES URINE LARGE (NEGATIVE); NITRITE URINE NEGATIVE (NEGATIVE); PH URINE 8.5; PROTEIN URINE 100 mg/dL (NEGATIVE); SP GRAVITY URINE 1.016; TURBIDITY URINE TURBID (CLEAR); UROBILINOGEN URINE NORMAL (NORMAL)
[2018-09-09 17:03] LABS: UR EPITHELIAL CELLS <10 /HPF (<10); URINE BACTERIA NEGATIVE /HPF; URINE RBC TNTC /HPF (<10); URINE WBC TNTC /HPF (<10)
[2018-09-09 17:08] LABS: URINE CASTS NONE SEEN; URINE CRYSTALS NONE SEEN; URINE YEAST PRESENT
[2018-09-09 17:12] LABS: UR CREAT RANDOM 71.5 mg/dL (14-26); UR PROT RANDOM 144.5 mg/dL
[2018-09-09] MEDS: LIPITOR PO SCH (23:03)
[2018-09-09] MEDS: DULCOLAX PR SCH (23:04)
[2018-09-10] MEDS: ATROVENT NEB INH SCH ×6 (03:00→22:15)
[2018-09-10] MEDS: XOPENEX NEB INH SCH ×6 (03:00→22:15)
--- NOTE | 2018-09-10 04:55 | PROGRESS NOTE ---
DATE: 09/09/2018 SUBJECTIVE: The patient is resting comfortably in bed. No acute events noted overnight. OBJECTIVE: Vital Signs: Temperature 98.4 degrees, blood pressure 112/62, heart rate 88, respirations 22, O2 saturation is 97% on room air. General: This is a chronically ill-appearing elderly male, lying in bed in no acute distress. Heart: S1, S2 normal, regular rate and rhythm. Lungs: Equal air entry bilaterally. Diminished breath sounds at the bases. Abdomen: Positive bowel sounds. Soft, nontender, nondistended. Extremities: No edema. No cyanosis. Neurologic: The patient is awake and alert. LABORATORY DATA: White blood cell count 12, hemoglobin 10, hematocrit 33, platelets 344,000. Sodium 135, potassium 4.2, chloride 98, CO2 of 27, BUN 12, creatinine 1.5, glucose 112. ASSESSMENT AND PLAN: 1. Pneumonia. Continue with antibiotic therapy. 2. Bacteremia secondary to Escherichia coli. The repeat blood cultures are negative. Continue with antibiotic therapy. 3. Acute kidney injury. This is likely diuretic induced. We will hold the Lasix today and monitor the patient closely. 4. Acute cerebrovascular accident (CVA). Continue on Plavix and Lipitor. 5. Colonic mass. Aware. 6. Elevated troponin. Continue with the current cardiac medications. 7. Acute diastolic congestive heart failure (CHF) exacerbation, slowly improving. 8. Chronic cholecystitis. Aware. General Surgery is following. No surgical intervention is planned at this time. 9. Chronic obstructive pulmonary disease. Continue with bronchodilator therapy and supplemental oxygen. 10. Gastrointestinal (GI) prophylaxis. Continue on Protonix. 11. Deep vein thrombosis (DVT) prophylaxis. Continue on heparin. cc: Lucy Albarran MD [facility]
[2018-09-10] MEDS: ZOSYN 4.5 GM in NS 100 ML IV SCH ×4 (05:09→23:47)
[2018-09-10 06:46] LABS: BASO# 0.07 X1000 (0.0-0.2); BASO% 0.5 % (0.0-0.8); EOS# 0.31 X1000 (0.0-0.7); EOS% 2.4 % (0.0-10.0); HEMOGLOBIN 10.9 g/dL (14.0-18.0); IMM GRAN# 0.13 X1000 (0.0-0.04); LYMPH# 2.34 X1000 (1.2-3.4); MCH 28.1 PG (27-31); MCHC 31.1 g/dL (33-37); MCV 90.2 FL (81-99); MONO# 0.83 X1000 (0.11-0.59); MONO% 6.4 % (1.7-9.3); MPV 9.3 FL (7.4-10.4); NEUT# 9.29 X1000 (1.4-6.5); NEUT% 71.7 % (42.2-75.2); PLT 399 X1000 (130-400); RBC 3.88 XMIL (4.7-6.1); RDW 14.5 % (11.5-14.5); WBC 12.97 X1000 (4.8-10.8)
[2018-09-10 06:48] LABS: CALCIUM 8.2 mg/dL (8.8-10.2); CREATININE 1.5 mg/dL (0.7-1.2); POTASSIUM 4.3 mmol/L (3.5-5.1)
--- NOTE | 2018-09-10 07:15 | Diag Imaging Result Doc PS360 ---
EXAM: CHEST-1 VIEW INDICATION: SOB TECHNIQUE: One view COMPARISON: 09/09/2018 FINDINGS: The bibasilar opacity suggesting mild edema +/- pneumonia is approximately stable. No new consolidation is identified. Cardiac silhouette is stable. IMPRESSION: Stable chest. Electronically signed by Rasta Jiang 09/10/2018 7:13 AM
--- NOTE | 2018-09-10 07:52 | GENERAL SURGERY PROGRESS NOTE ---
DATE: 09/10/2018 SUBJECTIVE: I reviewed notes from the weekend. The patient has been transferred up to the floor from the ICU. He seems to be doing okay. OBJECTIVE: Vital Signs: Patient is currently afebrile. His vital signs stable. General: No acute distress. HEENT: Normocephalic, atraumatic. Pupils equal, round, reactive to light. Mucous membranes moist. Oropharynx benign. Neck: Supple. Trachea midline. Cardiovascular: Regular rate and rhythm. Lungs: Grossly clear. Abdomen: Soft, nontender, nondistended. Extremities: Moves all extremities. Neurologic: He is responding appropriately. Vascular: All extremities perfuse. Skin: No signs of jaundice. LABORATORY: Reviewed from yesterday no current labs. Microbiology shows most recent blood cultures are negative thus far at 5 days. His blood culture from 08/31/2018 did have E. coli in it but again the most recent ones are negative. ASSESSMENT AND PLAN: A 73-year-old with altered mental status, constipation, chronic cholecystitis, positive blood cultures, and acute respiratory failure. 1. Acute respiratory failure, at this time resolved. 2. Constipation. At this time seems to be resolved. 3. Chronic cholecystitis. At this time continue antibiotics. No surgical intervention planned. 4. Positive blood cultures at this time, most recent ones have been negative and defer antibiotic duration to infectious disease. 5. Altered mental status. At this time, this seems to be the most alert that I have seen him in the last several days. We will continue to monitor. cc: Shay Stevenson MD
[2018-09-10 08:23] LABS: BANDS 4 % (0-1); LYMPHS 12 % (21-51); MONO 8 % (1-9); SEGS 76 % (42-75)
[2018-09-10] MEDS: MYCOSTATIN SUSP PO SCH ×4 (08:25→22:02)
[2018-09-10] MEDS: HEPARIN SUBQ SCH ×2 (08:25→22:02)
[2018-09-10] MEDS: MIRALAX PO SCH (08:25)
[2018-09-10] MEDS: PLAVIX PO SCH (08:25)
[2018-09-10] MEDS: PROTONIX IV SCH ×2 (08:25→22:02)
[2018-09-10] MEDS: LOPRESSOR PO SCH ×2 (08:25→22:02)
--- NOTE | 2018-09-10 17:33 | INFECTIOUS DISEASE PROGRESS NO ---
DATE: 09/10/2018 PRESENT ILLNESS: Mr. Daniel is being treated for bibasilar pneumonia with possible empyema which was seen on CT scan. There is also a chronic cholecystitis and an Escherichia coli bacteremia. There is a leukocytosis as well as an oral candidiasis. MEDICATIONS: Today is day 6 of treatment with Zosyn 4.5 g IV every 6 hours. He is also receiving Nystatin swish and swallow. PHYSICAL EXAMINATION: Vital Signs: Temperature is 97.5 degrees, pulse rate 82, respiratory rate 20, blood pressure 121/70, O2 saturation 100% on room air. General: This is a chronically ill- appearing elderly gentleman, lying in the bed, currently in no acute distress. HEENT: Atraumatic, normocephalic. Oral mucous membranes are pink and moist. White patches have disappeared on his tongue. Conjunctivae are pale. Cardiovascular: Heart rate and rhythm are regular. Normal sinus rhythm on the monitor. Respiratory: Lung sounds are diminished bilaterally. Abdomen: Soft, round, and tender on palpation. Bowel sounds are active. Neurologic: He is lethargic and drowsy, but arousable. He is minimally responsive, mostly saying yes or no due to aphasia. He has generalized weakness, but no movement noted to the right upper or right lower extremity. DIAGNOSTIC STUDIES: Today his white count is 12.97, hemoglobin 10.9, platelet count 399,000. Creatinine is 1.5, GFR 46. Catheterized urine culture done yesterday shows a preliminary report of no growth. Earliest blood culture showed an Escherichia coli. The most recent blood cultures have shown no growth after 5 days. Chest x-ray today shows bibasilar opacities suggesting mild edema, plus or minus pneumonia, with no new consolidation. ASSESSMENT AND PLAN: Mr. Daniel is being treated for pneumonia, an Escherichia coli bacteremia, leukocytosis, and oral candidiasis. This weekend, his white count had been down somewhat from previous. He has been afebrile for the last 24 hours. He has had a stroke on this admission with some aphasia and right-sided hemiplegia, with no movement noted to the right side. He is monosyllabic; saying yes or no to each question and not answering questions that require him to expand. For now, we will continue the Zosyn as ordered. He also has Nystatin swish and swallow which seems to have cleared up his oral candidiasis; however, we will continue it as long as he is receiving antibiotics. These plans have been discussed with and recommended by Dr. Rodriguez. COMORBIDITIES: For Mr. Daniel include: 1. He is elderly. 2. Protein-calorie malnutrition. 3. Congestive heart failure. 4. Stroke. 5. Cigarette smoking. 6. Chronic obstructive pulmonary disease (COPD). 7. Alcoholism. Dictated by LISA Warren for Ranjan Rodriguez MD This chart was documented by, LISA Warren and accurately reflects the services performed, treatment plan and medical decisions as attested by the providers signature Ranjan Rodriguez MD. cc: Ranjan Rodriguez MD [facility] CENTERJessica
--- NOTE | 2018-09-10 18:34 | PROGRESS NOTE ---
DATE: 09/10/2018 SUBJECTIVE: The patient is resting comfortably in bed. No acute events noted overnight. OBJECTIVE: Vital Signs: Temperature 97.5 degrees, blood pressure 121/70, heart rate 82, respirations 20, O2 saturations 100% on room air. General: This is a elderly male lying in bed in no acute distress. Heart: S1, S2 normal. Regular rate and rhythm. Lungs: Clear to auscultation bilaterally. No wheezing, no rales, no rhonchi. Abdomen: Positive bowel sounds. Soft, nontender, nondistended. Extremities: No edema, no cyanosis. Neuro: The patient is alert and oriented. LABS: White blood count 12, hemoglobin 10, hematocrit 35, platelets 399,000. Sodium 137, potassium 4.3, chloride 101, CO2 24, BUN 12, creatinine 1.5, glucose 103, ProBNP 10,779. ASSESSMENT AND PLAN: 1. Pneumonia. Continue with Zosyn as per Dr. Rodriguez. 2. Bacteremia secondary to Escherichia coli. Continue with antibiotic therapy. 3. Acute kidney injury. Unchanged. Will continue to monitor for improvement. 4. Mild pulmonary edema. Improved. 5. Chronic cholecystitis. Aware. 6. Acute diastolic congestive heart failure exacerbation. Improved. 7. Colonic mass. Aware. The patient is not interested in surgical intervention. 8. Acute cerebrovascular accident. Continue on Plavix and Lipitor. 9. Chronic obstructive pulmonary disease. Continue on bronchodilator therapy and supplemental oxygen. 10. Gastrointestinal prophylaxis. Continue on Protonix. 11. Deep vein thrombosis prophylaxis. Continue on heparin. cc: Lucy Albarran MD
[2018-09-10] MEDS: DULCOLAX PR SCH (22:02)
[2018-09-10] MEDS: LIPITOR PO SCH (22:02)
[2018-09-10] MEDS: SODIUM CHLORIDE 0.9% INJ SCH (22:02)
[2018-09-11] MEDS: ATROVENT NEB INH SCH ×6 (03:28→22:35)
[2018-09-11] MEDS: XOPENEX NEB INH SCH ×6 (03:28→22:35)
[2018-09-11] MEDS: ZOSYN 4.5 GM in NS 100 ML IV SCH ×4 (05:24→22:27)
[2018-09-11 06:12] LABS: BASO# 0.06 X1000 (0.0-0.2); BASO% 0.5 % (0.0-0.8); EOS# 0.31 X1000 (0.0-0.7); EOS% 2.6 % (0.0-10.0); HEMATOCRIT 32.9 % (42.0-52.0); HEMOGLOBIN 10.5 g/dL (14.0-18.0); IMM GRAN# 0.12 X1000 (0.0-0.04); LYMPH# 2.33 X1000 (1.2-3.4); LYMPH% 19.3 % (20.5-51.1); MCH 28.5 PG (27-31); MCHC 31.9 g/dL (33-37); MCV 89.2 FL (81-99); MONO# 0.83 X1000 (0.11-0.59); MONO% 6.9 % (1.7-9.3); MPV 9.5 FL (7.4-10.4); NEUT% 69.7 % (42.2-75.2); PLT 397 X1000 (130-400); RBC 3.69 XMIL (4.7-6.1); RDW 14.5 % (11.5-14.5); WBC 12.05 X1000 (4.8-10.8)
[2018-09-11 06:40] LABS: CALCIUM 7.8 mg/dL (8.8-10.2); CREATININE 1.3 mg/dL (0.7-1.2); POTASSIUM 3.9 mmol/L (3.5-5.1)
--- NOTE | 2018-09-11 07:48 | GENERAL SURGERY PROGRESS NOTE ---
DATE: 09/11/2018 SUBJECTIVE: The patient says he hurts all over. OBJECTIVE: Vital Signs: The patient is currently afebrile. His vital signs are stable. General Examination: No acute distress. Resting. HEENT: Normocephalic, atraumatic. Pupils equal, round, reactive to light. Mucous membranes moist. Oropharynx benign. Neck: Supple. Trachea midline. Cardiovascular: Regular rate and rhythm. Lungs: Grossly clear. Abdomen: Soft. No real peritoneal signs on examination. Extremities: Moves all extremities. Neurologic: Grossly intact. Skin: No signs of jaundice. Vascular: All extremities perfused. Laboratory: Reviewed from yesterday. White blood cell count is stable, hematocrit is stable. ASSESSMENT/PLAN: A 73-year-old with altered mental status, constipation, chronic cholecystitis, and positive blood cultures. 1. Constipation. At this time, seems to be resolved. 2. Chronic cholecystitis. At this time, continue antibiotics. 3. Positive blood cultures. At this time, most recent ones have been negative. 4. Altered mental status. At this time, seems to be improving but we will monitor. 5. Pneumonia. Infectious disease is following. cc: Shay Stevenson MD
--- NOTE | 2018-09-11 07:57 | Diag Imaging Result Doc PS360 ---
CHEST-1 VIEW - 09/11/2018 INDICATION: SOB COMPARISON: 09/10/2018 FINDINGS: Stable hazy infiltrate in the lung bases bilaterally right greater than left. Heart size and pulmonary vascularity is normal. No pneumothorax or pleural effusion. IMPRESSION: No change in the hazy bibasilar infiltrates, nonspecific. Electronically signed by Andrew Hernandez 09/11/2018 7:55 AM
[2018-09-11] MEDS: LOPRESSOR PO SCH ×2 (10:29→22:27)
[2018-09-11] MEDS: PLAVIX PO SCH (10:29)
[2018-09-11] MEDS: SODIUM CHLORIDE 0.9% INJ SCH ×2 (10:29→22:27)
[2018-09-11] MEDS: PROTONIX IV SCH ×2 (10:29→22:27)
[2018-09-11] MEDS: HEPARIN SUBQ SCH ×2 (10:30→22:27)
[2018-09-11] MEDS: MYCOSTATIN SUSP PO SCH ×4 (10:30→22:27)
[2018-09-11] MEDS: LASIX IV SCH (10:43)
[2018-09-11] MEDS: MIRALAX PO SCH (10:44)
--- NOTE | 2018-09-11 14:16 | PROGRESS NOTE ---
DATE: 09/11/2018 SUBJECTIVE: Mr. Franco Daniel is a [id number]- male. He is in no acute distress. He is sitting in bed. He had just finished with his lunch, only ate a small amount. States he still has generalized abdominal discomfort with continuous nausea despite antiemetics. He is now having daily bowel movements and is able to hold his food down. He does admit to chills. The patient states that he wishes for good health. OBJECTIVE: Vital signs: Temperature 97.3, heart rate 80, respiratory rate 20 and blood pressure 127/64, O2 saturation 100% on room air. General: Mr. Franco Daniel is a 89-[id number][age]- male. He is in no acute distress. He is able to answer questions appropriately. Cardiovascular: S1, S2. Regular rate and rhythm. No murmurs, rubs or gallops. No lower extremity edema. Plus 2 dorsalis and radial pulses. Negative for JVD or carotid bruits. Pulmonary: Clear to auscultate, bilateral breath sounds. No accessory muscle use or work of breathing noted. GI: Soft. Positive bowel sounds x4. Tender in all four quadrants. Skin: Warm, dry, intact. Neuro: Oriented x3. Follows commands. Sensory is intact. LABORATORY DATA: White blood cells 12,000, hemoglobin 10, hematocrit 32 and platelet count 397. Sodium 136, potassium 3.9, BUN 13, creatinine is 1.3, glucose is 102, calcium is 7.8. ASSESSMENT AND PLAN: 1. Admitted with mechanical small bowel obstruction and intractable nausea and vomiting. All of that has subsided, although he does have continuous nausea and abdominal discomfort. He has been improving on oral intake. So far, he has had a daily bowel movement. 2. Metabolic encephalopathy, which has improved. 3. Supraventricular tachycardia on admission, but none since. Cardiology is on board. 4. Constipation, resolved. Continue with Bisacodyl 10 mg per rectum at bedtime. MiraLAX 17 grams orally daily. 5. Aspiration pneumonia, present on admit. Continue with Zosyn 4.5 grams intravenously every six hours. 6. Urinary tract infection with yeast. Will add an antifungal to medication regimen. 7. Acute kidney injury. Creatinine is down from 1.5, down to 1.3 today. He is on full dose Zosyn, will need to monitor that closely. Currently not on any intravenous fluids as he most recently had pulmonary edema. 8. Colon cancer. No surgical intervention. 9. Acute cerebrovascular accident. Extensive bilateral parietal lobe infarcts, left greater than right. No hemorrhage. Continue with Plavix and Lipitor. 10.Chronic obstructive pulmonary disease. No exacerbation. Continue with nebulizers. 11.Escherichia coli bacteremia with chronic cholecystitis and oral candidiasis. Followed by Dr. Rodriguez for this as well. Currently on oral Nystatin and intravenous Zosyn. The oral candidiasis has essentially cleared up. 12.Deep venous thrombosis prophylaxis with heparin subcutaneously twice a day, renally dosed. Dictated by LISA Rowley for Shamir Thomas MD cc: LISA Rowley MD I agree with the assessment and plan of the SECOND [employer] SUPERVISOR. Dr. Thomas MTDD
--- NOTE | 2018-09-11 15:47 | INFECTIOUS DISEASE PROGRESS NO ---
DATE: 09/11/2018 PRESENT ILLNESS: The patient has bibasilar pneumonia with possible empyema as seen on CAT scan. Patient also has chronic cystitis and an E coli bacteremia and finally, an oral candidiasis. MEDICATIONS: This is the 7th day of treatment with Zosyn. The patient also is receiving nystatin swish and swallow. PHYSICAL EXAMINATION: Vital Signs: Temperature is 97.3 degrees, pulse 80, respirations 20, blood pressure 127/64. General: The patient is a chronically ill-appearing and malnourished-appearing elderly male. He is in no acute distress. Head, eyes, ears, nose, and throat: He can hear my spoken words and see near objects. He does not have any white patches on his tongue at this time. Neck: No stiffness. Lungs: Clear to auscultation. Cardiovascular: Heart rate is regular. Abdomen: Soft and not tender to light palpation. Neurologic: The patient can move his extremities and he is able to carry on a conversation. LAB AND X-RAY: Chest x-ray shows bibasilar infiltrates. CBC shows a white count of 12,050, hemoglobin 10.5, and platelet count 397,000. Creatinine is 1.3 and GFR is 54. The patient has been seen by Dr. Stevenson and he does not feel the patient has an empyema and he also does not feel that the patient needs surgery for possible chronic cholecystitis. He recommends continuing antibiotics. ASSESSMENT AND PLAN: The patient has bibasilar pneumonia, possible chronic cholecystitis and definite Escherichia coli bacteremia. My plan is to continue with Zosyn to make a 2-week treatment course with day 1 being the first time that the repeat blood cultures are sterile. As mentioned above, Dr. Stevenson does not think any surgery is needed at this time for the patient's gallbladder. He does not feel that there is an empyema and therefore no surgery will be necessary on the chest at this time. COMORBIDITIES: He is elderly. He has malnutrition, congestive heart failure, stroke, cigarette smoking, COPD, and alcoholism. cc: Ranjan Rodriguez MD
[2018-09-11] MEDS: LIPITOR PO SCH (22:27)
[2018-09-11] MEDS: DULCOLAX PR SCH (22:28)
[2018-09-12] MEDS: ATROVENT NEB INH SCH ×6 (03:41→22:55)
[2018-09-12] MEDS: XOPENEX NEB INH SCH ×6 (03:41→22:55)
[2018-09-12] MEDS: ZOSYN 4.5 GM in NS 100 ML IV SCH ×3 (05:49→18:30)
--- NOTE | 2018-09-12 06:29 | GENERAL SURGERY PROGRESS NOTE ---
DATE: 09/12/2018 SUBJECTIVE: The patient is resting. Reviewed notes from other physicians. Reviewed nurses notes. OBJECTIVE: Vital Signs: The patient is currently afebrile. His vital signs are stable. General: No acute distress. Resting comfortably. Cardiovascular: Regular rate and rhythm. Lungs: Grossly clear. Abdomen: Soft. No peritoneal signs. LABORATORY: Laboratories from this morning, pending. ASSESSMENT AND PLAN: A 33-year-old with positive blood cultures, possible chronic cholecystitis. 1. Positive blood culture. At this time, continue antibiotics per Infectious Disease. Most recent blood cultures have been negative. 2. Chronic cholecystitis. At this time, continue antibiotics. The patient is not a good surgical candidate, could be high risk for anything so I would recommend just antibiotics for right now. cc: Shay Stevenson MD
[2018-09-12 06:36] LABS: ALB/GLOB RATIO 0.5; ALBUMIN 2.5 g/dL (3.5-5.0); CALCIUM 8.4 mg/dL (8.8-10.2); CREATININE 1.5 mg/dL (0.7-1.2); PHOSPHORUS 3.1 mg/dL (2.7-4.5); POTASSIUM 3.9 mmol/L (3.5-5.1); TOTAL BILIRUBIN 0.31 mg/dL (0.20-1.00); TOTAL PROTEIN 7.2 g/dL (6.3-8.3)
[2018-09-12 06:53] LABS: BASO# 0.08 X1000 (0.0-0.2); BASO% 0.7 % (0.0-0.8); EOS# 0.26 X1000 (0.0-0.7); EOS% 2.3 % (0.0-10.0); HEMATOCRIT 31.9 % (42.0-52.0); HEMOGLOBIN 10.1 g/dL (14.0-18.0); IMM GRAN# 0.08 X1000 (0.0-0.04); IMM GRAN% 0.7 % (0.0-0.5); LYMPH# 2.25 X1000 (1.2-3.4); LYMPH% 20.2 % (20.5-51.1); MCH 28.2 PG (27-31); MCHC 31.7 g/dL (33-37); MCV 89.1 FL (81-99); MONO# 0.87 X1000 (0.11-0.59); MONO% 7.8 % (1.7-9.3); MPV 9.8 FL (7.4-10.4); NEUT# 7.58 X1000 (1.4-6.5); NEUT% 68.3 % (42.2-75.2); PLT 452 X1000 (130-400); RBC 3.58 XMIL (4.7-6.1); RDW 14.3 % (11.5-14.5); WBC 11.12 X1000 (4.8-10.8)
[2018-09-12 07:13] LABS: BANDS 1 % (0-1); EOS 2 % (1-10); LYMPHS 15 % (21-51); MONO 3 % (1-9); SEGS 79 % (42-75)
--- NOTE | 2018-09-12 07:37 | Diag Imaging Result Doc PS360 ---
EXAM: CHEST-1 VIEW INDICATION: SOB TECHNIQUE: 2 views COMPARISON: 09/11/2018 FINDINGS: Mild bibasilar infiltrates, more prominent on the right, are essentially stable. No new consolidation is identified. Cardiac silhouette is stable. IMPRESSION: Stable chest. Electronically signed by Rasta Jiang 09/12/2018 7:35 AM
[2018-09-12] MEDS: MYCOSTATIN SUSP PO SCH ×5 (08:43→21:05)
[2018-09-12] MEDS: LOPRESSOR PO SCH ×2 (08:44→21:06)
[2018-09-12] MEDS: PLAVIX PO SCH (08:44)
[2018-09-12] MEDS: LASIX IV SCH (08:44)
[2018-09-12] MEDS: PROTONIX IV SCH ×2 (08:44→21:05)
[2018-09-12] MEDS: HEPARIN SUBQ SCH ×2 (08:44→21:05)
[2018-09-12] MEDS: MIRALAX PO SCH (08:45)
--- NOTE | 2018-09-12 13:14 | PROGRESS NOTE ---
DATE: 09/12/2018 SUBJECTIVE: Mr. Franco Daniel is a 73-year-old male resting comfortably in bed, alert, still complains of feeling bad with continuous nausea and abdominal discomfort, but states there is no change from the way he feels yesterday. He denies any fever or chills. Currently, just finish lunch and has no complaints. OBJECTIVE: VITAL SIGNS: Temperature 98.0, heart rate 79, respiratory rate 20, blood pressure 117/65, O2 saturation 100% on room air. GENERAL: Mr. Franco Daniel is a 73-year-old male. He is in no acute distress. He is able to answer questions appropriately. HEENT: Atraumatic, normocephalic. Pupils equal, round, and reactive to light. Extraocular movements intact. Mucous membranes are moist. CARDIOVASCULAR: S1, S2, regular rate and rhythm. No rubs, gallops, or murmurs. No lower extremity edema, +2 dorsalis and radial pulses. Negative JVD or carotid bruits. PULMONARY: Clear to auscultate, bilateral breath sounds. No accessory muscle use or work of breathing noted. GASTROINTESTINAL: Soft, tender, hypoactive bowel sounds x4. NEUROLOGIC: A and O x3, follows commands. LABORATORY DATA: White blood cells 11,000, hemoglobin 10, hematocrit 31, platelet count 452. Sodium 138, potassium 3.9, BUN 14, creatinine is 1.5, glucose 106, calcium 8.4, albumin 2.5. IMAGING: Chest x-ray stable chest, mild bibasilar infiltrates more prominent on the right but stable, no new consolidation. ASSESSMENT AND PLAN: 1. Originally admitted for mechanical small bowel obstruction and intractable nausea and vomiting that has resolved. He does continue to have nausea. Will continue antiemetics and daily bowel regimen. In reviewing his I's and O's what is recorded is yesterday he had 2 bowel movements. It appears that he has a bowel movement daily but no bowel movement today so far. His bowel regimen consist of 10 mg of Bisacodyl suppository at night, MiraLAX 17 g p.o. daily, and Phenergan for nausea. 2. Metabolic encephalopathy, resolved. 3. Supraventricular tachycardia on admission but none since; this has resolved. 4. Escherichia coli bacteremia. He is currently on Zosyn being followed by Dr. Rodriguez with plans for Zosyn 2 week course treatment with the first date being the first the repeat blood cultures are sterile. Looks he had a sterile blood culture on the 4th so that would possibly make today the 9th day for Zosyn out of 14 days. 5. Chronic cholecystitis just medically treating, Dr. Stevenson following. 6. Bibasilar pneumonia, again is on Zosyn. There is no change in his x-ray. The bibasilar infiltrates are currently stable. White count continues to be elevated but has dropped. 7. Urinary tract with yeast. No antifungal for now. 8. Oral candidiasis. Continue oral nystatin. 9. Acute kidney injury. Creatinine went back up from 1.3 to 1.5. Continue to monitor. Still not on any IV fluids due to the recent pulmonary edema. 10.Colon cancer. No surgical intervention. 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 Continue Plavix and Lipitor. 12.Chronic obstructive pulmonary disease. No exacerbation. Continue with nebulizers. 13.Deep venous thrombosis prophylaxis, heparin subcutaneous twice daily that is renally dosed. Dictated by LISA Rowley for Shamir Thomas MD cc: LISA Rowley MD Admitted for mechanical small bowel obstruction and intractable nausea and vomiting that has resolved. I agree with the assessment and plan the CHIEF WHEELAGE CLERK. Dr. Thomas. [facility]
--- NOTE | 2018-09-12 14:39 | INFECTIOUS DISEASE PROGRESS NO ---
DATE: 09/12/2018 PRESENT ILLNESS: Mr. Daniel has bibasilar pneumonia, chronic cholecystitis, Escherichia coli bacteremia, and an oral candidiasis. MEDICATIONS: Today is day 8 of treatment with Zosyn 4.5 g IV every 6 hours. He is also receiving nystatin swish and swallow. PHYSICAL EXAMINATION: Vital Signs: Temperature is 98 degrees, pulse rate 79, respiratory rate 20, blood pressure 117/65. O2 saturation is 100% on room air. General: This is a chronically ill-appearing, elderly gentleman. He is lying in the bed, currently in no acute distress. HEENT: Atraumatic, normocephalic. Oral mucous membranes are pink and moist. Conjunctivae are pale. He is edentulous. Cardiovascular: Heart rate and rhythm are regular. Normal sinus rhythm on the monitor. Respiratory: Lung sounds are diminished bilaterally. Abdomen: Soft, flat, and mildly tender on palpation. Bowel sounds are active. Neurologic: He is awake, alert, and more talkative today. He has generalized weakness with no movement noted to the right upper extremity. However, he has moved his right lower extremity. LABORATORY AND X-RAY: Today, his white count is 11.12, hemoglobin 10.1, platelet count 452,000. Creatinine is 1.5. GFR 46. Total bilirubin 0.31, AST 15, ALT 12, alkaline phosphatase 87. Chest x-ray today shows mild bibasilar infiltrates, more prominent on the right, but no new consolidation. ASSESSMENT AND PLAN: Mr. Daniel is being treated for pneumonia, chronic cholecystitis, Escherichia coli bacteremia, and an oral candidiasis. The plan is for him to receive 2 weeks of Zosyn to complete his treatment. Today is day 8. We will continue his nystatin swish and swallow, although his oral candidiasis looks much better, until he has completed his antibiotics, and then a few days afterwards. These plans have been discussed with and recommended by Dr. Rodriguez. COMORBIDITIES: For Mr. Daniel include that he is elderly and malnourished, with congestive heart failure, stroke, cigarette smoking, COPD, and alcoholism. Dictated by LISA Warren for Ranjan Rodriguez MD This chart was documented by, LISA Warren and accurately reflects the services performed, treatment plan and medical decisions as attested by the providers signature Ranjan Rodriguez MD. cc: Ranjan Rodriguez MD MTDD
[2018-09-12] MEDS: DULCOLAX PR SCH (21:05)
[2018-09-12] MEDS: LIPITOR PO SCH (21:06)
[2018-09-13] MEDS: ZOSYN 4.5 GM in NS 100 ML IV SCH ×5 (00:39→23:54)
[2018-09-13] MEDS: XOPENEX NEB INH SCH ×6 (03:05→22:50)
[2018-09-13] MEDS: ATROVENT NEB INH SCH ×6 (03:05→22:50)
--- NOTE | 2018-09-13 06:06 | GENERAL SURGERY PROGRESS NOTE ---
DATE: 09/13/2018 The patient seems to be doing about the same. He is alert. He seems to be conversant. He is tolerating his diet. From a surgical point of view, I do not think there is anything more to add, just recommend continued antibiotics. No surgical intervention. cc: Shay Stevenson MD
[2018-09-13 06:52] LABS: BASO# 0.06 X1000 (0.0-0.2); BASO% 0.5 % (0.0-0.8); EOS# 0.12 X1000 (0.0-0.7); EOS% 1.1 % (0.0-10.0); HEMATOCRIT 34.7 % (42.0-52.0); IMM GRAN# 0.13 X1000 (0.0-0.04); IMM GRAN% 1.2 % (0.0-0.5); LYMPH# 2.02 X1000 (1.2-3.4); LYMPH% 17.9 % (20.5-51.1); MCH 28.3 PG (27-31); MCHC 31.7 g/dL (33-37); MCV 89.2 FL (81-99); MONO# 0.76 X1000 (0.11-0.59); MONO% 6.7 % (1.7-9.3); MPV 9.7 FL (7.4-10.4); NEUT# 8.21 X1000 (1.4-6.5); NEUT% 72.6 % (42.2-75.2); PLT 507 X1000 (130-400); RBC 3.89 XMIL (4.7-6.1); RDW 14.3 % (11.5-14.5)
[2018-09-13 07:19] LABS: ALB/GLOB RATIO 0.6; CALCIUM 8.4 mg/dL (8.8-10.2); CREATININE 1.4 mg/dL (0.7-1.2); MAGNESIUM 2.1 mg/dL (1.5-2.7); PHOSPHORUS 3.8 mg/dL (2.7-4.5); POTASSIUM 3.2 mmol/L (3.5-5.1); TOTAL BILIRUBIN 0.32 mg/dL (0.20-1.00); TOTAL PROTEIN 8.2 g/dL (6.3-8.3)
--- NOTE | 2018-09-13 07:24 | Diag Imaging Result Doc PS360 ---
EXAM: CHEST-1 VIEW INDICATION: SOB TECHNIQUE: One view COMPARISON: 09/12/2018 FINDINGS: Mild bibasilar infiltrates, more prominent on the right, are essentially stable. There is slightly more atelectasis at the right lung base as compared to the previous study. No other new consolidation is identified. Cardiac silhouette is stable. IMPRESSION: Slight increase in atelectasis at the right lung base. Stable chest, otherwise. Electronically signed by Rasta Jiang 09/13/2018 7:22 AM
[2018-09-13] MEDS: MYCOSTATIN SUSP PO SCH ×4 (09:55→22:10)
[2018-09-13] MEDS: LOPRESSOR PO SCH ×2 (09:55→22:13)
[2018-09-13] MEDS: PROTONIX IV SCH ×2 (09:55→22:11)
[2018-09-13] MEDS: HEPARIN SUBQ SCH ×2 (09:55→22:10)
[2018-09-13] MEDS: LASIX IV SCH (09:55)
[2018-09-13] MEDS: PLAVIX PO SCH (09:55)
[2018-09-13] MEDS: MIRALAX PO SCH (09:56)
--- NOTE | 2018-09-13 12:00 | PROGRESS NOTE ---
DATE: 09/13/2018 SUBJECTIVE: Mr. Franco Daniel comfortable in bed lying on his left side, smiled during this visit, still has abdominal discomfort and some nausea, but he had several sweets on his bedside table, powdered donuts, Kit Hayde bar, Daren cups, chocolate muffin, and he states that he has been eating these and that he feels a little better. Otherwise, he has no complaints. OBJECTIVE: VITAL SIGNS: Temperature 98.2, heart rate 91, respiratory rate 24, blood pressure 128/69, O2 saturation 100% on room air. GENERAL: Mr. Franco Daniel is a 73-year-old male. He is in no acute distress. He is able to answer questions appropriately. CARDIOVASCULAR: S1, S2, regular rate and rhythm. No rubs, gallops, or murmurs. No lower extremity edema, +2 dorsalis and radial pulses. PULMONARY: Clear to auscultate, bilateral breath sounds. No accessory muscle use or work of breathing noted. Tolerating room air. GASTROINTESTINAL: Soft, tender in all 4 quadrants, positive bowel sounds x4. NEUROLOGIC: A and O x3, follows commands. Sensory is intact. SKIN: Warm, dry, intact. LABORATORY DATA: White blood cells 11,000, hemoglobin 11, hematocrit 34, platelet count 507. Sodium 137, potassium 3.2, BUN 12, creatinine is 1.4, glucose 130, albumin 3.0. IMAGING: Chest x-ray: Slight increase in atelectasis at the right lung base but otherwise is stable. ASSESSMENT AND PLAN: 1. Original admission for mechanical small bowel obstruction, which has resolved. 2. Continues with nausea and abdominal discomfort but stable. 3. Metabolic encephalopathy resolved. 4. Supraventricular tachycardia. No new event since admission. Followed by Cardiology. 5. Escherichia coli bacteremia currently on Zosyn. Today is 03/16. Followed by Dr. Rodriguez. 6. Bibasilar pneumonia currently on Zosyn, may be some right atelectasis on the chest x-ray but stable. 7. Chronic cholecystitis. I believe Dr. Stevenson will be signing off. This is just medically treated with antibiotics. 8. Oral candidiasis. Continue oral nystatin. 9. Acute kidney injury, stable. 10.Colon cancer. No surgical intervention. 11.Acute cerebrovascular accident with extensive bilateral parietal lobe infarcts left greater than right, a little less movement on the right. Continue with Plavix and Lipitor. 12.Chronic obstructive pulmonary disease, no exacerbation. Continue with nebulizers. 13.Deep venous thrombosis prophylaxis, heparin subcutaneous twice daily renally dosed. He has been with [facility] services, who has been notified for referral at this time. Dictated by LISA Rowley for Shamir Thomas MD cc: LISA Rowley MD I agree with the assessment and plan of the ALTERATIONS SUPERVISOR. Dr. Thomas. [facility]
[2018-09-13] MEDS ORDERED: POTASSIUM CHLORIDE 10% LIQUID PO ONE (12:18)
--- NOTE | 2018-09-13 12:40 | INFECTIOUS DISEASE PROGRESS NO ---
DATE: 09/13/2018 PRESENT ILLNESS: The patient has a pneumonia, chronic cholecystitis, Escherichia coli bacteremia which most likely originated from his cholecystitis and oral candidiasis. MEDICATIONS: This is the 9th day of treatment with Zosyn. The patient also is receiving Mycostatin swish and swallow. PHYSICAL EXAMINATION: Vital Signs: Temperature is 97.9 degrees, pulse 93, respirations 24, blood pressure 117/80. General: This is a chronically ill and malnourished-appearing elderly male. He is lying in bed and he is very weak. HEENT: He can hear my spoken words and see near objects. He does not have any white coating on his tongue. Neck: No meningismus. Lungs: Clear to auscultation. Cardiovascular: Heart rate is regular. There was one time when there appeared to be 1 premature beat with a compensatory pause. Abdomen: Soft and nontender. Neurologic: The patient is today awake. He can move his extremities but he is very weak. There is no tremor. Integument: I did not notice any rashes. LAB AND X-RAY: The patient had a chest x-ray today that shows slight increase in the right lower lobe atelectasis. ASSESSMENT AND PLAN: Patient has pneumonia, chronic cholecystitis, Escherichia coli bacteremia, and oral candidiasis. I plan to continue the patient for a total of 2 weeks. This is the 9th day of treatment with Zosyn and the 11th day of treatment with nystatin swish and swallow. Chest x- ray shows an slight increase in the right lower lobe atelectasis. The patient is being treated for pneumonia, cholecystitis, Escherichia coli bacteremia and oral candidiasis. I plan to continue Zosyn for a total of 2 weeks. He will have 5 more days of treatment. COMORBIDITIES: He is elderly and malnourished. He has congestive heart failure. He has had a stroke. He smokes cigarettes. He has COPD and he is an alcoholic. cc: Ranjan Rodriguez MD
[2018-09-13] MEDS: DULCOLAX PR SCH (22:11)
[2018-09-13] MEDS: SODIUM CHLORIDE 0.9% INJ SCH (22:11)
[2018-09-13] MEDS: LIPITOR PO SCH (22:11)
[2018-09-14] MEDS: XOPENEX NEB INH SCH ×5 (03:10→19:07)
[2018-09-14] MEDS: ATROVENT NEB INH SCH ×5 (03:10→19:07)
[2018-09-14 06:14] LABS: BASO# 0.08 X1000 (0.0-0.2); BASO% 0.8 % (0.0-0.8); EOS# 0.22 X1000 (0.0-0.7); EOS% 2.1 % (0.0-10.0); HEMATOCRIT 32.3 % (42.0-52.0); HEMOGLOBIN 10.3 g/dL (14.0-18.0); IMM GRAN# 0.07 X1000 (0.0-0.04); IMM GRAN% 0.7 % (0.0-0.5); LYMPH# 2.54 X1000 (1.2-3.4); LYMPH% 24.2 % (20.5-51.1); MCH 28.3 PG (27-31); MCHC 31.9 g/dL (33-37); MCV 88.7 FL (81-99); MONO# 1.04 X1000 (0.11-0.59); MONO% 9.9 % (1.7-9.3); MPV 9.3 FL (7.4-10.4); NEUT# 6.55 X1000 (1.4-6.5); NEUT% 62.3 % (42.2-75.2); PLT 466 X1000 (130-400); RBC 3.64 XMIL (4.7-6.1); RDW 14.3 % (11.5-14.5)
[2018-09-14] MEDS: ZOSYN 4.5 GM in NS 100 ML IV SCH ×3 (06:28→18:29)
[2018-09-14 06:46] LABS: ALB/GLOB RATIO 0.5; ALBUMIN 2.6 g/dL (3.5-5.0); CREATININE 1.4 mg/dL (0.7-1.2); MAGNESIUM 1.9 mg/dL (1.5-2.7); PHOSPHORUS 3.4 mg/dL (2.7-4.5); POTASSIUM 3.7 mmol/L (3.5-5.1); TOTAL BILIRUBIN 0.5 mg/dL (0.20-1.00); TOTAL PROTEIN 7.5 g/dL (6.3-8.3)
--- NOTE | 2018-09-14 07:28 | Diag Imaging Result Doc PS360 ---
CHEST-1 VIEW - 09/14/2018 INDICATION: SOB COMPARISON: 09/13/2018 FINDINGS: Stable minimal, ill-defined bibasilar infiltrates or atelectasis. No new infiltrates. Heart size and pulmonary vascularity is normal. No pneumothorax or pleural effusion. IMPRESSION: Minimal bibasilar infiltrates or atelectasis stable from prior. Electronically signed by Andrew Hernandez 09/14/2018 7:26 AM
[2018-09-14] MEDS: PROTONIX IV SCH ×2 (09:41→22:59)
[2018-09-14] MEDS: MYCOSTATIN SUSP PO SCH ×4 (09:41→22:59)
[2018-09-14] MEDS: LOPRESSOR PO SCH ×2 (09:41→22:59)
[2018-09-14] MEDS: PLAVIX PO SCH (09:41)
[2018-09-14] MEDS: MIRALAX PO SCH (09:42)
[2018-09-14] MEDS: SODIUM CHLORIDE 0.9% INJ SCH (09:42)
[2018-09-14] MEDS: LASIX IV SCH (09:42)
[2018-09-14] MEDS: HEPARIN SUBQ SCH ×2 (09:42→23:00)
--- NOTE | 2018-09-14 09:42 | INFECTIOUS DISEASE PROGRESS NO ---
DATE: 09/14/2018 PRESENT ILLNESS: Mr. Daniel is being treated for pneumonia, chronic cholecystitis, and an Escherichia coli bacteremia which most likely originated from his cholecystitis. There is also an oral candidiasis. MEDICATIONS: Today is day 10 of a 14 day treatment with high dose of Zosyn at 4.5 gram IV every 6 hours. He is also receiving nystatin swish and swallow. PHYSICAL EXAMINATION: Vital Signs: Temperature is 98.4 degrees, pulse rate 89, respiratory rate 16, blood pressure 121/63, O2 saturation 97% on room air. General: This is a chronically ill- appearing, elderly, malnourished gentleman. He is lying in the bed currently in mild distress due to lower back pain. HEENT: Atraumatic, normocephalic. Oral mucous membranes are pink and moist. Conjunctivae are pale. He is edentulous. Respiratory: Lung sounds are bilaterally diminished. Cardiovascular: Heart rate is regular. Abdomen: Soft, flat, and nontender. Bowel sounds are active. Neurologic: He is awake, alert, and easier to communicate with today. There is generalized weakness. Hemiplegia is noted to the right side. LABORATORY AND X-RAY: Today his white count is 10.5, hemoglobin 10.3, platelet count 466,000. Creatinine is 1.4. GFR 50, total bilirubin is 0.5, AST 15, ALT 9 alkaline phosphatase 85. His original blood culture growing Escherichia coli. Most recently, his blood cultures have been sterile. Chest x-ray today shows minimal bibasilar infiltrates or atelectasis which are stable, with no new infiltrate. ASSESSMENT AND PLAN: Mr. Daniel is being treated for pneumonia, chronic cholecystitis, Escherichia coli bacteremia and oral candidiasis. The plan is for him to have 2 weeks of high- dose Zosyn. Today is day 10, based on his sterile blood cultures. He has also had an oral candidiasis which seems to have improved, so we will continue the nystatin swish and swallow. These plans have been discussed with and recommended by Dr. Rodriguez. COMORBIDITIES: For Mr. Daniel include that he is elderly and malnourished with congestive heart failure, stroke with right hemiplegia, cigarette smoking, COPD and alcoholism. Dictated by LISA Warren for Ranjan Rodriguez MD This chart was documented by, LISA Warren and accurately reflects the services performed, treatment plan and medical decisions as attested by the providers signature Ranjan Rodriguez MD. cc: Ranjan Rodriguez MD MTDD
--- NOTE | 2018-09-14 14:04 | PROGRESS NOTE ---
DATE: 09/14/2018 SUBJECTIVE: The patient resting in bed. Not in any obvious distress. OBJECTIVE: Vital signs: Temperature 98 degrees, pulse 91, respiratory rate 18, blood pressure is 122/67, oxygen is 100%. HEENT: Atraumatic, normocephalic. Cardiovascular: S1, S2. Respiratory: Has evidence of good air entry bilaterally. Abdomen: Soft, nontender. No masses felt. Extremities: No evidence of edema. Central nervous system: No obvious focal deficit noted. ASSESSMENT AND PLAN: 1. Pneumonia/chronic cholecystitis/E. coli bacteremia/oral candidiasis. Management per the Infectious Disease team. 2. Metabolic encephalopathy. This seems to have improved. 3. Acute cerebrovascular accident. Continue patient on antiplatelets as well as statin. Recommend PT. 4. COPD. Nebulized bronchodilators as needed. 5. Deep vein thrombosis prophylaxis. Heparin. 6. History of colon cancer. Aware and seems the patient is not interested in surgical intervention. cc: Shamir Thomas MD
[2018-09-14 19:56] VITALS: BP 115/73
[2018-09-14] MEDS: DULCOLAX PR SCH (22:59)
[2018-09-14] MEDS: LIPITOR PO SCH (23:00)
--- NOTE | 2018-10-15 06:07 | DISCHARGE SUMMARY ---
ADMISSION DATE: 08/31/2018 DISCHARGE DATE: 09/14/2018 PRINCIPAL DIAGNOSES: 1. Probable small bowel obstruction 2. Fecal impaction. 3. Gastrointestinal bleed. 4. History of cecal cancer status post right hemicolectomy. 5. Chronic obstructive pulmonary disease. Hypertension. 6. Pneumonia. 7. Cholecystitis. 8. Right-sided empyema. 9. Escherichia coli bacteremia. 10. Acute cerebrovascular accident. DISCHARGE MEDICATIONS: Lipitor 40 mg p.o. daily, Plavix 75 mg p.o. daily, Atrovent neb every 4 hours, Levsin drops 0.125 mL every 4 hours as needed, lorazepam 1 mg every 4 hours as needed, morphine liquid 20 mg orally as needed, multivitamin 1 daily, [*] 10 mg every 6 hours, cyanocobalamin 1 mL IM as requested. CONSULTATIONS: During this hospital stay include the following: Shay Stevenson MD of General Surgery, Atif Dubose MD of Cardiology, Dr. Ranjan Rodriguez of Infectious Disease, Ever Barrera MD of GI, Osmel Kendall MD of Pulmonology. PROCEDURES: During this hospital stay include the following: Abdominal and pelvic CT on 08/31/2018, a 2D echo on 09/07/2018, head CT on 08/31/2018, chest CT on 09/03/2018, echocardiogram on 09/04/2018, brain MRI on 09/07/2018, extremity venous study on , and Doppler study on 09/07/2018. HOSPITAL COURSE: Mr. Franco Daniel is a 73-year-old male who was admitted to the hospital because of nausea and vomiting as well as coffee-grounds emesis. This was in the setting of a small bowel obstruction as well as severe rectal impaction. 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 The patient was seen by the surgical team early during his hospital stay. He was also seen by the Oncology team with regards to his history of sickle cancer. During the course of his hospitalization the patient was thought to have acute cholecystitis, and management was conservative. The Surgical team felt that the patient was too much of a surgical risk and he was maintained on antibiotics. Antibiotic management was done by Dr. Ranjan Rodriguez. He was also treated for bibasilar pneumonia, right-sided empyema and also E coli bacteremia. The patient was also treated for acute CVA. The patient remained stable and was subsequently discharged home on 09/14/2018. PHYSICAL EXAMINATION: General: During my evaluation on 09/14/2018 he was found to resting in bed and was not in any obvious distress. Vital signs: Temperature 98 degrees, pulse 91, respiratory rate 18, blood pressure 122/67 and oxygenation of 100%. HEENT: Atraumatic, normocephalic. Cardiovascular: S1, S2. Respiratory: Good air entry bilaterally. Abdomen: Soft and nontender. No masses felt. Extremities: [*]focal deficits. DISCHARGE INSTRUCTIONS: The patient was discharge home with home health, which is [facility]. To follow up with Cardiology Dr. Collier, GI Dr. Rdz and Dr. Her, Infectious Disease Dr. Ranjan Rodriguez, Surgery Dr. Shay Stevenson, and Pulmonology Dr. Osmel Kendall. The patient is also to follow up with Dr. Kayode Loera with regards to his history of sickle cancer. cc: Shamir Thomas MD
== END 2018-09-14 23:00 | disposition home health service (06) | DRG 871 ==
LOC: ED 01:58 → SUATTDRO 10:17 → 3S 10:17 → ICU 09-04 10:12 → 4N 09-07 09:31
PROVIDERS: ATTEND Internal Medicine
CPT/HCPCS: 70450; 70551; 71010; 71020; 71045; 71046; 71270; 74019; 74020; 74176; 76705; 80048; 80053; 81001; 82270; 82271; 82550; 82553; 82570; 82607; 82746; 82784; 82805; 83605; 83690; 83735; 83880; 83935; 84100; 84132; 84145; 84156; 84300; 84439; 84443; 84484; 84540; 85014; 85018; 85025; 85027; 85610; 85730; 86850; 86900; 86901; 87040; 87077; 87088; 87186; 87205; 87324; 87449; 92610; 93005; 93010; 93306; 93308; 93880; 93971; 94640; 94761; 94762; 96361; 96365; 96375; 97110; 97161; 97165; 99285; A9270; C8924; C9113; J0692; J1644; J1940; J2020; J2405; J2543; J2550; J3420; J3475; J3480; J7030; J7040; J7050; Q9957; Q9967; S0164